=== PATIENT | male | born 1960 | race Caucasian/White ===

== ENCOUNTER → 2018-09-27 | Outpatient (CLI) | payer MEDICAID ==
--- NOTE | 2018-09-27 15:25 | XR ---
Abdomen HISTORY: Calculus of ureter Frontal view of the abdomen on 2 images No comparisons Lung bases are clear. There is no evident pneumoperitoneum or bowel obstruction. There is an irregular calcification at the level just distal to the left L3 transverse process measur ing approximately 11 mm in greatest dimension. Although calcification in the right hemipelvis may rep resent phleboliths. Additional possible vascular calcifications are present. Degenerative disc change s in the visualized spine. IMPRESSION: Findings as described may represent left ureteral calculus.
== END ==
LOC: RADXRMAIN 12:16
PROVIDERS: ATTEND Urology
DX: N20.1 Calculus of ureter (principal)
CPT/HCPCS: 74018

== ENCOUNTER → 2021-03-03 | Outpatient (CLI) | payer MEDICAID ==
[2021-03-03 10:07] LABS: HCT 48.8 % (39.0-53.0); HGB 16.7 gm/dL (13.0-17.5); MCH 31.2 pg (25.0-35.0); MCHC 34.3 g/dL (31.0-37.0); Mean Platelet Volume 7.2; Platelet Count 140 k/uL (150-450); RBC 5.37 m/uL (4.30-5.90); RDW 13.1 % (11.5-15.5); WBC 6.6 k/uL (3.8-10.6)
[2021-03-03 10:23] LABS: African American GFR (CKD) >90 (>60 ml/min/1.73 sqM); Anion Gap 7 mmol/L; Blood Urea Nitrogen 19 mg/dL (9-20); Carbon Dioxide 31 mmol/L (22-30); Chloride 103 mmol/L (98-107); Non-African American GFR(CKD) >90 (>60 ml/min/1.73 sqM); Potassium 4.8 mmol/L (3.5-5.1); Sodium 141 mmol/L (137-145)
== END | disposition home or self-care (01) ==
LOC: LABPAT 08:04
PROVIDERS: ATTEND Internal Medicine Interventional Cardiology
DX: Z01.812 Encounter for preprocedural laboratory examination (principal); R94.39 Abnormal result of other cardiovascular function study
CPT/HCPCS: 36415; 80051; 82565; 84520; 85027

== ENCOUNTER 2021-03-10 05:47 | Day surgery (SDC) | payer MEDICAID ==
[2021-03-10] MEDS ORDERED: ASPIRIN 325 MG TAB PO STA (05:52)
[2021-03-10] MEDS ORDERED: ALPRAZolam 0.25 MG TAB PO PRN (05:52)
[2021-03-10] MEDS ORDERED: ALPRAZolam 0.5 MG TAB PO PRN (05:52)
[2021-03-10] MEDS ORDERED: SODIUM CHLORIDE 0.9% 1,000 ML in EMPTY BAG 1 BAG IV ONE (05:52)
[2021-03-10] MEDS ORDERED: ATORVASTATIN 80 MG TAB PO STA (05:52)
[2021-03-10] MEDS ORDERED: NITROGLYCERIN SL TABS 0.4 MG TAB SUBLINGUAL PRN ×2 (05:52→08:33)
[2021-03-10 06:36] LABS: Basophils # (A) 0.1 k/uL (0-0.2); Basophils % (A) 1 %; Eosinophils # (A) 0.1 k/uL (0-0.7); Eosinophils % (A) 2 %; HCT 47.3 % (39.0-53.0); Lymphocytes # (A) 1.9 k/uL (1.0-4.8); Lymphocytes % (A) 26 %; MCHC 33.7 g/dL (31.0-37.0); MCV 88.9 fL (80.0-100.0); Mean Platelet Volume 7.4; Monocytes # (A) 0.5 k/uL (0-1.0); Monocytes % (A) 7 %; Neutrophils # (A) 4.5 k/uL (1.3-7.7); Neutrophils % (A) 62 %; Platelet Count 176 k/uL (150-450); RBC 5.32 m/uL (4.30-5.90); RDW 13.2 % (11.5-15.5); WBC 7.3 k/uL (3.8-10.6)
[2021-03-10] MEDS ORDERED: VERAPAMIL 2.5 MG/ML 2 ML AMP ONE (07:28)
[2021-03-10] MEDS ORDERED: LIDOCAINE 1% INJ 10MG/ML (20 ML MDV) ONE (07:28)
[2021-03-10] MEDS ORDERED: fentaNYL (PF) 50 MCG/ML 2 ML AMP ONE (07:29)
[2021-03-10] MEDS ORDERED: fentaNYL (PF) 50 MCG/ML 2 ML AMP IV ONE (07:30)
[2021-03-10] MEDS ORDERED: LIDOCAINE 1% INJ 10MG/ML (20 ML MDV) SQ ONE (07:33)
[2021-03-10] MEDS ORDERED: VERAPAMIL SYRINGE (5 MG/10 ML) INTRAARTER ONE (07:34)
[2021-03-10] MEDS ORDERED: HEPARIN SODIUM 1,000 UN/ML (10ML VL) ONE (07:34)
[2021-03-10] MEDS ORDERED: PRASUGREL 10 MG TAB ONE ×2 (07:45)
[2021-03-10] MEDS ORDERED: PRASUGREL 10 MG TAB PO ONE (07:47)
[2021-03-10] MEDS ORDERED: IOPAMIDOL-370 125ML BTL INJ ONE ×2 (07:55)
[2021-03-10] MEDS ORDERED: IOPAMIDOL-370 100ML BTL INJ ONE ×2 (08:14→08:23)
[2021-03-10] MEDS ORDERED: ATROPINE SULFATE 0.1 MG/ML 10ML SYRINGE IV PRN (08:33)
[2021-03-10] MEDS ORDERED: RX INFO: IV CONTRAST WAS GIVEN 1 EACH MISC MISCELLANE PRN (08:33)
[2021-03-10] MEDS ORDERED: MAG HYDROX/AL HYDROX/SIMETH 30 ML CUP PO PRN (08:33)
[2021-03-10] MEDS ORDERED: ZOLPIDEM 5 MG TAB PO PRN (08:33)
[2021-03-10] MEDS ORDERED: SODIUM CHLORIDE 0.9% 1,000 ML IV SCH (08:45)
--- NOTE | 2021-03-10 08:55 | CC ---
CARDIAC CATHETERIZATION REPORT Mr. Kramer is a 60-year-old male with a family history of premature coronary artery disease who presented with symptoms of exertional chest discomfort and dyspnea and a positive myocardial perfusion imaging. In view of that, recommendation beginning cardiac catheterization. The procedure as well as risks and the complications were discussed with the patient who is in full understanding and agreement. 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 Using Xylocaine anesthesia and Seldinger technique a 6-Stateless sheath was introduced in the right radial artery. Selective right and left coronary angiography performed using 5-Stateless 3.5 bend right and left Tobias catheter. Multiple views of the coronary artery including hemiaxial views obtained. Following that, a 5-Stateless tight pigtail catheter was introduced into the left ventricle and pressures were calculated. Following that, catheters were removed. There was no immediate complication. Note the patient received intra- arterial verapamil. FINDINGS: LEFT MAIN: This is a short size vessel, bifurcating into left circumflex, left anterior descending artery, left main coronary artery has no evidence of high-grade stenosis. LEFT ANTERIOR DESCENDING ARTERY: This vessel gives rise to a large diagonal branch. At the takeoff of the diagonal branch, there is a 90% to 95% eccentric lesion. The vessel beyond that is diffusely disease but has no evidence of high-grade stenosis. It tapers down the distal third. LEFT CIRCUMFLEX: This is a nondominant vessel, large in caliber giving rise to 2 obtuse marginal branches. The left circumflex proximally has a 90% stenosis. There is diffuse intimal disease through the vessel distally. RIGHT CORONARY ARTERY: This is a dominant vessel, large in caliber, bifurcating into the PDA and posterolateral segment and branches. The right coronary artery reaches toward the inferoapical wall, has diffuse intimal disease of 10 to 20% without any evidence of high-grade stenosis. FLUOROSCOPY: There was calcification involving all the coronary arteries and there was calcification involving the pericardium. HEMODYNAMICS: There was no gradient across the aortic valve. The left ventricular end-diastolic pressure was 30-34 mmHg. CONCLUSION: 1. Calcified coronary arteries. 2. Critical stenosis in the proximal LAD. 3. Critical stenosis involving the proximal left circumflex. 4. Mild disease in the right coronary artery and diffuse intimal disease in the LAD and the left circumflex. 5. Elevated left ventricular end-diastolic pressure. RECOMMENDATIONS: In view of findings and anatomy, I recommend proceeding with angioplasty and stenting of the LAD and the left circumflex. The procedure as well as risks and the complications were discussed with the patient who is in full understanding and agreement. JACKLYN / BETTY: [id number] /
--- NOTE | 2021-03-10 09:10 | LTR ---
DATE OF SERVICE: 03/10/[address] Rascon: I had the pleasure of performing cardiac catheterization and angioplasty and stenting on Mr. Kramer at [facility] on March 10 and a full copy of procedure note will be forwarded to you. In brief, he was found to have critical stenosis involving the proximal LAD and the left circumflex and he underwent successful stenting of both vessels. I am hoping that the procedure will stabilize his status. Thank you again for allowing me to participate in his care. Please feel free to call for any questions., Sincerely yours, JACKLYN / BETTY: [id number] / CROW
--- NOTE | 2021-03-10 09:10 | PTCA ---
PERCUTANEOUSTRANS CORORONARY ANGIOGRAPHY Mr. Kramer is a 60-year-old male who presented with symptoms of chest discomfort and abnormal myocardial perfusion imaging, underwent cardiac catheterization, was found to have calcified coronary arteries with significant obstructive disease involving the LAD and the left circumflex. In view of that, recommendation made regarding angioplasty and stenting. The procedure as well as the risks and complications were discussed with the patient who is in full understanding and agreement. PROCEDURE: A 6-Gibraltarian EBU 3.75 guiding catheter was introduced in the system. After cannulating the left main, a 0.014 balanced medium weight J-wire was advanced across the lesion, positioned distally. Then a 2.5 x 12 mm NC Trek balloon was advanced and one inflation at 8 atmospheres was done. Following that, the balloon was removed and a 2.75 x 15 mm Xience Chika stent was advanced, deployed and was dilated at 16 atmospheres. Following that, the balloon was removed and a 3.0 x 12 mm NC Trek balloon was advanced and one inflation at 12 atmospheres was done. Following that, the balloon and the guidewire were withdrawn back in the guiding catheter. Images were obtained and repeated. Those images revealed stable successful stenting. At that point, the wire was reintroduced into the first obtuse marginal branch and a 2.5 x 12 mm NC Trek balloon was advanced and one inflation was done. The proximal left circumflex. Following that, a 2.75 x 18 mm Xience Chika stent was advanced, deployed and was dilated at 16 atmospheres. After the last inflation, after appropriate wait, the balloon and the guidewire were withdrawn back in the guiding catheter. Images were obtained repeated. Those images reveal stable successful stenting. At that point, the guiding catheter, the balloon and the guidewire were removed. The sheath was removed. Hemostasis was obtained with deployment of a TR band. There was no immediate complication. Patient is returned to his room in stable condition. Of note, the patient received a total of 9000 units of intravenous heparin as well as oral loading dose of Effient. He had no chest discomfort but he had EKG changes that resolved at the end of the procedure. RESULTS: 1. Successful stenting of the proximal LAD with reduction of stenosis from 90% to 0%. 2. Successful stenting of the proximal left circumflex with reduction of stenosis from 90% to 0%. RECOMMENDATIONS: Patient will be continued on aspirin, Effient, beta blockers and statin. The importance of dual antiplatelet treatment were discussed with the patient and he is in full understanding and agreement. Duration of sedation is 52 minutes. MMAMENA / IJN: [id number] /
[2021-03-10] MEDS: LOSARTAN 50 MG TAB PO SCH (11:06)
[2021-03-10] MEDS: ASPIRIN 81 MG PO SCH (11:06)
[2021-03-10 12:56] VITALS: BMI 40.8
[2021-03-10] MEDS ORDERED: ATORVASTATIN 80 MG TAB PO SCH (21:00)
[2021-03-11 02:19] VITALS: PULSE 48
[2021-03-11 06:35] LABS: African American GFR (CKD) >90 (>60 ml/min/1.73 sqM); Anion Gap 4 mmol/L; Blood Urea Nitrogen 19 mg/dL (9-20); Calcium 9.1 mg/dL (8.4-10.2); Carbon Dioxide 32 mmol/L (22-30); Chloride 104 mmol/L (98-107); Glucose 114 mg/dL (74-99); Non-African American GFR(CKD) 81 (>60 ml/min/1.73 sqM); Potassium 4.4 mmol/L (3.5-5.1); Sodium 140 mmol/L (137-145)
[2021-03-11 08:33] VITALS: BP 116/64; RESP 18; TEMP 97.3
[2021-03-11] MEDS: LOSARTAN 50 MG TAB PO SCH (08:33)
[2021-03-11] MEDS: ASPIRIN 81 MG PO SCH (08:33)
[2021-03-11] MEDS ORDERED: PRASUGREL 10 MG TAB PO SCH (09:00)
--- NOTE | 2021-03-11 09:04 | PN ---
PROGRESS NOTE Mr. Kramer is a 60-year-old male with history of hypertension and hyperlipidemia who presented with abnormal myocardial perfusion imaging and abnormal EKG. Underwent cardiac catheterization and was found to have calcified coronary arteries with significant disease in the LAD and left circumflex. Underwent stenting of both vessels. He is doing well this morning. He denies any chest pain. No dizziness. No palpitation. He denies any nausea. He continued to be on aspirin once a day, Effient 10 mg daily, Lipitor 80 mg daily, losartan 100 mg daily. PHYSICAL EXAMINATION: VITAL SIGNS: Blood pressure 120/70 with a heart rate in the 50s. LUNGS: Clear. HEART: Regular rate and rhythm S1, S2. No S3. No rub. ABDOMEN: Soft and nontender. EXTREMITIES: No edema. Right radial pulse intact. On the monitor, he had an episode of nonsustained ventricular tachycardia, asymptomatic. His EKG showed T-wave inversion that was noted in the past. His BUN and creatinine are 19 and 1.01, potassium 4.4. IMPRESSION: 1. Coronary disease, status post stenting of the left anterior descending and the left circumflex. 2. Hypertension. 3. Hyperlipidemia. RECOMMENDATION: Patient will be discharged home today and followed in 1 week. The recommendations were discussed with the patient who is in full understanding and agreement. MMODL / IJN: [id number] /
[2021-03-11 10:31] LABS: Chol/HDL Ratio 4.66
== END 2021-03-11 08:48 | disposition home or self-care (01) ==
LOC: CATHCVL 05:47 → 6NMEDSUR 10:13 → CATHCVL 03-11 08:48
PROVIDERS: ATTEND Internal Medicine Interventional Cardiology
DX: I25.10 Atherosclerotic heart disease of native coronary artery without angina pectoris (principal); I25.84 Coronary atherosclerosis due to calcified coronary lesion; I10 Essential (primary) hypertension; E78.5 Hyperlipidemia, unspecified; R94.31 Abnormal electrocardiogram [ECG] [EKG]; R94.39 Abnormal result of other cardiovascular function study; Z82.49 Family history of ischemic heart disease and other diseases of the circulatory system; Z87.891 Personal history of nicotine dependence; G47.33 Obstructive sleep apnea (adult) (pediatric); Z79.82 Long term (current) use of aspirin; Z79.899 Other long term (current) drug therapy
CPT/HCPCS: 93458; 80061; 80048; 85025; 87635; C9600 ×2; C1769 ×2; C1887; C1894; C1725 ×2; C1874; J2001; J3010; J1644; Q9967 ×2

== ENCOUNTER 2021-03-17 08:47 | Day surgery (SDC) | payer MEDICAID ==
[2021-03-16 13:12] VITALS: BMI 41.0
[~2021-03-17 08:47] MED LIST: ALPRAZolam 0.25 MG TAB PO PRN; ALPRAZolam 0.5 MG TAB PO PRN; ASPIRIN 325 MG TAB PO STA; ATORVASTATIN 80 MG TAB PO STA; HEPARIN SODIUM,PORCINE 10,000 UNIT in SODIUM CHLORIDE 0.9% 1,000 ML IRRIGATION PRN; HEPARIN SODIUM,PORCINE 2,500 UNIT in SODIUM CHLORIDE 0.9% 250 ML IRRIGATION PRN; NITROGLYCERIN SL TABS 0.4 MG TAB SUBLINGUAL PRN; SODIUM CHLORIDE 0.9% 1,000 ML in EMPTY BAG 1 BAG IV ONE
[2021-03-17 09:37] VITALS: RESP 16; TEMP 99.1
[2021-03-17] MEDS ORDERED: SODIUM CHLORIDE 0.9% 1,000 ML IV ONE (09:37)
[2021-03-17 09:50] LABS: Basophils # (A) 0.1 k/uL (0-0.2); Basophils % (A) 1 %; Eosinophils # (A) 0.1 k/uL (0-0.7); Eosinophils % (A) 2 %; HCT 49.4 % (39.0-53.0); HGB 17.3 gm/dL (13.0-17.5); Lymphocytes # (A) 1.4 k/uL (1.0-4.8); Lymphocytes % (A) 22 %; MCH 30.6 pg (25.0-35.0); MCV 87.6 fL (80.0-100.0); Monocytes # (A) 0.4 k/uL (0-1.0); Monocytes % (A) 6 %; Neutrophils # (A) 4.4 k/uL (1.3-7.7); Neutrophils % (A) 68 %; Platelet Count 164 k/uL (150-450); RBC 5.64 m/uL (4.30-5.90); RDW 13.1 % (11.5-15.5); WBC 6.5 k/uL (3.8-10.6)
[2021-03-17 10:23] LABS: African American GFR (CKD) >90 (>60 ml/min/1.73 sqM); Anion Gap 11 mmol/L; Blood Urea Nitrogen 25 mg/dL (9-20); Calcium 9.3 mg/dL (8.4-10.2); Carbon Dioxide 26 mmol/L (22-30); Chloride 104 mmol/L (98-107); Glucose 108 mg/dL (74-99); Non-African American GFR(CKD) >90 (>60 ml/min/1.73 sqM); Sodium 141 mmol/L (137-145)
[2021-03-17] MEDS ORDERED: LIDOCAINE 1% INJ 10MG/ML (20 ML MDV) ONE (11:00)
[2021-03-17] MEDS ORDERED: VERAPAMIL 2.5 MG/ML 2 ML AMP ONE (11:00)
[2021-03-17] MEDS ORDERED: fentaNYL (PF) 50 MCG/ML 2 ML AMP ONE (11:09)
[2021-03-17] MEDS ORDERED: fentaNYL (PF) 50 MCG/ML 2 ML AMP IV ONE (11:17)
[2021-03-17] MEDS ORDERED: LIDOCAINE 1% INJ 10MG/ML (20 ML MDV) SQ ONE (11:23)
[2021-03-17] MEDS ORDERED: VERAPAMIL SYRINGE (5 MG/10 ML) INTRAARTER ONE (11:25)
[2021-03-17] MEDS ORDERED: HEPARIN SODIUM 1,000 UN/ML (10ML VL) IV ONE (11:28)
[2021-03-17] MEDS ORDERED: IOPAMIDOL-370 125ML BTL INJ ONE (11:34)
[2021-03-17] MEDS ORDERED: RX INFO: IV CONTRAST WAS GIVEN 1 EACH MISC MISCELLANE PRN (11:49)
[2021-03-17] MEDS ORDERED: SODIUM CHLORIDE 0.9% 1,000 ML IV SCH (12:00)
--- NOTE | 2021-03-17 14:54 | CC ---
CARDIAC CATHETERIZATION REPORT Mr. Kramer is a 60-year-old male with a history of coronary artery disease status post recent stenting of the proximal LAD and left circumflex, who presented to the office yesterday complaining of episode of chest discomfort as well as palpitations. He feels that some of the discomfort reminds him of the way he felt prior to his cardiac catheterization and angioplasty. In view of that, recommendation made regarding cardiac catheterization. The procedure as well as the risks and the complications were discussed with the patient who is in full understanding and agreement. 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 Using Xylocaine anesthesia and Seldinger technique, a 6-Martiniquais sheath was introduced in the right radial artery. Selective right and left coronary angiography performed using 5-Martiniquais 3.5 bend right and left Tobias catheter. Multiple views of the coronary artery including hemiaxial view is obtained. Following that, catheter and sheath were removed. Hemostasis was obtained with deployment of TR band. There was no immediate complication. Patient returned to his room in stable condition. Of note, the patient received 5000 units of intravenous heparin. FINDINGS: LEFT MAIN: This is a short size vessel, bifurcating into left circumflex, left anterior descending artery, left main coronary artery has no evidence of high-grade stenosis. LEFT ANTERIOR DESCENDING ARTERY: This is a large-sized vessel giving rise to a large diagonal branch proximally. The stented segment in the proximal LAD is patent. There is mild intimal disease prior to the stent of 20%. In the mid segment, there is about 20% plaque. The diagonal branch has a tubular lesion of 40% to 50%. The rest of the vessel has no high-grade stenosis. LEFT CIRCUMFLEX: This is a nondominant vessel giving rise to 3 obtuse marginal branch. The second and 3rd one are large in caliber. The stented segment in the left circumflex is patent. Distal to the stented segment, there is a 50% plaque. There is diffuse intimal disease in both obtuse marginal branches. RIGHT CORONARY ARTERY: This is a large dominant vessel bifurcating into PDA and posterolateral segment and branches. The right PDA reaches toward the inferoapical wall. The right coronary artery has intimal disease of 10 to 20% throughout its course and it is calcified. LEFT VENTRICULOGRAM: Left ventriculogram was not performed. CONCLUSION: 1. No evidence of stent thrombosis of the LAD and left circumflex. 2. Mild disease in the left circumflex, LAD and the right coronary artery. RECOMMENDATION: In view of findings and anatomy, I recommend continued medical therapy with aggressive coronary risk modification. I see no evidence of progression of disease. Those findings were discussed with the patient who is in full understanding and agreement. MMODL / IJN: [id number] /
[2021-03-17 16:33] VITALS: BP 114/69; PULSE 56
[2021-03-17] MEDS ORDERED: PANTOPRAZOLE 40 MG TABLET PO SCH (21:00)
[2021-03-17] MEDS ORDERED: ATORVASTATIN 80 MG TAB PO SCH (21:00)
[2021-03-18] MEDS ORDERED: hydroCHLOROthiazide 25 MG TAB PO SCH (09:00)
[2021-03-18] MEDS ORDERED: LOSARTAN 50 MG TAB PO SCH (09:00)
[2021-03-18] MEDS ORDERED: PRASUGREL 10 MG TAB PO SCH (09:00)
[2021-03-18] MEDS ORDERED: ASPIRIN 81 MG PO SCH (09:00)
== END 2021-03-17 16:33 | disposition home or self-care (01) ==
LOC: CATHCVL 08:47
PROVIDERS: ATTEND Internal Medicine Interventional Cardiology
DX: I25.110 Atherosclerotic heart disease of native coronary artery with unstable angina pectoris (principal); I25.84 Coronary atherosclerosis due to calcified coronary lesion; I10 Essential (primary) hypertension; E78.2 Mixed hyperlipidemia; Z87.891 Personal history of nicotine dependence; Z20.822 Contact with and (suspected) exposure to COVID-19; Z82.49 Family history of ischemic heart disease and other diseases of the circulatory system; Z95.5 Presence of coronary angioplasty implant and graft; Z79.82 Long term (current) use of aspirin; Z79.899 Other long term (current) drug therapy; G47.33 Obstructive sleep apnea (adult) (pediatric); Z98.890 Other specified postprocedural states
CPT/HCPCS: 93458; 80048; 85025; 87635; C1894; C1769; J2001; J3010; J1644; Q9967

== ENCOUNTER → 2021-03-30 | Outpatient (CLI) | payer MEDICAID ==
[2021-03-31 02:33] LABS: African American GFR (CKD) 94.4 (60.0-200.0); Albumin 4.3 g/dL (3.80-4.90); Albumin/Globulin Ratio 1.72 (1.60-3.17); Anion Gap 7.3 mmol/L (4.00-12.00); Calcium 9.3 mg/dL (8.7-10.3); Carbon Dioxide 30.7 mmol/L (21.6-31.8); Chol/HDL Ratio 3.4; Globulin 2.5 g/dL (1.6-3.3); LDL Cholesterol,Calculated 60.8 mg/dL (0.0-131.0); Non-African American GFR(CKD) 81.4 (60.0-200.0); Total Bilirubin 0.8 mg/dL (0.3-1.2); Total Protein 6.8 g/dL (6.2-8.2); VLDL Calculation 23.2 mg/dL (5.00-40.00)
== END | disposition home or self-care (01) ==
LOC: LABWHC1 15:33
PROVIDERS: ATTEND Nurse Practitioner Adult Health
DX: I10 Essential (primary) hypertension (principal); E78.2 Mixed hyperlipidemia
CPT/HCPCS: 36415; 80053; 80061

== ENCOUNTER 2021-05-13 09:12 | Inpatient (IN) | payer MEDICAID ==
[2021-05-13] MEDS ORDERED: SODIUM CHLORIDE 0.9% 500 ML 500 ML IV STA (09:23)
[2021-05-13] MEDS ORDERED: SODIUM CHLORIDE 0.9% 1,000 ML IV STA (09:23)
[2021-05-13] MEDS ORDERED: NITROGLYCERIN OINT 1 INCH/GM PACKET TOPICAL STA (09:23)
--- NOTE | 2021-05-13 09:30 | ED ---
Chest Pain HPI - General Chief Complaint: Chest Pain Stated Complaint: chest pain Time Seen by Provider: 05/13/21 09:15 Source: patient, RN notes reviewed Mode of arrival: ambulatory Limitations: no limitations - History of Present Illness Initial Comments: This is a 61-year-old male with a history of diagnosed V. tach who is scheduled to have a cardiac catheterization at 11 AM this morning who states he woke up at 8:30 AM with 8/10 retrosternal chest pain and shortness of breath. He did come the emergency department at time of my initial exam he states he was feeling somewhat better and currently is pain-free as of this dictation. He did take 4 baby aspirins this morning. He no other symptoms such as nausea vomiting states the pain was not radiating. MD Complaint: chest pain - Related Data Home Medications Medication Instructions Recorded Confirmed Aspirin [Adult Low Dose Aspirin EC] 81 mg PO DAILY 03/06/21 05/13/21 Garlic 1 tab PO DAILY 03/06/21 05/13/21 Losartan [Cozaar] 100 mg PO QAM 03/06/21 05/13/21 Multivitamins, Thera [Multivitamin 1 tab PO DAILY 03/06/21 05/13/21 (formulary)] Omeprazole [PriLOSEC] 40 mg PO HS 03/06/21 05/13/21 hydroCHLOROthiazide 25 mg PO QAM 03/06/21 05/13/21 Metoprolol Tartrate 25 mg PO BID 05/12/21 05/13/21 Aspirin 324 mg PO ONCE 05/13/21 05/13/21 Previous Rx's Medication Instructions Recorded Atorvastatin [Lipitor] 80 mg PO HS #90 tab 03/11/21 Nitroglycerin Sl Tabs [Nitrostat] 0.4 mg SUBLINGUAL Q5M PRN #25 tab 03/11/21 Prasugrel [Effient] 10 mg PO DAILY #90 tab 03/11/21 Allergies Allergy/AdvReac Type Severity Reaction Status Date / Time No Known Allergies Allergy Verified 05/13/21 09:36 Review of Systems ROS Statement: Those systems with pertinent positive or pertinent negative responses have been documented in the HPI. ROS Other: All systems not noted in ROS Statement are negative. EKG Findings - EKG Results: EKG: interpreted by [facility], sinus rhythm (Sinus rhythm rate of 61 appear interval 160 QRS 98 QT since QTC 438/[address]-T wave configuration this was compared with an EKG dated 01/20/2123 similar configuration.) Past Medical History Past Medical History: Hypertension Additional Past Medical History / Comment(s): HX OF RECTAL POLYP History of Any Multi-Drug Resistant Organisms: None Reported Past Surgical History: Heart Catheterization With Stent, Orthopedic Surgery Additional Past Surgical History / Comment(s): LT KNEE SCOPE, COLONOSCOPY, heart cath 03/10/21-2 stents Past Anesthesia/Blood Transfusion Reactions: No Reported Reaction Date of Last Stent Placement:: 03/10/21 Past Psychological History: No Psychological Hx Reported Smoking Status: Former smoker - Past Family History Mother Family Medical History: No Reported History General Exam - General Exam Comments Initial Comments: This is a well-developed well-nourished awake alert oriented times 3 male Limitations: no limitations General appearance: alert, anxious Head exam: Present: atraumatic, normocephalic, normal inspection Eye exam: Present: normal appearance, PERRL, EOMI. Absent: scleral icterus, conjunctival injection, periorbital swelling ENT exam: Present: normal exam, mucous membranes moist Neck exam: Present: normal inspection. Absent: tenderness, meningismus, lymphadenopathy Respiratory exam: Present: normal lung sounds bilaterally. Absent: respiratory distress, wheezes, rales, rhonchi, stridor Cardiovascular Exam: Present: regular rate, normal rhythm, normal heart sounds. Absent: systolic murmur, diastolic murmur, rubs, gallop, clicks GI/Abdominal exam: Present: soft, normal bowel sounds. Absent: distended, tenderness, guarding, rebound, rigid Extremities exam: Present: normal inspection, full ROM, normal capillary refill. Absent: tenderness, pedal edema, joint swelling, calf tenderness Back exam: Present: normal inspection Neurological exam: Present: alert, oriented X3, CN II-XII intact Psychiatric exam: Present: normal affect, normal mood Skin exam: Present: warm, dry, intact, normal color. Absent: rash Course Vital Signs 05/13/21 09:18 Temperature 97.2 F L Pulse Rate 63 Respiratory 18 Rate Blood Pressure 135/78 O2 Sat by Pulse 99 Oximetry - Reevaluation(s) Reevaluation #1: 05/13/21 09:[address] Nguyen. Patient will be admitted to the [facility]. Chest Pain MDM - MDM Imaging reviewed no acute findings seen at this time. Labs are pending patient will go to the [facility] U Bed 5 Disposition Clinical Impression: Chest pain, Unstable angina pectoris, History of ventricular tachycardia Disposition: ADMITTED IP TO THIS HOSP Condition: Fair Referrals: Philip Rascon DO [Primary Care Provider] - 1-2 days
--- NOTE | 2021-05-13 09:46 | XR ---
EXAMINATION TYPE: XR chest 1V portable DATE OF EXAM: 05/13/2021 COMPARISON: NONE HISTORY: Chest pain TECHNIQUE: Single frontal view of the chest is obtained. FINDINGS: Heart is enlarged and there is coarsened interstitium. No pleural effusion or pneumothorax . Hypertrophic change of the spine. IMPRESSION: Cardiomegaly correlate for chronic interstitial lung disease or venous congestion. Inter stitial pneumonitis in the differential diagnosis
[2021-05-13 09:52] LABS: Basophils % (A) 1 %; Eosinophils # (A) 0.1 k/uL (0-0.7); Eosinophils % (A) 1 %; HCT 48.1 % (39.0-53.0); HGB 16.8 gm/dL (13.0-17.5); Lymphocytes # (A) 2.4 k/uL (1.0-4.8); Lymphocytes % (A) 32 %; MCH 32.1 pg (25.0-35.0); MCV 91.9 fL (80.0-100.0); Mean Platelet Volume 7.5; Monocytes # (A) 0.4 k/uL (0-1.0); Monocytes % (A) 6 %; Neutrophils # (A) 4.2 k/uL (1.3-7.7); Neutrophils % (A) 56 %; Platelet Count 166 k/uL (150-450); RBC 5.24 m/uL (4.30-5.90); RDW 14.3 % (11.5-15.5); WBC 7.5 k/uL (3.8-10.6)
[2021-05-13 09:54] LABS: ALT 88 U/L (4-49); AST 64 U/L (17-59); African American GFR (CKD) >90 (>60 ml/min/1.73 sqM); Alkaline Phosphatase 79 U/L (38-126); Anion Gap 10 mmol/L; Blood Urea Nitrogen 20 mg/dL (9-20); Calcium 9.3 mg/dL (8.4-10.2); Carbon Dioxide 23 mmol/L (22-30); Chloride 107 mmol/L (98-107); Glucose 122 mg/dL (74-99); Lipase 140 U/L (23-300); Non-African American GFR(CKD) >90 (>60 ml/min/1.73 sqM); Potassium 4.6 mmol/L (3.5-5.1); Sodium 140 mmol/L (137-145); Total Bilirubin 0.6 mg/dL (0.2-1.3); Total Protein 6.9 g/dL (6.3-8.2)
[2021-05-13 09:58] LABS: INR 0.9 (<1.2); Prothrombin Time 10.1 sec (9.0-12.0)
[2021-05-13] MEDS ORDERED: SODIUM CHLORIDE 0.9% 1,000 ML IV ONE (10:00)
[2021-05-13] MEDS ORDERED: VERAPAMIL 2.5 MG/ML 2 ML AMP ONE (11:27)
[2021-05-13] MEDS ORDERED: fentaNYL (PF) 50 MCG/ML 2 ML AMP ONE (11:27)
[2021-05-13] MEDS ORDERED: HEPARIN SODIUM 1,000 UN/ML (10ML VL) ONE (11:27)
[2021-05-13] MEDS ORDERED: LIDOCAINE 1% INJ 10MG/ML (20 ML MDV) ONE (11:27)
[2021-05-13] MEDS ORDERED: fentaNYL (PF) 50 MCG/ML 2 ML AMP IVP ONE (11:57)
[2021-05-13] MEDS ORDERED: LIDOCAINE 1% INJ 10MG/ML (20 ML MDV) SQ ONE (12:01)
[2021-05-13] MEDS ORDERED: VERAPAMIL SYRINGE (5 MG/10 ML) INTRAARTER ONE (12:03)
[2021-05-13] MEDS ORDERED: HEPARIN SODIUM 1,000 UN/ML (10ML VL) IV ONE (12:06)
[2021-05-13] MEDS ORDERED: IOPAMIDOL-370 125ML BTL INJ ONE (12:21)
[2021-05-13] MEDS ORDERED: RX INFO: IV CONTRAST WAS GIVEN 1 EACH MISC MISCELLANE PRN (12:29)
[2021-05-13] MEDS ORDERED: SODIUM CHLORIDE 0.9% 1,000 ML IV SCH (12:30)
--- NOTE | 2021-05-13 14:18 | CC ---
CARDIAC CATHETERIZATION REPORT Mr. young 61-year-old male with known history of CAD, status post percutaneous revascularization of his LAD and left circumflex in March of this year, who was in cardiac rehab and had episode of nonsustained ventricular tachycardia. He was evaluated and scheduled to undergo cardiac catheterization but presented to the emergency room with symptoms of chest discomfort without acute ST-segment changes or enzymatic changes but because of his presentation, recommendation made regarding cardiac catheterization. The procedure as well as the risks and the complications were discussed with the patient who is in full understanding and agreement. 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 Using Xylocaine anesthesia Seldinger technique a 6-St Helenian sheath was introduced in the right radial artery. Selective right and left coronary angiography performed using 5-St Helenian 3-1/2 Bend right the left Tobias catheter. Multiple views of the coronary artery including hemiaxial views obtained. Following that 5-St Helenian tight pigtail catheter was introduced into the left ventricle and a 30-degree SCHAFER view of the left ventricle was obtained. Following that, catheter and sheath were removed, hemostasis was obtained with deployment of TR band. There was no immediate complication. Patient is returned to his room in stable condition. Of note, the patient received 5000 units of intravenous heparin as well as intra- arterial verapamil. FINDINGS: LEFT MAIN: Left main is a short size vessel, bifurcating into left circumflex, left anterior descending artery, left main artery has no evidence of high-grade stenosis. LEFT ANTERIOR DESCENDING ARTERY: This is a large-sized vessel reaching toward the apex with a wraparound apex segment giving rise to a diagonal branch of moderate caliber in the mid segment. The stented segment in the LAD is patent. There is mild intimal disease prior to it about 10-20 percent. There is diffuse mild intimal disease in the diagonal branch in the LAD without any evidence of high-grade stenosis. LEFT CIRCUMFLEX: This is a large nondominant vessel giving rise to 2 obtuse marginal branch. The stented segment in the proximal left circumflex is patent. There is a 20% plaque distal to it. The second obtuse marginal branch has a 30 to 40% plaque. The rest of the vessel has no high-grade stenosis. RIGHT CORONARY ARTERY: This is a large dominant vessel bifurcating distally PDA and posterolateral segment and branches. The right coronary artery has diffuse mild intimal disease of 10 to 20% without any evidence of high-grade stenosis. LEFT VENTRICULOGRAM: Left ventriculogram is performed in 30-degree SCHAFER view and revealed normal size systolic function. Ejection fraction is 55-60 percent. There was no significant mitral regurgitation. HEMODYNAMICS: There was no gradient across the aortic valve. The ventriclar end-diastolic pressure was 26-30 mmHg. CONCLUSION: 1. Patent stent to the LAD, left circumflex. 2. Mild triple-vessel disease. 3. Normal size and systolic function. 4. Elevated left ventricular end-diastolic pressure. RECOMMENDATION: In view of finding anatomy, I have recommend continue medical therapy. We will obtain the opinion of Dr. Gilmore regarding his nonsustained ventricular tachycardia. In the meantime, will continue on the beta ruby and depending on his progress further recommendations will be made. Those findings and recommendations were discussed with the patient and his son over the phone, and they are full understanding and agreement. MMREBECCAL / ALCONN: [id number] /
--- NOTE | 2021-05-13 14:21 | CC ---
CARDIAC CATHETERIZATION REPORT May 13, [address] Rascon, I had the opportunity to perform cardiac catheterization on Mr. Kramer at [facility] on May 13 and a full copy of the procedure note will be forwarded to you. In brief, he was found to have evidence of mild coronary artery disease with no significant restenosis in the prior stented segment of the LAD and left circumflex and a preserved ventricular systolic function. At the same time, he had an episode of nonsustained ventricular tachycardia while in cardiac rehab and I will obtain the opinion of Dr. Gilmore regarding his ventricular tachycardia. I will keep you updated on his progress and thank you again for allowing me the opportunity to participate in his care. Please don't hesitate to call for any questions. Sincerely, JACKLYN / ALCONN: [id number] /
[2021-05-13] MEDS: ATORVASTATIN 80 MG TAB PO SCH (21:22)
[2021-05-13] MEDS: PANTOPRAZOLE 40 MG TABLET PO SCH (21:22)
[2021-05-14] MEDS: METOPROLOL TARTRATE 25 MG TAB PO SCH ×2 (01:29→07:22)
[2021-05-14] MEDS: ASPIRIN 81 MG PO SCH (07:22)
[2021-05-14] MEDS: PRASUGREL 10 MG TAB PO SCH (07:22)
[2021-05-14 08:01] LABS: African American GFR (CKD) >90 (>60 ml/min/1.73 sqM); Anion Gap 7 mmol/L; Blood Urea Nitrogen 16 mg/dL (9-20); Calcium 8.9 mg/dL (8.4-10.2); Carbon Dioxide 29 mmol/L (22-30); Chloride 104 mmol/L (98-107); Glucose 113 mg/dL (74-99); Non-African American GFR(CKD) >90 (>60 ml/min/1.73 sqM); Potassium 4.6 mmol/L (3.5-5.1); Sodium 140 mmol/L (137-145)
[2021-05-14] MEDS ORDERED: ISOSORBIDE MONONITRATE ER 30 MG TAB.ER.24H PO SCH (09:00)
[2021-05-14] MEDS ORDERED: hydroCHLOROthiazide 25 MG TAB PO SCH (09:00)
--- NOTE | 2021-05-14 13:57 | P.CRDCN ---
History of Present Illness History of present illness: This is a pleasant 61-year-old with past medical history significant for coronary artery disease status post PCI of LAD and circumflex in March 2021, nonsustained ventricular tachycardia, hypertension, hyperlipidemia. Patient had been experiencing chest discomfort and therefore was evaluated in March and had stenting of his LAD and circumflex. Unfortunately since that time patient has been having occasional episodes where he will get chest discomfort sometimes with exertion and this has been occurring often at cardiac rehab. He therefore had repeat heart catheterization 03/17/2021 which showed no change, patent stents. Patient has however been undergoing cardiac rehab and still having similar issues. Additionally he has been having frequent runs of nonsustained ventricular tachycardia. He underwent left heart catheterization yesterday which showed patent stent to the LAD and left circumflex with otherwise mild triple-vessel disease, elevated LVEDP at 26-30. He also underwent left ventriculogram which showed ejection fraction 55-60%. He did have a recurrent episode of chest discomfort with merely walking to the bathroom this morning. He states he started walking and then had discomfort and during this time nursing was notified of intermittent monomorphic ventricular tachycardia lasting for approximately a minute. Patient did have some residual chest pain for the next 30-40 minutes. EKG was performed which did show diffuse biphasic T waves V2 through V5 concerning for Wellens sign however this has been somewhat similar to past EKGs. His chest pain slowly resolved and repeat EKG showed relatively similar biphasic T waves. Currently is chest pain-free and denies any chest pain or shortness breath. Blood work was repeated with troponin 0.018, 0.074, 0.056. Concern of elevated troponins possibly related to VT. REVIEW OF SYSTEMS At the time of my exam: CONSTITUTIONAL: Denies fever or chills. CARDIOVASCULAR: +chest pain, no shortness of breath, orthopnea, PND or palpitations. RESPIRATORY: Denies cough. GASTROINTESTINAL: Denies abdominal pain, diarrhea, constipation, nausea or vomiting. PHYSICAL EXAMINATION Vital signs reviewed. CONSTITUTIONAL: No apparent distress. HEENT: Head is normocephalic. Pupils are equal, round. Sclerae anicteric. Mucous membranes of the mouth are moist. No JVD. No carotid bruit. CHEST EXAMINATION: Lungs are clear to auscultation. No chest wall tenderness is noted on palpation or with deep breathing. HEART EXAMINATION: Regular rate and rhythm. S1, S2 heard. No murmurs, gallops or rub. ABDOMEN: Soft, nontender. Positive bowel sounds. EXTREMITIES: 2+ peripheral pulses, no lower extremity edema and no calf tend erness. NEUROLOGIC EXAMINATION: Patient is awake, alert and oriented x3. ASSESSMENT 1. Coronary artery disease status post PCI LAD and circumflex March 2021. Repeat heart catheterization patent stents 2. Chest pain, occurring mainly with exertion. Unclear if this is related to ventricular tachycardia or angina 3. Non-STEMI, questionably related to ventricular tachycardia 4. Nonsustained ventricular tachycardia 5. Hypertension 6. Elevated left-sided filling pressures, no overt signs of heart failure, normal left ventricular ejection fraction 7. Abnormal EKG, biphasic T waves V2 through V5. Most concerning with for Wellen's sign however has been relatively similar in the past. Not typical of Brugada syndrome. PLAN Patient with complex presentation which has been going on for approximately 2 months. He did initially undergo stenting however has still had intermittent episodes of chest pain, mainly occurring with cardiac rehab. He also has been having episodes of nonsustained ventricular tachycardia. He underwent heart catheterization yesterday which showed no change and no obstructive disease noted. Discussed with primary cinder man, Dr. Nguyen. We will attempt to up titrate antianginal medications as able. Elevated troponins may be related to ventricular tachycardia. EKG concerning for Wellen's sign however has been similar in the past. Not typical of Brugada syndrome. We will consult electrophysiology and further recommendations to follow. Past Medical History Past Medical History: Hypertension Additional Past Medical History / Comment(s): HX OF RECTAL POLYP History of Any Multi-Drug Resistant Organisms: None Reported Past Surgical History: Heart Catheterization With Stent, Orthopedic Surgery Additional Past Surgical History / Comment(s): LT KNEE SCOPE, COLONOSCOPY, heart cath 03/10/21-2 stents Past Anesthesia/Blood Transfusion Reactions: No Reported Reaction Date of Last Stent Placement:: 03/10/21 Smoking Status: Never smoker - Past Family History Mother Family Medical History: No Reported History Medications and Allergies Home Medications Medication Instructions Recorded Confirmed Type Aspirin [Adult Low Dose Aspirin EC] 81 mg PO DAILY 03/06/21 05/13/21 History Garlic 1 tab PO DAILY 03/06/21 05/13/21 History Losartan [Cozaar] 100 mg PO QAM 03/06/21 05/13/21 History Multivitamins, Thera [Multivitamin 1 tab PO DAILY 03/06/21 05/13/21 History (formulary)] Omeprazole [PriLOSEC] 40 mg PO HS 03/06/21 05/13/21 History hydroCHLOROthiazide 25 mg PO QAM 03/06/21 05/13/21 History Atorvastatin [Lipitor] 80 mg PO HS #90 tab 03/11/21 05/13/21 Rx Nitroglycerin Sl Tabs [Nitrostat] 0.4 mg SUBLINGUAL Q5M PRN #25 tab 03/11/21 05/13/21 Rx Prasugrel [Effient] 10 mg PO DAILY #90 tab 03/11/21 05/13/21 Rx Metoprolol Tartrate 25 mg PO BID 05/12/21 05/13/21 History Aspirin 324 mg PO ONCE 05/13/21 05/13/21 History Allergies Allergy/AdvReac Type Severity Reaction Status Date / Time No Known Allergies Allergy Verified 05/13/21 09:36 Physical Exam Vitals: Vital Signs Temp Pulse Pulse Pulse Resp BP Pulse Ox 05/14/21 11:26 74 16 111/55 97 05/14/21 08:00 16 05/14/21 07:24 97.7 F 45 L 16 144/81 100 05/14/21 06:47 54 L 20 148/98 100 05/14/21 02:00 98 F 50 L 48 L 16 119/66 100 05/13/21 21:20 85 104/59 05/13/21 20:00 50 L 16 05/13/21 19:04 98.4 F 52 L 20 105/65 95 05/13/21 15:00 98.2 F 54 L 16 145/83 98 05/13/21 14:45 45 L 112/67 99 Intake and Output 05/13/21 05/14/21 05/14/21 22:59 06:59 14:59 Intake Total 500 300 436 Balance 500 300 436 Intake: Oral 500 300 436 Other: Voiding Method Toilet Toilet # Voids 2 2 Weight 122.47 kg Results 05/13/21 09:26 05/14/21 07:28 Cardiac Enzymes 05/14/21 05/14/21 Range/Units 07:28 09:29 Troponin I 0.074 H* 0.056 H* (0.000-0.034) ng/mL Comprehensive Metabolic Panel 05/14/21 Range/Units 07:28 Sodium 140 (137-145) mmol/L Potassium 4.6 (3.5-5.1) mmol/L Chloride 104 (98-107) mmol/L Carbon Dioxide 29 (22-30) mmol/L BUN 16 (9-20) mg/dL Creatinine 0.84 (0.66-1.25) mg/dL Glucose 113 H (74-99) mg/dL Calcium 8.9 (8.4-10.2) mg/dL Current Medications Generic Name Dose Route Start Last Admin Trade Name Freq PRN Reason Stop Dose Admin Aspirin 81 mg 05/14/21 09:00 05/14/21 07:22 Aspirin 81 Mg PO 81 mg DAILY SHARAN Administration Atorvastatin Calcium 80 mg 05/13/21 21:00 05/13/21 21:22 Atorvastatin 80 Mg Tab PO 80 mg HS SHARAN Administration Hydrochlorothiazide 25 mg 05/14/21 09:00 Hydrochlorothiazide 25 Mg Tab PO QAM SHARAN Isosorbide Mononitrate 30 mg 05/14/21 09:00 05/14/21 08:48 Isosorbide Mononitrate Er 30 Mg Tab.Er.24h PO 30 mg DAILY SHARAN Administration Losartan Potassium 100 mg 05/14/21 09:00 Losartan 50 Mg Tab PO QAM SHARAN Metoprolol Tartrate 25 mg 05/13/21 21:00 05/14/21 07:22 Metoprolol Tartrate 25 Mg Tab PO 25 mg BID SHARAN Administration Miscellaneous Information 1 each 05/13/21 12:29 Rx Info: Iv Contrast Was Given 1 Each Misc MISCELLANE 05/15/21 12:29 DAILY PRN Per Protocol Multivitamins 1 each 05/14/21 09:00 Multivitamins, Thera 1 Each Tab PO DAILY SHARAN Pantoprazole Sodium 40 mg 05/13/21 21:00 05/13/21 21:22 Pantoprazole 40 Mg Tablet PO 40 mg HS SHARAN Administration Prasugrel 10 mg 05/14/21 09:00 05/14/21 07:22 Prasugrel 10 Mg Tab PO 10 mg DAILY SHARAN Administration Intake and Output 05/13/21 05/14/21 05/14/21 22:59 06:59 14:59 Intake Total 500 300 436 Balance 500 300 436 Intake: Oral 500 300 436 Other: Voiding Method Toilet Toilet # Voids 2 2 Weight 122.47 kg 05/13/21 09:26 05/14/21 07:28
[2021-05-14] MEDS: MULTIVITAMINS, THERA 1 EACH TAB PO SCH (15:05)
[2021-05-14] MEDS: LOSARTAN 50 MG TAB PO SCH (15:33)
--- NOTE | 2021-05-14 17:20 | P.HPIM ---
History of Present Illness H&P Date: 05/14/21 Chief Complaint: Chest pain This is 61-year-old gentleman with history of NSVT, CAD status post PCI of LAD and circumflex in March 2021, repeat cardiac cath 03/17/2021 reporting patent stents, presented to the ER with left-sided chest pain. Patient reports during cardiac rehab while on the warmup cycle, he began to have runs of nonsustained V. tach. accompanied by exertional chest pressure.cardiology notified and he he was scheduled for a repeat cardiac catheterization to be completed yesterday morning. Patient stated left-sided chest pressure worsened yesterday morning described as persistent gastroesophageal reflux like symptoms with a little left-sided chest tightness that radiated down his left arm and proceeded to the ER. Denies syncope, denies palpitations or lightheadedness. Consumed 4 baby aspirins with relief. EKGs abnormal, Cardiology notified and took him for cardiac cath. Cardiac catheterization reported patent stents of the LAD and the left circumflex, mild triple vessel disease, elevated LVEDP 26- 30, EF 55-60%. Bradycardic, maintained on nitrates, ARB, beta ruby, Effient, stent, aspirin with consult placed to Dr. Gilmore. Continues to have runs of nonsustained V. tach this morning accompanied by chest pain. Review of Systems ROS Statement: Those systems with pertinent positive or pertinent negative responses have been documented in the HPI. ROS Other: All systems not noted in ROS Statement are negative. Past Medical History Past Medical History: Hypertension Additional Past Medical History / Comment(s): HX OF RECTAL POLYP History of Any Multi-Drug Resistant Organisms: None Reported Past Surgical History: Heart Catheterization With Stent, Orthopedic Surgery Additional Past Surgical History / Comment(s): LT KNEE SCOPE, COLONOSCOPY, heart cath 03/10/21-2 stents Past Anesthesia/Blood Transfusion Reactions: No Reported Reaction Date of Last Stent Placement:: 03/10/21 Smoking Status: Never smoker - Past Family History Mother Family Medical History: No Reported History Medications and Allergies Home Medications Medication Instructions Recorded Confirmed Type Aspirin [Adult Low Dose Aspirin EC] 81 mg PO DAILY 03/06/21 05/13/21 History Garlic 1 tab PO DAILY 03/06/21 05/13/21 History Losartan [Cozaar] 100 mg PO QAM 03/06/21 05/13/21 History Multivitamins, Thera [Multivitamin 1 tab PO DAILY 03/06/21 05/13/21 History (formulary)] Omeprazole [PriLOSEC] 40 mg PO HS 03/06/21 05/13/21 History hydroCHLOROthiazide 25 mg PO QAM 03/06/21 05/13/21 History Atorvastatin [Lipitor] 80 mg PO HS #90 tab 03/11/21 05/13/21 Rx Nitroglycerin Sl Tabs [Nitrostat] 0.4 mg SUBLINGUAL Q5M PRN #25 tab 03/11/21 0 05/13/21 Rx Prasugrel [Effient] 10 mg PO DAILY #90 tab 03/11/21 05/13/21 Rx Metoprolol Tartrate 25 mg PO BID 05/12/21 05/13/21 History Aspirin 324 mg PO ONCE 05/13/21 05/13/21 History Allergies Allergy/AdvReac Type Severity Reaction Status Date / Time No Known Allergies Allergy Verified 05/13/21 09:36 Physical Exam Vitals: Vital Signs Temp Pulse Pulse Resp BP BP Pulse Ox 05/14/21 14:42 98.1 F 52 L 16 136/66 95 05/14/21 14:14 52 L 16 122/72 95 05/14/21 14:08 28 L 16 125/58 95 05/14/21 14:00 16 05/14/21 11:26 74 16 111/55 97 05/14/21 08:00 16 05/14/21 07:24 97.7 F 45 L 16 144/81 100 05/14/21 06:47 54 L 20 148/98 100 05/14/21 02:00 98 F 50 L 48 L 16 119/66 100 05/13/21 21:20 85 104/59 05/13/21 20:00 50 L 16 05/13/21 19:04 98.4 F 52 L 20 105/65 95 Intake and Output 05/14/21 05/14/21 05/14/21 06:59 14:59 22:59 Intake Total 300 436 Balance 300 436 Intake: Oral 300 436 Other: Voiding Method Toilet # Voids 2 1 PHYSICAL EXAM: VITAL SIGNS: As above GENERAL: Sitting up at bedside, no acute distress HEENT: Conjunctivae normal. eyes normal. Oral mucosa dry NECK: No JVD. No thyroid enlargement. No LNs CARDIOVASCULAR: S1, S2 regular.. No murmur RESPIRATION: Breath sounds diminished in the bases. No rhonchi or crackles. No bronchial breathing. ABDOMEN: Soft, nontender . No guarding. no masses palpable. Bowel sounds heard. LEGS: No edema. no swelling, no calf tenderness PSYCHIATRY: Alert and oriented X3, mood and affect normal. NERVOUS SYSTEM: Cranial N 2-12 grossly normal. Moves all 4 limbs.No focal defi cits. Strength and sensation grossly intact.. Skin: Warm and dry, no rash Results CBC & Chem 7: 05/13/21 09:26 05/14/21 07:28 Labs: Abnormal Lab Results - Last 24 Hours (Table) 05/14/21 05/14/21 05/14/21 Range/Units 07:28 07:28 09:29 Glucose 113 H (74-99) mg/dL Troponin I 0.074 H* 0.056 H* (0.000-0.034) ng/mL 05/14/21 Range/Units 12:48 Glucose (74-99) mg/dL Troponin I 0.058 H* (0.000-0.034) ng/mL Thrombosis Risk Factor Assmnt - Choose All That Apply Any of the Below Risk Factors Present?: No Other Risk Factors: Yes Each Risk Factor Represents 2 Points: Age 61-74 years Thrombosis Risk Factor Assessment Total Risk Factor Score: 2 Thrombosis Risk Factor Assessment Level: Low Risk Assessment and Plan Assessment: Chest pain, history of nonsustained V. tach NSTEMI Bradycardia CAD status post recent PCI LAD and circumflex, in March 2021. Repeat heart catheterization reporting patent stents Nonsustained V. tach Hypertension Plan: Continue on current medication regime ,monitoring and symptomatic treatment. Home meds reviewed and resumed accordingly. Antiarrhythmics as per cardiology. Dr. Gilmore consult placed, recommendations pending. Close monitoring of electrolytes, coagulation, renal function with repeat labs ordered for a.m. The impression and plan of care has been dictated as directed. : I performed a history and examination of this patient, discussed the same with the dictator. I agree with the dictator's note ,documented as a scribe. Any additional findings or plans will be noted.
--- NOTE | 2021-05-14 19:58 | P.EPCON ---
Electrophysiology Consult - EP Consult Electrophysiology Consult: This is Dr. Gilmore dictating an electrophysiology consult on this patient The patient was interviewed and examined IMPRESSION / ASSESSMENT: Recurrent fast ventricular tachycardia associated with shortness of breath and chest discomfort and occasionally presyncope Abnormal twelve-lead EKG with deep T-wave inversions V4 through V6 that have persisted after coronary stenting Coronary artery disease status post stenting to the LAD and circumflex, chavez ccessful and stents remain patent Elevated LVEDP, possible prominent trabeculations in the LV on LV gram Tendency for slow heart rate, sinus bradycardia currently on low-dose metoprolol for that reason Consider structural Sudden syndromes given the abnormality in the twelve- lead EKG and hence a LifeVest until a final diagnosis is established and treated PLAN: Stop metoprolol Start sotalol 80 mg twice daily Until he remains on sotalol I will stop hydrochlorothiazide, switched to spironolactone and add Slow-Mag to avoid hypokalemia/hypomagnesemia LifeVest diagnoses the patient is having exercise-induced ventricular tachycardia, symptomatic, sustained as well as spontaneous sustained ventricular tachycardia with self-determination, despite beta blockers Patient has coronary artery disease preserved systolic function but an abnormal ECG at baseline with T-wave inversions Conditions such as apical hypertrophy should be considered although this is not evident on his LV gram Monitor for 24 hours to 48 hours on sotalol, watch QT interval Diagnostic EP study to look for inducible ventricular tachycardia as well as inducible ventricular fibrillation Depending upon the results of EP study, consideration for VT ablation and or device implant Recommend further imaging studies to evaluate the LV and RV myocardium , outpatient cardiac MRI This VT appears to be originating from the inferior wall of the RV or may represent an inferior RV exit No driving until a final diagnosis is made and treatment plan established HPI Patient initially referred by Dr. Rascon and evaluated by Dr. Nguyen as an outpatient Reason for referral: Patient is complaining of recurrent discomfort in the chest occasional dizziness and an abnormal ECG with deep T-wave inversions V4 to V6 QRS was narrow He underwent a 2-D echo in the office which showed preserved LV systolic function He underwent an exercise card lites stress test. He access for was 7 minutes. No arrhythmias noted Possible anterior wall ischemia The patient underwent coronary angiography thereafter Significant stenosis in the LAD and left circumflex status post stenting Successful stenting of the proximal LAD with reduction of stenosis from 90% to 0% Successful stenting of the Doxil left circumflex with reduction of stenosis from 90% to 0% Mild disease in the left circumflex obtuse marginal and of the RCA Subsequently in cardiac rehab he was found to have fast ventricular tachycardia during exercise Repeat coronary angiography revealed patent stent to the LAD and left circumflex Preserved LV systolic function on LV gram No gradient across the aortic valve However the LVEDP was 26-30 mmHg LV gram showed possible increased trabeculation In the hospital the patient had runs of sustained ventricular tachycardia, fast associated with shortness of breath and chest discomfort and dizziness Spontaneous termination The morphology of the tachycardia appears to be left bundle branch block like morphology with superior axis and positive in lead 1 and aVL On direct questioning, the patient states that he has had recurrent chest discomfort even prior to his cardiac evaluation. He experiences seem discomfort when he was in cardiac rehab At that time fast VT was documented We had the episodes here the hospital once again he had that sensation of discomfort in the chest but he never felt palpitations He has had episodes where he felt presyncopal especially at work, while bending ROS: No fever chills or rigors, no cough, phlegm or expectoration, no nausea, vomiting or diarrhea, no hematuria, dysuria, no musculoskeletal complaints, no strokes or seizures, no skin lesions. EXAMINATION: Heart rates in the 50s, normal respirations, blood pressure 129/68 mmHg Heart sounds normal Abdomen is soft Extremities are warm No JVD Increased BMI REVIEW OF LABS, ECG & MEDICAL DATA Hemoglobin 16.8, electrolytes normal Renal function normal Borderline abnormal troponins Mildly abnormal AST and ALT
[2021-05-14] MEDS: SOTALOL 80 MG TAB PO SCH (20:53)
[2021-05-14] MEDS: PANTOPRAZOLE 40 MG TABLET PO SCH (20:53)
[2021-05-14] MEDS: ATORVASTATIN 80 MG TAB PO SCH (20:53)
[2021-05-15 08:07] LABS: Basophils % (A) 0 %; Eosinophils # (A) 0.1 k/uL (0-0.7); Eosinophils % (A) 2 %; HCT 45.1 % (39.0-53.0); HGB 15.2 gm/dL (13.0-17.5); Lymphocytes # (A) 1.3 k/uL (1.0-4.8); Lymphocytes % (A) 20 %; MCH 31.2 pg (25.0-35.0); MCHC 33.6 g/dL (31.0-37.0); MCV 92.7 fL (80.0-100.0); Mean Platelet Volume 7.7; Monocytes # (A) 0.4 k/uL (0-1.0); Monocytes % (A) 6 %; Neutrophils # (A) 4.5 k/uL (1.3-7.7); Neutrophils % (A) 70 %; Platelet Count 156 k/uL (150-450); RBC 4.86 m/uL (4.30-5.90); RDW 13.8 % (11.5-15.5); WBC 6.5 k/uL (3.8-10.6)
[2021-05-15 08:21] LABS: African American GFR (CKD) >90 (>60 ml/min/1.73 sqM); Anion Gap 7 mmol/L; Blood Urea Nitrogen 18 mg/dL (9-20); Calcium 9.1 mg/dL (8.4-10.2); Carbon Dioxide 29 mmol/L (22-30); Chloride 104 mmol/L (98-107); Glucose 110 mg/dL (74-99); Magnesium 2.2 mg/dL (1.6-2.3); Non-African American GFR(CKD) >90 (>60 ml/min/1.73 sqM); Potassium 4.5 mmol/L (3.5-5.1); Sodium 140 mmol/L (137-145)
[2021-05-15] MEDS: ASPIRIN 81 MG PO SCH (08:49)
[2021-05-15] MEDS: SOTALOL 80 MG TAB PO SCH ×2 (08:50→23:16)
[2021-05-15] MEDS: PRASUGREL 10 MG TAB PO SCH (08:50)
[2021-05-15] MEDS: SPIRONOLACTONE 25 MG TAB PO SCH (08:50)
[2021-05-15] MEDS: MAGNESIUM OXIDE 400 MG TAB PO SCH (08:50)
[2021-05-15] MEDS: LOSARTAN 50 MG TAB PO SCH (08:50)
[2021-05-15] MEDS: MULTIVITAMINS, THERA 1 EACH TAB PO SCH (08:50)
[2021-05-15] MEDS: ISOSORBIDE MONONITRATE ER 30 MG TAB.ER.24H PO SCH (08:59)
--- NOTE | 2021-05-15 11:59 | PN ---
PROGRESS NOTE Mr. Kramer is a 61-year-old male with known history of coronary artery disease, status post stenting of the LAD and left circumflex in March of this year, history of mild to moderate diffuse disease, who presented with an episode of chest discomfort as well as an episode of nonsustained ventricular tachycardia. He underwent cardiac catheterization that showed no evidence of significant progression of disease. He had no further episodes of recurrent ventricular tachycardia and he had no significant chest pain. He was evaluated by Dr. Gilmore yesterday and his beta ruby was stopped and he was started on sotalol. His breathing is stable today. He was ambulating in the room without difficulty. He had no further episode of atrial fibrillation on the monitor. He has no dizziness or palpitation. The plan is to proceed with LifeVest placement and subsequently a cardiac MRI to rule out structural heart disease and EP study and ablation or ICD implantation, depending on the results. He continues to be at this time on aspirin once a day, Lipitor 80 mg daily, losartan 100 mg daily, magnesium, Effient 10 mg daily, sotalol 80 mg twice a day, and spironolactone 25 mg daily. PHYSICAL EXAMINATION: Blood pressure is running in the 130s, heart rate in the 50s. LUNGS: Clear. HEART: Regular rate and rhythm. S1, S2. No S3. No rub. ABDOMEN: Soft, obese, nontender. EXTREMITIES: No edema. LAB DATA: Hemoglobin 15.2, BUN and creatinine of 18 and 0.83. IMPRESSION: 1. Recurrent ventricular tachycardia of unclear etiology. 2. Chest discomfort, improved at this time. The patient was started on nitrates and will reinitiate that. 3. History of stenting of the LAD and the left circumflex, patent. 4. Hyperlipidemia. 5. Abnormal baseline EKG without ST changes, of unclear etiology. 6. Mild troponin elevation, most likely related to the ventricular tachycardia. RECOMMENDATIONS: I will reinitiate the isosorbide mononitrate, increase his level of activity. He will receive the LifeVest and then proceed with a cardiac MRI. Depending on his progress, further recommendations will be made. MMODL / IJN: [id number] /
--- NOTE | 2021-05-15 15:36 | P.PN ---
Subjective Progress Note Date: 05/15/21 Hospital course:This is 61-year-old gentleman with history of NSVT, CAD status post PCI of LAD and circumflex in March 2021, repeat cardiac cath 03/17/2021 reporting patent stents, presented to the ER with left-sided chest pain. Patient reports during cardiac rehab while on the warmup cycle, he began to have runs of nonsustained V. tach. accompanied by exertional chest pressure.cardiology notified and he he was scheduled for a repeat cardiac catheterization to be completed yesterday morning. Patient stated left-sided chest pressure worsened yesterday morning described as persistent gastroes ophageal reflux like symptoms with a little left-sided chest tightness that radiated down his left arm and proceeded to the ER. Denies syncope, denies palpitations or lightheadedness. Consumed 4 baby aspirins with relief. EKGs abnormal, Cardiology notified and took him for cardiac cath. Cardiac catheterization reported patent stents of the LAD and the left circumflex, mild triple vessel disease, elevated LVEDP 26-30, EF 55-60%. Bradycardic, maintained on nitrates, ARB, beta ruby, Effient, stent, aspirin with consult placed to Dr. Gilmore. Continues to have runs of nonsustained V. tach this morning accompanied by chest pain. 05/15/[address] Gilmore, beta ruby stopped, sotalol initiated.Telemetry sinus rhythm with occasional PVC with no arrhythmias reported. Life vest ordered, with recommendations for EP study. Denies chest pain, pressure, palpitations. Denies lightheadedness, dizziness or focal deficits. Objective - Vital Signs Vital signs: Vital Signs Temp 98 F 05/15/21 10:28 Pulse 55 L 05/15/21 13:14 Resp 16 05/15/21 13:14 BP 139/71 05/15/21 10:28 Pulse Ox 98 05/15/21 10:28 Intake & Output 05/14/21 05/15/21 05/15/21 18:59 06:59 18:59 Intake Total 676 Balance 676 Weight 121.6 kg Intake: Oral 676 Other: Voiding Method Toilet Toilet # Voids 1 1 2 - Exam PHYSICAL EXAM: VITAL SIGNS: As above GENERAL: Alert and oriented 3, Sitting up at bedside, no acute distress HEENT: Conjunctivae normal. eyes normal. Oral mucosa moist. NECK: No JVD. No thyroid enlargement. No LNs. CARDIOVASCULAR: S1, S2 regular. No murmur RESPIRATION: Breath sounds diminished in the bases. No rhonchi or crackles. ABDOMEN: Soft, nontender . No guarding. no masses palpable. Bowel sounds heard. LEGS: No edema. no swelling, no calf tenderness. NERVOUS SYSTEM: Cranial N 2-12 grossly normal. Moves all 4 limbs.No focal deficits. Strength and sensation grossly intact.. Skin: Warm and dry, no rash - Labs CBC & Chem 7: 05/15/21 07:40 05/15/21 07:40 Labs: Abnormal Lab Results - Last 24 Hours (Table) 05/15/21 Range/Units 07:40 Glucose 110 H (74-99) mg/dL Assessment and Plan Assessment: Chest pain, history of recurrent nonsustained V. tach, etiology unclear NSTEMI Bradycardia CAD status post recent PCI LAD and circumflex, in March 2021. Repeat heart catheterization reporting patent stents Nonsustained V. tach Hypertension Plan: Continue on current medication regime ,monitoring and symptomatic treatment. Sotalol initiated, continue monitoring overnight. Close monitoring of QT interval, potassium, magnesium. LifeVest pending. Discharge planning in progress for tomorrow pending final DC recommendations and clearance from cardiology, with diagnostic EP study recommended. The impression and plan of care has been dictated as directed. : I performed a history and examination of this patient, discussed the same with the dictator. I agree with the dictator's note ,documented as a scribe. Any additional findings or plans will be noted.
[2021-05-15] MEDS: PANTOPRAZOLE 40 MG TABLET PO SCH (21:44)
[2021-05-15] MEDS: ATORVASTATIN 80 MG TAB PO SCH (21:44)
[2021-05-16 08:24] LABS: African American GFR (CKD) >90 (>60 ml/min/1.73 sqM); Anion Gap 9 mmol/L; Blood Urea Nitrogen 19 mg/dL (9-20); Calcium 8.5 mg/dL (8.4-10.2); Carbon Dioxide 24 mmol/L (22-30); Chloride 106 mmol/L (98-107); Glucose 119 mg/dL (74-99); Magnesium 2.2 mg/dL (1.6-2.3); Non-African American GFR(CKD) 85 (>60 ml/min/1.73 sqM); Potassium 3.8 mmol/L (3.5-5.1); Sodium 139 mmol/L (137-145)
[2021-05-16] MEDS: ISOSORBIDE MONONITRATE ER 30 MG TAB.ER.24H PO SCH (08:39)
[2021-05-16] MEDS: PRASUGREL 10 MG TAB PO SCH (08:39)
[2021-05-16] MEDS: MULTIVITAMINS, THERA 1 EACH TAB PO SCH (08:39)
[2021-05-16] MEDS: ASPIRIN 81 MG PO SCH (08:39)
[2021-05-16] MEDS: SPIRONOLACTONE 25 MG TAB PO SCH (08:40)
[2021-05-16] MEDS: SOTALOL 80 MG TAB PO SCH ×2 (08:40→22:18)
[2021-05-16] MEDS: LOSARTAN 50 MG TAB PO SCH (08:40)
[2021-05-16] MEDS: MAGNESIUM OXIDE 400 MG TAB PO SCH (08:40)
--- NOTE | 2021-05-16 16:27 | PN ---
PROGRESS NOTE DATE OF SERVICE: 05/16/2021. I am covering for Dr. Rascon. HISTORY: This 61-year-old gentleman admitted with multiple medical problems and nonsustained VT cardiac had cardiac cath showed patent stents. Patient had recurrent episodes of nonsustained ventricular tachycardia. The patient had a LifeVest. The patient had some episodes of ventricular tachycardia today after exertion. No chest pain. No palpitations. No fever. PHYSICAL EXAMINATION: Alert contents pulse 46, blood pressure 120/70, respiration 20, temp 98 degrees, pulse ox 94% on room air. S1, S2 muffled. Conjunctivae normal. Breath sounds diminished in the bases. No rhonchi. No crackles. Abdomen is soft nontender. Legs are nontender. Nervous system no focal deficits. LABS: CBC and BMP noted. Troponin is noted. ASSESSMENT: 1. Chest pain possible unstable angina, status post cardiac catheterization and patent stent. 2. Nonsustained ventricular tachycardia. 3. Status post LifeVest. 4. Acute non-ST elevation myocardial infarction. 5. Bradycardia. 6. Hypertension. 7. History of DJD. 8. Hypertension. 9. History of rectal polyp. 10.Full code. RECOMMENDATIONS: In this 61-year-old gentleman who presented with multiple complex medical issues, we will monitor the patient closely, continue the current management and treatment. I would recommend monitor electrolytes closely. Continue telemetry. The patient is on antiplatelet agents and sotalol 80 mg p.o. b.i.d. Closely follow with Cardiology. Prognosis guarded. Further recommendations to follow. LifeVest is on. MMODL / IJN: [id number] /
--- NOTE | 2021-05-16 18:54 | P.PN ---
Subjective This is a pleasant 61-year-old with past medical history significant for coronary artery disease status post PCI of LAD and circumflex in March 2021, nonsustained ventricular tachycardia, hypertension, hyperlipidemia. Patient had been experiencing chest discomfort and therefore was evaluated in March and had stenting of his LAD and circumflex. Unfortunately since that time patient has been having occasional episodes where he will get chest discomfort sometimes with exertion and this has been occurring often at cardiac rehab. He therefore had repeat heart catheterization 03/17/2021 which showed no change, patent stents. Patient has however been undergoing cardiac rehab and still having similar issues. Additionally he has been having frequent runs of nonsustained ventricular tachycardia. He underwent left heart catheterization yesterday which showed patent stent to the LAD and left circumflex with otherwise mild triple-vessel disease, elevated LVEDP at 26-30. He also underwent left ventriculogram which showed ejection fraction 55-60%. He did have a recurrent episode of chest discomfort with merely walking to the bathroom this morning. He states he started walking and then had discomfort and during this time nursing was notified of intermittent monomorphic ventricular tachycardia lasting for approximately a minute. Patient did have some residual chest pain for the next 30-40 minutes. EKG was performed which did show diffuse biphasic T waves V2 through V5 concerning for Wellens sign however this has been somewhat similar to past EKGs. His chest pain slowly resolved and repeat EKG showed relatively similar biphasic T waves. Currently is chest pain-free and denies any chest pain or shortness breath. Blood work was repeated with troponin 0.018, 0.074, 0.056. Concern of elevated troponins possibly related to VT. 05/16 Patient seen and examined. Patient had LifeVest placed and is tolerating that well. He is still having multiple episodes of nonsustained ventricular tachycardia mainly after he does minimal exertion. He denies any further chest pain or pressure however. He has had 3 doses of the sotalol and QTC this morning normal. REVIEW OF SYSTEMS At the time of my exam: CONSTITUTIONAL: Denies fever or chills. CARDIOVASCULAR: no chest pain, no shortness of breath, orthopnea, PND or palpitations. RESPIRATORY: Denies cough. GASTROINTESTINAL: Denies abdominal pain, diarrhea, constipation, nausea or vomiting. PHYSICAL EXAMINATION Vital signs reviewed. CONSTITUTIONAL: No apparent distress. HEENT: Head is normocephalic. Pupils are equal, round. Sclerae anicteric. Mucous membranes of the mouth are moist. No JVD. No carotid bruit. CHEST EXAMINATION: Lungs are clear to auscultation. No chest wall tenderness is noted on palpation or with deep breathing. HEART EXAMINATION: Regular rate and rhythm. S1, S2 heard. No murmurs, gallops or rub. ABDOMEN: Soft, nontender. Positive bowel sounds. EXTREMITIES: 2+ peripheral pulses, no lower extremity edema and no calf tenderness. NEUROLOGIC EXAMINATION: Patient is awake, alert and oriented x3. ASSESSMENT 1. Coronary artery disease status post PCI LAD and circumflex March 2021. Repeat heart catheterization patent stents 2. Chest pain, occurring mainly with exertion 3. Non-STEMI, appears related to ventricular tachycardia 4. Nonsustained ventricular tachycardia 5. Hypertension 6. Elevated left-sided filling pressures, no overt signs of heart failure, normal left ventricular ejection fraction 7. Abnormal EKG, biphasic T waves V2 through V5. Most concerning with for Wellen's sign however has been relatively similar in the past. Not typical of Brugada syndrome. PLAN Continue loading and monitoring of sotalol. Beta ruby was discontinued and monitor as patient has been bradycardic. Monitor QTC. Patient still having intermittent runs of nonsustained ventricular tachycardia which appears mainly with exertion. Plan for continued sotalol load and if QTC normal tomorrow, possible discharge home if able to ambulate the halls without any angina-type symptoms. Objective - Vital Signs Vital signs: Vital Signs Temp 98.6 F 05/16/21 16:48 Pulse 51 L 05/16/21 16:48 Resp 20 05/16/21 16:48 BP 134/82 05/16/21 16:48 Pulse Ox 96 05/16/21 16:48 Intake & Output 05/15/21 05/16/21 05/16/21 18:59 06:59 18:59 Intake Total 540 660 Balance 540 660 Weight 122.9 kg Intake: Oral 540 660 Other: Voiding Method Toilet # Voids 1 1 3 - Labs CBC & Chem 7: 05/15/21 07:40 05/16/21 06:57 Labs: Abnormal Lab Results - Last 24 Hours (Table) 05/16/21 Range/Units 06:57 Glucose 119 H (74-99) mg/dL
[2021-05-16] MEDS: PANTOPRAZOLE 40 MG TABLET PO SCH (21:41)
[2021-05-16] MEDS: ATORVASTATIN 80 MG TAB PO SCH (21:41)
[2021-05-17 07:37] LABS: Basophils % (A) 1 %; Eosinophils # (A) 0.1 k/uL (0-0.7); Eosinophils % (A) 2 %; HCT 46.1 % (39.0-53.0); HGB 15.2 gm/dL (13.0-17.5); Lymphocytes # (A) 1.5 k/uL (1.0-4.8); Lymphocytes % (A) 23 %; MCH 30.9 pg (25.0-35.0); MCV 93.6 fL (80.0-100.0); Mean Platelet Volume 7.6; Monocytes # (A) 0.4 k/uL (0-1.0); Monocytes % (A) 6 %; Neutrophils # (A) 4.4 k/uL (1.3-7.7); Neutrophils % (A) 67 %; Platelet Count 151 k/uL (150-450); RBC 4.92 m/uL (4.30-5.90); RDW 14.3 % (11.5-15.5); WBC 6.6 k/uL (3.8-10.6)
[2021-05-17 07:56] LABS: African American GFR (CKD) >90 (>60 ml/min/1.73 sqM); Anion Gap 7 mmol/L; Blood Urea Nitrogen 20 mg/dL (9-20); Calcium 8.9 mg/dL (8.4-10.2); Carbon Dioxide 24 mmol/L (22-30); Chloride 109 mmol/L (98-107); Glucose 113 mg/dL (74-99); Magnesium 2.3 mg/dL (1.6-2.3); Non-African American GFR(CKD) >90 (>60 ml/min/1.73 sqM); Potassium 4.3 mmol/L (3.5-5.1); Sodium 140 mmol/L (137-145)
[2021-05-17] MEDS: SPIRONOLACTONE 25 MG TAB PO SCH (09:23)
[2021-05-17] MEDS: LOSARTAN 50 MG TAB PO SCH (09:23)
[2021-05-17] MEDS: SOTALOL 80 MG TAB PO SCH ×2 (09:23→20:07)
[2021-05-17] MEDS: MAGNESIUM OXIDE 400 MG TAB PO SCH (09:23)
[2021-05-17] MEDS: ASPIRIN 81 MG PO SCH (09:23)
[2021-05-17] MEDS: MULTIVITAMINS, THERA 1 EACH TAB PO SCH (09:24)
[2021-05-17] MEDS: ISOSORBIDE MONONITRATE ER 30 MG TAB.ER.24H PO SCH (09:24)
[2021-05-17] MEDS: PRASUGREL 10 MG TAB PO SCH (09:24)
--- NOTE | 2021-05-17 13:47 | P.PN ---
Subjective This is a pleasant 61-year-old with past medical history significant for coronary artery disease status post PCI of LAD and circumflex in March 2021, nonsustained ventricular tachycardia, hypertension, hyperlipidemia. Patient had been experiencing chest discomfort and therefore was evaluated in March and had stenting of his LAD and circumflex. Unfortunately since that time patient has been having occasional episodes where he will get chest discomfort sometimes with exertion and this has been occurring often at cardiac rehab. He therefore had repeat heart catheterization 03/17/2021 which showed no change, patent stents. Patient has however been undergoing cardiac rehab and still having similar issues. Additionally he has been having frequent runs of nonsustained ventricular tachycardia. He underwent left heart catheterization yesterday which showed patent stent to the LAD and left circumflex with otherwise mild triple-vessel disease, elevated LVEDP at 26-30. He also underwent left ventriculogram which showed ejection fraction 55-60%. He did have a recurrent episode of chest discomfort with merely walking to the bathroom this morning. He states he started walking and then had discomfort and during this time nursing was notified of intermittent monomorphic ventricular tachycardia lasting for approximately a minute. Patient did have some residual chest pain for the next 30-40 minutes. EKG was performed which did show diffuse biphasic T waves V2 through V5 concerning for Wellens sign however this has been somewhat similar to past EKGs. His chest pain slowly resolved and repeat EKG showed relatively similar biphasic T waves. Currently is chest pain-free and denies any chest pain or shortness breath. Blood work was repeated with troponin 0.018, 0.074, 0.056. Concern of elevated troponins possibly related to VT. 05/16 Patient seen and examined. Patient had LifeVest placed and is tolerating that well. He is still having multiple episodes of nonsustained ventricular tachycardia mainly after he does minimal exertion. He denies any further chest pain or pressure however. He has had 3 doses of the sotalol and QTC this morning normal. 05/17 Patient seen and examined. Patient with more episodes this morning of chest discomfort with minimal exertion and frequent episodes of nonsustained VT. Patient states this was occurring with just going to the side. He did have continued frequent episodes of nonsustained VT this morning which she was very symptomatic with and still having residual discomfort however he admits this may be related to the LifeVest that he is wearing. We discussed attempting to walk the halls however was fearful to walk halls. He is fearful to go home by himself and has no one else to stay with him. REVIEW OF SYSTEMS At the time of my exam: CONSTITUTIONAL: Denies fever or chills. CARDIOVASCULAR: +chest pain, no shortness of breath, orthopnea, PND or palpitations. RESPIRATORY: Denies cough. GASTROINTESTINAL: Denies abdominal pain, diarrhea, constipation, nausea or vomiting. PHYSICAL EXAMINATION Vital signs reviewed. CONSTITUTIONAL: No apparent distress. HEENT: Head is normocephalic. Pupils are equal, round. Sclerae anicteric. Mucous membranes of the mouth are moist. No JVD. No carotid bruit. CHEST EXAMINATION: Lungs are clear to auscultation. No chest wall tenderness is noted on palpation or with deep breathing. HEART EXAMINATION: Regular rate and rhythm. S1, S2 heard. No murmurs, gallops or rub. ABDOMEN: Soft, nontender. Positive bowel sounds. EXTREMITIES: 2+ peripheral pulses, no lower extremity edema and no calf tenderness. NEUROLOGIC EXAMINATION: Patient is awake, alert and oriented x3. ASSESSMENT 1. Coronary artery disease status post PCI LAD and circumflex March 2021. Repeat heart catheterization patent stents 2. Chest pain, occurring mainly with exertion 3. Non-STEMI, appears related to ventricular tachycardia 4. Nonsustained ventricular tachycardia 5. Hypertension 6. Elevated left-sided filling pressures, no overt signs of heart failure, normal left ventricular ejection fraction 7. Abnormal EKG, biphasic T waves V2 through V5. Most concerning with for Wellen's sign however has been relatively similar in the past. Not typical of Brugada syndrome. 8. Sinus bradycardia PLAN Patient with continued episodes of symptomatic nonsustained ventricular tachycardia at rest and with exertion as well as significant chest pain with minimal exertion. Troponins checked this morning and were flat, normal. He is still having some chest pain however appears related to the LifeVest. He is fearful however to do even minimal activity and to go home by himself. Continue to monitor QTC. We will discuss further and further recommendations from electrophysiology tomorrow. Objective - Vital Signs Vital signs: Vital Signs Temp 97.8 F 05/17/21 12:05 Pulse 37 L 05/17/21 12:05 Resp 20 05/17/21 12:05 BP 118/70 05/17/21 12:05 Pulse Ox 98 05/17/21 12:05 Intake & Output 05/16/21 05/17/21 05/17/21 18:59 06:59 18:59 Intake Total 660 660 Balance 660 660 Weight 122.5 kg Intake: Oral 660 660 Other: # Voids 3 1 2 - Labs CBC & Chem 7: 05/17/21 07:14 05/17/21 07:14 Labs: Abnormal Lab Results - Last 24 Hours (Table) 05/17/21 Range/Units 07:14 Chloride 109 H (98-107) mmol/L Glucose 113 H (74-99) mg/dL
--- NOTE | 2021-05-17 15:19 | PN ---
PROGRESS NOTE I am covering for Dr. Rascon. DATE OF SERVICE: 05/17/2009 This 61-year-old gentleman, admitted with chest pain, had a cardiac catheterization with a patent stent. But the patient had recurrent episodes of ventricular tachycardia. The patient is being closely monitored. Cardiology has seen the patient. The patient is currently on sotalol and losartan. No chest pain. No palpitations. No fever. PHYSICAL EXAMINATION: Alert and oriented x3. Pulse 37, blood pressure 118/70, respiration 20, temperature 97.8, pulse ox 98% on room air. HEENT: Conjunctivae normal. NECK: No jugular venous distention. RESPIRATORY SYSTEM: Breath sounds diminished at the bases. ABDOMEN: Soft, nontender. NERVOUS SYSTEM: No focal deficit. LABS: CBC, BMP noted. Magnesium is 2.3. ASSESSMENT: 1. Chest pain, possible unstable angina, status post cardiac catheterization and patent stents. 2. Nonsustained ventricular tachycardia , recurrent. 3. Status post LifeVest. 4. Acute [id number]-TK-aptgqqx-elevation myocardial infarction present. 5. Bradycardia. 6. Hypertension. 7. History of degenerative joint disease. 8. History of rectal polyp. 9. FULL CODE. RECOMMENDATIONS AND DISCUSSION: I recommend to continue current medications, continue with symptomatic treatment. Monitor electrolytes closely. Monitor telemetry. Closely follow with Cardiology. Adjust medications. Further recommendations to follow. Dr. Rascon will follow tomorrow. MMODL / ALCONN: [id number] /
[2021-05-17] MEDS: ATORVASTATIN 80 MG TAB PO SCH (20:07)
[2021-05-17] MEDS: PANTOPRAZOLE 40 MG TABLET PO SCH (20:07)
[2021-05-18] MEDS ORDERED: AMINOPHYLLINE 500 MG/20 ML VIAL IV PRN (05:00)
[2021-05-18] MEDS ORDERED: CAFFEINE CITRATE 60 MG/3 ML VIAL IV PRN (05:00)
[2021-05-18] MEDS ORDERED: REGADENOSON 0.4 MG/5 ML SYRINGE IV PRN (06:00)
[2021-05-18] MEDS: ISOSORBIDE MONONITRATE ER 30 MG TAB.ER.24H PO SCH (06:21)
[2021-05-18] MEDS: SPIRONOLACTONE 25 MG TAB PO SCH (08:33)
[2021-05-18] MEDS: PRASUGREL 10 MG TAB PO SCH (08:33)
[2021-05-18] MEDS: MULTIVITAMINS, THERA 1 EACH TAB PO SCH (08:33)
[2021-05-18] MEDS: LOSARTAN 50 MG TAB PO SCH (08:33)
[2021-05-18] MEDS: ASPIRIN 81 MG PO SCH (08:33)
[2021-05-18] MEDS: MAGNESIUM OXIDE 400 MG TAB PO SCH (08:33)
[2021-05-18] MEDS: SOTALOL 80 MG TAB PO SCH (08:34)
--- NOTE | 2021-05-18 10:35 | P.STRESS ---
- Stress Test Note Stress Test Results/Findings: Exam Performed: Exam Date: Reason for Exam: Height: 5 ft 8 in Weight: 122.2 kg Protocol: Stage: Duration of Exercise: Resting Heart Rate: Resting Blood Pressure: Maximum Achieved Heart Rate: Maximum Achieved Blood Pressure: 85% PMHR: 100% PMHR: METS: Technologist Comment: Stress Test Results/Findings: This is a 61-year-old gentleman with history of hypertension smoking and family history of ischemic heart disease being evaluated for cardiac status, because of V. tach. Stress data: Baseline EKG showed sinus rhythm with normal OR interval and QRS duration with a T-wave changes in inferolateral leads. Blood pressure at rest is 115/50, pulse rate of 42.chest and dose of Lexiscan was infused. Patient developed frequent PVCs with a bigeminal pattern, during and after the infusion. Patient did not experience any chest pain. Final impression: #1. Negative Lexiscan stress test #2 patient developed frequent PVCs with a bigeminal pattern. #3. Patient did not experience any chest pain. #4. Report on the nuclear images to be provided by the radiologist.
--- NOTE | 2021-05-18 12:08 | NM ---
EXAMINATION TYPE: NM stress lexiscan cardiolite DATE OF EXAM: 05/18/2021 COMPARISON: NONE HISTORY: 61-year-old male chest pain TECHNIQUE: After the intravenous administration of 9.7 mCi Tc 99m Sestamibi - Cardiolite resting SPE CT images acquired 75 minutes post injection. The patient received 0.4mg Lexiscan, 25.5 mCi Tc 99m Sestamibi - Stress images obtained [address] injection FINDINGS: Review of stress and rest SPECT images demonstrates there is a fixed perfusion abnormality mid milan septal wall and also mid to basal inferior wall. The defect accentuates slightly along the mid inferi or wall during stress On gated analysis, the inferior wall does not appear to fully augment. Estimated left ventricular eje ction fraction of 67 %. TID calculated at 1.07, upper limits of normal. IMPRESSION: 1. Suspect a previous mid to basal inferior wall infarct. Unable to exclude mild connie-infarct ischemi a along the mid inferior wall. 2. Small area of old anteroseptal wall infarct is also suggested. Further workup as clinically indica nayeli.
--- NOTE | 2021-05-18 15:20 | P.PN ---
Subjective Patient continues to have episodes of ventricular tachycardia. Despite being on sotalol 80 mg twice daily and beta blockers He complains of shortness of breath and chest discomfort during long episodes of VT On examination he is afebrile 98.6F, pulse rate in the 40s Normal respirations Blood pressure 136/73 mmHg, 97% O2 sat on room air Heart sounds S1-S2 are normal Breath sounds are clear Labs are reviewed and are normal Impression History of recurrent ventricular tachycardia History of proximal LAD occlusion status post stenting as well as proximal left circumflex Elevated LVEDP Failed sotalol and patient continues to have recurrent episodes of ventricular tachycardia over the weekend and today Dr. Solano ordered a Lexiscan Cardiolite stress test which did not show any evidence for ischemia This shows a fixed defect in the mid to basal inferior wall and a fixed defect in the anteroseptal wall of the left ventricle Sick Sinus Syndrome I had a detailed discussion with the patient and I would recommend proceeding with an EP study and ablation tomorrow for ventricular tachycardia I would continue with a LifeVest until a more detailed assessment of his myocardium is performed as an outpatient Patient is in agreement and we will proceed with an EP study and possible ablation tomorrow for VT His VT on telemetry appears to have a left bundle branch block morphology, brought fractionated downslope and negative in the the inferior leads He has deep T-wave inversions V4 through V6 on his sinus EKG I will hold sotalol tonight but will continue Effient and baby aspirin Objective - Vital Signs Vital signs: Vital Signs Temp 97.6 F 05/18/21 08:00 Pulse 43 L 05/18/21 13:37 Resp 16 05/18/21 12:00 BP 136/73 05/18/21 12:00 Pulse Ox 97 05/18/21 12:00 Intake & Output 05/17/21 05/18/21 05/18/21 18:59 06:59 18:59 Intake Total 900 540 Balance 900 540 Weight 122.2 kg 122.2 kg Intake: Oral 900 540 Other: Voiding Method Toilet Toilet # Voids 2 1 # Bowel Movements 1 - Labs CBC & Chem 7: 05/17/21 07:14 05/17/21 07:14
[2021-05-18] MEDS: PANTOPRAZOLE 40 MG TABLET PO SCH (20:04)
[2021-05-18] MEDS: ATORVASTATIN 80 MG TAB PO SCH (20:04)
[2021-05-18] MEDS ORDERED: SODIUM CHLORIDE 0.9% 1,000 ML IV SCH (23:59)
[2021-05-19] MEDS: LOSARTAN 50 MG TAB PO SCH (08:12)
[2021-05-19] MEDS: ASPIRIN 81 MG PO SCH (08:12)
[2021-05-19] MEDS: MULTIVITAMINS, THERA 1 EACH TAB PO SCH (08:12)
[2021-05-19] MEDS: PRASUGREL 10 MG TAB PO SCH (08:12)
[2021-05-19] MEDS: MAGNESIUM OXIDE 400 MG TAB PO SCH (08:12)
[2021-05-19] MEDS: SPIRONOLACTONE 25 MG TAB PO SCH (08:13)
[2021-05-19] MEDS ORDERED: LIDOCAINE 1% INJ 10MG/ML (20 ML MDV) ONE (10:28)
[2021-05-19] MEDS ORDERED: PROPOFOL 10 MG/ML 20 ML VIAL IV ONE (10:58)
[2021-05-19] MEDS ORDERED: KETOROLAC 15 MG/ML 1 ML VIAL ONE (10:58)
[2021-05-19] MEDS ORDERED: MIDAZOLAM 2 MG/2 ML VIAL ONE (10:58)
[2021-05-19] MEDS ORDERED: ISOPROTERENOL 250 MCG/1.25 ML SYR IV ONE (10:58)
[2021-05-19] MEDS ORDERED: fentaNYL (PF) 50 MCG/ML 2 ML AMP ONE (10:58)
[2021-05-19] MEDS ORDERED: IV FLUID CONTINUATION 1,000 ML IV ONE (11:39)
[2021-05-19] MEDS ORDERED: LIDOCAINE 1% INJ 10MG/ML (20 ML MDV) SQ ONE (11:48)
[2021-05-19] MEDS ORDERED: HEPARIN SODIUM (1,000 UNIT/ML) 1,000 UNIT in SODIUM CHLORIDE 0.9% 1,000 ML IRRIGATION ONE (14:57)
--- NOTE | 2021-05-19 15:35 | P.PN ---
Progress Note - Text Patient underwent a diagnostic EP study and mapping and ablation of a VT from the right ventricular apex that turned out to be epicardial in origin rather than endocardial. He also had inducible ventricular fibrillation on the EP study Intracardiac echo at the end of the procedure did not show any pericardial effusion. Patient has normal LV function Plan Stop sotalol Start metoprolol Colchicine for pain Outpatient noninvasive assessment of the myocardium to make a diagnosis of his cardiac condition Thereafter I will implant a dual-chamber ICD In the interim the patient will continue to the LifeVest until the ICD was implanted Discussed with his daughter Jamin
[2021-05-19] MEDS ORDERED: ACETAMINOPHEN TAB 325 MG TAB PO PRN (15:37)
[2021-05-19] MEDS ORDERED: ACETAMINOPHEN IV (For NPO) 1,000 MG in EMPTY BAG 1 BAG IVPB ONE (15:37)
[2021-05-19] MEDS: COLCHICINE 0.6 MG EACH PO SCH ×2 (17:11→20:33)
[2021-05-19] MEDS ORDERED: NITROGLYCERIN SL TABS 0.4 MG TAB SUBLINGUAL ONE (17:27)
[2021-05-19] MEDS ORDERED: DEXTROSE 5% IN WATER 100 ML with AMIODARONE 300 MG IV ONE (17:34)
[2021-05-19 17:35] LABS: Glucose,Whole Blood 89 mg/dL (75-99)
[2021-05-19] MEDS ORDERED: SODIUM CHLORIDE 0.9% 500 ML 500 ML IV ONE (18:04)
[2021-05-19] MEDS: SODIUM CHLORIDE 0.9% 1,000 ML IV SCH (18:23)
[2021-05-19 18:26] LABS: Glucose,Whole Blood 113 mg/dL (75-99)
[2021-05-19 18:35] LABS: ABG Base Excess -3.3 mmol/L; ABG HCO3 22 mmol/L (21-25); ABG PCO2 35 mmHg (35-45); ABG PO2 223 mmHg (83-108); ABG TCO2 23 mmol/L (19-24); Allen Test Performed? Yes
--- NOTE | 2021-05-19 18:43 | P.EN ---
A- team: Indication: bradycardia with V-tach runs Arrived on Scene to find: Patient with HR of 12-20 on the zoll monitor. BP 98/50, O2 90. Patient seen and examined at bedside. Patient with complaints of 10/10 chest pain and pain with deep breathing. He denies light headness or dizziness Vital signs reviewed General: ill appearing, cool and clammy, appears at stated age Derm: warm, dry Head: atraumatic, normocephalic, symmetric Eyes: EOMI, no lid lag, anicteric sclera Mouth: no lip lesion, mucus membranes moist Cardiovascular: S1S2 irreg, with murmur, positive posterior tibial pulse bilateral, + Femoral and Radial Lungs: Decreased bs bilateral, no rhonchi, no rales , no accessory muscle use Abdominal: soft, nontender to palpation, no guarding, no appreciable organomegaly Ext: no gross muscle atrophy, no edema, no contractures Neuro: CN II-XI grossly intact, no focal neuro deficits Psych: Alert, oriented, appropriate affect Assessment: Bradycardia noted initially on bedisde monitor and given atropine, tele was demonstrating normal beat then 4-6 PVCs in a row consistent with NSVT, Gain adjusted on monitor and now consistent with tele. His femoral and radial pusle was 22 beats per minutes. After atropine patient did become more awake and have decreased chest pain. non sustain V -tach Given atropine Plan: - Transfer to ICU for closer monitoring - Stat CBC, CMP, Trop, mg, phos - Dr. Gilmore gave orders for amio - BS 89 Notified: transfer to the ICU Artinian notified and agreeable with transfer Dr. Rascon sent a message on perfect serve - abg reviewed - cxr reviewed by me, enlarged cardiac shillouette unchanged from 05/14. A Total of 35 minutes of critical care time was spent on the complex care of this patient.
[2021-05-19 18:51] LABS: Basophils % (A) 0 %; Eosinophils # (A) 0.1 k/uL (0-0.7); Eosinophils % (A) 1 %; HGB 14.8 gm/dL (13.0-17.5); Lymphocytes # (A) 0.8 k/uL (1.0-4.8); Lymphocytes % (A) 6 %; MCH 31.1 pg (25.0-35.0); MCHC 33.6 g/dL (31.0-37.0); MCV 92.7 fL (80.0-100.0); Mean Platelet Volume 7.1; Monocytes # (A) 0.5 k/uL (0-1.0); Monocytes % (A) 3 %; Neutrophils # (A) 12.7 k/uL (1.3-7.7); Neutrophils % (A) 90 %; Platelet Count 187 k/uL (150-450); RBC 4.74 m/uL (4.30-5.90); RDW 14.3 % (11.5-15.5); WBC 14.2 k/uL (3.8-10.6)
[2021-05-19 18:56] LABS: INR 1.1 (<1.2); Partial Thromboplastin Time 22.4 sec (22.0-30.0); Prothrombin Time 11.2 sec (9.0-12.0)
--- NOTE | 2021-05-19 18:56 | XR ---
EXAMINATION TYPE: XR chest 1V DATE OF EXAM: 05/19/2021 COMPARISON: 05/13/2021 HISTORY: Chest pain TECHNIQUE: Single view FINDINGS: Heart is enlarged. Lungs are clear of consolidation. There is some infiltrate at the left l lynn base. There are chest leads. There are no hilar masses. IMPRESSION: There is some left lower lobe pneumonia which is new compared to old exam. Cardiomegaly u nchanged. No heart failure.
[2021-05-19 19:04] LABS: Albumin 3.5 g/dL (3.5-5.0); Calcium 8.5 mg/dL (8.4-10.2); Magnesium 2.2 mg/dL (1.6-2.3); Phosphorus 4.1 mg/dL (2.5-4.5); Total Bilirubin 1.4 mg/dL (0.2-1.3)
[2021-05-19 19:13] LABS: Potassium 6.3 mmol/L (3.5-5.1)
--- NOTE | 2021-05-19 19:22 | P.EPPROC ---
- EP Procedure Note Electrophysiology Procedure Note: Patient underwent a diagnostic EP study and VT ablation for long runs of nonsustained VT that is refractory to sotalol He has an abnormal ECG with deep T-wave inversions V3-V6, lead 1 and aVL LV function on 2-D echo is normal Coronary artery disease status post cardiac stenting to the left circumflex and then LAD which are patent. Patient underwent cardiac catheterization within the last week He was treated with sotalol but without any success while in the hospital He is brought in for diagnostic EP study EP study is performed under light sedation Venous sheaths were placed in the right and left femoral veins Diagnostic catheters were placed in the right atrium and His bundle area RV Burst stimulation was performed from the RV in the baseline state and this resulted in induce conduction of episodes of ventricular fibrillation quite easily Fortunately these were self terminating Intermittently PVCs were noted Exxtra stimulation was performed up to triple extrastimuli Isuprel was started and long runs of nonsustained ventricular tachycardia similar to his clinical VT was induced The PVC morphology was identical to this The PVC morphology suggested a deep myocardial focus based on the onset of the QRS especially in lead V1 Twelve-lead EKG suggested and RV apical focus 3-D mapping was performed Intracardiac echo was used to map the RV No pericardial effusion in the baseline state, and no pericardial effusion is noted at the end of the VT ablation either Voltage mapping was performed Small areas of low voltage noted around the RV apex Pace mapping was performed in the RV apical area This had a poor match with the PVCs and the clinical VT The concordance was at best 76% Dimensional mapping was used to map the PVCs in the region of the RV apex Thereafter activation 3-D mapping was used to mapped the VT The earliest site was still 76 ms later than the onset of the QRS of 2 VT RF ablation here resulted only in transient success consistent with the fact that this wasn't exit site rather than a true focus of the VT Based upon the twelve-lead EKG morphology this appeared to be RV apical/septal VT with a deep within the septum Findings at EP study Normal AH and HV intervals Easily inducible episodes of ventricular fibrillation, spontaneously terminating with burst stimulation in the RV apex without Isuprel Intermittently frequent PVCs Mrs. ramsey but his clinical ventricular tachycardia Clinical VT was originating deep in the myocardium/epicardium and exiting in the RV apex The twelve-lead EKG morphology suggested a deep myocardial focus from the RV septum The onset of the QRS to the ho-chunk in lead V1 was notched and broad, 120 ms in duration Lead 1 was negative with an initial positivity and a late positivity. The midportion was negative in this QRS consistent with a septal focus in the RV The exit was mapped to the RV apex The earliest intracardiac electrogram and the onset of the unipolar electrogram was 76 ms after the onset of the QRS consistent with a very deep focus within the myocardium Pace mapping in the RV apical region did not resemble the VT and had a very poor concordance of around 70-76% RF ablation resulted only in transient success At the end of the procedure intracardiac echo revealed normal LV and RV function No pericardial effusion During mapping and pacing the patient complained of chest discomfort repeatedly He also complaining of discomfort during the RF ablation However there was no evidence for pericardial effusion or any injury throughout the procedure and this is confirmed with intracardiac echo All catheters were removed at the end of the procedure and the patient was transferred back to his room on telemetry
[2021-05-19] MEDS ORDERED: INSULIN REGULAR 100 UNIT/ML VIAL (IV) IV ONE (19:34)
[2021-05-19] MEDS ORDERED: DEXTROSE 50% SYRINGE 50 ML IVP ONE (19:34)
[2021-05-19] MEDS ORDERED: SODIUM BICARB 8.4% 50 ML SYR (1 MEQ/ML) IV ONE (19:34)
--- NOTE | 2021-05-19 19:35 | P.PN ---
Progress Note - Text Patient's elevated troponins represent RF ablation in the RV apex This does not represent an acute myocardial infarction His potassium was 6.3 He is on spironolactone and losartan Spine lateral be discontinued He has a low blood pressure and therefore losartan is on hold I reviewed the 2-D echo and Doppler study and there was no evidence for pericardial effusion The patient is hypertensive of bradycardia and beta ruby will be on hold also He will continue to have short runs of nonsustained atrial tachycardia as before Discussed with nurse
[2021-05-19 20:22] LABS: Glucose,Whole Blood 94 mg/dL (75-99)
[2021-05-19] MEDS: PANTOPRAZOLE 40 MG TABLET PO SCH (20:33)
[2021-05-19] MEDS: ATORVASTATIN 80 MG TAB PO SCH (20:33)
[2021-05-19] MEDS: HYDROcodone/APAP 5-325MG 1 EACH TAB PO PRN (23:59)
[2021-05-20 05:24] LABS: Basophils % (A) 0 %; Eosinophils # (A) 0.1 k/uL (0-0.7); Eosinophils % (A) 1 %; HCT 40.7 % (39.0-53.0); HGB 13.7 gm/dL (13.0-17.5); Lymphocytes # (A) 1.5 k/uL (1.0-4.8); Lymphocytes % (A) 16 %; MCH 31.6 pg (25.0-35.0); MCHC 33.6 g/dL (31.0-37.0); MCV 93.9 fL (80.0-100.0); Monocytes # (A) 0.7 k/uL (0-1.0); Monocytes % (A) 7 %; Neutrophils % (A) 74 %; Platelet Count 153 k/uL (150-450); RBC 4.33 m/uL (4.30-5.90); RDW 14.3 % (11.5-15.5); WBC 9.6 k/uL (3.8-10.6)
[2021-05-20 05:39] LABS: Albumin 3.2 g/dL (3.5-5.0); Calcium 8.6 mg/dL (8.4-10.2); Potassium 4.6 mmol/L (3.5-5.1); Total Bilirubin 1.2 mg/dL (0.2-1.3); Total Protein 5.7 g/dL (6.3-8.2)
[2021-05-20] MEDS: MULTIVITAMINS, THERA 1 EACH TAB PO SCH (08:35)
[2021-05-20] MEDS: ASPIRIN 81 MG PO SCH (08:35)
[2021-05-20] MEDS: LOSARTAN 50 MG TAB PO SCH (08:36)
[2021-05-20] MEDS: COLCHICINE 0.6 MG EACH PO SCH ×2 (08:36→20:51)
[2021-05-20] MEDS: MAGNESIUM OXIDE 400 MG TAB PO SCH (08:36)
[2021-05-20] MEDS: PRASUGREL 10 MG TAB PO SCH (08:36)
[2021-05-20] MEDS ORDERED: METOPROLOL SUCCINATE (ER) 25 MG TAB.ER.24H PO SCH (09:00)
[2021-05-20] MEDS: METOPROLOL SUCCINATE (ER) 25 MG TAB.ER.24H PO SCH (12:42)
[2021-05-20] MEDS: SODIUM CHLORIDE 0.9% 1,000 ML IV SCH (12:43)
--- NOTE | 2021-05-20 13:48 | P.PN ---
Subjective Progress Note Date: 05/20/21 HISTORY OF PRESENT ILLNESS: This is a pleasant 61-year-old with past medical history significant for coronary artery disease status post PCI of LAD and circumflex in March 2021, nons ustained ventricular tachycardia, hypertension, hyperlipidemia. Patient had been experiencing chest discomfort and therefore was evaluated in March and had stenting of his LAD and circumflex. Unfortunately since that time patient has been having occasional episodes where he will get chest discomfort sometimes with exertion and this has been occurring often at cardiac rehab. He therefore had repeat heart catheterization 03/17/2021 which showed no change, patent stents. Patient has however been undergoing cardiac rehab and still having similar issues. Additionally he has been having frequent runs of nonsustained ventricular tachycardia. He underwent left heart catheterization yesterday whi ch showed patent stent to the LAD and left circumflex with otherwise mild triple-vessel disease, elevated LVEDP at 26-30. He also underwent left ventriculogram which showed ejection fraction 55-60%. He did have a recurrent episode of chest discomfort with merely walking to the bathroom this morning. He states he started walking and then had discomfort and during this time nursing was notified of intermittent monomorphic ventricular tachycardia lasting for approximately a minute. Patient did have some residual chest pain for the next 30-40 minutes. EKG was performed which did show diffuse biphasic T waves V2 through V5 concerning for Wellens sign however this has been somewhat similar to past EKGs. His chest pain slowly resolved and repeat EKG showed relatively similar biphasic T waves. Currently is chest pain-free and denies any chest pain or shortness breath. Blood work was repeated with troponin 0.018, 0.074, 0.056. Concern of elevated troponins possibly related to VT. 05/16 Patient seen and examined. Patient had LifeVest placed and is tolerating that well. He is still having multiple episodes of nonsustained ventricular tachycardia mainly after he does minimal exertion. He denies any further chest pain or pressure however. He has had 3 doses of the sotalol and QTC this morning normal. 05/17 Patient seen and examined. Patient with more episodes this morning of chest discomfort with minimal exertion and frequent episodes of nonsustained VT. Patient states this was occurring with just going to the side. He did have continued frequent episodes of nonsustained VT this morning which she was very symptomatic with and still having residual discomfort however he admits this may be related to the LifeVest that he is wearing. We discussed attempting to walk the halls however was fearful to walk halls. He is fearful to go home by himself and has no one else to stay with him. 05/20/2021 Patient underwent EP study yesterday with Dr. Gilmore with VT ablation in the RV apex. Patient continued to have episodes of ventricular tachycardia. Patient currently sinus bradycardia on telemetry. SBP 90-100s. He reports some mild chest discomfort. Denies SOB. Groins are soft with no hematoma noted. PHYSICAL EXAM: VITAL SIGNS: Reviewed. GENERAL: Well-developed in no acute distress. NECK: Supple. No JVD or thyromegaly LUNGS: Respirations even and unlabored. Lungs essentially clear to auscultation bilaterally. HEART: Regular rate and rhythm. S1 and S2 heard. EXTREMITIES: Normal range of motion. No clubbing or cyanosis. Peripheral pulses intact. No lower extremity edema ASSESSMENT: 1. Coronary artery disease status post PCI LAD and circumflex March 2021. Repeat heart catheterization patent stents 2. Chest pain, occurring mainly with exertion 3. Elevated troponins, secondary to ablation, not indicative of ACS 4. Nonsustained ventricular tachycardia 5. Hypertension 6. Elevated left-sided filling pressures, no overt signs of heart failure, normal left ventricular ejection fraction 7. Abnormal EKG, biphasic T waves V2 through V5. Most concerning with for Wellen's sign however has been relatively similar in the past. Not typical of Brugada syndrome. 8. Sinus bradycardia PLAN: Decrease Losartan to 50mg daily Increase metoprolol to 25mg Continue telemetry monitoring Patient will require cardiac MRI in the near future (Will be completed outpatient) Patient will also require repeat ablation after MRI is completed He will require AICD implantation after repeat ablation is performed Further recommendations pending patient course Nurse practitioner note has been reviewed by physician. Signing provider agrees with the documented findings, assessment, and plan of care. Objective - Vital Signs Vital signs: Vital Signs Temp 98.7 F 05/20/21 12:00 Pulse 57 L 05/20/21 13:00 Resp 26 H 05/20/21 13:00 BP 115/59 05/20/21 13:00 Pulse Ox 94 L 05/20/21 13:00 Intake & Output 08/17/21 08/18/21 08/18/21 18:59 06:59 18:59 Intake Total 814 560 500 Output Total 590 90 Balance 814 -30 410 Weight 121.3 kg Intake: IV 814 560 100 Sodium Chloride 0.9% 1, 60 100 000 ml @ 20 mls/hr IV . Q24H [facility] Rx#:[id number] Sodium Chloride 0.9% 500 500 ml 500 ml @ 999 mls/hr IV .Q31M [facility] Rx#:[id number] Oral 0 400 Output: Urine 590 90 Other: Voiding Method Indwelling Catheter Indwelling Catheter - Labs CBC & Chem 7: 05/20/21 04:32 05/20/21 04:32 Labs: Abnormal Lab Results - Last 24 Hours (Table) 05/19/21 05/19/21 05/19/21 Range/Units 18:25 18:32 18:35 WBC 14.2 H (3.8-10.6) k/uL Neutrophils # 12.7 H (1.3-7.7) k/uL Lymphocytes # 0.8 L (1.0-4.8) k/uL ABG pO2 223 H (83-108) mmHg ABG O2 Saturation 100.0 H (94-97) % Potassium (3.5-5.1) mmol/L BUN (9-20) mg/dL Glucose (74-99) mg/dL POC Glucose (mg/dL) 113 H (75-99) mg/dL Total Bilirubin (0.2-1.3) mg/dL ALT (4-49) U/L Troponin I (0.000-0.034) ng/mL Total Protein (6.3-8.2) g/dL Albumin (3.5-5.0) g/dL 05/19/21 05/19/21 05/20/21 Range/Units 18:35 18:35 04:32 WBC (3.8-10.6) k/uL Neutrophils # (1.3-7.7) k/uL Lymphocytes # (1.0-4.8) k/uL ABG pO2 (83-108) mmHg ABG O2 Saturation (94-97) % Potassium 6.3 H* (3.5-5.1) mmol/L BUN 24 H (9-20) mg/dL Glucose 130 H (74-99) mg/dL POC Glucose (mg/dL) (75-99) mg/dL Total Bilirubin 1.4 H (0.2-1.3) mg/dL ALT 53 H (4-49) U/L Troponin I 3.430 H* (0.000-0.034) ng/mL Total Protein 6.0 L 5.7 L (6.3-8.2) g/dL Albumin 3.2 L (3.5-5.0) g/dL
[2021-05-20] MEDS: PANTOPRAZOLE 40 MG TABLET PO SCH (20:51)
[2021-05-20] MEDS: ATORVASTATIN 80 MG TAB PO SCH (20:51)
[2021-05-21] MEDS: HYDROcodone/APAP 5-325MG 1 EACH TAB PO PRN (03:52)
[2021-05-21] MEDS: PRASUGREL 10 MG TAB PO SCH (08:41)
[2021-05-21] MEDS: ASPIRIN 81 MG PO SCH (08:41)
[2021-05-21] MEDS: MAGNESIUM OXIDE 400 MG TAB PO SCH (08:42)
[2021-05-21] MEDS: MULTIVITAMINS, THERA 1 EACH TAB PO SCH (08:42)
[2021-05-21] MEDS: COLCHICINE 0.6 MG EACH PO SCH (08:42)
[2021-05-21] MEDS: METOPROLOL SUCCINATE (ER) 25 MG TAB.ER.24H PO SCH (08:42)
[2021-05-21] MEDS ORDERED: LOSARTAN 50 MG TAB PO SCH (09:00)
--- NOTE | 2021-05-21 10:00 | ECHOF ---
Referral Reason: MEASUREMENTS -------- HEIGHT: 172.7 cm WEIGHT: 119.3 kg BP: IVSd: 1.1 cm (0.6 - 1.1) LVIDd: 3.7 cm (3.9 - 5.3) LVPWd: 1.2 cm (0.6 - 1.1) IVSs: 1.3 cm LVIDs: 1.5 cm LVPWs: 1.6 cm MV E Kalia: 0.94 m/s MV DecT: 201 ms MV A Kalia: 0.68 m/s MV E/A Ratio: 1.38 AR PHT: 324 ms RAP: 5.00 mmHg RVSP: 14.67 mmHg FINDINGS -------- This was a technically difficult study with suboptimal views. The left ventricular size is normal. There is mild concentric left ventricular hypertrophy. Overa ll left ventricular systolic function is normal with, an EF between 60 - 65 %. The RV was not well visualized. The left atrium is normal in size. The right atrial size is normal. 5.0mg of Lumason was utilized for enhancement of images The aortic valve is trileaflet and appears structurally normal. Trace amount of aortic regurgitatio n. The mitral valve is normal. Mild mitral regurgitation is present. The tricuspid valve appears structurally normal. Trace tricuspid regurgitation present. Right maira tricular systolic pressure is normal at < 35 mmHg. The pulmonic valve was not well visualized. The aortic root size is normal. IVC Not well visulized. Echo free space represents a pericardial fat pad. There is no pericardial effusion. CONCLUSIONS -------- 1. The left ventricular size is normal. 2. There is mild concentric left ventricular hypertrophy. 3. Overall left ventricular systolic function is normal with, an EF between 60 - 65 %. 4. Trace amount of aortic regurgitation. 5. Mild mitral regurgitation is present. 6. Trace tricuspid regurgitation present. 7. There is no pericardial effusion. PET CARE ATTENDANT: Patience Lazcano RDCS
--- NOTE | 2021-05-21 10:15 | P.PN ---
Subjective Progress Note Date: 05/21/21 HISTORY OF PRESENT ILLNESS: This is a pleasant 61-year-old with past medical history significant for coronary artery disease status post PCI of LAD and circumflex in March 2021, nons ustained ventricular tachycardia, hypertension, hyperlipidemia. Patient had been experiencing chest discomfort and therefore was evaluated in March and had stenting of his LAD and circumflex. Unfortunately since that time patient has been having occasional episodes where he will get chest discomfort sometimes with exertion and this has been occurring often at cardiac rehab. He therefore had repeat heart catheterization 03/17/2021 which showed no change, patent stents. Patient has however been undergoing cardiac rehab and still having similar issues. Additionally he has been having frequent runs of nonsustained ventricular tachycardia. He underwent left heart catheterization yesterday whi ch showed patent stent to the LAD and left circumflex with otherwise mild triple-vessel disease, elevated LVEDP at 26-30. He also underwent left ventriculogram which showed ejection fraction 55-60%. He did have a recurrent episode of chest discomfort with merely walking to the bathroom this morning. He states he started walking and then had discomfort and during this time nursing was notified of intermittent monomorphic ventricular tachycardia lasting for approximately a minute. Patient did have some residual chest pain for the next 30-40 minutes. EKG was performed which did show diffuse biphasic T waves V2 through V5 concerning for Wellens sign however this has been somewhat similar to past EKGs. His chest pain slowly resolved and repeat EKG showed relatively similar biphasic T waves. Currently is chest pain-free and denies any chest pain or shortness breath. Blood work was repeated with troponin 0.018, 0.074, 0.056. Concern of elevated troponins possibly related to VT. 05/16 Patient seen and examined. Patient had LifeVest placed and is tolerating that well. He is still having multiple episodes of nonsustained ventricular tachycardia mainly after he does minimal exertion. He denies any further chest pain or pressure however. He has had 3 doses of the sotalol and QTC this morning normal. 05/17 Patient seen and examined. Patient with more episodes this morning of chest discomfort with minimal exertion and frequent episodes of nonsustained VT. Patient states this was occurring with just going to the side. He did have continued frequent episodes of nonsustained VT this morning which she was very symptomatic with and still having residual discomfort however he admits this may be related to the LifeVest that he is wearing. We discussed attempting to walk the halls however was fearful to walk halls. He is fearful to go home by himself and has no one else to stay with him. 05/20/2021 Patient underwent EP study yesterday with Dr. Gilmore with VT ablation in the RV apex. Patient continued to have episodes of ventricular tachycardia. Patient currently sinus bradycardia on telemetry. SBP 90-100s. He reports some mild chest discomfort. Denies SOB. Groins are soft with no hematoma noted. 05/21/2021 Patient examined this morning at the bedside with Dr. Gilmore. Patient denies chest pain or pressure. Denies shortness of breath. He has been up ambulating in the hallways. Telemetry reveals sinus mechanism. PHYSICAL EXAM: VITAL SIGNS: Reviewed. GENERAL: Well-developed in no acute distress. NECK: Supple. No JVD or thyromegaly LUNGS: Respirations even and unlabored. Lungs essentially clear to auscultation bilaterally. HEART: Regular rate and rhythm. S1 and S2 heard. EXTREMITIES: Normal range of motion. No clubbing or cyanosis. Peripheral pulses intact. No lower extremity edema ASSESSMENT: 1. Coronary artery disease status post PCI LAD and circumflex March 2021. Repeat heart catheterization patent stents 2. Chest pain, occurring mainly with exertion 3. Elevated troponins, secondary to ablation, not indicative of ACS 4. Nonsustained ventricular tachycardia 5. Hypertension 6. Elevated left-sided filling pressures, no overt signs of heart failure, normal left ventricular ejection fraction 7. Abnormal EKG, biphasic T waves V2 through V5. Most concerning with for W sharla's sign however has been relatively similar in the past. Not typical of Brugada syndrome. 8. Sinus bradycardia PLAN: Patient will require cardiac MRI in the near future (Will be completed outpatient) Patient will also require repeat ablation after MRI is completed He will require AICD implantation after repeat ablation is performed Patient may be discharged home today on current cardiac medications Patient will be discharged home with LifeVest He is to follow up outpatient Nurse practitioner note has been reviewed by physician. Signing provider agrees with the documented findings, assessment, and plan of care. Objective - Vital Signs Vital signs: Vital Signs Temp 98.7 F 05/21/21 08:00 Pulse 53 L 05/21/21 08:00 Resp 18 05/21/21 08:00 BP 91/51 05/21/21 08:00 Pulse Ox 94 L 05/21/21 08:00 Intake & Output 05/20/21 05/21/21 05/21/21 18:59 06:59 18:59 Intake Total 500 Output Total 110 2 Balance 390 -2 Weight 121 kg Intake: IV 100 Sodium Chloride 0.9% 1, 100 000 ml @ 20 mls/hr IV . Q24H [facility] Rx#:[id number] Oral 400 Output: Urine 110 1 Stool 1 Other: Voiding Method Indwelling Catheter Toilet Toilet # Voids 1 - Labs CBC & Chem 7: 05/20/21 04:32 05/20/21 04:32
[2021-05-21 11:05] VITALS: BMI 40.5
[2021-05-21 12:11] VITALS: BP 123/62; PULSE 61; RESP 16; TEMP 98
[2021-05-21] MEDS: SODIUM CHLORIDE 0.9% 1,000 ML IV SCH (12:12)
--- NOTE | 2021-05-22 10:39 | EST ---
Stress Test Results/Findings: Exam Performed: Stress Lexiscan Exam Date: 05/18/21 Reason for Exam: V-Tach Height: 5 ft 8 in Weight: 122.2 kg Protocol: Lexiscan Cardiolite Stage: Duration of Exercise: Resting Heart Rate: 42 Resting Blood Pressure: 115/50 Maximum Achieved Heart Rate: 60 Maximum Achieved Blood Pressure: 207/112 85% PMHR: 135 100% PMHR: 159 METS: Technologist Comment: Stress Test Results/Findings: This is a 61-year-old gentleman with history of hypertension smoking and family history of ischemic heart disease being evaluated for cardiac status, because of V. tach. Stress data: Baseline EKG showed sinus rhythm with normal LA interval and QRS duration with a T-wave changes in inferolateral leads. Blood pressure at rest is 115/50, pulse rate of 42.chest and dose of Lexiscan was infused. Patient developed frequent PVCs with a bigeminal pattern, during and after the infusion. Patient did not experience any chest pain. Final impression: #1. Negative Lexiscan stress test #2 patient developed frequent PVCs with a bigeminal pattern. #3. Patient did not experience any chest pain. #4. Report on the nuclear images to be provided by the radiologist. CROW
== END 2021-05-21 16:25 | disposition home or self-care (01) | DRG 274 ==
LOC: EC 09:12 → 6NMEDSUR 09:47 → 3SCARD 05-14 15:17 → OBSVTOIN 05-15 08:33 → 2SICU 05-19 17:57
PROVIDERS: ADMIT Family Medicine; ATTEND Family Medicine
PROC: 4A023N7 Measurement of Cardiac Sampling and Pressure, Left Heart, Percutaneous Approach (ICD-10-PCS; 2021-05-13)
PROC: B2111ZZ Fluoroscopy of Multiple Coronary Arteries using Low Osmolar Contrast (ICD-10-PCS; 2021-05-13)
PROC: B2151ZZ Fluoroscopy of Left Heart using Low Osmolar Contrast (ICD-10-PCS; 2021-05-13)
PROC: 4A023FZ Measurement of Cardiac Rhythm, Percutaneous Approach (ICD-10-PCS; 2021-05-19)
PROC: 4A0234Z Measurement of Cardiac Electrical Activity, Percutaneous Approach (ICD-10-PCS; 2021-05-19)
PROC: 02K83ZZ Map Conduction Mechanism, Percutaneous Approach (ICD-10-PCS; 2021-05-19)
PROC: 02583ZZ Destruction of Conduction Mechanism, Percutaneous Approach (ICD-10-PCS; principal; 2021-05-19 11:00)
DX: I21.4 Non-ST elevation (NSTEMI) myocardial infarction (principal); I47.1 Supraventricular tachycardia; I47.2 Ventricular tachycardia; I25.110 Atherosclerotic heart disease of native coronary artery with unstable angina pectoris; I10 Essential (primary) hypertension; Z87.891 Personal history of nicotine dependence; Z98.61 Coronary angioplasty status; Z79.82 Long term (current) use of aspirin; I49.5 Sick sinus syndrome; I44.7 Left bundle-branch block, unspecified; Z79.02 Long term (current) use of antithrombotics/antiplatelets; E78.5 Hyperlipidemia, unspecified; I25.2 Old myocardial infarction; Z79.899 Other long term (current) drug therapy; Z86.79 Personal history of other diseases of the circulatory system; Z87.19 Personal history of other diseases of the digestive system
CPT/HCPCS: 36415; 36600; 71045; 78452; 80048; 80053; 82805; 83690; 83735; 83880; 84100; 84132; 84484; 85025; 85610; 85730; 93005; 93017; 93306; 93458; 93623; 93654; 93662; 96360; 99285

== ENCOUNTER 2021-06-04 13:34 | Inpatient (IN) | payer MEDICAID ==
--- NOTE | 2021-06-04 13:58 | ED ---
General Adult HPI - General Chief complaint: Shortness of Breath Stated complaint: SOB Time Seen by Provider: 06/04/21 13:46 Source: patient, family Mode of arrival: wheelchair Limitations: no limitations - History of Present Illness Initial comments: Dictation was produced using [employer] dictation software. please excuse any grammatical, word or spelling errors. Chief Complaint: 61-year-old male presents with cough and shortness of breath. History of Present Illness: Patient is 61-year-old male he has complex cardiac and pulmonary history. Patient was recently diagnosed with V. tach and lesion on his cardiac muscle. He recently got an MRI which showed findings of pleural effusion to his left chest. He's been struggling with coughing fits for the last several days and states that his symptoms began when he was discharged from the hospital 2 weeks ago. Patient has a LifeVest that he wears area supposedly has fluid on the lung that he speak dressed before an AICD can be placed. States that his monitor was beeping today while he was at home. He was however able to prevent from giving him a shot. Patient has been having a productive cough for the last several days. Denies any fevers or constitutional symptoms. States that the MRI of his chest was performed one week ago. Primary care doctor knows about his respiratory symptoms and prescribed steroid treatment. The ROS documented in this emergency department record has been reviewed and confirmed by me. Those systems with pertinent positive or negative responses have been documented in the HPI. All other systems are other negative and/or noncontributory. PHYSICAL EXAM: General Impression: Alert and oriented x3, mild dyspnea HEENT: Normocephalic atraumatic, extra-ocular movements intact, pupils equal and reactive to light bilaterally, mucous membranes moist. Cardiovascular: Heart regular rate and rhythm Chest: Able to complete full sentences, no retractions, no tachypnea, lungs clear to auscultation bilaterally Abdomen: abdomen soft, non-tender, non-distended, no organomegaly Musculoskeletal: Pulses present and equal in all extremities, no peripheral edema Motor: no focal deficits noted Neurological: CN II-XII grossly intact, no focal motor or sensory deficits noted Skin: Intact with no visualized rashes Psych: Normal affect and mood ED course: 61-year-old male presents emergency department for cough, rest of breath. Vital signs upon arrival are within acceptable limits. EKG interpretation: Ventricular rate 71, normal sinus rhythm,. 152, QRS 100, QTC 460. No MD prolongation, no QTC prolongation. There are T-wave inversions in V3 to V6. EKG appears to be similar compared to EKG from 05/13/2021 Labs are evaluation obtained. Leukocytosis of 14.5. Metabolic panel is within acceptable limits. Troponins negative. Chest x-ray shows worsening left lower infiltrate and pleural effusion. Patient reevaluated bedside still coughing. Patient reports being on a course of Augmentin prescribed by his primary care doctor. Patient not improving and possibly failing outpatient treatment. Patient be admitted with consultation to pulmonology. He is given the antibiotics to treat community acquired pneumonia. Patient's electrophysiology cardiology is also consulted for further care physician Saar garrido Pending interrogation of life vest.Patient will be admitted to Dr. Rascon. - Related Data Home Medications Medication Instructions Recorded Confirmed Aspirin [Adult Low Dose Aspirin EC] 81 mg PO DAILY 03/06/21 06/04/21 Garlic 1 tab PO DAILY 03/06/21 06/04/21 Multivitamins, Thera [Multivitamin 1 tab PO DAILY 03/06/21 06/04/21 (formulary)] Omeprazole [PriLOSEC] 40 mg PO HS 03/06/21 06/04/21 Acetaminophen/Chlorpheniramine 1 - 2 tab PO Q4H PRN 06/04/21 06/04/21 [Coricidin Hbp Cold & Flu Tab] Amoxicillin/Potassium Clav 1 tab PO BID 06/04/21 06/04/21 [Augmentin 875-125 Tablet] Losartan [Cozaar] 50 mg PO DAILY 06/04/21 06/04/21 methylPREDNISolone Dose Pack See Taper PO DIRECTED 06/04/21 06/04/21 [Medrol Dose Pack] Previous Rx's Medication Instructions Recorded Atorvastatin [Lipitor] 80 mg PO HS #90 tab 03/11/21 Nitroglycerin Sl Tabs [Nitrostat] 0.4 mg SUBLINGUAL Q5M PRN #25 tab 03/11/21 Prasugrel [Effient] 10 mg PO DAILY #90 tab 03/11/21 Colchicine [Colcrys] 0.6 mg PO BID #30 each 05/21/21 Magnesium Oxide [Mag-Ox] 400 mg PO DAILY #90 tab 05/21/21 Metoprolol Succinate (ER) [Toprol 25 mg PO DAILY #90 tab.er.24h 05/21/21 XL] Allergies Allergy/AdvReac Type Severity Reaction Status Date / Time No Known Allergies Allergy Verified 06/04/21 15:26 Review of Systems ROS Statement: Those systems with pertinent positive or pertinent negative responses have been documented in the HPI. ROS Other: All systems not noted in ROS Statement are negative. Past Medical History Past Medical History: Hypertension Additional Past Medical History / Comment(s): HX OF RECTAL POLYP, ZOLL LIFE VEST History of Any Multi-Drug Resistant Organisms: None Reported Past Surgical History: Cardiac Ablation, Heart Catheterization With Stent, Orthopedic Surgery Additional Past Surgical History / Comment(s): LT KNEE SCOPE, COLONOSCOPY, heart cath 03/10/21-2 stents Past Anesthesia/Blood Transfusion Reactions: No Reported Reaction Date of Last Stent Placement:: 03/10/21 Past Psychological History: No Psychological Hx Reported Smoking Status: Former smoker Past Alcohol Use History: Occasional Past Drug Use History: None Reported - Past Family History Mother Family Medical History: No Reported History General Exam Limitations: no limitations Course Vital Signs 06/04/21 06/04/21 06/04/21 13:38 14:53 15:46 Temperature 97.9 F 98.2 F Pulse Rate 71 64 65 Respiratory 18 16 22 Rate Blood Pressure 141/90 131/68 129/69 O2 Sat by Pulse 96 94 L 96 Oximetry Medical Decision Making - Lab Data Result diagrams: 06/04/21 14:05 06/04/21 14:05 Lab Results 06/04/21 06/04/21 06/04/21 Range/Units 14:05 14:05 14:05 WBC 14.5 H (3.8-10.6) k/uL RBC 4.82 (4.30-5.90) m/uL Hgb 14.6 (13.0-17.5) gm/dL Hct 43.7 (39.0-53.0) % MCV 90.6 (80.0-100.0) fL MCH 30.3 (25.0-35.0) pg MCHC 33.4 (31.0-37.0) g/dL RDW 15.4 (11.5-15.5) % Plt Count 260 (150-450) k/uL MPV 6.9 Neutrophils % 85 % Lymphocytes % 7 % Monocytes % 5 % Eosinophils % 2 % Basophils % 1 % Neutrophils # 12.4 H (1.3-7.7) k/uL Lymphocytes # 1.0 (1.0-4.8) k/uL Monocytes # 0.7 (0-1.0) k/uL Eosinophils # 0.2 (0-0.7) k/uL Basophils # 0.1 (0-0.2) k/uL Hypochromasia Slight Poikilocytosis Moderate Sodium 140 (137-145) mmol/L Potassium 4.5 (3.5-5.1) mmol/L Chloride 109 H (98-107) mmol/L Carbon Dioxide 22 (22-30) mmol/L Anion Gap 9 mmol/L BUN 15 (9-20) mg/dL Creatinine 0.81 (0.66-1.25) mg/dL Est GFR (CKD-EPI)AfAm >90 (>60 ml/min/1.73 sqM) Est GFR (CKD-EPI)NonAf >90 (>60 ml/min/1.73 sqM) Glucose 138 H (74-99) mg/dL Calcium 9.2 (8.4-10.2) mg/dL Magnesium 2.1 (1.6-2.3) mg/dL Total Bilirubin 0.7 (0.2-1.3) mg/dL AST 69 H (17-59) U/L ALT 111 H (4-49) U/L Alkaline Phosphatase 96 (38-126) U/L Troponin I <0.012 (0.000-0.034) ng/mL NT-Pro-B Natriuret Pep pg/mL Total Protein 6.8 (6.3-8.2) g/dL Albumin 3.8 (3.5-5.0) g/dL 06/04/21 Range/Units 14:05 WBC (3.8-10.6) k/uL RBC (4.30-5.90) m/uL Hgb (13.0-17.5) gm/dL Hct (39.0-53.0) % MCV (80.0-100.0) fL MCH (25.0-35.0) pg MCHC (31.0-37.0) g/dL RDW (11.5-15.5) % Plt Count (150-450) k/uL MPV Neutrophils % % Lymphocytes % % Monocytes % % Eosinophils % % Basophils % % Neutrophils # (1.3-7.7) k/uL Lymphocytes # (1.0-4.8) k/uL Monocytes # (0-1.0) k/uL Eosinophils # (0-0.7) k/uL Basophils # (0-0.2) k/uL Hypochromasia Poikilocytosis Sodium (137-145) mmol/L Potassium (3.5-5.1) mmol/L Chloride (98-107) mmol/L Carbon Dioxide (22-30) mmol/L Anion Gap mmol/L BUN (9-20) mg/dL Creatinine (0.66-1.25) mg/dL Est GFR (CKD-EPI)AfAm (>60 ml/min/1.73 sqM) Est GFR (CKD-EPI)NonAf (>60 ml/min/1.73 sqM) Glucose (74-99) mg/dL Calcium (8.4-10.2) mg/dL Magnesium (1.6-2.3) mg/dL Total Bilirubin (0.2-1.3) mg/dL AST (17-59) U/L ALT (4-49) U/L Alkaline Phosphatase (38-126) U/L Troponin I (0.000-0.034) ng/mL NT-Pro-B Natriuret Pep 632 pg/mL Total Protein (6.3-8.2) g/dL Albumin (3.5-5.0) g/dL Disposition Clinical Impression: Pneumonia, Pleural effusion Disposition: ADMITTED IP TO THIS HOSP Referrals: Philip Rascon DO [Primary Care Provider] - 1-2 days
--- NOTE | 2021-06-04 14:22 | XR ---
EXAMINATION TYPE: XR chest 1V portable DATE OF EXAM: 06/04/2021 COMPARISON: Chest x-ray May 19, 2021 HISTORY: Shortness of breath and chest pain. Cough. TECHNIQUE: Single frontal view of the chest is obtained. FINDINGS: There is persistent cardiomegaly. Increasing left basilar opacity noted. Right lung remain s clear. The osseous structures are intact. IMPRESSION: Worsening [id number] 5 left pleural effusion and worsening left basilar acute inf iltrate and/or atelectasis.
[2021-06-04 14:28] LABS: Basophils # (A) 0.1 k/uL (0-0.2); Basophils % (A) 1 %; Eosinophils # (A) 0.2 k/uL (0-0.7); Eosinophils % (A) 2 %; HCT 43.7 % (39.0-53.0); HGB 14.6 gm/dL (13.0-17.5); Hypochromasia Slight; Lymphocytes % (A) 7 %; MCH 30.3 pg (25.0-35.0); MCHC 33.4 g/dL (31.0-37.0); MCV 90.6 fL (80.0-100.0); Mean Platelet Volume 6.9; Monocytes # (A) 0.7 k/uL (0-1.0); Monocytes % (A) 5 %; Neutrophils # (A) 12.4 k/uL (1.3-7.7); Neutrophils % (A) 85 %; Platelet Count 260 k/uL (150-450); Poikilocytosis Moderate; RBC 4.82 m/uL (4.30-5.90); RDW 15.4 % (11.5-15.5); WBC 14.5 k/uL (3.8-10.6)
[2021-06-04 14:41] LABS: ALT 111 U/L (4-49); AST 69 U/L (17-59); African American GFR (CKD) >90 (>60 ml/min/1.73 sqM); Albumin 3.8 g/dL (3.5-5.0); Alkaline Phosphatase 96 U/L (38-126); Anion Gap 9 mmol/L; Blood Urea Nitrogen 15 mg/dL (9-20); Calcium 9.2 mg/dL (8.4-10.2); Carbon Dioxide 22 mmol/L (22-30); Chloride 109 mmol/L (98-107); Glucose 138 mg/dL (74-99); Magnesium 2.1 mg/dL (1.6-2.3); Non-African American GFR(CKD) >90 (>60 ml/min/1.73 sqM); Potassium 4.5 mmol/L (3.5-5.1); Sodium 140 mmol/L (137-145); Total Bilirubin 0.7 mg/dL (0.2-1.3); Total Protein 6.8 g/dL (6.3-8.2)
[2021-06-04] MEDS ORDERED: cefTRIAXone IN SWFI 1,000 MG/10 ML SYRINGE IVP STA (15:49)
[2021-06-04] MEDS ORDERED: AZITHROMYCIN 500 MG in SODIUM CHLORIDE 0.9% 250 ML IVPB STA (15:49)
[2021-06-04] MEDS ORDERED: NALOXONE 0.4 MG/ML 1 ML VIAL IV PRN (15:52)
[2021-06-04] MEDS: SODIUM CHLORIDE 0.9% 1,000 ML IV SCH (16:30)
[2021-06-04] MEDS ORDERED: NITROGLYCERIN SL TABS 0.4 MG TAB SUBLINGUAL PRN (20:29)
[2021-06-04] MEDS ORDERED: methylPREDNISolone 4 MG TAB PO ONE ×2 (20:45→21:00)
[2021-06-04 20:56] LABS: Glucose,Whole Blood 97 mg/dL (75-99)
[2021-06-04] MEDS ORDERED: MORPHINE SULFATE 2 MG/ML SYRINGE IVP STA (20:58)
[2021-06-04] MEDS ORDERED: DEXTROSE 5% IN WATER 100 ML with AMIODARONE 150 MG IV ONE (20:58)
[2021-06-04] MEDS ORDERED: AMIODARONE 360 MG in DEXTROSE 5% IN WATER 200 ML IV ONE ×2 (20:58)
[2021-06-04] MEDS ORDERED: LIDOCAINE-D5W PMX 2G/250ML 2,000 MG in DEXTROSE/WATER 1 250ML.BAG IV SCH (21:00)
[2021-06-04] MEDS ORDERED: METHYLPREDNISOLONE 4 MG PO ONE (21:00)
[2021-06-04] MEDS ORDERED: METOPROLOL TARTRATE 5 MG/5 ML VIAL IVP ONE (21:03)
[2021-06-04] MEDS ORDERED: LIDOCAINE 2% SYG (PF) 100 MG/5 ML IV ONE (21:15)
[2021-06-04] MEDS ORDERED: METOPROLOL TARTRATE 5 MG/5 ML VIAL IVP SCH (21:15)
[2021-06-04 21:25] LABS: Glucose,Whole Blood 122 mg/dL (75-99)
[2021-06-04] MEDS ORDERED: KETOROLAC 15 MG/ML 1 ML VIAL IVP PRN (22:04)
[2021-06-04] MEDS: PANTOPRAZOLE 40 MG TABLET PO SCH (23:28)
[2021-06-04] MEDS: AMOXIC-POT CLAV 875-125MG 1 EACH TAB PO SCH (23:28)
[2021-06-04] MEDS: ATORVASTATIN 80 MG TAB PO SCH (23:28)
[2021-06-04] MEDS: COLCHICINE 0.6 MG EACH PO SCH (23:30)
[2021-06-05] MEDS ORDERED: KETOROLAC 15 MG/ML 1 ML VIAL IVP SCH
--- NOTE | 2021-06-05 02:07 | P.EN ---
A team note 61 year old male with complex cardiac history , patient recently had an acute coronary sydrome, s/p stents, then he had to wear a life vest , while being monitored and evaluated for ICD. today presented with worsening SOB, and beeping device indicating he is going into arrhythmias, his doctor advised he gets admitted. he denies being shocked as he bypasses the machine. A team called due to V tach for 15 minutes. vital signs stable. lung clear to auscultation patient alert, orientedX3 but in and out of respiratory distress. ventricular tachycardia amiodarone bolus of 150 then drip after discussing with cardiology also recommended adding lidocaine bolus 100 mg and drip. close monitoring in the ICU follow up electrolytes. Total amount of critical care time spent was 40 minutes not counting procedures performed.
[2021-06-05] MEDS: AMIODARONE 450 MG in DEXTROSE 5% IN WATER 250 ML IV SCH ×4 (02:47→15:11)
[2021-06-05 04:30] LABS: Basophils # (A) 0.1 k/uL (0-0.2); Basophils % (A) 1 %; Eosinophils # (A) 0.4 k/uL (0-0.7); Eosinophils % (A) 3 %; HGB 13.7 gm/dL (13.0-17.5); Hypochromasia Slight; Lymphocytes # (A) 0.9 k/uL (1.0-4.8); Lymphocytes % (A) 7 %; MCH 29.7 pg (25.0-35.0); MCV 92.8 fL (80.0-100.0); Mean Platelet Volume 7.2; Monocytes # (A) 0.5 k/uL (0-1.0); Monocytes % (A) 4 %; Neutrophils # (A) 10.3 k/uL (1.3-7.7); Neutrophils % (A) 84 %; Platelet Count 250 k/uL (150-450); Poikilocytosis Moderate; RBC 4.63 m/uL (4.30-5.90); WBC 12.3 k/uL (3.8-10.6)
[2021-06-05 04:41] LABS: African American GFR (CKD) >90 (>60 ml/min/1.73 sqM); Anion Gap 7 mmol/L; Blood Urea Nitrogen 19 mg/dL (9-20); Calcium 8.7 mg/dL (8.4-10.2); Carbon Dioxide 26 mmol/L (22-30); Chloride 105 mmol/L (98-107); Glucose 124 mg/dL (74-99); Magnesium 2.2 mg/dL (1.6-2.3); Non-African American GFR(CKD) >90 (>60 ml/min/1.73 sqM); Potassium 4.5 mmol/L (3.5-5.1); Sodium 138 mmol/L (137-145)
--- NOTE | 2021-06-05 07:31 | P.CRDCN ---
History of Present Illness Consult date: 06/05/21 Chief complaint: Heart racing History of present illness: This is a very pleasant 61-year-old gentleman with history of coronary artery disease and prior stenting of the LAD, preserved left ventricular systolic function, history of ventricular tachycardia and status post ablation, as well as hypertension and dyslipidemia was admitted to the intensive care unit with ventricular tachycardia. The patient recently underwent VT ablation by Dr. Mahogany tanner for intermittent episodes of long nonsustained ventricular tachycardia symptomatic and did not response to sotalol. The procedure was uneventful. Subsequently the patient was discharged home. This time he was in his usual state of health the last few days where he has been struggling with cough productive of sputum but no fever and no chills. Beside that he noticed yesterday intermittent episodes of heart racing and fluttering associated with dizziness and lightheadedness but no presyncope or syncope. The patient was discharged home on LifeVest after the VT ablation. He presented to the emergency department where the LifeVest was interrogated and revealed multiple episodes of long nonsustained ventricular tachycardia seems to be very fast and seems to be monomorphic. He was admitted to the intensive care. And he was started on amiodarone as well as lidocaine. Since then he did not have any more episodes of V. tach. Electrolytes including potassium and magnesium are within normal limits. Troponin was not checked. He underwent a heart catheterization recently and that revealed patent stent in the left anterior descending artery. The most recent echocardiogram showed normal left ventricular systolic function. At this point I would recommend continue the current medical regimen including current dose of lidocaine as well as amiodarone. He might benefit from me xiletine but before that I would consider obtaining an opinion from Dr. Gilmore. Continue monitor his electrolytes. Please note that the chest x-ray showed at least moderate left pleural effusion. Pulmonary/critical care is on the case Past Medical History Past Medical History: Hypertension Additional Past Medical History / Comment(s): HX OF RECTAL POLYP, ZOLL LIFE VEST, COVID History of Any Multi-Drug Resistant Organisms: None Reported Past Surgical History: Cardiac Ablation, Heart Catheterization With Stent, Hernia Repair, Orthopedic Surgery Additional Past Surgical History / Comment(s): LT KNEE SCOPE, COLONOSCOPY, heart cath 03/10/21-2 stents Past Anesthesia/Blood Transfusion Reactions: No Reported Reaction Date of Last Stent Placement:: 03/10/21 Past Psychological History: No Psychological Hx Reported Smoking Status: Former smoker Past Alcohol Use History: Occasional Additional Past Alcohol Use History / Comment(s): quit smoking 1992, smoked for 20 yrs Past Drug Use History: None Reported - Past Family History Mother Family Medical History: No Reported History Medications and Allergies Home Medications Medication Instructions Recorded Confirmed Type Aspirin [Adult Low Dose Aspirin EC] 81 mg PO DAILY 03/06/21 06/04/21 History Garlic 1 tab PO DAILY 03/06/21 06/04/21 History Multivitamins, Thera [Multivitamin 1 tab PO DAILY 03/06/21 06/04/21 History (formulary)] Omeprazole [PriLOSEC] 40 mg PO HS 03/06/21 06/04/21 History Atorvastatin [Lipitor] 80 mg PO HS #90 tab 03/11/21 06/04/21 Rx Nitroglycerin Sl Tabs [Nitrostat] 0.4 mg SUBLINGUAL Q5M PRN #25 tab 03/11/21 06/04/21 Rx Prasugrel [Effient] 10 mg PO DAILY #90 tab 03/11/21 06/04/21 Rx Colchicine [Colcrys] 0.6 mg PO BID #30 each 05/21/21 06/04/21 Rx Magnesium Oxide [Mag-Ox] 400 mg PO DAILY #90 tab 05/21/21 06/04/21 Rx Metoprolol Succinate (ER) [Toprol 25 mg PO DAILY #90 tab.er.24h 05/21/21 06/04/21 Rx XL] Acetaminophen/Chlorpheniramine 1 - 2 tab PO Q4H PRN 06/04/21 06/04/21 History [Coricidin Hbp Cold & Flu Tab] Amoxicillin/Potassium Clav 1 tab PO BID 06/04/21 06/04/21 History [Augmentin 875-125 Tablet] Losartan [Cozaar] 50 mg PO DAILY 06/04/21 06/04/21 History methylPREDNISolone Dose Pack See Taper PO DIRECTED 06/04/21 06/04/21 History [Medrol Dose Pack] Allergies Allergy/AdvReac Type Severity Reaction Status Date / Time No Known Allergies Allergy Verified 06/04/21 15:26 Physical Exam Vitals: Vital Signs Temp Pulse Pulse Pulse Resp BP BP 06/05/21 07:00 53 L 13 117/74 06/05/21 06:30 51 L 14 129/83 06/05/21 06:00 57 L 14 109/72 06/05/21 05:30 51 L 13 118/76 06/05/21 05:00 53 L 14 116/75 06/05/21 04:30 50 L 16 122/80 06/05/21 04:00 96.7 F L 60 20 120/78 06/05/21 03:30 53 L 14 113/71 06/05/21 03:00 54 L 14 115/73 06/05/21 02:30 53 L 17 118/81 06/05/21 02:00 56 L 18 122/87 06/05/21 01:30 55 L 16 133/79 06/05/21 01:00 60 15 128/85 06/05/21 00:30 53 L 17 138/85 06/05/21 00:00 96.2 F L 56 L 12 129/95 06/04/21 23:30 63 18 138/80 06/04/21 23:00 60 21 126/80 06/04/21 22:41 98.1 F 64 48 H 163/93 06/04/21 22:30 65 14 122/79 06/04/21 22:20 81 32 H 122/79 06/04/21 22:10 87 29 H 122/79 06/04/21 22:00 62 19 130/81 06/04/21 21:50 60 16 130/81 06/04/21 21:40 63 25 H 140/90 06/04/21 21:30 62 19 154/90 06/04/21 21:21 73 15 06/04/21 21:05 71 18 144/84 06/04/21 19:21 97.8 F 63 18 128/79 06/04/21 18:00 97.4 F L 69 18 154/94 06/04/21 17:33 98.2 F 78 16 128/74 06/04/21 15:46 98.2 F 65 22 129/69 06/04/21 14:53 64 16 131/68 06/04/21 13:38 97.9 F 71 18 141/90 Pulse Ox 06/05/21 07:00 96 06/05/21 06:30 93 L 06/05/21 06:00 95 06/05/21 05:30 95 06/05/21 05:00 95 06/05/21 04:30 95 06/05/21 04:00 95 06/05/21 03:30 96 06/05/21 03:00 96 06/05/21 02:30 96 06/05/21 02:00 96 06/05/21 01:30 96 06/05/21 01:00 97 06/05/21 00:30 96 06/05/21 00:00 96 06/04/21 23:30 98 06/04/21 23:00 96 06/04/21 22:41 96 06/04/21 22:30 96 06/04/21 22:20 96 06/04/21 22:10 96 06/04/21 22:00 95 06/04/21 21:50 95 06/04/21 21:40 94 L 06/04/21 21:30 06/04/21 21:21 06/04/21 21:05 95 06/04/21 19:21 95 06/04/21 18:00 98 06/04/21 17:33 96 06/04/21 15:46 96 06/04/21 14:53 94 L 06/04/21 13:38 96 Intake and Output 06/04/21 06/05/21 06/05/21 22:59 06:59 14:59 Intake Total 20 160 20 Output Total 500 600 300 Balance -480 -440 -280 Intake: IV 20 160 20 Sodium Chloride 0.9% 1, 20 160 20 000 ml @ 20 mls/hr IV . Q24H [facility] Rx#:[id number] Output: Urine 500 600 300 Other: Voiding Method Urinal # Voids 1 1 1 Weight 120.202 kg 122 kg - Constitutional General appearance: no acute distress - Respiratory Respiratory: bilateral: diminished - Cardiovascular Rhythm: regular Heart sounds: normal: S1, S2 Results 06/05/21 03:42 06/05/21 03:42 Cardiac Enzymes 06/04/21 06/04/21 Range/Units 14:05 14:05 AST 69 H (17-59) U/L Troponin I <0.012 (0.000-0.034) ng/mL CBC 06/04/21 06/05/21 Range/Units 14:05 03:42 WBC 14.5 H 12.3 H (3.8-10.6) k/uL RBC 4.82 4.63 (4.30-5.90) m/uL Hgb 14.6 13.7 (13.0-17.5) gm/dL Hct 43.7 43.0 (39.0-53.0) % Plt Count 260 250 (150-450) k/uL Comprehensive Metabolic Panel 06/04/21 06/05/21 Range/Units 14:05 03:42 Sodium 140 138 (137-145) mmol/L Potassium 4.5 4.5 (3.5-5.1) mmol/L Chloride 109 H 105 (98-107) mmol/L Carbon Dioxide 22 26 (22-30) mmol/L BUN 15 19 (9-20) mg/dL Creatinine 0.81 0.82 (0.66-1.25) mg/dL Glucose 138 H 124 H (74-99) mg/dL Calcium 9.2 8.7 (8.4-10.2) mg/dL AST 69 H (17-59) U/L ALT 111 H (4-49) U/L Alkaline Phosphatase 96 (38-126) U/L Total Protein 6.8 (6.3-8.2) g/dL Albumin 3.8 (3.5-5.0) g/dL Current Medications Generic Name Dose Route Start Last Admin Trade Name Freq PRN Reason Stop Dose Admin Amoxicillin/Clavulanate Potassium 1 each 06/04/21 21:00 06/04/21 23:28 Amoxic-Pot Clav 875-125mg 1 Each Tab PO 1 each BID SHARAN Administration Aspirin 81 mg 06/05/21 09:00 Aspirin 81 Mg PO DAILY SHARAN Atorvastatin Calcium 80 mg 06/04/21 21:00 06/04/21 23:28 Atorvastatin 80 Mg Tab PO 80 mg HS SHARAN Administration Colchicine 0.6 mg 06/04/21 21:00 06/04/21 23:30 Colchicine 0.6 Mg Each PO 0.6 mg BID SHARAN Administration Sodium Chloride 1,000 mls @ 20 mls/hr 06/04/21 16:00 06/04/21 16:30 Saline 0.9% IV 20 mls/hr .Q24H SHARAN Administration Amiodarone HCl 450 mg/ 250 mls @ 16.667 mls/hr 06/05/21 03:00 06/05/21 02:47 Dextrose/Water IV 06/05/21 20:59 0.5 mg/min .Q15H SHARAN 16.667 mls/hr Administration Protocol 0.5 MG/MIN Lidocaine HCl/Dextrose 2,000 250 mls @ 7.5 mls/hr 06/04/21 21:00 06/04/21 23:29 mg/ IV Solution IV 1 mg/min .Q24H SHARAN 7.5 mls/hr Administration 1 MG/MIN Ketorolac Tromethamine 30 mg 06/04/21 22:04 Ketorolac 15 Mg/Ml 1 Ml Vial IVP 06/07/21 22:02 Q6HR PRN Pain Losartan Potassium 50 mg 06/05/21 09:00 Losartan 50 Mg Tab PO DAILY [facility] Magnesium Oxide 400 mg 06/05/21 09:00 Magnesium Oxide 400 Mg Tab PO DAILY [facility] Metoprolol Succinate 25 mg 06/05/21 09:00 Metoprolol Succinate (Er) 25 Mg Tab.Er.24h PO DAILY [facility] Multivitamins 1 each 06/05/21 09:00 Multivitamins, Thera 1 Each Tab PO DAILY [facility] Naloxone HCl 0.2 mg 06/04/21 15:52 Naloxone 0.4 Mg/Ml 1 Ml Vial IV Q2M PRN Opioid Reversal Nitroglycerin 0.4 mg 06/04/21 20:29 Nitroglycerin Sl Tabs 0.4 Mg Tab SUBLINGUAL Q5M PRN Chest Pain Patients Own Med ( 16 each 06/05/21 09:00 Methylprednisolone 4 PO 06/09/21 08:59 Mg Tab) DAILY SHARAN Taper Pantoprazole Sodium 40 mg 06/04/21 21:00 06/04/21 23:28 Pantoprazole 40 Mg Tablet PO 40 mg HS SHARAN Administration Prasugrel 10 mg 06/05/21 09:00 Prasugrel 10 Mg Tab PO DAILY SHARAN Intake and Output 06/04/21 06/05/21 06/05/21 22:59 06:59 14:59 Intake Total 20 160 20 Output Total 500 600 300 Balance -480 -440 -280 Intake: IV 20 160 20 Sodium Chloride 0.9% 1, 20 160 20 000 ml @ 20 mls/hr IV . Q24H [facility] Rx#:[id number] Output: Urine 500 600 300 Other: Voiding Method Urinal # Voids 1 1 1 Weight 120.202 kg 122 kg 06/05/21 03:42 06/05/21 03:42 Assessment and Plan Assessment: Assessment #1 intermittent episodes of symptomatic nonsustained ventricular tachycardia seems to be monomorphic #2 coronary artery disease seems to be stable #3 left pleural effusion of unknown etiology #4 preserved left ventricular systolic function #5 multiple comorbid conditions Plan #1 rule out sarcoidosis. #2 he is in process to be seen by the pulmonary/critical care team regarding possible pleurocentesis #3 DC lidocaine and start the patient on mexiletine and continue amiodarone #4 monitor the electrolytes including potassium and magnesium #5 rule out acute coronary event. We'll serial the troponin #6 obtain an echocardiogram was Doppler We'll continue following up with the patient
--- NOTE | 2021-06-05 08:28 | XR ---
EXAMINATION TYPE: XR chest 1V portable DATE OF EXAM: 06/05/2021 COMPARISON: Chest x-ray 06/04/2021 HISTORY: Pneumonia TECHNIQUE: Single frontal view of the chest is obtained. FINDINGS: Metallic devices are overlying the patient. There is no evident pneumothorax. Retrocardiac density with obscured left hemidiaphragm persists. There is prominence of the central vascularity an d interstitium. Heart size is likely stable. IMPRESSION: There are limitations to the exam. No significant interval change is evident. Correlate for pulmonary venous hypertension and interstitial edema, there may be associated effusion, lower lob e atelectasis versus edema, pneumonia not excluded
--- NOTE | 2021-06-05 08:36 | US ---
EXAMINATION TYPE: US chest DATE OF EXAM: 06/05/2021 COMPARISON: NONE CLINICAL HISTORY: left pleural effusion. SOB, pneumonia, large habitus TECHNIQUE: Targeted ultrasound of the posterior lower Left EXAM MEASUREMENTS: Left Pleural Effusion pocket size: 8.7 cm Left skin surface to fluid distance: 5.2 cm Left side marked for possible thoracentesis outside the dept. Pulmonologists are able to review the images in the patient?s EMR. IMPRESSIONS: 1. Left pleural effusion
[2021-06-05] MEDS: MEXILETINE 150 MG CAP PO SCH ×3 (08:47→23:39)
[2021-06-05] MEDS: LOSARTAN 50 MG TAB PO SCH (08:53)
[2021-06-05] MEDS: COLCHICINE 0.6 MG EACH PO SCH ×2 (08:53→20:22)
[2021-06-05] MEDS: MULTIVITAMINS, THERA 1 EACH TAB PO SCH (08:53)
[2021-06-05] MEDS: MAGNESIUM OXIDE 400 MG TAB PO SCH (08:53)
[2021-06-05] MEDS: AMOXIC-POT CLAV 875-125MG 1 EACH TAB PO SCH ×2 (08:53→20:22)
[2021-06-05] MEDS: METOPROLOL SUCCINATE (ER) 25 MG TAB.ER.24H PO SCH (08:54)
[2021-06-05] MEDS: ASPIRIN 81 MG PO SCH (08:57)
[2021-06-05] MEDS: METHYLPREDNISOLONE 4 MG PO SCH (08:57)
[2021-06-05] MEDS ORDERED: methylPREDNISolone 4 MG TAB TAPER PO SCH ×2 (09:00)
[2021-06-05] MEDS ORDERED: PRASUGREL 10 MG TAB PO SCH (09:00)
--- NOTE | 2021-06-05 11:35 | P.CNPUL ---
History of Present Illness Consult date: 06/05/21 Requesting physician: Gabriel Londono Reason for consult: dyspnea, hypoxemia, pneumonia, pleural effusion, abnormal CXR/CT Chief complaint: Cough, shortness of breath History of present illness: 61-year-old white male patient of Dr. Rascon past medical history of hypertension, urinary artery disease with stenting of the LAD, previous history of cardiac ablation for ventricular tachycardia, dyslipidemia, former smoker who presented to the emergency department on 06/04/2021 patient shortness of breath, and cough. He had EP study and VT ablation on 05/19/2021. He was discharged home with a lifevest. Chest x-ray in the emergency department showed worsening [id number] left pleural effusion and worsening left basilar acute infiltrate and/or atelectasis compared to his chest x-ray from the day of the procedure on 05/19/2021. His echocardiogram on only 001 shows mild concentric LVH, EF 60-65%, trace aortic regurg, mild mitral regurg, trace tricuspid regurg, and right ventricular systolic pressure was normal at less than 35 mmHg. There was no pericardial effusion. Patient reports no history of fevers. His cough is dry at times and at times she is able to produce. Denied any chest discomfort, his EKG in the ED showed normal sinus rhythm with nonspecific ST and T-wave abnormality in the inferior and anterolateral leads. Yesterday patient developed episodes of heart racing, and fluttering, associated with dizziness and lightheadedness but no presyncope or syncope. In the emergency department the LifeVest was interrogated and revealed multiple episodes of prolonged nonsustained ventricular tachycardia seems to be very fast and patient was started on amiodarone, and magnesium infusions. Lidocaine infusion was then added. Overnight he did not have anymore episodes of V. tach, lab work shows electrolytes including potassium and magnesium within normal limits, essentially blood cell count is 14.5, hemoglobin was 14.6, renal profile was within normal limits, troponin 1 and 2 were 0.012, and 0.028. ProBNP was 632. Patient has been afebrile while in the hospital. He is currently in sinus mechanism with a rate of 50. Currently lidocaine drip is discontinued, amiodarone drip is a 0.5 mg/m, and 0.9 is at 20 ML per hour. Patient is on oral Augmentin currently, he did receive a dose of azithromycin and Rocephin in the ED. He states he came in complaining of chest pain. He is currently also on colchicine, and he was given a Medrol 8 mg by mouth times one. IV Toradol has been added for pleuritic chest discomfort. Follow-up chest x-ray today shows no significant interval change, pulmonary venous hypertension and interstitial edema, associated effusion, lower lobe atelectasis versus edema. Pneumonia was not excluded. Review of Systems All systems: negative Constitutional: Denies chills, Denies fever Eyes: denies blurred vision, denies pain Ears, nose, mouth and throat: Denies headache, Denies sore throat Cardiovascular: Denies chest pain, Denies shortness of breath Respiratory: Reports cough, Reports cough with sputum, Reports dyspnea Gastrointestinal: Denies abdominal pain, Denies diarrhea, Denies nausea, Denies vomiting Musculoskeletal: Denies myalgias Integumentary: Denies pruritus, Denies rash Neurological: Denies numbness, Denies weakness Psychiatric: Denies anxiety, Denies depression Endocrine: Denies fatigue, Denies weight change Past Medical History Past Medical History: Hypertension Additional Past Medical History / Comment(s): HX OF RECTAL POLYP, ZOLL LIFE VEST, COVID History of Any Multi-Drug Resistant Organisms: None Reported Past Surgical History: Cardiac Ablation, Heart Catheterization With Stent, Hernia Repair, Orthopedic Surgery Additional Past Surgical History / Comment(s): LT KNEE SCOPE, COLONOSCOPY, heart cath 03/10/21-2 stents Past Anesthesia/Blood Transfusion Reactions: No Reported Reaction Date of Last Stent Placement:: 03/10/21 Past Psychological History: No Psychological Hx Reported Smoking Status: Former smoker Past Alcohol Use History: Occasional Additional Past Alcohol Use History / Comment(s): quit smoking 1992, smoked for 20 yrs Past Drug Use History: None Reported - Past Family History Mother Family Medical History: No Reported History Medications and Allergies Home Medications Medication Instructions Recorded Confirmed Type Aspirin [Adult Low Dose Aspirin EC] 81 mg PO DAILY 03/06/21 06/04/21 History Garlic 1 tab PO DAILY 03/06/21 06/04/21 History Multivitamins, Thera [Multivitamin 1 tab PO DAILY 03/06/21 06/04/21 History (formulary)] Omeprazole [PriLOSEC] 40 mg PO HS 03/06/21 06/04/21 History Atorvastatin [Lipitor] 80 mg PO HS #90 tab 03/11/21 06/04/21 Rx Nitroglycerin Sl Tabs [Nitrostat] 0.4 mg SUBLINGUAL Q5M PRN #25 tab 03/11/21 06/04/21 Rx Prasugrel [Effient] 10 mg PO DAILY #90 tab 03/11/21 06/04/21 Rx Colchicine [Colcrys] 0.6 mg PO BID #30 each 05/21/21 06/04/21 Rx Magnesium Oxide [Mag-Ox] 400 mg PO DAILY #90 tab 05/21/21 06/04/21 Rx Metoprolol Succinate (ER) [Toprol 25 mg PO DAILY #90 tab.er.24h 05/21/21 06/04/21 Rx XL] Acetaminophen/Chlorpheniramine 1 - 2 tab PO Q4H PRN 06/04/21 06/04/21 History [Coricidin Hbp Cold & Flu Tab] Amoxicillin/Potassium Clav 1 tab PO BID 06/04/21 06/04/21 History [Augmentin 875-125 Tablet] Losartan [Cozaar] 50 mg PO DAILY 06/04/21 06/04/21 History methylPREDNISolone Dose Pack See Taper PO DIRECTED 06/04/21 06/04/21 History [Medrol Dose Pack] Allergies Allergy/AdvReac Type Severity Reaction Status Date / Time No Known Allergies Allergy Verified 06/04/21 15:26 Physical Exam Vitals: Vital Signs Temp Pulse Pulse Pulse Resp BP BP 06/05/21 10:00 52 L 14 136/77 06/05/21 09:00 59 L 29 H 150/78 06/05/21 08:00 99.1 F 59 L 23 132/87 06/05/21 07:00 53 L 13 117/74 06/05/21 06:30 51 L 14 129/83 06/05/21 06:00 57 L 14 109/72 06/05/21 05:30 51 L 13 118/76 06/05/21 05:00 53 L 14 116/75 06/05/21 04:30 50 L 16 122/80 06/05/21 04:00 96.7 F L 60 20 120/78 06/05/21 03:30 53 L 14 113/71 06/05/21 03:00 54 L 14 115/73 06/05/21 02:30 53 L 17 118/81 06/05/21 02:00 56 L 18 122/87 06/05/21 01:30 55 L 16 133/79 06/05/21 01:00 60 15 128/85 06/05/21 00:30 53 L 17 138/85 06/05/21 00:00 96.2 F L 56 L 12 129/95 06/04/21 23:30 63 18 138/80 06/04/21 23:00 60 21 126/80 06/04/21 22:41 98.1 F 64 48 H 163/93 06/04/21 22:30 65 14 122/79 06/04/21 22:20 81 32 H 122/79 06/04/21 22:10 87 29 H 122/79 06/04/21 22:00 62 19 130/81 06/04/21 21:50 60 16 130/81 06/04/21 21:40 63 25 H 140/90 06/04/21 21:30 62 19 154/90 06/04/21 21:21 73 15 06/04/21 21:05 71 18 144/84 06/04/21 19:21 97.8 F 63 18 128/79 06/04/21 18:00 97.4 F L 69 18 154/94 06/04/21 17:33 98.2 F 78 16 128/74 06/04/21 15:46 98.2 F 65 22 129/69 06/04/21 14:53 64 16 131/68 06/04/21 13:38 97.9 F 71 18 141/90 Pulse Ox 06/05/21 10:00 95 06/05/21 09:00 95 06/05/21 08:00 94 L 06/05/21 07:00 96 06/05/21 06:30 93 L 06/05/21 06:00 95 06/05/21 05:30 95 06/05/21 05:00 95 06/05/21 04:30 95 06/05/21 04:00 95 06/05/21 03:30 96 06/05/21 03:00 96 06/05/21 02:30 96 06/05/21 02:00 96 06/05/21 01:30 96 06/05/21 01:00 97 06/05/21 00:30 96 06/05/21 00:00 96 06/04/21 23:30 98 06/04/21 23:00 96 06/04/21 22:41 96 06/04/21 22:30 96 06/04/21 22:20 96 06/04/21 22:10 96 06/04/21 22:00 95 06/04/21 21:50 95 06/04/21 21:40 94 L 06/04/21 21:30 06/04/21 21:21 06/04/21 21:05 95 06/04/21 19:21 95 06/04/21 18:00 98 06/04/21 17:33 96 06/04/21 15:46 96 06/04/21 14:53 94 L 06/04/21 13:38 96 Intake and Output 06/04/21 06/05/21 06/05/21 22:59 06:59 14:59 Intake Total 20 160 377.3 Output Total 500 600 750 Balance -480 -440 -372.7 Intake: IV 20 160 80 Sodium Chloride 0.9% 1, 20 160 80 000 ml @ 20 mls/hr IV . Q24H SHARAN Rx#:[id number] Intake, IV Titration 57.3 Amount Amiodarone 450 mg In 49.8 Dextrose 5% in Water 250 ml @ 0.5 MG/MIN 16.667 mls/hr IV .Q15H SHARAN Rx#: [id number] Lidocaine-D5w Pmx 2G/ 7.5 250Ml 2,000 mg In Dextrose/Water 1 250ml. bag @ 1 MG/MIN 7.5 mls/hr IV .Q24H SHARAN Rx#: [id number] Oral 240 Output: Urine 500 600 750 Other: Voiding Method Urinal Urinal # Voids 1 1 1 # Bowel Movements 1 Weight 120.202 kg 122 kg GENERAL EXAM: Alert, very pleasant, 61-year-old obese white male, resting in bed, in 4 L of oxygen, breathing comfortably, currently on 4 L of oxygen, with pulse ox of 95% comfortable in no apparent distress. HEAD: Normocephalic/atraumatic. EYES: Normal reaction of pupils, equal size. Conjunctiva pink, sclera white. NOSE: Clear with pink turbinates. THROAT: No erythema or exudates. NECK: No masses, no JVD, no thyroid enlargement, no adenopathy. CHEST: No chest wall deformity. Symmetrical expansion. patient has a life vest on LUNGS: Equal air entry with diminished breath sounds at the left base CVS: Regular rate and rhythm, normal S1 and S2, no gallops, no murmurs, no rubs ABDOMEN: Soft, nontender. No hepatosplenomegaly, normal bowel sounds, no guarding or rigidity. EXTREMITIES: No clubbing, no edema, no cyanosis, 2+ pulses and upper and lower extremities. MUSCULOSKELETAL: Muscle strength and tone normal. SPINE: No scoliosis or deformity SKIN: No rashes CENTRAL NERVOUS SYSTEM: Alert and oriented -3. No focal deficits, tone is normal in all 4 extremities. PSYCHIATRIC: Alert and oriented -3. Appropriate affect. Intact judgment and insight. Results - Laboratory Findings CBC and BMP: 06/05/21 03:42 06/05/21 03:42 Abnormal lab findings: Abnormal Labs 06/04/21 06/04/21 06/04/21 14:05 14:05 21:24 WBC 14.5 H Neutrophils # 12.4 H Lymphocytes # Chloride 109 H Glucose 138 H POC Glucose (mg/dL) 122 H AST 69 H ALT 111 H 06/05/21 06/05/21 03:42 03:42 WBC 12.3 H Neutrophils # 10.3 H Lymphocytes # 0.9 L Chloride Glucose 124 H POC Glucose (mg/dL) AST ALT - Diagnostic Findings Chest x-ray: report reviewed, image reviewed Additional studies: EKG, US chest reviewed Assessment and Plan Plan: Assessment: #1. Acute hypoxic respiratory failure related to left pleural effusion, of unknown etiology, chest x-ray showing pulmonary venous congestion, interstitial edema, and left greater than right pleural effusion, possibility of pneumonia is not entirely excluded although felt to be less likely #2. Intermittent episodes of symptomatic nonsustained ventricular tachycardia, currently in sinus mechanism, remains on amiodarone infusion, patient has been given IV magnesium, and lidocaine infusion. #3. Recent EP study and ablation for ventricular tachycardia on 05/19/2021 #4. Hypertension #5. Coronary artery disease with stenting of the LAD #6. Former smoker #7. Morbid obesity Plan: Ultrasound of the chest has been reviewed We will consider left-sided thoracentesis We need to see if the patient can be off his Effient for the procedure We'll send pleural fluid analysis Continue closely following in the intensive care unit Monitor for recurrent arrhythmias Cardiology is following Continue antibiotics We'll send a pro-calcitonin level I performed a history & physical examination of the patient and discussed their management with my nurse practitioner, Nunu Cordoba. I reviewed the nurse practitioner's note and agree with the documented findings and plan of care. Lung sounds are positive for diminished breath sounds throughout the lung fleming. The findings and the impression was discussed with the patient. I attest to the documentation by the nurse practitioner. Time with Patient: Greater than 30
--- NOTE | 2021-06-05 12:57 | ECHOF ---
Referral Reason:Cardiac Function evaluation MEASUREMENTS -------- HEIGHT: 172.7 cm WEIGHT: 121.6 kg BP: 132/87 IVSd: 1.9 cm (0.6 - 1.1) LVIDd: 4.3 cm (3.9 - 5.3) LVPWd: 1.6 cm (0.6 - 1.1) EDV(Teich): 85 ml IVSs: 2.3 cm LVIDs: 2.8 cm LVPWs: 1.9 cm %IVS Thck: 21 % ESV(Teich): 30 ml EF(Teich): 65 % %FS: 35 % SV(Teich): 55 ml LA Diam: 3.7 cm (2.7 - 3.8) RVIDd: 3.3 cm (< 3.3) LALs A4C: 5.6 cm LAAs A4C: 20.1 cm LAESV A-L A4C: 61 ml LAESV MOD A4C: 55 ml LALs A2C: 6.0 cm LAAs A2C: 20.5 cm LAESV A-L A2C: 60 ml LAESV MOD A2C: 57 ml LAESV(A-L): 62 ml LAESV Index (A-L): 26.85 ml/m Ao Diam: 4.0 cm (2.0 - 3.7) AV Cusp: 2.5 cm (1.5 - 2.6) EPSS: 0.1 cm MV E Kalia: 0.90 m/s MV DecT: 172 ms MV Dec [place]: 5.3 m/s MV A Kalia: 0.65 m/s MV E/A Ratio: 1.39 MV PHT: 50 ms AV Vmax: 1.17 m/s AV maxP.49 mmHg TR Vmax: 1.92 m/s TR maxP.78 mmHg RAP: 5.00 mmHg RVSP: 19.78 mmHg MV EF SLOPE: 82.60 mm/s (70 - 150) MV EXCURSION: 19.09 mm (> 18.000) FINDINGS -------- Sinus rhythm. This was a technically difficult study with suboptimal views. The left ventricular size is normal. There is severe concentric left ventricular hypertrophy. Ove rall left ventricular systolic function is normal with, an EF between 55 - 60 %. The right ventricle is mildly enlarged. Normal LA size by volume 22+/-6 ml/m2. The right atrium is normal in size. 5 ml of Lumason was utilized for enhancement of images. Interatrial and interventricular septum intact. Trace to mild aortic regurgitation. Mild mitral annular calcification present. There is trace mitral regurgitation. The tricuspid valve appears structurally normal. Unable to estimate RVSP due to inadequate TR jet s pectral doppler profile. The pulmonic valve was not well visualized. The aortic root is dilated measuring 4.0cm. IVC Not well visulized. There is no pericardial effusion. CONCLUSIONS -------- 1. The left ventricular size is normal. 2. There is severe concentric left ventricular hypertrophy. 3. Overall left ventricular systolic function is normal with, an EF between 55 - 60 %. 4. The right ventricle is mildly enlarged. 5. Normal LA size by volume 22+/-6 ml/m2. 6. 5 ml of Lumason was utilized for enhancement of images. 7. Trace to mild aortic regurgitation. 8. Mild mitral annular calcification present. 9. There is trace mitral regurgitation. 10. The aortic root is dilated measuring 4.0cm. 11. IVC Not well visulized. 12. There is no pericardial effusion. FAMILY LIVING EDUCATOR: Sherie Caballero RDCS
--- NOTE | 2021-06-05 13:53 | P.HPIM ---
History of Present Illness H&P Date: 06/05/21 Chief Complaint: CP,Shortness of breath, cough, LifeVest/monitor beeping at home This is a pleasant 61-year-old gentleman with history of NSVT, CAD status post PCI of LAD and circumflex, cardiac ablation for V. tach- recent diagnostic EP study and VT ablation on 05/19/2021 secondary to long runs of nonsustained VT refractory to sotalol-discharged home with LifeVest and multiple other medical issues presented to the ER with complaints of shortness of breath,cough-occasion ally productive, beeping of LifeVest monitor-denies being shocked, intermittent heart racing, fluttering, lightheadedness and dizziness. Denies syncope, fever or chills.EKG reported normal sinus rhythm, nonspecific ST-T wave abnormalities- inferior/anterior lateral, prolonged QT. Troponins less than 0.012, 0.028. LifeVest interrogated in the ER, reportedly multiple episodes of lung nonsustained V. tach. Received antiarrhythmics of amiodarone, lidocaine- currently on amiodarone. Converted to sinus rhythm with no further runs of V. tach. Bradycardic, maintaining O2 sats in the 90s on 4 L nasal cannula. Recent echo reported normal LV function. Electrolytes within normal limits. Serial troponins in progress. Complains of pleuritic discomfort.Chest x-ray reporting small to moderate left pleural effusion, worsening left basilar opacity. Review of Systems ROS Statement: Those systems with pertinent positive or pertinent negative responses have been documented in the HPI. ROS Other: All systems not noted in ROS Statement are negative. Past Medical History Past Medical History: Hypertension Additional Past Medical History / Comment(s): HX OF RECTAL POLYP, ZOLL LIFE VEST, COVID History of Any Multi-Drug Resistant Organisms: None Reported Past Surgical History: Cardiac Ablation, Heart Catheterization With Stent, Hernia Repair, Orthopedic Surgery Additional Past Surgical History / Comment(s): LT KNEE SCOPE, COLONOSCOPY, heart cath 03/10/21-2 stents Past Anesthesia/Blood Transfusion Reactions: No Reported Reaction Date of Last Stent Placement:: 03/10/21 Past Psychological History: No Psychological Hx Reported Smoking Status: Former smoker Past Alcohol Use History: Occasional Additional Past Alcohol Use History / Comment(s): quit smoking 1992, smoked for 20 yrs Past Drug Use History: None Reported - Past Family History Mother Family Medical History: No Reported History Medications and Allergies Home Medications Medication Instructions Recorded Confirmed Type Aspirin [Adult Low Dose Aspirin EC] 81 mg PO DAILY 03/06/21 06/04/21 History Garlic 1 tab PO DAILY 03/06/21 06/04/21 History Multivitamins, Thera [Multivitamin 1 tab PO DAILY 03/06/21 06/04/21 History (formulary)] Omeprazole [PriLOSEC] 40 mg PO HS 03/06/21 06/04/21 History Atorvastatin [Lipitor] 80 mg PO HS #90 tab 03/11/21 06/04/21 Rx Nitroglycerin Sl Tabs [Nitrostat] 0.4 mg SUBLINGUAL Q5M PRN #25 tab 03/11/21 06/04/21 Rx Prasugrel [Effient] 10 mg PO DAILY #90 tab 03/11/21 06/04/21 Rx Colchicine [Colcrys] 0.6 mg PO BID #30 each 05/21/21 06/04/21 Rx Magnesium Oxide [Mag-Ox] 400 mg PO DAILY #90 tab 05/21/21 06/04/21 Rx Metoprolol Succinate (ER) [Toprol 25 mg PO DAILY #90 tab.er.24h 05/21/21 06/04/21 Rx XL] Acetaminophen/Chlorpheniramine 1 - 2 tab PO Q4H PRN 06/04/21 06/04/21 History [Coricidin Hbp Cold & Flu Tab] Amoxicillin/Potassium Clav 1 tab PO BID 06/04/21 06/04/21 History [Augmentin 875-125 Tablet] Losartan [Cozaar] 50 mg PO DAILY 06/04/21 06/04/21 History methylPREDNISolone Dose Pack See Taper PO DIRECTED 06/04/21 06/04/21 History [Medrol Dose Pack] Allergies Allergy/AdvReac Type Severity Reaction Status Date / Time No Known Allergies Allergy Verified 06/04/21 15:26 Physical Exam Vitals: Vital Signs Temp Pulse Pulse Pulse Resp BP BP 06/05/21 09:00 59 L 29 H 150/78 06/05/21 08:00 99.1 F 59 L 23 132/87 06/05/21 07:00 53 L 13 117/74 06/05/21 06:30 51 L 14 129/83 06/05/21 06:00 57 L 14 109/72 06/05/21 05:30 51 L 13 118/76 06/05/21 05:00 53 L 14 116/75 06/05/21 04:30 50 L 16 122/80 06/05/21 04:00 96.7 F L 60 20 120/78 06/05/21 03:30 53 L 14 113/71 06/05/21 03:00 54 L 14 115/73 06/05/21 02:30 53 L 17 118/81 06/05/21 02:00 56 L 18 122/87 06/05/21 01:30 55 L 16 133/79 06/05/21 01:00 60 15 128/85 06/05/21 00:30 53 L 17 138/85 06/05/21 00:00 96.2 F L 56 L 12 129/95 06/04/21 23:30 63 18 138/80 06/04/21 23:00 60 21 126/80 06/04/21 22:41 98.1 F 64 48 H 163/93 06/04/21 22:30 65 14 122/79 06/04/21 22:20 81 32 H 122/79 06/04/21 22:10 87 29 H 122/79 06/04/21 22:00 62 19 130/81 06/04/21 21:50 60 16 130/81 06/04/21 21:40 63 25 H 140/90 06/04/21 21:30 62 19 154/90 06/04/21 21:21 73 15 06/04/21 21:05 71 18 144/84 06/04/21 19:21 97.8 F 63 18 128/79 06/04/21 18:00 97.4 F L 69 18 154/94 06/04/21 17:33 98.2 F 78 16 128/74 06/04/21 15:46 98.2 F 65 22 129/69 06/04/21 14:53 64 16 131/68 06/04/21 13:38 97.9 F 71 18 141/90 Pulse Ox 06/05/21 09:00 95 06/05/21 08:00 94 L 06/05/21 07:00 96 06/05/21 06:30 93 L 06/05/21 06:00 95 06/05/21 05:30 95 06/05/21 05:00 95 06/05/21 04:30 95 06/05/21 04:00 95 06/05/21 03:30 96 06/05/21 03:00 96 06/05/21 02:30 96 06/05/21 02:00 96 06/05/21 01:30 96 06/05/21 01:00 97 06/05/21 00:30 96 06/05/21 00:00 96 06/04/21 23:30 98 06/04/21 23:00 96 06/04/21 22:41 96 06/04/21 22:30 96 06/04/21 22:20 96 06/04/21 22:10 96 06/04/21 22:00 95 06/04/21 21:50 95 06/04/21 21:40 94 L 06/04/21 21:30 06/04/21 21:21 06/04/21 21:05 95 06/04/21 19:21 95 06/04/21 18:00 98 06/04/21 17:33 96 06/04/21 15:46 96 06/04/21 14:53 94 L 06/04/21 13:38 96 Intake and Output 06/04/21 06/05/21 06/05/21 22:59 06:59 14:59 Intake Total 20 160 340.7 Output Total 500 600 750 Balance -480 -440 -409.3 Intake: IV 20 160 60 Sodium Chloride 0.9% 1, 20 160 60 000 ml @ 20 mls/hr IV . Q24H SHARAN Rx#:[id number] Intake, IV Titration 40.7 Amount Amiodarone 450 mg In 33.2 Dextrose 5% in Water 250 ml @ 0.5 MG/MIN 16.667 mls/hr IV .Q15H SHARAN Rx#: [id number] Lidocaine-D5w Pmx 2G/ 7.5 250Ml 2,000 mg In Dextrose/Water 1 250ml. bag @ 1 MG/MIN 7.5 mls/hr IV .Q24H SHARAN Rx#: [id number] Oral 240 Output: Urine 500 600 750 Other: Voiding Method Urinal # Voids 1 1 1 # Bowel Movements 1 Weight 120.202 kg 122 kg PHYSICAL EXAM: VITAL SIGNS: As above GENERAL: Pleasant 61-year-old gentleman , Alert and Sitting up in bed, no acute distress HEENT: Normocephalic, atraumatic ,Conjunctivae normal. eyes normal. Oral mucosa dry NECK: Supple, No JVD. No thyroid enlargement, no LNs. CARDIOVASCULAR: S1, S2 regular. Bradycardic ,No murmur RESPIRATION: Breath sounds diminished in the bases, more so on the left. No rhonchi or crackles. No bronchial breathing. ABDOMEN: Soft, nontender . No guarding. no masses palpable. Bowel sounds heard. LEGS: No edema. no swelling, no calf tenderness. PSYCHIATRY: Alert and oriented X3, mood and affect normal. NERVOUS SYSTEM: Cranial N 2-12 grossly normal. Moves all 4 limbs.No focal deficits. Strength and sensation grossly intact.. Skin: Warm and dry, no rash Results CBC & Chem 7: 06/05/21 03:42 06/05/21 03:42 Labs: Abnormal Lab Results - Last 24 Hours (Table) 06/04/21 06/04/21 06/04/21 Range/Units 14:05 14:05 21:24 WBC 14.5 H (3.8-10.6) k/uL Neutrophils # 12.4 H (1.3-7.7) k/uL Lymphocytes # (1.0-4.8) k/uL Chloride 109 H (98-107) mmol/L Glucose 138 H (74-99) mg/dL POC Glucose (mg/dL) 122 H (75-99) mg/dL AST 69 H (17-59) U/L ALT 111 H (4-49) U/L 06/05/21 06/05/21 Range/Units 03:42 03:42 WBC 12.3 H (3.8-10.6) k/uL Neutrophils # 10.3 H (1.3-7.7) k/uL Lymphocytes # 0.9 L (1.0-4.8) k/uL Chloride (98-107) mmol/L Glucose 124 H (74-99) mg/dL POC Glucose (mg/dL) (75-99) mg/dL AST (17-59) U/L ALT (4-49) U/L Thrombosis Risk Factor Assmnt - Choose All That Apply Any of the Below Risk Factors Present?: No Other Risk Factors: Yes Each Risk Factor Represents 2 Points: Age 61-74 years Thrombosis Risk Factor Assessment Total Risk Factor Score: 2 Thrombosis Risk Factor Assessment Level: Low Risk Assessment and Plan Assessment: Acute hypoxic respiratory failure secondary to left pleural effusion, etiology unclear, possibly sarcoidosis, possibly pneumonia. Symptomatic nonsustained runs of V. tach Bradycardia Recent diagnostic EP study and VT ablation on 05/19/2021 secondary to long runs of nonsustained VT refractory to sotalol-discharged home with LifeVest. History of NSTEMI CAD status post recent PCI LAD and circumflex, in March 2021 with repeat heart catheterization reporting patent stents Nonsustained V. tach Hypertension Former nicotine dependence Morbid obesity, BMI 40.9 Plan: Continue on current medication regime ,monitoring and symptomatic treatment. Chest ultrasound and echo being completed at bedside. Potential diagnostic thoracentesis. Antiarrhythmics as per cardiology. Serial troponins in progress. Prognosis guarded given multiple complex medical issues. The impression and plan of care has been dictated as directed. : I performed a history and examination of this patient, discussed the same with the dictator. I agree with the dictator's note ,documented as a scribe. Any additional findings or plans will be noted.
[2021-06-05] MEDS: SODIUM CHLORIDE 0.9% 1,000 ML IV SCH (15:11)
[2021-06-05] MEDS: PANTOPRAZOLE 40 MG TABLET PO SCH (20:21)
[2021-06-05] MEDS: ATORVASTATIN 80 MG TAB PO SCH (20:21)
[2021-06-06 05:25] LABS: Basophils # (A) 0.1 k/uL (0-0.2); Basophils % (A) 1 %; Eosinophils # (A) 0.7 k/uL (0-0.7); Eosinophils % (A) 6 %; HCT 43.5 % (39.0-53.0); HGB 14.4 gm/dL (13.0-17.5); Lymphocytes % (A) 18 %; MCH 30.3 pg (25.0-35.0); MCHC 33.1 g/dL (31.0-37.0); MCV 91.4 fL (80.0-100.0); Mean Platelet Volume 6.8; Monocytes # (A) 0.6 k/uL (0-1.0); Monocytes % (A) 6 %; Neutrophils # (A) 7.4 k/uL (1.3-7.7); Neutrophils % (A) 67 %; Platelet Count 262 k/uL (150-450); Poikilocytosis Slight; RBC 4.75 m/uL (4.30-5.90); RDW 14.7 % (11.5-15.5)
[2021-06-06 05:48] LABS: African American GFR (CKD) >90 (>60 ml/min/1.73 sqM); Anion Gap 8 mmol/L; Blood Urea Nitrogen 20 mg/dL (9-20); Calcium 8.6 mg/dL (8.4-10.2); Carbon Dioxide 24 mmol/L (22-30); Chloride 104 mmol/L (98-107); Glucose 98 mg/dL (74-99); Non-African American GFR(CKD) >90 (>60 ml/min/1.73 sqM); Potassium 4.2 mmol/L (3.5-5.1); Sodium 136 mmol/L (137-145)
[2021-06-06] MEDS: AMIODARONE 450 MG in DEXTROSE 5% IN WATER 250 ML IV SCH ×4 (06:31→16:19)
--- NOTE | 2021-06-06 07:16 | P.PN ---
Subjective Progress Note Date: 06/06/21 Principal diagnosis: Nonsustained ventricular tachycardia This is a pleasant 61-year-old gentleman with coronary artery disease as well as hypertension and dyslipidemia who was admitted to the intensive care unit with multiple episodes consistent with symptomatic nonsustained ventricular tachycardia. The patient was seen this morning. So far he is doing good and he has been maintaining normal sinus mechanism with frequent PVCs. He is currently on amiodarone IV which I'm going to switch him to amiodarone by mouth and also he is on mexiletine which was started yesterday. Potassium appeared to be within normal limits. No magnesium this morning. I'm going to obtain magnesium level as well. Hemodynamically he is stable. He is in process of having left pleurocentesis. 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 The echo was reviewed and showed normal left ventricular systolic function Objective - Vital Signs Vital signs: Vital Signs Temp 97.7 F 06/06/21 04:00 Pulse 51 L 06/06/21 06:00 Resp 13 06/06/21 06:00 BP 127/82 06/06/21 06:00 Pulse Ox 98 06/06/21 06:00 Intake & Output 06/05/21 06/06/21 06/06/21 18:59 06:59 18:59 Intake Total 1290.371 590 Output Total 2575 1700 Balance -1284.629 -1110 Weight 122.3 kg Intake: IV 240 240 Sodium Chloride 0.9% 1, 240 240 000 ml @ 20 mls/hr IV . Q24H [facility] Rx#:[id number] Intake, IV Titration 330.371 Amount Amiodarone 450 mg In 322.871 Dextrose 5% in Water 250 ml @ 0.5 MG/MIN 16.667 mls/hr IV .Q15H SH[facility]AN Rx#: [id number] Lidocaine-D5w Pmx 2G/ 7.5 250Ml 2,000 mg In Dextrose/Water 1 250ml. bag @ 1 MG/MIN 7.5 mls/hr IV .Q24H SH[facility]AN Rx#: [id number] Oral 720 350 Output: Urine 2575 1700 Other: Voiding Method Urinal Urinal # Voids 1 1 # Bowel Movements 1 1 - Constitutional General appearance: Present: no acute distress - Respiratory Respiratory: bilateral: CTA - Cardiovascular Rhythm: regular Heart sounds: normal: S1, S2 - Labs CBC & Chem 7: 06/06/21 04:54 06/06/21 04:54 Labs: Abnormal Lab Results - Last 24 Hours (Table) 06/05/21 06/06/21 06/06/21 Range/Units 03:34 04:54 04:54 WBC 11.0 H (3.8-10.6) k/uL Sodium 136 L (137-145) mmol/L Procalcitonin 0.10 H (0.02-0.09) ng/mL Assessment and Plan Assessment: Assessment #1 intermittent episodes of symptomatic nonsustained ventricular tachycardia seems to be monomorphic #2 coronary artery disease seems to be stable #3 left pleural effusion of unknown etiology #4 preserved left ventricular systolic function #5 multiple comorbid conditions Plan #1 rule out sarcoidosis #2 he is in process of having left pleurocentesis #3 maintain normal level of potassium and magnesium #4 the echo was reviewed and showed normal LV function #5 he has been maintaining normal sinus mechanism #6 switch to amiodarone by mouth and continue mexiletine We'll continue following up with the patient
[2021-06-06] MEDS: MAGNESIUM OXIDE 400 MG TAB PO SCH (08:21)
[2021-06-06] MEDS: ASPIRIN 81 MG PO SCH (08:21)
[2021-06-06] MEDS: METOPROLOL SUCCINATE (ER) 25 MG TAB.ER.24H PO SCH ×2 (08:21→10:19)
[2021-06-06] MEDS: AMOXIC-POT CLAV 875-125MG 1 EACH TAB PO SCH ×2 (08:21→20:28)
[2021-06-06] MEDS: MULTIVITAMINS, THERA 1 EACH TAB PO SCH (08:21)
[2021-06-06] MEDS: AMIODARONE 200 MG TAB PO SCH ×2 (08:21→20:29)
[2021-06-06] MEDS: MEXILETINE 150 MG CAP PO SCH ×3 (08:21→23:05)
[2021-06-06] MEDS: LOSARTAN 50 MG TAB PO SCH (08:21)
[2021-06-06] MEDS: allopurinoL 100 MG TAB PO SCH ×2 (08:21→08:35)
[2021-06-06] MEDS: METHYLPREDNISOLONE 4 MG PO SCH (08:22)
--- NOTE | 2021-06-06 10:21 | XR ---
EXAMINATION TYPE: XR chest 1V portable DATE OF EXAM: 06/06/2021 COMPARISON: 06/05/2021 HISTORY: 61 years Male. STUDY INDICATION GIVEN: sob . TECHNIQUE: AP portable chest radiograph IMPRESSION: Mild pulmonary edema. Small left pleural effusion. Left lower lobe atelectasis and/or infiltrate. No cardiomegaly. Sclerotic changes in the proximal left humerus represent bone infarction, bone necrosis, clinical cor relation recommended.
--- NOTE | 2021-06-06 11:48 | PCN ---
PROCEDURE NOTE PULMONARY STATUS CRITICAL CARE PROCEDURE NOTE: PROCEDURE: Left-sided thoracentesis. OPERATORS: Dr. Fair and Dr. iBrd. Indication Pleural effusion. A time-out was completed verifying correct patient, procedure, site, positioning , and implant (s) or special equipment if applicable. Ultrasound guidance was used and appropriate fluid pocket was identified and marked. Patient was positioned, prepped and draped in usual sterile fashion. Lidocaine was used to anesthetize the area. A Thoracentesis catheter was introduced into the pleural space and fluid was removed. Blood loss was none. A chest x-ray was ordered to evaluate for pneumothorax. Total Fluid Removed: 1.3 L Color of Fluid: Bloody. Fluid was sent for appropriate laboratory tests. Patient tolerated the procedure well and there were no complications. The left posterior chest was marked by ultrasound. The patient gave informed consent. 1.3 L of bloody fluid was removed from the left pleural space. The patient tolerated the procedure well. No complications. A chest x-ray was ordered to check for pneumothorax. The fluid will be sent for analysis. No additional recommendations are made. Again the patient tolerated the procedure well. MMODL / IJN: [id number] /
[2021-06-06] MEDS: PRASUGREL 10 MG TAB PO SCH (12:25)
[2021-06-06] MEDS: guaiFENesin-DM 100-10MG/5ML 10 ML CUP PO PRN ×2 (12:26→20:33)
--- NOTE | 2021-06-06 12:34 | P.PN ---
Subjective Progress Note Date: 06/06/21 61-year-old white male patient of Dr. Rascon past medical history of hypertension, urinary artery disease with stenting of the LAD, previous history of cardiac ablation for ventricular tachycardia, dyslipidemia, former smoker who presented to the emergency department on 06/04/2021 patient shortness of breath, and cough. He had EP study and VT ablation on 05/19/2021. He was discharged home with a lifevest. Chest x-ray in the emergency department showed worsening [id number] left pleural effusion and worsening left basilar acute infiltrate and/or atelectasis compared to his chest x-ray from the day of the procedure on 05/19/2021. His echocardiogram on only shows mild concentric LVH, EF 60-65%, trace aortic regurg, mild mitral regurg, trace tricuspid regurg, and right ventricular systolic pressure was normal at less than 35 mmHg. There was no pericardial effusion. Patient reports no history of fevers. His cough is dry at times and at times she is able to produce. Denied any chest discomfort, his EKG in the ED showed normal sinus rhythm with nonspecific ST and T-wave abnormality in the inferior and anterolateral leads. Yesterday patient developed episodes of heart racing, and fluttering, associated with dizziness and lightheadedness but no presyncope or syncope. In the emergency department the LifeVest was interrogated and revealed multiple episodes of prolonged nonsustained ventricular tachycardia seems to be very fast and patient was started on amiodarone, and magnesium infusions. Lidocaine infusion was then added. Overnight he did not have anymore episodes of V. tach, lab work shows electrolytes including potassium and magnesium within normal limits, essentially blood cell count is 14.5, hemoglobin was 14.6, renal profile was within normal limits, troponin 1 and 2 were 0.012, and 0.028. ProBNP was 632. Patient has been afebrile while in the hospital. He is currently in sinus mechanism with a rate of 50. Currently lidocaine drip is discontinued, amiodarone drip is a 0.5 mg/m, and 0.9 is at 20 ML per hour. Patient is on oral Augmentin currently, he did receive a dose of azithromycin and Rocephin in the ED. He states he came in complaining of chest pain. He is currently also on colchicine, and he was given a Medrol 8 mg by mouth times one. IV Toradol has been added for pleuritic chest discomfort. Follow-up chest x-ray today shows no significant interval change, pulmonary venous hypertension and interstitial edema, associated effusion, lower lobe atelectasis versus edema. Pneumonia was not excluded. The patient is seen today 06/06/2021 in follow-up in the intensive care unit. He is currently sitting up in bed. Awake and alert in no acute distress. Maintaining O2 saturations in the 90s on 4 L/m per nasal cannula. 0.9 NS at 20 ML's per hour. Ultrasound of the left pleural effusion revealed a pocket of 8.7 cm. White count 11.0. Hemoglobin 14.4. Sodium 136. Potassium 4.2. Creatinine 0.79. Magnesium 2.1. He remains on oral amiodarone and mexiletine. Objective - Vital Signs Vital signs: Vital Signs Temp 98.2 F 06/06/21 08:00 Pulse 57 L 06/06/21 10:00 Resp 28 H 06/06/21 10:00 BP 131/84 06/06/21 10:00 Pulse Ox 94 L 06/06/21 10:00 Intake & Output 06/05/21 06/06/21 06/06/21 18:59 06:59 18:59 Intake Total 1290.371 590 350.556 Output Total 2575 1700 1450 Balance -1284.629 -1110 -1099.444 Weight 122.3 kg Intake: IV 240 240 80 Sodium Chloride 0.9% 1, 240 240 80 000 ml @ 20 mls/hr IV . Q24H [facility] Rx#:[id number] Intake, IV Titration 330.371 30.556 Amount Amiodarone 450 mg In 322.871 Dextrose 5% in Water 250 ml @ 0.5 MG/MIN 16.667 mls/hr IV .Q15H [facility] Rx#: [id number] Amiodarone 450 mg In 30.556 Dextrose 5% in Water 250 ml @ 0.5 MG/MIN 16.667 mls/hr IV .Q15H [facility] Rx#: [id number] Lidocaine-D5w Pmx 2G/ 7.5 250Ml 2,000 mg In Dextrose/Water 1 250ml. bag @ 1 MG/MIN 7.5 mls/hr IV .Q24H [facility] Rx#: [id number] Oral 720 350 240 Output: Drainage 1300 Left Chest 1300 Urine 2575 1700 150 Other: Voiding Method Urinal Urinal # Voids 1 1 1 # Bowel Movements 1 1 - Exam GENERAL EXAM: Alert, pleasant, 61-year-old obese male, resting in bed, in 4 L of oxygen, no acute distress. EYES: Normal reaction of pupils, equal size. Conjunctiva pink, sclera white. NOSE: Clear with pink turbinates. THROAT: No erythema or exudates. NECK: No masses, no JVD, no thyroid enlargement, no adenopathy. CHEST: No chest wall deformity. Symmetrical expansion. patient has a life vest on LUNGS: Equal air entry with diminished breath sounds at the left base CVS: Regular rate and rhythm, normal S1 and S2, no gallops, no murmurs, no rubs ABDOMEN: Soft, nontender. No hepatosplenomegaly, normal bowel sounds, no guarding or rigidity. EXTREMITIES: No clubbing, no edema, no cyanosis, 2+ pulses and upper and lower extremities. MUSCULOSKELETAL: Muscle strength and tone normal. SPINE: No scoliosis or deformity SKIN: No rashes CENTRAL NERVOUS SYSTEM: No focal deficits, tone is normal in all 4 extremities. PSYCHIATRIC: Alert and oriented -3. Appropriate affect. Intact judgment and insight. - Labs CBC & Chem 7: 06/06/21 04:54 06/06/21 04:54 Labs: Abnormal Lab Results - Last 24 Hours (Table) 06/05/21 06/06/21 06/06/21 Range/Units 03:34 04:54 04:54 WBC 11.0 H (3.8-10.6) k/uL Sodium 136 L (137-145) mmol/L Procalcitonin 0.10 H (0.02-0.09) ng/mL Assessment and Plan Assessment: 1 Acute hypoxic respiratory failure related to left pleural effusion, of unknown etiology, chest x-ray showing pulmonary venous congestion, interstitial edema, and left greater than right pleural effusion, possibility of pneumonia is not entirely excluded although felt to be less likely 2 Large left pleural effusion, status post thoracentesis on 06/06/2021 with 2.4 L bloody return, cultures and cytology pending 3 Intermittent episodes of symptomatic nonsustained ventricular tachycardia, currently in sinus mechanism, remains on amiodarone infusion, patient has been given IV magnesium, and lidocaine infusion. 4 Recent EP study and ablation for ventricular tachycardia on 05/19/2021 5 Hypertension 6 Coronary artery disease with stenting of the LAD 7 Former smoker 8 Morbid obesity Plan: The patient was seen and evaluated by Dr. Fair He did go ahead and perform a left-sided thoracentesis with 2.4 L bloody return Follow-up chest x-ray revealed no evidence of pneumothorax To resume Effient today Remains on amiodarone, mexiletine No further runs of VT documented We will continue to follow I, the cosigning physician, performed a history & physical examination of the patient. Lungs sounds with crackles in left lung base, diminished. Maintaining good O2 saturations in the 90s on 4 L/m per nasal cannula. I discussed the a ssessment and plan of care with my nurse practitioner, Lacey Bird. I attest to the above note as dictated by her.
[2021-06-06] MEDS: SODIUM CHLORIDE 0.9% 1,000 ML IV SCH (16:28)
--- NOTE | 2021-06-06 17:15 | P.PN ---
Subjective Progress Note Date: 06/06/21 Principal diagnosis: Acute hypoxic respiratory failure Left pleural effusion Symptomatic NSVT Objective - Vital Signs Vital signs: Vital Signs Temp 98.4 F 06/06/21 12:00 Pulse 57 L 06/06/21 13:00 Resp 22 06/06/21 13:00 BP 141/94 06/06/21 13:00 Pulse Ox 95 06/06/21 13:00 Intake & Output 06/05/21 06/06/21 06/06/21 18:59 06:59 18:59 Intake Total 1290.371 590 650.556 Output Total 2575 1700 1900 Balance -1284.629 -1110 -1249.444 Weight 122.3 kg Intake: IV 240 240 140 Sodium Chloride 0.9% 1, 240 240 140 000 ml @ 20 mls/hr IV . Q24H [facility] Rx#:[id number] Intake, IV Titration 330.371 30.556 Amount Amiodarone 450 mg In 322.871 Dextrose 5% in Water 250 ml @ 0.5 MG/MIN 16.667 mls/hr IV .Q15H [facility] Rx#: [id number] Amiodarone 450 mg In 30.556 Dextrose 5% in Water 250 ml @ 0.5 MG/MIN 16.667 mls/hr IV .Q15H [facility] Rx#: [id number] Lidocaine-D5w Pmx 2G/ 7.5 250Ml 2,000 mg In Dextrose/Water 1 250ml. bag @ 1 MG/MIN 7.5 mls/hr IV .Q24H [facility] Rx#: [id number] Oral 720 350 480 Output: Drainage 1300 Left Chest 1300 Urine 2575 1700 600 Other: Voiding Method Urinal Urinal Urinal # Voids 1 1 1 # Bowel Movements 1 1 - Exam General appearance: Present: average body habitus, cooperative, no acute distress Eyes: Present: anicteric sclerae, EOMI, PERRLA, normal appearance Neck: Present: normal ROM. Absent: lymphadenopathy, rigidity, thyromegaly Carotids: negative: bruit present Thyroid: bilateral: normal size, negative: enlarged, nodule Respiratory: bilateral: CTA, negative: rales, rhonchi, wheezing Rhythm: regular Heart sounds: normal: S1, S2 Abnormal Heart Sounds: Absent: systolic murmur, diastolic murmur General gastrointestinal: Present: normal bowel sounds, soft. Absent: distended, organomegaly, tenderness Genitourinary Comment(s): deferred Integumentary: Present: normal turgor. Absent: jaundiced, rash, ulcer Neurologic: Present: CNII-XII intact. Absent: focal deficits Musculoskeletal: Present: gait normal, strength equal bilaterally Psychiatric: Present: A&O x's 3, appropriate affect, intact judgment & insight - Labs CBC & Chem 7: 06/06/21 04:54 06/06/21 04:54 Labs: Abnormal Lab Results - Last 24 Hours (Table) 06/05/21 06/06/21 06/06/21 Range/Units 03:34 04:54 04:54 WBC 11.0 H (3.8-10.6) k/uL Sodium 136 L (137-145) mmol/L Procalcitonin 0.10 H (0.02-0.09) ng/mL Assessment and Plan Assessment: 1. Acute hypoxic respiratory failure; secondary to left pleural effusion, of unknown etiology - chest x-ray showing pulmonary venous congestion, interstitial edema, and left greater than right pleural effusion, possibility of pneumonia is not entirely e xcluded although felt to be less likely; patient remains on Augmentin 875 mg daily 2. Large left pleural effusion, status post thoracentesis on 06/06/2021 with 2.4 L bloody return, cultures and cytology pending 3. Intermittent episodes of symptomatic nonsustained ventricular tachycardia; -- currently in sinus mechanism, remains on amiodarone infusion, patient has been given IV magnesium, and lidocaine infusion. -- Recent EP study and ablation for ventricular tachycardia on 05/19/2021 -- resume Effient today 4. Hypertension; continue with losartan 50 mg daily 5. Coronary artery disease with stenting of the LAD; stable 6. Hyperlipidemia; Lipitor 80 mg by mouth daily at bedtime DVT prophylaxis; SCDs CODE STATUS; full code
[2021-06-06] MEDS: ATORVASTATIN 80 MG TAB PO SCH (20:28)
[2021-06-06] MEDS: PANTOPRAZOLE 40 MG TABLET PO SCH (20:29)
[2021-06-07 01:23] LABS: Appearance,BF Hazy; Color,BF Brown
[2021-06-07 01:24] LABS: Nucleated Cells, Body Fluid 50 /uL; RBC, Body Fluid 49700 /uL
[2021-06-07 01:29] LABS: Mononuclear WBC,Body Fluid 93 %; Polynuclear WBC,Body Fluid 4 %; Total Cells Counted,Body Fluid 100
[2021-06-07 03:45] LABS: Basophils # (A) 0.1 k/uL (0-0.2); Basophils % (A) 0 %; Eosinophils # (A) 0.5 k/uL (0-0.7); Eosinophils % (A) 4 %; HCT 45.9 % (39.0-53.0); HGB 15.2 gm/dL (13.0-17.5); Lymphocytes # (A) 1.7 k/uL (1.0-4.8); Lymphocytes % (A) 13 %; MCH 30.4 pg (25.0-35.0); Mean Platelet Volume 6.7; Monocytes # (A) 0.7 k/uL (0-1.0); Monocytes % (A) 5 %; Neutrophils # (A) 9.5 k/uL (1.3-7.7); Neutrophils % (A) 75 %; Platelet Count 238 k/uL (150-450); Poikilocytosis Slight; RBC 4.99 m/uL (4.30-5.90); RDW 14.7 % (11.5-15.5); WBC 12.6 k/uL (3.8-10.6)
[2021-06-07 04:02] LABS: African American GFR (CKD) >90 (>60 ml/min/1.73 sqM); Anion Gap 9 mmol/L; Blood Urea Nitrogen 21 mg/dL (9-20); Calcium 8.6 mg/dL (8.4-10.2); Carbon Dioxide 20 mmol/L (22-30); Chloride 106 mmol/L (98-107); Glucose 104 mg/dL (74-99); Magnesium 2.2 mg/dL (1.6-2.3); Non-African American GFR(CKD) >90 (>60 ml/min/1.73 sqM); Potassium 4.4 mmol/L (3.5-5.1); Sodium 135 mmol/L (137-145)
--- NOTE | 2021-06-07 05:54 | P.PN ---
Subjective Progress Note Date: 06/07/21 Principal diagnosis: Nonsustained ventricular tachycardia This is a pleasant 61-year-old gentleman with coronary artery disease as well as hypertension and dyslipidemia who was admitted to the intensive care unit with multiple episodes consistent with symptomatic nonsustained ventricular tachycardia. The patient was seen this morning. He denies any symptoms of chest pain or chest discomfort and the clearly state that the shortness of breath has improved after he underwent left pleurocentesis yesterday. The fluid was sent for analysis and culture. He continues to maintain normal sinus mechanism and she continues to be on amiodarone as well as mexiletine. We'll continue monitor the electrolytes. The patient clinically Be Transferred Out Of the Intensive Care Unit. Objective - Vital Signs Vital signs: Vital Signs Temp 97.4 F L 06/07/21 00:00 Pulse 54 L 06/07/21 03:00 Resp 13 06/07/21 03:00 BP 117/66 06/07/21 03:00 Pulse Ox 91 L 06/07/21 03:00 Intake & Output 06/06/21 06/06/21 06/07/21 06:59 18:59 06:59 Intake Total 590 1230.556 220 Output Total 1700 2175 650 Balance -1110 -944.444 -430 Weight 122.3 kg Intake: IV 240 240 220 Sodium Chloride 0.9% 1, 240 240 220 000 ml @ 20 mls/hr IV . Q24H [facility] Rx#:[id number] Intake, IV Titration 30.556 Amount Amiodarone 450 mg In 30.556 Dextrose 5% in Water 250 ml @ 0.5 MG/MIN 16.667 mls/hr IV .Q15H [facility] Rx#: [id number] Oral 350 960 Output: Drainage 1300 Left Chest 1300 Urine 1700 875 650 Other: Voiding Method Urinal Bedside Commode Bedside Commode Urinal Urinal # Voids 1 1 1 # Bowel Movements 1 1 - Constitutional General appearance: Present: no acute distress - Respiratory Respiratory: bilateral: diminished - Cardiovascular Rhythm: regular - Labs CBC & Chem 7: 06/07/21 03:19 06/07/21 03:19 Labs: Abnormal Lab Results - Last 24 Hours (Table) 06/07/21 06/07/21 Range/Units 03:19 03:19 WBC 12.6 H (3.8-10.6) k/uL Neutrophils # 9.5 H (1.3-7.7) k/uL Sodium 135 L (137-145) mmol/L Carbon Dioxide 20 L (22-30) mmol/L BUN 21 H (9-20) mg/dL Glucose 104 H (74-99) mg/dL Assessment and Plan Assessment: Assessment #1 intermittent episodes of symptomatic nonsustained ventricular tachycardia seems to be monomorphic #2 coronary artery disease seems to be stable #3 left pleural effusion of unknown etiology and status post left pleurocentesis #4 preserved left ventricular systolic function #5 multiple comorbid conditions Plan #1 continue the current dose of amiodarone #2 continue mexiletine #3 maintain normal potassium and magnesium #4 the patient can be transferred out of the intensive care unit #5 follow-up on the results of the thoracentesis fluid.
--- NOTE | 2021-06-07 08:12 | XR ---
EXAMINATION TYPE: XR chest 1V portable DATE OF EXAM: 06/07/2021 COMPARISON: Chest radiograph June 06, 2021 HISTORY: Pneumonia TECHNIQUE: Single frontal view of the chest is obtained. FINDINGS: The cardiomediastinal silhouette and pulmonary vasculature are within normal limits. Opacity of the left base with the left costophrenic angle. A heterogeneous sclerotic lesion in the proximal left humerus similar to prior, likely benign. Metallic/electronic devices projecting over the cardiac silhouette. IMPRESSION: Small left effusion with adjacent atelectasis/airspace disease similar to prior.
[2021-06-07] MEDS: allopurinoL 100 MG TAB PO SCH (08:23)
[2021-06-07] MEDS: ASPIRIN 81 MG PO SCH (09:04)
[2021-06-07] MEDS: MAGNESIUM OXIDE 400 MG TAB PO SCH (09:04)
[2021-06-07] MEDS: AMIODARONE 200 MG TAB PO SCH ×3 (09:04→22:43)
[2021-06-07] MEDS: MEXILETINE 150 MG CAP PO SCH ×2 (09:04→16:19)
[2021-06-07] MEDS: PRASUGREL 10 MG TAB PO SCH (09:04)
[2021-06-07] MEDS: MULTIVITAMINS, THERA 1 EACH TAB PO SCH (09:04)
[2021-06-07] MEDS: LOSARTAN 50 MG TAB PO SCH (09:04)
[2021-06-07] MEDS: AMOXIC-POT CLAV 875-125MG 1 EACH TAB PO SCH ×2 (09:04→20:58)
[2021-06-07] MEDS: METHYLPREDNISOLONE 4 MG PO SCH (09:05)
[2021-06-07] MEDS: guaiFENesin-DM 100-10MG/5ML 10 ML CUP PO PRN (10:15)
[2021-06-07 10:52] LABS: Glucose, BF Source Pleural Fluid; Glucose, Body Fluid 85 mg/dL; LDH, Body Fluid Source Pleural Fluid; Total Protein, Body Fluid 3700 mg/dL
--- NOTE | 2021-06-07 11:41 | P.PN ---
Subjective Progress Note Date: 06/07/21 61-year-old white male patient of Dr. Rascon past medical history of hypertension, urinary artery disease with stenting of the LAD, previous history of cardiac ablation for ventricular tachycardia, dyslipidemia, former smoker who presented to the emergency department on 06/04/2021 patient shortness of breath, and cough. He had EP study and VT ablation on 05/19/2021. He was discharged home with a lifevest. Chest x-ray in the emergency department showed worsening [id number] left pleural effusion and worsening left basilar acute infiltrate and/or atelectasis compared to his chest x-ray from the day of the procedure on 05/19/2021. His echocardiogram on only shows mild concentric LVH, EF 60-65%, trace aortic regurg, mild mitral regurg, trace tricuspid regurg, and right ventricular systolic pressure was normal at less than 35 mmHg. There was no pericardial effusion. Patient reports no history of fevers. His cough is dry at times and at times she is able to produce. Denied any chest discomfort, his EKG in the ED showed normal sinus rhythm with nonspecific ST and T-wave abnormality in the inferior and anterolateral leads. Yesterday patient developed episodes of heart racing, and fluttering, associated with dizziness and lightheadedness but no presyncope or syncope. In the emergency department the LifeVest was interrogated and revealed multiple episodes of prolonged nonsustained ventricular tachycardia seems to be very fast and patient was started on amiodarone, and magnesium infusions. Lidocaine infusion was then added. Overnight he did not have anymore episodes of V. tach, lab work shows electrolytes including potassium and magnesium within normal limits, essentially blood cell count is 14.5, hemoglobin was 14.6, renal profile was within normal limits, troponin 1 and 2 were 0.012, and 0.028. ProBNP was 632. Patient has been afebrile while in the hospital. He is currently in sinus mechanism with a rate of 50. Currently lidocaine drip is discontinued, amiodarone drip is a 0.5 mg/m, and 0.9 is at 20 ML per hour. Patient is on oral Augmentin currently, he did receive a dose of azithromycin and Rocephin in the ED. He states he came in complaining of chest pain. He is currently also on colchicine, and he was given a Medrol 8 mg by mouth times one. IV Toradol has been added for pleuritic chest discomfort. Follow-up chest x-ray today shows no significant interval change, pulmonary venous hypertension and interstitial edema, associated effusion, lower lobe atelectasis versus edema. Pneumonia was not excluded. The patient is seen today 06/06/2021 in follow-up in the intensive care unit. He is currently sitting up in bed. Awake and alert in no acute distress. Maintaining O2 saturations in the 90s on 4 L/m per nasal cannula. 0.9 NS at 20 ML's per hour. Ultrasound of the left pleural effusion revealed a pocket of 8.7 cm. White count 11.0. Hemoglobin 14.4. Sodium 136. Potassium 4.2. Creatinine 0.79. Magnesium 2.1. He remains on oral amiodarone and mexiletine. Patient is seen today 06/07/2021 in follow-up in the intensive care unit. He is currently resting comfortably in bed. Awake and alert in no acute distress. He denies any worsening shortness of breath. He is maintaining O2 saturations in the 90s on room air. He did have some dry nonproductive cough. Currently on Robitussin. Yesterday a left-sided thoracentesis was performed with 1.3 L of bloody fluid returned. Exudative with a protein of 3.7 and LDH of 935. Today's chest x-ray reveals a small left effusion with adjacent atelectasis. Cultures and cytology pending. White count 12.6. Hemoglobin 15.2. Sodium 135. Potassium 4.4. Creatinine 0.84. Magnesium 2.2. No further episodes of sustained ventricular tachycardia. He remains on amiodarone and mexiletine. Objective - Vital Signs Vital signs: Vital Signs Temp 99.4 F 06/07/21 08:00 Pulse 54 L 06/07/21 08:00 Resp 21 06/07/21 08:00 BP 113/73 06/07/21 08:00 Pulse Ox 93 L 06/07/21 08:00 Intake & Output 06/06/21 06/07/21 06/07/21 18:59 06:59 18:59 Intake Total 1230.556 240 160 Output Total 2175 900 0 Balance -944.444 -660 160 Weight 122 kg Intake: IV 240 240 40 Sodium Chloride 0.9% 1, 240 240 40 000 ml @ 20 mls/hr IV . Q24H [facility] Rx#:[id number] Intake, IV Titration 30.556 Amount Amiodarone 450 mg In 30.556 Dextrose 5% in Water 250 ml @ 0.5 MG/MIN 16.667 mls/hr IV .Q15H [facility] Rx#: [id number] Oral 960 120 Output: Drainage 1300 Left Chest 1300 Urine 875 900 0 Other: Voiding Method Bedside Commode Bedside Commode Bedside Commode Urinal Urinal Urinal # Voids 1 1 1 # Bowel Movements 1 1 - Exam GENERAL EXAM: Alert, pleasant, 61-year-old obese male, resting in bed, on room air, no acute distress. EYES: Normal reaction of pupils, equal size. Conjunctiva pink, sclera white. NOSE: Clear with pink turbinates. THROAT: No erythema or exudates. NECK: No masses, no JVD, no thyroid enlargement, no adenopathy. CHEST: No chest wall deformity. Symmetrical expansion. patient has a life vest on LUNGS: Equal air entry with diminished breath sounds at the left base CVS: Regular rate and rhythm, normal S1 and S2, no gallops, no murmurs, no rubs ABDOMEN: Soft, nontender. No hepatosplenomegaly, normal bowel sounds, no guarding or rigidity. EXTREMITIES: No clubbing, no edema, no cyanosis, 2+ pulses and upper and lower extremities. MUSCULOSKELETAL: Muscle strength and tone normal. SPINE: No scoliosis or deformity SKIN: No rashes CENTRAL NERVOUS SYSTEM: No focal deficits, tone is normal in all 4 extremities. PSYCHIATRIC: Alert and oriented -3. Appropriate affect. Intact judgment and insight. - Labs CBC & Chem 7: 06/07/21 03:19 06/07/21 03:19 Labs: Abnormal Lab Results - Last 24 Hours (Table) 06/07/21 06/07/21 Range/Units 03:19 03:19 WBC 12.6 H (3.8-10.6) k/uL Neutrophils # 9.5 H (1.3-7.7) k/uL Sodium 135 L (137-145) mmol/L Carbon Dioxide 20 L (22-30) mmol/L BUN 21 H (9-20) mg/dL Glucose 104 H (74-99) mg/dL Microbiology - Last 24 Hours (Table) 06/06/21 09:30 Body Fluid Culture - Preliminary Pleural Fluid Assessment and Plan Assessment: 1 Acute hypoxic respiratory failure related to left pleural effusion, of unkno wn etiology, chest x-ray showing pulmonary venous congestion, interstitial edema, and left greater than right pleural effusion, possibility of pneumonia is not entirely excluded although felt to be less likely 2 Large left pleural effusion, status post thoracentesis on 06/06/2021 with 1.3 L bloody return, exudate with protein 3.7, LDH 935. Cultures and cytology pending 3 Intermittent episodes of symptomatic nonsustained ventricular tachycardia, currently in sinus mechanism, remains on amiodarone and mexiletine. LifeVest in place. 4 Recent EP study and ablation for ventricular tachycardia on 05/19/2021 5 Hypertension 6 Coronary artery disease with stenting of the LAD 7 Former smoker 8 Morbid obesity Plan: The patient was seen and evaluated by Dr. Fair Follow-up chest x-ray revealed minimal left effusion On room air Remains on amiodarone, mexiletine No further runs of VT documented Transfer to [facility] S. selective today We will continue to follow I, the cosigning physician, performed a history & physical examination of the patient. Lungs sounds with crackles in left lung base, diminished. Maintaining good O2 saturations in the 90s on room air. I discussed the assessment and plan of care with my nurse practitioner, Lacey Bird. I attest to the above note as dictated by her.
[2021-06-07] MEDS ORDERED: DEXTROSE 5% IN WATER 100 ML with AMIODARONE 150 MG IV ONE (16:30)
--- NOTE | 2021-06-07 17:06 | P.PN ---
Subjective Progress Note Date: 06/07/21 Principal diagnosis: Acute hypoxic respiratory failure Left pleural effusion Symptomatic NSVT 61-year-old gentleman with history of NSVT, CAD status post PCI of LAD and circumflex, cardiac ablation for V. tach- recent diagnostic EP study and VT ablation on 05/19/2021 secondary to long runs of nonsustained VT refractory to sotalol-discharged home with LifeVest and multiple other medical issues presented to the ER with complaints of shortness of breath,cough-occasionally productive, beeping of LifeVest monitor-denies being shocked, intermittent heart racing, fluttering, lightheadedness and dizziness. Denies syncope, fever or chills.EKG reported normal sinus rhythm, nonspecific ST-T wave abnormalities- inferior/anterior lateral, prolonged QT. Troponins less than 0.012, 0.028. LifeVest interrogated in the ER, reportedly multiple episodes of lung nonsustained V. tach. Received antiarrhythmics of amiodarone, lidocaine- currently on amiodarone. Converted to sinus rhythm with no further runs of V. tach. Bradycardic, maintaining O2 sats in the 90s on 4 L nasal cannula. Recent echo reported normal LV function. Electrolytes within normal limits. Serial troponins in progress. Complains of pleuritic discomfort.Chest x-ray reporting small to moderate left pleural effusion, worsening left basilar opacity. 06/07/2021 Patient is seen and evaluated in follow-up in the intensive care unit, sitting up in bedside chair. Awake and alert in no acute distress. He denies any worsening shortness of breath. He is maintaining O2 saturations in the 90s on room air. He did have some dry nonproductive cough. Currently on Robitussin. Patient underwent a left-sided thoracentesis, yesterday with 1.3 L of bloody fluid returned. Exudative with a protein of 3.7 and LDH of 935. Today's chest x-ray reveals a small left effusion with adjacent atelectasis. Cultures and cytology pending. White count 12.6. Hemoglobin 15.2. Sodium 135. Potassium 4.4. Creatinine 0.84. Magnesium 2.2. No further episodes of sustained ventricular tachycardia. He remains on amiodarone and mexiletine. Patient is planned to be transferred out of ICU to selective care unit Objective - Vital Signs Vital signs: Vital Signs Temp 99.4 F 06/07/21 08:00 Pulse 54 L 06/07/21 08:00 Resp 21 06/07/21 08:00 BP 113/73 06/07/21 08:00 Pulse Ox 93 L 06/07/21 08:00 Intake & Output 06/06/21 06/07/21 06/07/21 18:59 06:59 18:59 Intake Total 1230.556 240 160 Output Total 2175 900 0 Balance -944.444 -660 160 Weight 122 kg Intake: IV 240 240 40 Sodium Chloride 0.9% 1, 240 240 40 000 ml @ 20 mls/hr IV . Q24H [facility] Rx#:[id number] Intake, IV Titration 30.556 Amount Amiodarone 450 mg In 30.556 Dextrose 5% in Water 250 ml @ 0.5 MG/MIN 16.667 mls/hr IV .Q15H [facility] Rx#: [id number] Oral 960 120 Output: Drainage 1300 Left Chest 1300 Urine 875 900 0 Other: Voiding Method Bedside Commode Bedside Commode Bedside Commode Urinal Urinal Urinal # Voids 1 1 # Bowel Movements 1 - Exam General appearance: Present: average body habitus, cooperative, no acute distress Eyes: Present: anicteric sclerae, EOMI, PERRLA, normal appearance Neck: Present: normal ROM. Absent: lymphadenopathy, rigidity, thyromegaly Carotids: negative: bruit present Thyroid: bilateral: normal size, negative: enlarged, nodule Respiratory: bilateral: CTA, negative: rales, rhonchi, wheezing Rhythm: regular Heart sounds: normal: S1, S2 Abnormal Heart Sounds: Absent: systolic murmur, diastolic murmur General gastrointestinal: Present: normal bowel sounds, soft. Absent: distended, organomegaly, tenderness Genitourinary Comment(s): deferred Integumentary: Present: normal turgor. Absent: jaundiced, rash, ulcer Neurologic: Present: CNII-XII intact. Absent: focal deficits Musculoskeletal: Present: gait normal, strength equal bilaterally Psychiatric: Present: A&O x's 3, appropriate affect, intact judgment & insight - Labs CBC & Chem 7: 06/07/21 03:19 06/07/21 03:19 Labs: Abnormal Lab Results - Last 24 Hours (Table) 06/07/21 06/07/21 Range/Units 03:19 03:19 WBC 12.6 H (3.8-10.6) k/uL Neutrophils # 9.5 H (1.3-7.7) k/uL Sodium 135 L (137-145) mmol/L Carbon Dioxide 20 L (22-30) mmol/L BUN 21 H (9-20) mg/dL Glucose 104 H (74-99) mg/dL Assessment and Plan Assessment: 1. Acute hypoxic respiratory failure; secondary to left pleural effusion, of unknown etiology - chest x-ray showing pulmonary venous congestion, interstitial edema, and left greater than right pleural effusion, possibility of pneumonia is not entirely excluded although felt to be less likely; patient remains on Augmentin 875 mg daily 2. Large left pleural effusion, status post thoracentesis on 06/06/2021 with 2.4 L bloody return, cultures and cytology pending 3. Intermittent episodes of symptomatic nonsustained ventricular tachycardia; -- currently in sinus mechanism, remains on amiodarone infusion, patient has been given IV magnesium, and lidocaine infusion. -- Recent EP study and ablation for ventricular tachycardia on 05/19/2021 -- resume Effient today 4. Hypertension; continue with losartan 50 mg daily 5. Coronary artery disease with stenting of the LAD; stable 6. Hyperlipidemia; Lipitor 80 mg by mouth daily at bedtime DVT prophylaxis; SCDs CODE STATUS; full code
[2021-06-07] MEDS: PANTOPRAZOLE 40 MG TABLET PO SCH (20:58)
[2021-06-07] MEDS: ATORVASTATIN 80 MG TAB PO SCH (20:58)
[2021-06-08] MEDS: MEXILETINE 150 MG CAP PO SCH
[2021-06-08 07:52] LABS: African American GFR (CKD) >90 (>60 ml/min/1.73 sqM); Anion Gap 9 mmol/L; Blood Urea Nitrogen 19 mg/dL (9-20); Calcium 8.3 mg/dL (8.4-10.2); Carbon Dioxide 19 mmol/L (22-30); Chloride 108 mmol/L (98-107); Glucose 100 mg/dL (74-99); Magnesium 2.1 mg/dL (1.6-2.3); Non-African American GFR(CKD) >90 (>60 ml/min/1.73 sqM); Potassium 3.8 mmol/L (3.5-5.1); Sodium 136 mmol/L (137-145)
--- NOTE | 2021-06-08 08:00 | P.PN ---
Subjective Progress Note Date: 06/08/21 Principal diagnosis: Nonsustained ventricular tachycardia This is a pleasant 61-year-old gentleman with coronary artery disease as well as hypertension and dyslipidemia who was admitted to the intensive care unit with multiple episodes consistent with symptomatic nonsustained ventricular tachycardia. The patient was seen this morning. Clinically he is feeling better. The sh ortness of breath has improved. He is feeling more energetic. Hemodynamically he is stable. He did have a few episodes of nonsustained ventricular tachycardia last night and he was symptomatic with this. The dose of amiodarone by mouth was increased an ongoing to increase the dose of mexiletine 200 mg by mouth 3 times a day. He is in process of seeing by Dr. Gilmore for further recommendation. He underwent left pleurocentesis and the fluid analysis/culture still in process. Pulmonary/critical care team continues to be on the case. The chest x-ray today looks the slightly better. Objective - Vital Signs Vital signs: Vital Signs Temp 98.3 F 06/07/21 20:00 Pulse 60 06/08/21 06:00 Resp 20 06/08/21 06:00 BP 128/78 06/08/21 04:00 Pulse Ox 96 06/08/21 04:00 Intake & Output 06/07/21 06/08/21 06/08/21 18:59 06:59 18:59 Intake Total 620 200 Output Total 0 Balance 620 200 Weight 120.3 kg Intake: IV 40 Sodium Chloride 0.9% 1, 40 000 ml @ 20 mls/hr IV . Q24H [facility] Rx#:[id number] Intake, IV Titration 100 Amount Dextrose 5% in Water 100 100 ml @ 618 mls/hr IV .Q10M ONE with Amiodarone 150 mg Rx#:[id number] Oral 480 200 Output: Urine 0 Other: Voiding Method Toilet Toilet # Voids 1 1 # Bowel Movements 1 - Constitutional General appearance: Present: no acute distress - Respiratory Respiratory: bilateral: CTA - Cardiovascular Rhythm: regular Heart sounds: normal: S1, S2 - Labs CBC & Chem 7: 06/07/21 03:19 06/08/21 06:53 Labs: Abnormal Lab Results - Last 24 Hours (Table) 06/08/21 Range/Units 06:53 Sodium 136 L (137-145) mmol/L Chloride 108 H (98-107) mmol/L Carbon Dioxide 19 L (22-30) mmol/L Glucose 100 H (74-99) mg/dL Calcium 8.3 L (8.4-10.2) mg/dL Microbiology - Last 24 Hours (Table) 06/06/21 09:30 Body Fluid Culture - Preliminary Pleural Fluid Assessment and Plan Assessment: Assessment #1 intermittent episodes of symptomatic nonsustained ventricular tachycardia seems to be monomorphic #2 coronary artery disease seems to be stable #3 left pleural effusion of unknown etiology and status post left pleurocentesis #4 preserved left ventricular systolic function #5 multiple comorbid conditions Plan #1 the dose of amiodarone was increased yesterday #2 I'll going to increase the dose of mexiletine #3 he is going to be seen by the electrophysiology service #4 waiting for the result of the pleurocentesis analysis #5 follow-up with the patient
[2021-06-08 08:06] LABS: HCT 43.9 % (39.0-53.0); HGB 14.8 gm/dL (13.0-17.5); MCH 30.3 pg (25.0-35.0); MCHC 33.8 g/dL (31.0-37.0); MCV 89.5 fL (80.0-100.0); Mean Platelet Volume 7.3; Platelet Count 136 k/uL (150-450); Poikilocytosis Slight; RDW 14.8 % (11.5-15.5); WBC 10.4 k/uL (3.8-10.6)
[2021-06-08] MEDS ORDERED: Potassium Replacement Protocol 1 EACH MISC MISCELLANE PRN (08:10)
[2021-06-08] MEDS: LOSARTAN 50 MG TAB PO SCH (08:35)
[2021-06-08] MEDS: MULTIVITAMINS, THERA 1 EACH TAB PO SCH (08:35)
[2021-06-08] MEDS: AMOXIC-POT CLAV 875-125MG 1 EACH TAB PO SCH (08:35)
[2021-06-08] MEDS: PRASUGREL 10 MG TAB PO SCH (08:35)
[2021-06-08] MEDS: MEXILETINE 200 MG CAP PO SCH ×3 (08:35→23:38)
[2021-06-08] MEDS: MAGNESIUM OXIDE 400 MG TAB PO SCH (08:35)
[2021-06-08] MEDS: ASPIRIN 81 MG PO SCH (08:35)
[2021-06-08] MEDS: AMIODARONE 200 MG TAB PO SCH ×3 (08:35→21:15)
[2021-06-08] MEDS: METHYLPREDNISOLONE 4 MG PO SCH (08:36)
[2021-06-08] MEDS: allopurinoL 100 MG TAB PO SCH (08:36)
--- NOTE | 2021-06-08 08:50 | XR ---
EXAMINATION TYPE: XR chest 1V portable DATE OF EXAM: 06/08/2021 COMPARISON: 06/07/2021 INDICATION: Pleural effusion TECHNIQUE: Single frontal view of the chest is obtained. FINDINGS: The heart size is normal. The pulmonary vasculature is normal. Small left pleural effusion is present. Retrocardiac infiltrate is present. IMPRESSION: 1. Small left pleural effusion with adjacent retrocardiac atelectasis or pneumonia. Continued follow- up is recommended
[2021-06-08] MEDS ORDERED: POTASSIUM CHLORIDE ER 20 MEQ TAB.ER PO SCH (09:00)
--- NOTE | 2021-06-08 11:26 | P.PN ---
Subjective Progress Note Date: 06/08/21 61-year-old white male patient of Dr. Rascon past medical history of hypertension, urinary artery disease with stenting of the LAD, previous history of cardiac ablation for ventricular tachycardia, dyslipidemia, former smoker who presented to the emergency department on 06/04/2021 patient shortness of breath, and cough. He had EP study and VT ablation on 05/19/2021. He was discharged home with a lifevest. Chest x-ray in the emergency department showed worsening [id number] left pleural effusion and worsening left basilar acute infiltrate and/or atelectasis compared to his chest x-ray from the day of the procedure on 05/19/2021. His echocardiogram on only shows mild concentric LVH, EF 60-65%, trace aortic regurg, mild mitral regurg, trace tricuspid regurg, and right ventricular systolic pressure was normal at less than 35 mmHg. There was no pericardial effusion. Patient reports no history of fevers. His cough is dry at times and at times she is able to produce. Denied any chest discomfort, his EKG in the ED showed normal sinus rhythm with nonspecific ST and T-wave abnormality in the inferior and anterolateral leads. Yesterday patient developed episodes of heart racing, and fluttering, associated with dizziness and lightheadedness but no presyncope or syncope. In the emergency department the LifeVest was interrogated and revealed multiple episodes of prolonged nonsustained ventricular tachycardia seems to be very fast and patient was started on amiodarone, and magnesium infusions. Lidocaine infusion was then added. Overnight he did not have anymore episodes of V. tach, lab work shows electrolytes including potassium and magnesium within normal limits, essentially blood cell count is 14.5, hemoglobin was 14.6, renal profile was within normal limits, troponin 1 and 2 were 0.012, and 0.028. ProBNP was 632. Patient has been afebrile while in the hospital. He is currently in sinus mechanism with a rate of 50. Currently lidocaine drip is discontinued, amiodarone drip is a 0.5 mg/m, and 0.9 is at 20 ML per hour. Patient is on oral Augmentin currently, he did receive a dose of azithromycin and Rocephin in the ED. He states he came in complaining of chest pain. He is currently also on colchicine, and he was given a Medrol 8 mg by mouth times one. IV Toradol has been added for pleuritic chest discomfort. Follow-up chest x-ray today shows no significant interval change, pulmonary venous hypertension and interstitial edema, associated effusion, lower lobe atelectasis versus edema. Pneumonia was not excluded. The patient is seen today 06/06/2021 in follow-up in the intensive care unit. He is currently sitting up in bed. Awake and alert in no acute distress. Maintaining O2 saturations in the 90s on 4 L/m per nasal cannula. 0.9 NS at 20 ML's per hour. Ultrasound of the left pleural effusion revealed a pocket of 8.7 cm. White count 11.0. Hemoglobin 14.4. Sodium 136. Potassium 4.2. Creatinine 0.79. Magnesium 2.1. He remains on oral amiodarone and mexiletine. Patient is seen today 06/07/2021 in follow-up in the intensive care unit. He is currently resting comfortably in bed. Awake and alert in no acute distress. He denies any worsening shortness of breath. He is maintaining O2 saturations in the 90s on room air. He did have some dry nonproductive cough. Currently on Robitussin. Yesterday a left-sided thoracentesis was performed with 1.3 L of bloody fluid returned. Exudative with a protein of 3.7 and LDH of 935. Today's chest x-ray reveals a small left effusion with adjacent atelectasis. Cultures and cytology pending. White count 12.6. Hemoglobin 15.2. Sodium 135. Potassium 4.4. Creatinine 0.84. Magnesium 2.2. No further episodes of sustained ventricular tachycardia. He remains on amiodarone and mexiletine. The patient is seen today 06/08/2021 in follow-up in the intensive care unit. He is currently awake and alert in no acute distress. Maintaining O2 saturations in the 90s on room air. No IV fluids. Chest x-ray continues to show a small left pleural effusion with adjacent retrocardiac atelectasis. He did have further runs of nonsustained ventricular tachycardia last night though was asymptomatic. His amiodarone and mexiletine doses were increased. Pleural fluid culture and cytology are pending. White count 10.4. Hemoglobin 14.8. Sodium 136. Potassium 3.8. Creatinine 0.85. Magnesium 2.1. Objective - Vital Signs Vital signs: Vital Signs Temp 98.9 F 06/08/21 08:00 Pulse 58 L 06/08/21 08:00 Resp 18 06/08/21 08:00 BP 144/85 06/08/21 08:00 Pulse Ox 94 L 06/08/21 08:00 Intake & Output 06/07/21 06/08/21 06/08/21 18:59 06:59 18:59 Intake Total 620 200 Output Total 0 Balance 620 200 Weight 120.3 kg Intake: IV 40 Sodium Chloride 0.9% 1, 40 000 ml @ 20 mls/hr IV . Q24H [facility] Rx#:[id number] Intake, IV Titration 100 Amount Dextrose 5% in Water 100 100 ml @ 618 mls/hr IV .Q10M [facility] with Amiodarone 150 mg Rx#:[id number] Oral 480 200 Output: Urine 0 Other: Voiding Method Toilet Toilet Toilet # Voids 1 1 # Bowel Movements 1 - Exam GENERAL EXAM: Alert, pleasant, 61-year-old obese male, resting in bed, on room air, no acute distress. EYES: Normal reaction of pupils, equal size. Conjunctiva pink, sclera white. NOSE: Clear with pink turbinates. THROAT: No erythema or exudates. NECK: No masses, no JVD, no thyroid enlargement, no adenopathy. CHEST: No chest wall deformity. Symmetrical expansion. patient has a Life Vest on LUNGS: Equal air entry with diminished breath sounds at the left base CVS: Regular rate and rhythm, normal S1 and S2, no gallops, no murmurs, no rubs ABDOMEN: Soft, nontender. No hepatosplenomegaly, normal bowel sounds, no guarding or rigidity. EXTREMITIES: No clubbing, no edema, no cyanosis, 2+ pulses and upper and lower extremities. MUSCULOSKELETAL: Muscle strength and tone normal. SPINE: No scoliosis or deformity SKIN: No rashes CENTRAL NERVOUS SYSTEM: No focal deficits, tone is normal in all 4 extremities. PSYCHIATRIC: Alert and oriented -3. Appropriate affect. Intact judgment and insight. - Labs CBC & Chem 7: 06/08/21 06:53 06/08/21 06:53 Labs: Abnormal Lab Results - Last 24 Hours (Table) 06/08/21 06/08/21 Range/Units 06:53 06:53 Plt Count 136 L (150-450) k/uL Sodium 136 L (137-145) mmol/L Chloride 108 H (98-107) mmol/L Carbon Dioxide 19 L (22-30) mmol/L Glucose 100 H (74-99) mg/dL Calcium 8.3 L (8.4-10.2) mg/dL Microbiology - Last 24 Hours (Table) 06/06/21 09:30 Gram Stain - Preliminary Pleural Fluid Body Fluid Culture - Preliminary Assessment and Plan Assessment: 1 Acute hypoxic respiratory failure related to left pleural effusion, recovered and on room air 2 Large left pleural effusion, status post thoracentesis on 06/06/2021 with 1.3 L bloody return, exudate with protein 3.7, LDH 935. Cultures and cytology pending 3 Intermittent episodes of symptomatic nonsustained ventricular tachycardia, currently in sinus mechanism, remains on amiodarone and mexiletine. LifeVest in place. 4 Recent EP study and ablation for ventricular tachycardia on 05/19/2021 5 Hypertension 6 Coronary artery disease with stenting of the LAD 7 Former smoker 8 Morbid obesity Plan: The patient was seen and evaluated by Dr. Fair Follow-up chest x-ray revealed minimal left effusion Stable from the pulmonary standpoint and on room air Pleural fluid cytology and cultures pending Nonsustained VT, mexiletine and amiodarone doses adjusted per cardiology We will continue to follow I, the cosigning physician, performed a history & physical examination of the patient. Lungs sounds with crackles in left lung base, diminished. Maintaining good O2 saturations in the 90s on room air. I discussed the assessment and plan of care with my nurse practitioner, Lacey Bird. I attest to the above note as dictated by her.
[2021-06-08] MEDS: PANTOPRAZOLE 40 MG TABLET PO SCH (21:15)
[2021-06-08] MEDS: ATORVASTATIN 80 MG TAB PO SCH (21:15)
[2021-06-08] MEDS: guaiFENesin-DM 100-10MG/5ML 10 ML CUP PO PRN (21:27)
--- NOTE | 2021-06-08 22:28 | P.PN ---
Subjective 61-year-old gentleman with history of NSVT, CAD status post PCI of LAD and circumflex, cardiac ablation for V. tach- recent diagnostic EP study and VT ablation on 05/19/2021 secondary to long runs of nonsustained VT refractory to sotalol-discharged home with LifeVest and multiple other medical issues presented to the ER with complaints of shortness of breath,cough-occasionally productive, beeping of LifeVest monitor-denies being shocked, intermittent heart racing, fluttering, lightheadedness and dizziness. Denies syncope, fever or chills.EKG reported normal sinus rhythm, nonspecific ST-T wave abnormalities- inferior/anterior lateral, prolonged QT. Troponins less than 0.012, 0.028. LifeVest interrogated in the ER, reportedly multiple episodes of lung nonsustained V. tach. Received antiarrhythmics of amiodarone, lidocaine- currently on amiodarone. Converted to sinus rhythm with no further runs of V. tach. Bradycardic, maintaining O2 sats in the 90s on 4 L nasal cannula. Recent echo reported normal LV function. Electrolytes within normal limits. Serial troponins in progress. Complains of pleuritic discomfort.Chest x-ray reporting small to moderate left pleural effusion, worsening left basilar opacity. 06/07/2021 Patient is seen and evaluated in follow-up in the intensive care unit, sitting up in bedside chair. Awake and alert in no acute distress. He denies any worsening shortness of breath. He is maintaining O2 saturations in the 90s on room air. He did have some dry nonproductive cough. Currently on Robitussin. Patient underwent a left-sided thoracentesis, yesterday with 1.3 L of bloody fluid returned. Exudative with a protein of 3.7 and LDH of 935. Today's chest x-ray reveals a small left effusion with adjacent atelectasis. Cultures and cytology pending. White count 12.6. Hemoglobin 15.2. Sodium 135. Potassium 4.4. Creatinine 0.84. Magnesium 2.2. No further episodes of sustained ventricular tachycardia. He remains on amiodarone and mexiletine. Patient is planned to be transferred out of ICU to selective care unit Objective 06/08/2021 Patient currently in the ICU, lying in bed comfortably. He denies chest pain or dyspnea. He is hemodynamically stable. CBC and BMP from today is unremarkable. Today he kept on aspirin 81 mg, Effient. Amiodarone 200 mg 3 times a day and also Mexitil 200 mg 3 times a day was added today for shock runs of asymptomatic V. tach. Objective - Vital Signs Vital signs: Vital Signs Temp 99.4 F 06/08/21 12:00 Pulse 80 06/08/21 12:00 Resp 19 06/08/21 12:00 BP 126/92 06/08/21 12:00 Pulse Ox 94 L 06/08/21 12:00 Intake & Output 06/07/21 06/08/21 06/08/21 18:59 06:59 18:59 Intake Total 620 200 240 Output Total 0 Balance 620 200 240 Weight 120.3 kg Intake: IV 40 Sodium Chloride 0.9% 1, 40 000 ml @ 20 mls/hr IV . Q24H SHARAN Rx#:[id number] Intake, IV Titration 100 Amount Dextrose 5% in Water 100 100 ml @ 618 mls/hr IV .Q10M ONE with Amiodarone 150 mg Rx#:[id number] Oral 480 200 240 Output: Urine 0 Other: Voiding Method Toilet Toilet Toilet # Voids 1 1 1 # Bowel Movements 1 - Exam GENERAL: The patient is alert and oriented x3, not in any acute distress. Well developed, well nourished. HEENT: Pupils are round and equally reacting to light. EOMI. No scleral icterus. No conjunctival pallor. Normocephalic, atraumatic. No pharyngeal erythema. No thyromegaly. CARDIOVASCULAR: S1 and S2 present. No murmurs, rubs, or gallops. PULMONARY: Chest is clear to auscultation, no wheezing or crackles. ABDOMEN: Soft, nontender, nondistended, normoactive bowel sounds. No palpable organomegaly. MUSCULOSKELETAL: No joint swelling or deformity. EXTREMITIES: No cyanosis, clubbing, or pedal edema. NEUROLOGICAL: Gross neurological examination did not reveal any focal deficits. SKIN: No rashes. no petechiae. - Labs CBC & Chem 7: 06/08/21 06:53 06/08/21 06:53 Labs: Abnormal Lab Results - Last 24 Hours (Table) 06/08/21 06/08/21 Range/Units 06:53 06:53 Plt Count 136 L (150-450) k/uL Sodium 136 L (137-145) mmol/L Chloride 108 H (98-107) mmol/L Carbon Dioxide 19 L (22-30) mmol/L Glucose 100 H (74-99) mg/dL Calcium 8.3 L (8.4-10.2) mg/dL Microbiology - Last 24 Hours (Table) 06/06/21 09:30 Gram Stain - Preliminary Pleural Fluid Body Fluid Culture - Preliminary Assessment and Plan Assessment: Assessment and Plan 1. Acute hypoxic respiratory failure; secondary to left pleural effusion, of unknown etiology - Improving, currently on 2 L/m oxygen via nasal cannula. Was on 4 L yesterday 2. Large left pleural effusion, status post thoracentesis on 06/06/2021 with 2.4 L bloody return, cultures and cytology pending - Pulmonary team on the case 3. Intermittent episodes of symptomatic nonsustained ventricular tachycardia; - currently in sinus mechanism, remains on amiodarone 200 mg 3 times a day, Mexitil is also added. - Recent EP study and ablation for ventricular tachycardia on 05/19/2021 - resume Effient . Continue with aspirin - Cardiology team on the case 4. Hypertension; continue with losartan 50 mg daily 5. Coronary artery disease with stenting of the LAD; stable 6. Hyperlipidemia; Lipitor 80 mg by mouth daily at bedtime DVT prophylaxis; SCDs CODE STATUS; full code
[2021-06-09 04:13] LABS: Basophils # (A) 0.1 k/uL (0-0.2); Basophils % (A) 1 %; Eosinophils # (A) 0.7 k/uL (0-0.7); Eosinophils % (A) 5 %; HCT 50.3 % (39.0-53.0); HGB 16.3 gm/dL (13.0-17.5); Hypochromasia Slight; Lymphocytes # (A) 1.9 k/uL (1.0-4.8); Lymphocytes % (A) 13 %; MCH 30.1 pg (25.0-35.0); MCHC 32.3 g/dL (31.0-37.0); Mean Platelet Volume 6.8; Monocytes % (A) 7 %; Neutrophils # (A) 10.5 k/uL (1.3-7.7); Neutrophils % (A) 73 %; Platelet Count 250 k/uL (150-450); Poikilocytosis Slight; RBC 5.41 m/uL (4.30-5.90); RDW 14.8 % (11.5-15.5); WBC 14.5 k/uL (3.8-10.6)
[2021-06-09 04:21] LABS: ALT 56 U/L (4-49); AST 48 U/L (17-59); African American GFR (CKD) >90 (>60 ml/min/1.73 sqM); Albumin 3.7 g/dL (3.5-5.0); Alkaline Phosphatase 84 U/L (38-126); Anion Gap 10 mmol/L; Blood Urea Nitrogen 18 mg/dL (9-20); Calcium 8.6 mg/dL (8.4-10.2); Carbon Dioxide 22 mmol/L (22-30); Chloride 103 mmol/L (98-107); Glucose 105 mg/dL (74-99); Non-African American GFR(CKD) >90 (>60 ml/min/1.73 sqM); Potassium 4.8 mmol/L (3.5-5.1); Sodium 135 mmol/L (137-145); Total Bilirubin 1.6 mg/dL (0.2-1.3); Total Protein 6.8 g/dL (6.3-8.2)
--- NOTE | 2021-06-09 08:29 | XR ---
EXAMINATION TYPE: XR chest 1V DATE OF EXAM: 06/09/2021 COMPARISON: 06/08/2021 HISTORY: Pleural effusion TECHNIQUE: Single frontal view of the chest is obtained. FINDINGS: Exam limited by superficial overlying artifact obscuring portions of the chest. Suggest th e bone infarct or chondroid lesion involving the proximal left humerus. Left-sided consolidation and pleural effusion are stable. No sizable pneumothorax. Heart size prominent. IMPRESSION: Stable left lower lobe infiltrate and small effusion.
[2021-06-09] MEDS: MULTIVITAMINS, THERA 1 EACH TAB PO SCH (08:47)
[2021-06-09] MEDS: MEXILETINE 200 MG CAP PO SCH (08:47)
[2021-06-09] MEDS: LOSARTAN 50 MG TAB PO SCH (08:47)
[2021-06-09] MEDS: ASPIRIN 81 MG PO SCH (08:47)
[2021-06-09] MEDS: MAGNESIUM OXIDE 400 MG TAB PO SCH (08:47)
[2021-06-09] MEDS: PRASUGREL 10 MG TAB PO SCH (08:47)
[2021-06-09] MEDS: AMIODARONE 200 MG TAB PO SCH (08:47)
[2021-06-09] MEDS ORDERED: RX INFO: IV CONTRAST WAS GIVEN 1 EACH MISC MISCELLANE PRN (09:36)
--- NOTE | 2021-06-09 10:05 | PN ---
PROGRESS NOTE Mr. Kramer is a 61-year-old male, history of coronary artery disease status post percutaneous revascularization of his LAD and left circumflex in March. Underwent repeat cardiac catheterization in May with no progression of disease. He has been having episode of nonsustained ventricular tachycardia. He had episode of ventricular tachycardia yesterday. His breathing is stable. He had no chest pain. He is coughing. He has underwent left thoracentesis. He was ambulating yesterday. He had an echocardiogram during this admission revealed a preserved systolic function. He has underwent ablation of his ventricular tachycardia by Dr. Gilmore during the previous admission. He continues to be on amiodarone 200 mg 3 times a day, mexiletine 200 mg q.8 hours. He is also on aspirin, Lipitor 80 mg daily, Cozaar 50 mg daily and Effient 10 mg daily. PHYSICAL EXAMINATION: Blood pressure running in the 130s with a heart rate in 60s. He has ventricular bigeminy. Lungs: With decreased breath sounds at the left base. Heart: Regular rate and rhythm S1-S2 with extrasystole. No gallop. Abdomen: Soft nontender. Extremities: No edema. LAB DATA: Lab data revealed BUN and creatinine of 18 and 0.83. Hemoglobin of 16.3, white blood cell of 14.5. His troponin was negative during this admission. IMPRESSION: 1. Recurrent ventricular tachycardia, workup in progress. The patient has underwent ablation, but continues to have episodes of left ventricular tachycardia. 2. History of coronary artery disease status post stenting with no evidence of worsening ischemia. 3. Status post left pleural effusion, thoracentesis, exudates. 4. Hypertension. 5. Prior history of smoking. RECOMMENDATIONS: From the cardiac standpoint, I will discuss this case with Dr. Gilmore in regard to further recommendations patient continues to have episode of left ventricular tachycardia. We will follow his EKG and lab work and depending on his progress, further recommendations will be made. He may require repeat ablation to control his ventricular ectopic activity. MMODL / IJN: [id number] /
[2021-06-09] MEDS: guaiFENesin-DM 100-10MG/5ML 10 ML CUP PO PRN (10:12)
--- NOTE | 2021-06-09 10:56 | CT ---
EXAMINATION TYPE: CT chest w con DATE OF EXAM: 06/09/2021 COMPARISON: Chest x-ray today and older studies HISTORY: follow up left pleural effusion, pleuritic chest pain? CT DLP: 893.7 mGycm. Automated Exposure Control for Dose Reduction was Utilized. TECHNIQUE: CT scan of the thorax is performed following with IV Contrast, patient injected with 100 mL of Isovue 300. FINDINGS: LUNGS: Persistent small to borderline moderate size left pleural effusion or fluid collection and ass ociated basilar compressive atelectasis. Pleural fluid collection extends to left lung apex posterior ly. Right lung is clear. Tracheobronchial tree is patent MEDIASTINUM: There are no greater than 1 cm hilar or mediastinal lymph nodes. Tiny pericardial effusi on is seen. No cardiomegaly. Three-vessel coronary artery calcification and/or stents are present. C orrelate clinically. OTHER: Multilevel anterior and lateral spurring in the mid to lower thoracic spine. IMPRESSION: Small to borderline moderate size left pleural effusion or fluid collection with associat ed left basilar compressive atelectasis.
[2021-06-09 12:02] VITALS: BP 118/75; PULSE 66; RESP 13; TEMP 97.6
--- NOTE | 2021-06-09 16:05 | P.PN ---
Subjective Progress Note Date: 06/09/21 Principal diagnosis: Pleural effusion, pleuritic chest pain. 61-year-old white male patient of Dr. Rascon past medical history of hypertension, urinary artery disease with stenting of the LAD, previous history of cardiac ablation for ventricular tachycardia, dyslipidemia, former smoker who presented to the emergency department on 06/04/2021 patient shortness of breath, and cough. He had EP study and VT ablation on 05/19/2021. He was discharged home with a lifevest. Chest x-ray in the emergency department showed worsening [id number] left pleural effusion and worsening left basilar acute infiltrate and/or atelectasis compared to his chest x-ray from the day of the procedure on 05/19/2021. His echocardiogram on only shows mild concentric LVH, EF 60-65%, trace aortic regurg, mild mitral regurg, trace tricuspid regurg, and right ventricular systolic pressure was normal at less than 35 mmHg. There was no pericardial effusion. Patient reports no history of fevers. His cough is dry at times and at times she is able to produce. Denied any chest discomfort, his EKG in the ED showed normal sinus rhythm with nonspecific ST and T-wave abnormality in the inferior and anterolateral leads. Yesterday patient developed episodes of heart racing, and fluttering, associated with dizziness and lightheadedness but no presyncope or syncope. In the emergency department the LifeVest was interrogated and revealed multiple episodes of prolonged nonsustained ventricular tachycardia seems to be very fast and patient was started on amiodarone, and magnesium infusions. Lidocaine infusion was then added. Overnight he did not have anymore episodes of V. tach, lab work shows electrolytes including potassium and magnesium within normal limits, essentially blood cell count is 14.5, hemoglobin was 14.6, renal profile was within normal limits, troponin 1 and 2 were 0.012, and 0.028. ProBNP was 632. Patient has been afebrile while in the hospital. He is currently in sinus mechanism with a rate of 50. Currently lidocaine drip is discontinued, amiodarone drip is a 0.5 mg/m, and 0.9 is at 20 ML per hour. Patient is on oral Augmentin currently, he did receive a dose of azithromycin and Rocephin in the ED. He states he came in complaining of chest pain. He is currently also on colchicine, and he was given a Medrol 8 mg by mouth times one. IV Toradol has been added for pleuritic chest discomfort. Follow-up chest x-ray today shows no significant interval change, pulmonary venous hypertension and interstitial edema, associated effusion, lower lobe atelectasis versus edema. Pneumonia was not excluded. The patient is seen today 06/06/2021 in follow-up in the intensive care unit. He is currently sitting up in bed. Awake and alert in no acute distress. Maintaining O2 saturations in the 90s on 4 L/m per nasal cannula. 0.9 NS at 20 ML's per hour. Ultrasound of the left pleural effusion revealed a pocket of 8.7 cm. White count 11.0. Hemoglobin 14.4. Sodium 136. Potassium 4.2. Creatinine 0.79. Magnesium 2.1. He remains on oral amiodarone and mexiletine. Patient is seen today 06/07/2021 in follow-up in the intensive care unit. He is currently resting comfortably in bed. Awake and alert in no acute distress. He denies any worsening shortness of breath. He is maintaining O2 saturations in the 90s on room air. He did have some dry nonproductive cough. Currently on Robitussin. Yesterday a left-sided thoracentesis was performed with 1.3 L of bloody fluid returned. Exudative with a protein of 3.7 and LDH of 935. Today's chest x-ray reveals a small left effusion with adjacent atelectasis. Cultures and cytology pending. White count 12.6. Hemoglobin 15.2. Sodium 135. Potassium 4.4. Creatinine 0.84. Magnesium 2.2. No further episodes of sustained ventricular tachycardia. He remains on amiodarone and mexiletine. The patient is seen today 06/08/2021 in follow-up in the intensive care unit. He is currently awake and alert in no acute distress. Maintaining O2 saturations in the 90s on room air. No IV fluids. Chest x-ray continues to show a small left pleural effusion with adjacent retrocardiac atelectasis. He did have further runs of nonsustained ventricular tachycardia last night though was asymptomatic. His amiodarone and mexiletine doses were increased. Pleural fluid culture and cytology are pending. White count 10.4. Hemoglobin 14.8. Sodium 136. Potassium 3.8. Creatinine 0.85. Magnesium 2.1. On 06/09/2021 patient seen in follow-up in the intensive care unit. He is awake and alert, in no acute distress, he is been afebrile, hemodynamically stable, he is on 2 L of oxygen pulse ox is 97%, his pleuritic left-sided chest pain has improved since admission although not completely resolved, still has chest discomfort with coughing. His cough is loose, nonproductive. Follow-up chest x-ray today showing stable left lower lobe infiltrate and small effusion. Patient is status post left-sided thoracentesis would removal 1.3 L of bloody pleural effusion. Cytology of the pleural fluid is still pending, pleural fluid cultures are still pending, pro-calcitonin level was low, and Augmentin has been discontinued, today's labs have been reviewed, with a toe, is 14.6, hemoglobin is 16.3, sodium is 135, the rest of electrolytes are unremarkable, renal profile is unremarkable. No recurrence of arrhythmias overnight. She remains on oral amiodarone 200 mg daily, he is on aspirin and Effient. No other acute events overnight. Objective - Vital Signs Vital signs: Vital Signs Temp 97.6 F 06/09/21 12:00 Pulse 66 06/09/21 12:00 Resp 13 06/09/21 12:00 BP 118/75 06/09/21 12:00 Pulse Ox 97 06/09/21 12:00 Intake & Output 06/08/21 06/09/21 06/09/21 18:59 06:59 18:59 Intake Total 720 200 Balance 720 200 Weight 120.3 kg Intake: Oral 720 200 Other: Voiding Method Toilet Toilet Toilet # Voids 1 1 1 # Bowel Movements 1 1 - Exam GENERAL EXAM: Alert, very pleasant, obese 61-year-old white male, resting comfortably in bed, in the ICU, on 2 L of oxygen and a pulse ox of 97% comfortable in no apparent distress. HEAD: Normocephalic/atraumatic. EYES: Normal reaction of pupils, equal size. Conjunctiva pink, sclera white. NOSE: Clear with pink turbinates. THROAT: No erythema or exudates. NECK: No masses, no JVD, no thyroid enlargement, no adenopathy. CHEST: No chest wall deformity. Symmetrical expansion. LUNGS: Equal air entry with no crackles, wheeze, rhonchi or dullness. CVS: Regular rate and rhythm, normal S1 and S2, no gallops, no murmurs, no rubs ABDOMEN: Soft, nontender. No hepatosplenomegaly, normal bowel sounds, no guarding or rigidity. EXTREMITIES: No clubbing, no edema, no cyanosis, 2+ pulses and upper and lower extremities. MUSCULOSKELETAL: Muscle strength and tone normal. SPINE: No scoliosis or deformity SKIN: No rashes CENTRAL NERVOUS SYSTEM: Alert and oriented -3. No focal deficits, tone is normal in all 4 extremities. PSYCHIATRIC: Alert and oriented -3. Appropriate affect. Intact judgment and insight. - Labs CBC & Chem 7: 06/09/21 03:07 06/09/21 03:07 Labs: Abnormal Lab Results - Last 24 Hours (Table) 06/09/21 06/09/21 Range/Units 03:07 03:07 WBC 14.5 H (3.8-10.6) k/uL Neutrophils # 10.5 H (1.3-7.7) k/uL Sodium 135 L (137-145) mmol/L Glucose 105 H (74-99) mg/dL Total Bilirubin 1.6 H (0.2-1.3) mg/dL ALT 56 H (4-49) U/L Microbiology - Last 24 Hours (Table) 06/06/21 09:30 Gram Stain - Preliminary Pleural Fluid Body Fluid Culture - Preliminary Assessment and Plan Plan: Assessment: #1. Acute hypoxic respiratory failure related to left pleural effusion, of unknown etiology, chest x-ray showing pulmonary venous congestion, interstitial edema, and left greater than right pleural effusion, possibility of pneumonia is not entirely excluded although felt to be less likely. Temp is status post left-sided thoracentesis on 06/06/2021 with removal of 1.3 L of bloody effusion, which is exudative, cytology and cultures are pending #2. Intermittent episodes of symptomatic nonsustained ventricular tachycardia, currently in sinus mechanism, remains on amiodarone infusion, patient has been given IV magnesium, and lidocaine infusion. #3. Recent EP study and ablation for ventricular tachycardia on 05/19/2021 #4. Hypertension #5. Coronary artery disease with stenting of the LAD #6. Former smoker #7. Morbid obesity Plan: Signs are stable Pleuritic chest pain although not resolved it is improved CT of the chest with contrast has been obtained and reviewed with Dr. Hannah There is small to borderline moderate left pleural effusion with associated left basilar compressive atelectasis Encourage deep breathing and coughing No need for antibiotics after discharge Outpatient follow-up with Dr. Fair in the office in 7-10 days Pleural fluid cultures and cytology are still pending at this time will be followed up on during outpatient follow-up I performed a history & physical examination of the patient and discussed their management with my nurse practitioner, Nunu Cordoba. I reviewed the nurse practitioner's note and agree with the documented findings and plan of care. Lung sounds are positive for diminished breath sounds throughout the lung fie lds. The findings and the impression was discussed with the patient. I attest to the documentation by the nurse practitioner. Time with Patient: Less than 30
[2021-06-09] MEDS ORDERED: AMIODARONE 200 MG TAB PO SCH (21:00)
--- NOTE | 2021-06-11 22:01 | P.DS ---
Providers Date of admission: 06/04/21 15:52 Expected date of discharge: 06/09/21 Attending physician: Philip Rascon Consults: 06/04/21 15:49 Consult Physician Routine Consulting Provider: Johnie Fair Consult Reason/Comments: pleural effusion Do you want consulting provider notified?: Yes Consult Physician Routine Consulting Provider: Michel Gilmore Consult Reason/Comments: vtach Do you want consulting provider notified?: Yes Primary care physician: Philip Rascon - Discharge Diagnosis(es) (1) Pleural effusion Status: Acute (2) Ventricular tachycardia Status: Acute Hospital Course: Patient will also require repeat ablation in the future. He will require AICD implantation after repeat ablation is performed Patient may be discharged home today on current cardiac medications Patient will be discharged home with LifeVest He is to follow up outpatient Patient Condition at Discharge: Stable Plan - Discharge Summary New Discharge Prescriptions: New Amiodarone [Cordarone] 200 mg PO BID #60 tab Continue Multivitamins, Thera [Multivitamin (formulary)] 1 tab PO DAILY Garlic 1 tab PO DAILY Omeprazole [PriLOSEC] 40 mg PO HS Aspirin [Adult Low Dose Aspirin EC] 81 mg PO DAILY Prasugrel [Effient] 10 mg PO DAILY #90 tab Atorvastatin [Lipitor] 80 mg PO HS #90 tab Colchicine [Colcrys] 0.6 mg PO BID #30 each Magnesium Oxide [Mag-Ox] 400 mg PO DAILY #90 tab Losartan [Cozaar] 50 mg PO DAILY Acetaminophen/Chlorpheniramine [Coricidin Hbp Cold-Flu Tablet] 1 - 2 tab PO Q4H PRN PRN Reason: Cold Symptoms Nitroglycerin Sl Tabs [Nitrostat] 0.4 mg SUBLINGUAL Q5M PRN #25 tab PRN Reason: Chest Pain Discontinued Metoprolol Succinate (ER) [Toprol XL] 25 mg PO DAILY #90 tab.er.24h methylPREDNISolone Dose Pack [Medrol Dose Pack] See Taper PO DIRECTED Amoxicillin/Potassium Clav [Augmentin 875-125 Tablet] 1 tab PO BID Discharge Medication List Aspirin [Adult Low Dose Aspirin EC] 81 mg PO DAILY 03/06/21 [History] Garlic 1 tab PO DAILY 03/06/21 [History] Multivitamins, Thera [Multivitamin (formulary)] 1 tab PO DAILY 03/06/21 [History] Omeprazole [PriLOSEC] 40 mg PO HS 03/06/21 [History] Atorvastatin [Lipitor] 80 mg PO HS #90 tab 03/11/21 [Rx] Nitroglycerin Sl Tabs [Nitrostat] 0.4 mg SUBLINGUAL Q5M PRN #25 tab 03/11/21 [Rx] Prasugrel [Effient] 10 mg PO DAILY #90 tab 03/11/21 [Rx] Colchicine [Colcrys] 0.6 mg PO BID #30 each 05/21/21 [Rx] Magnesium Oxide [Mag-Ox] 400 mg PO DAILY #90 tab 05/21/21 [Rx] Acetaminophen/Chlorpheniramine [Coricidin Hbp Cold-Flu Tablet] 1 - 2 tab PO Q4H PRN 06/04/21 [History] Losartan [Cozaar] 50 mg PO DAILY 06/04/21 [History] Amiodarone [Cordarone] 200 mg PO BID #60 tab 06/09/21 [Rx] Follow up Appointment(s)/Referral(s): Michel Gilmore MD [STAFF PHYSICIAN] - 1 Week Philip Rascon DO [Primary Care Provider] - 06/12/21 9:20 am Johnie Fair DO [Doctor of Osteopathic Medicine] - 06/23/21 3:30 pm Discharge Disposition: HOME SELF-CARE
== END 2021-06-09 18:14 | disposition home or self-care (01) | DRG 186 ==
LOC: EC 13:34 → 3SCARD 15:52 → 2SICU 21:31
PROVIDERS: ADMIT Family Medicine; ATTEND Family Medicine
PROC: 05HF33Z Insertion of Infusion Device into Left Cephalic Vein, Percutaneous Approach (ICD-10-PCS; 2021-06-05 13:20)
PROC: 0W9B3ZZ Drainage of Left Pleural Cavity, Percutaneous Approach (ICD-10-PCS; principal; 2021-06-06)
DX: J90 Pleural effusion, not elsewhere classified (principal); J18.9 Pneumonia, unspecified organism; J96.01 Acute respiratory failure with hypoxia; I47.2 Ventricular tachycardia; Z68.41 Body mass index [BMI] 40.0-44.9, adult; J98.11 Atelectasis; E66.01 Morbid (severe) obesity due to excess calories; E78.5 Hyperlipidemia, unspecified; I10 Essential (primary) hypertension; I25.10 Atherosclerotic heart disease of native coronary artery without angina pectoris; I25.2 Old myocardial infarction; I49.3 Ventricular premature depolarization; Z79.82 Long term (current) use of aspirin; Z79.02 Long term (current) use of antithrombotics/antiplatelets; Z79.899 Other long term (current) drug therapy; Z87.19 Personal history of other diseases of the digestive system; Z87.891 Personal history of nicotine dependence; Z95.5 Presence of coronary angioplasty implant and graft; Z86.79 Personal history of other diseases of the circulatory system
CPT/HCPCS: 36410; 36415; 71045; 71260; 76604; 76937; 80048; 80053; 82945; 83615; 83735; 83880; 84145; 84157; 84484; 85025; 85027; 87070; 87205; 88104; 88305; 89050; 93005; 93306; 96365; 96375; 99285

== ENCOUNTER 2021-06-15 13:46 | Day surgery (SDC) | payer MEDICAID ==
[2021-06-15] MEDS ORDERED: SODIUM CHLORIDE 0.9% 1,000 ML IV SCH (14:15)
[2021-06-15] MEDS ORDERED: MIDAZOLAM 2 MG/2 ML VIAL ONE (15:57)
[2021-06-15] MEDS ORDERED: PROPOFOL 10 MG/ML 20 ML VIAL IV ONE (15:57)
[2021-06-15] MEDS ORDERED: fentaNYL (PF) 50 MCG/ML 2 ML AMP ONE (15:57)
[2021-06-15] MEDS ORDERED: ceFAZolin 1 GM in SODIUM CHLORIDE 0.9% 250 ML IRRIGATION PRN (16:01)
[2021-06-15] MEDS ORDERED: IOPAMIDOL-370 50ML BTL INJ ONE (16:09)
[2021-06-15] MEDS ORDERED: LIDOCAINE 1% INJ 10MG/ML (20 ML MDV) ONE ×2 (16:20→16:45)
[2021-06-15] MEDS ORDERED: LIDOCAINE 1% INJ 10MG/ML (20 ML MDV) SQ ONE ×2 (16:35→16:49)
[2021-06-15] MEDS ORDERED: ACETAMINOPHEN TAB 325 MG TAB PO PRN (18:02)
--- NOTE | 2021-06-15 18:23 | P.PN ---
Progress Note - Text At the start of the study, fluoroscopy of the cardiac silhouette revealed a double shadow Patient was noted first in the SCHAFER view along the inferior wall Subsequently an LIBYAN view revealed a double shadow Patient's vitals were stable We proceeded with implantation of the RA and RV leads leads in the RV septum and the right atrium Limited 2-D echo performed subsequently in the EP lab 2-D echo of most recent admission and in June was reviewed. Patient has pericardial fat His MRI of 28 of May did not reveal any delayed enhancement along the apical pericardium There was no evidence for pericardial effusion A large pleural effusion was noted and this was subsequently drained in the hospital I performed a limited 2-D echo in the EP lab No pericardial effusion Pericardial space/pericardial fat noted similar to the echo of last week
--- NOTE | 2021-06-15 18:28 | P.EPPROC ---
- EP Procedure Note Electrophysiology Procedure Note: Left upper extremity venogram was performed 50 mL every day and 6 in the left arm Patent left axillary and left subclavian and innominate system Plan Proceed with dual-chamber ICD implant for secondary prevention of sudden cardiac Patient has hypertrophic cardio myopathy, atypical variety Recurrent sustained ventricular tachycardia, drug refractory
--- NOTE | 2021-06-15 18:44 | PCN ---
PROCEDURE NOTE PROCEDURE: Dual-chamber ICD implantation for recurrent sustained symptomatic VT from the apical myocardium, history of hypertrophic cardiomyopathy and risk of sudden cardiac . PROCEDURE DESCRIPTION: Patient was brought to the EP lab in a fasting state. Written informed consent was obtained prior to the procedure. The left shoulder area was prepped and draped as per protocol. Lidocaine 1% was used for local anesthesia. Left axillary vein was accessed at two separate points under fluoroscopy, and the right atrium RV leads were placed in the RA. Fluoroscopy of the cardiac silhouette at that time revealed a double shadow which was confirmed on the GREEK view, initially suspected in the SCHAFER view. The patient's vitals were stable. We proceeded. The patient had a large pleural effusion, hemorrhagic, likely traumatic, which had been drained, but evaluation previously both with cardiac MRI as well as with 2D echo, had not revealed any pericardial effusion, although it was suspected that the origin of the pleural effusion may have been traumatic. The RV lead was positioned in the mid to high RV septum. This was a Medtronic model #6935M, 62 cm in length, and serial number [id number]. R-waves were 11.9 mV, pacing impedance 342 ohms, pacing threshold 0.5 V at 0.4 millisecond, shock impedance 64 ohms. Ten-volt test was negative. The right atrial lead was a Medtronic model #5076, 52 cm in length, and serial number [id number]. This was screwed into the right atrial appendage. P-waves 2.3 mV, pacing impedance 551 ohms, pacing threshold 0.5 V at 0.4 millisecond. Ten-volt test was negative. Both leads were secured to the underlying pectoralis fascia using two nonabsorbable sutures. The pocket was irrigated with antibiotic solution. Leads were connected to the generator (dual-chamber ICD Medtronic Evera MRI XT model number [id number], serial number [id number]. The leads and the generator were then placed in the subfascial pocket and the wound was closed in 3 layers and dressed per protocol. The device was secured to the underlying pectoralis muscle. The device was programmed for VT zone 176 beats per minute, VF zone 214 beats per minute. Appropriate antitachycardia pacing, cardioversion and defibrillation were programmed. RESULT: Successful dual-chamber ICD implantation for hypertrophic cardiomyopathy with recurrent drug-refractory ventricular tachycardia and bradycardia. PLAN: 1. Maximize beta blockers. 2. Consider VT ablation from the LV apex in the future. MMODL / IJN: [id number] /
--- NOTE | 2021-06-15 18:46 | P.PRLE ---
RE: Axel Kramer Dear Philip Axel Kramer underwent dual-chamber ICD implantation today In final analysis, his diagnosis is APICAL hypertrophic cardio myopathy (HCM) The abnormalities on his lead EKG are classic for hypertrophic cardio myopathy,Apical variant The cardiac MRI confirms hypertrophic cardio myopathy His cardiac MRI also shows shows areas of delayed enhancement in the septum both the anterior basal segment as well as the apical septum His clinical ventricular tachycardia originates from the apical septum I spoke to the radiologist who read his cardiac MRI, Dr. Frias According to her the area of delayed enhancement in the septal apex is millimeters away from the LV endocardium It is greater than 2 cm away from the epicardium We already know based on intracardiac mapping that it is deep to the RV apical endocardium Therefore the ideal approach would be from the LV apex I do believe that Axel has had ventricular tachycardia, nonsustained episodes that presented with symptoms of chest pain Axel confirms this based on his history and he too believes that he has had runs of ventricular tachycardia which he thought was indigestion or chest discomfort for quite some time He knows that he has had this for quite some time I believe that the recent worsening may be a pathophysiologic interaction between coronary artery disease especially in the LAD territory along with apical HCM Although the primary reason for VT is really his apical HCM There is no evidence for mediastinal adenopathy. While cardiac sarcoidosis is in the differential, the presence of this anterior septal hypertrophy and hypertrophy of the inferior and lateral and apical solorio was a long with the EKG abnormalities The EKG is classic for apical HCM The most puzzling aspect is his left pleural effusion which is an exudate and hemorrhagic in nature It is very unlikely that this is of an infective origin While the cultures were negative he was already on oral antibiotics and steroids However for infection to have produced such a large pleural reaction is not consistent with his overall clinical picture There were no malignant cells noted either in this unilateral fluid collection Since there is a temporal relationship with the EP study ablation, it is most likely that the EP study/ablation in the RV apex somehow resulted in irritation of the left pleura How exactly this can happen is a mystery Radiologist Dr. Frias evaluated the pericardium around the cardiac apex There is no evidence for pericardial effusion However there was no evidence for any pericardial reaction or any enhancement of the pericardium My best explanation is that the thermal energy from RF application resulted in injury to small blood vessels in the pleural space The pericardium is probably more resilient to the heat energy However I would still consider this quite far-fetched and the truth is that we don't have a logical explanation for the pleural effusion as of yet In any case I proceed with dual-chamber ICD implant Now I will maximize his beta blockers I do not want to treat him with amiodarone or mexiletine Once his pleural reaction settles down I will proceed with a VT ablation from the LV endocardium, based upon the proximity of the delayed enhancement area to the LV endocardium on cardiac MRI I will reduce the dose of losartan to 25 mg by mouth daily I will increase the dose of metoprolol succinate to 15 g daily I plan to increase this further since he has hypertrophic cardiomyopathy I have indicated to his family members, his sister as well as his children that they need to be evaluated for hypertrophic cardio myopathy Thank you for entrusting me with the care of the patient Warm regards Sincerely Michel Gilmore
[2021-06-15] MEDS ORDERED: PANTOPRAZOLE 40 MG TABLET PO SCH (21:00)
[2021-06-15] MEDS ORDERED: ATORVASTATIN 80 MG TAB PO SCH (21:00)
[2021-06-15] MEDS: HYDROcodone/APAP 5-325MG 1 EACH TAB PO PRN (22:24)
[2021-06-15] MEDS: guaiFENesin SYRUP 100MG/5ML 200 MG/10 ML CUP PO PRN (22:28)
[2021-06-16] MEDS: HYDROcodone/APAP 5-325MG 1 EACH TAB PO PRN (06:17)
[2021-06-16] MEDS: guaiFENesin SYRUP 100MG/5ML 200 MG/10 ML CUP PO PRN (07:54)
[2021-06-16 08:25] VITALS: BP 165/82; PULSE 61; RESP 18; TEMP 97.8
[2021-06-16] MEDS ORDERED: MAGNESIUM OXIDE 400 MG TAB PO SCH (09:00)
[2021-06-16] MEDS ORDERED: PRASUGREL 10 MG TAB PO SCH (09:00)
[2021-06-16] MEDS ORDERED: ASPIRIN 81 MG PO SCH (09:00)
[2021-06-16] MEDS ORDERED: METOPROLOL SUCCINATE (ER) 50 MG TAB.ER.24H PO SCH (09:00)
--- NOTE | 2021-06-16 10:58 | XR ---
EXAMINATION TYPE: XR chest 2V DATE OF EXAM: 06/16/2021 COMPARISON: 06/09/2021 TECHNIQUE: PA and lateral views submitted. HISTORY: Abnormal x-ray FINDINGS: Increasing consolidation and left-sided pleural effusion. Suspect a bone infarct or chondroid lesion proximal humerus. Heart enlarged and there is a cardiac device with no sizable pneumothorax. No overt failure. IMPRESSION: 1. Increasing left-sided consolidation and pleural effusion.
--- NOTE | 2021-06-18 14:00 | P.DS ---
Providers Attending physician: Michel Gilmore Primary care physician: Philip Rascon Assessment: Mr. Axel Kramer is doing well post implant of the dual-chamber ICD No chest discomfort dizziness lightheadedness no shortness of breath able to lie comfortably in bed Vitals are stable afebrile 97.9F, pulse rate in the 60s Blood pressure 144/84 mmHg Breath sounds are reduced on the left side Heart sounds S1 and S2 are soft and normal Abdomen is soft And is warm Device site is healed well Impression Atypical hypertrophic cardio myopathy Recurrent ventricle tachycardia, symptomatic, feeling drug therapy Left-sided pleural effusion which is increased since thoracentesis Plan Patient will go home after completion of IV antibiotics His device function is completely normal I spoke to Dr. Philip Rascon I spoke to Dr. Brielle kate would recommend thoracentesis versus thoracoscopic evacuation to look within the pleura to get a better sense for the etiology of the serous sanguinous fluid I would wait for a few days prior to doing this since he just received antibiotics overnight Colchicine should be considered Plan - Discharge Summary Discharge Rx Participant: No New Discharge Prescriptions: New Losartan [Cozaar] 25 mg PO DAILY #90 tab Metoprolol Succinate (ER) [Toprol XL] 50 mg PO DAILY #90 tab Discontinued Losartan [Cozaar] 50 mg PO DAILY Metoprolol Succinate [Toprol XL] 25 mg PO DAILY No Action Multivitamins, Thera [Multivitamin (formulary)] 1 tab PO DAILY Garlic 1 tab PO DAILY Omeprazole [PriLOSEC] 40 mg PO HS Aspirin [Adult Low Dose Aspirin EC] 81 mg PO DAILY Prasugrel [Effient] 10 mg PO DAILY #90 tab Atorvastatin [Lipitor] 80 mg PO HS #90 tab Magnesium Oxide [Mag-Ox] 400 mg PO DAILY #90 tab Acetaminophen/Chlorpheniramine [Coricidin Hbp Cold-Flu Tablet] 1 - 2 tab PO Q4H PRN PRN Reason: Cold Symptoms Nitroglycerin Sl Tabs [Nitrostat] 0.4 mg SUBLINGUAL Q5M PRN #25 tab PRN Reason: Chest Pain Discharge Medication List Aspirin [Adult Low Dose Aspirin EC] 81 mg PO DAILY 03/06/21 [History] Garlic 1 tab PO DAILY 03/06/21 [History] Multivitamins, Thera [Multivitamin (formulary)] 1 tab PO DAILY 06/04/21 [History] Omeprazole [PriLOSEC] 40 mg PO HS 03/06/21 [History] Atorvastatin [Lipitor] 80 mg PO HS #90 tab 03/11/21 [Rx] Nitroglycerin Sl Tabs [Nitrostat] 0.4 mg SUBLINGUAL Q5M PRN #25 tab 03/11/21 [Rx] Prasugrel [Effient] 10 mg PO DAILY #90 tab 03/11/21 [Rx] Magnesium Oxide [Mag-Ox] 400 mg PO DAILY #90 tab 05/21/21 [Rx] Acetaminophen/Chlorpheniramine [Coricidin Hbp Cold-Flu Tablet] 1 - 2 tab PO Q4H PRN 06/04/21 [History] Losartan [Cozaar] 25 mg PO DAILY #90 tab 06/15/21 [Rx] Metoprolol Succinate (ER) [Toprol XL] 50 mg PO DAILY #90 tab 06/15/21 [Rx] Follow up Appointment(s)/Referral(s): Mookie Nguyen MD [STAFF PHYSICIAN] - 1 Week (Device clinic follow-up in one week, office will call you with appointment time) Philip Rascon DO [Primary Care Provider] - 1 Week Patient Instructions/Handouts: Pacemaker (DC) Activity/Diet/Wound Care/Special Instructions: PATIENT EDUCATION MATERIAL Instructions following a heart rhythm device implant. 1. Keep dressing DRY for 5 DAYS. You may cover the area with Saran or Cling Wrap, prior to a shower. 2. The dressing will be removed in the Device Clinic at [facility]. Absorbable sutures were used to close the wound. 3. Avoid raising the left arm above the shoulder level. 4 week restriction 4. Avoid arm movements, like backscratching, rubbing the head, or pulling on a cord. 4 weeks restriction 5. Gentle range of motion movements of the shoulder, closest to the incision should be performed to avoid a frozen shoulder. (Pendulum exercises of the shoulder) 6. The opposite arm may be used freely. 7. Avoid driving for 7 days. 8. Avoid activities such as golfing, swimming, weed whacking, lifting more than 10 pounds weight, bowling, gymnastics and weight training/lifting. (6 weeks restriction) 9. Activities such as wood chopping with an axe, pull-ups in the gymnasium, power lifting, arc-welding, being close to home induction cooktops will always be a problem. 10. Arm sling is only a reminder not to raise the arm above the head. You do not need to keep the arm completely immobilized. Your free to move the arm and use it and for normal activities. In case of any problems, please call [facility], Jennyfer Sorto, @ [phone], Attention: Device Clinic Device clinic follow-up in 5 days Follow-up with primary winding department supervisor in 2-3 months Reduce losartan dose to 25 mg by mouth daily Increase metoprolol dose to 50 mrem daily Continue statins and dual antiplatelet therapy No amiodarone No mexiletine Discharge Disposition: HOME SELF-CARE
== END 2021-06-16 13:10 | disposition home or self-care (01) ==
LOC: CATHEP 13:46 → 6NMEDSUR 17:57 → CATHEP 06-16 13:10
PROVIDERS: ATTEND Internal Medicine Clinical Cardiac Electrophysiology
DX: J90 Pleural effusion, not elsewhere classified (principal); I25.10 Atherosclerotic heart disease of native coronary artery without angina pectoris; I10 Essential (primary) hypertension; F17.210 Nicotine dependence, cigarettes, uncomplicated; Z79.82 Long term (current) use of aspirin; K62.1 Rectal polyp
CPT/HCPCS: 33249; 82164; 87635; 71046; C1769 ×4; C1892 ×2; C1895; C1721; J2250; J0690 ×2; J2001; J3010; J2704; Q9967

== ENCOUNTER → 2021-06-22 | Day surgery (SDC) | payer MEDICAID ==
[~2021-06-22] MED LIST changes: -ALPRAZolam 0.25 MG TAB PO PRN; -ALPRAZolam 0.5 MG TAB PO PRN; -ASPIRIN 325 MG TAB PO STA; -ATORVASTATIN 80 MG TAB PO STA; +ATROPINE SULFATE 0.4 MG/ML 1 ML VIAL IM NR; -HEPARIN SODIUM,PORCINE 10,000 UNIT in SODIUM CHLORIDE 0.9% 1,000 ML IRRIGATION PRN; -HEPARIN SODIUM,PORCINE 2,500 UNIT in SODIUM CHLORIDE 0.9% 250 ML IRRIGATION PRN; -NITROGLYCERIN SL TABS 0.4 MG TAB SUBLINGUAL PRN; -SODIUM CHLORIDE 0.9% 1,000 ML in EMPTY BAG 1 BAG IV ONE
--- NOTE | 2021-06-22 11:35 | US ---
EXAMINATION TYPE: US chest DATE OF EXAM: 06/22/2021 COMPARISON: Chest x-ray 06/16/2021 CLINICAL HISTORY: J90.0 Pleural Effusion. Left TECHNIQUE: Targeted ultrasound of the posterior lower left hemithorax EXAM MEASUREMENTS: Left Pleural Effusion pocket size: 10.4cm Left skin surface to fluid distance: 4.8cm Left side marked for possible thoracentesis outside the dept. Pulmonologists are able to review the images in the patient?s EMR. IMPRESSIONS: Left pleural effusion
[2021-06-22 11:42] VITALS: TEMP 98.3
[2021-06-22 13:03] VITALS: RESP 16
--- NOTE | 2021-06-22 13:05 | XR ---
EXAMINATION TYPE: XR chest 1V portable DATE OF EXAM: 06/22/2021 COMPARISON: Chest x-ray 06/16/2021 HISTORY: Status post thoracentesis TECHNIQUE: Single frontal view of the chest is obtained. FINDINGS: There is some improvement in aeration to the left lung. No evident pneumothorax. No other significant interval change. Persistent density present obscuring the left hemidiaphragm and left hea rt border. IMPRESSION: No evident complication status post left thoracentesis.
[2021-06-22 13:09] VITALS: PULSE 60
[2021-06-22 13:33] VITALS: BP 107/71
--- NOTE | 2021-06-22 17:16 | OP ---
OPERATIVE REPORT PULMONARY/CRITICAL CARE PROCEDURE: PROCEDURE: Left-sided thoracentesis. Pre-op diagnosis is pleural effusion. Post-op diagnosis is pleural effusion OPERATORS: Dr. Fair and Dr. Cordoba. Indication Pleural effusion. A time-out was completed verifying correct patient, procedure, site, positioning , and implant (s) or special equipment if applicable. Ultrasound guidance was used and appropriate fluid pocket was identified and marked. Patient was positioned, prepped and draped in usual sterile fashion. Lidocaine was used to anesthetize the area. A Thoracentesis catheter was introduced into the pleural space and fluid was removed. Blood loss was none. A chest x-ray was ordered to evaluate for pneumothorax. Total Fluid Removed: 1350 cc of bloody fluid was removed from the left pleural space. Patient tolerated the procedure well and there were no complications. The fluid will not be sent for analysis as it was sent for analysis the last time. The patient tolerated the procedure well. There was no immediate complication. MMODL / IJN: [id number] / [facility]
== END ==
LOC: PROCWHC3 11:10
PROVIDERS: ATTEND Internal Medicine Critical Care Medicine
DX: J90 Pleural effusion, not elsewhere classified (principal); Z98.890 Other specified postprocedural states
CPT/HCPCS: 32554; 71045; 76604; 96372; J0461

== ENCOUNTER → 2021-06-29 | Outpatient (CLI) | payer MEDICAID ==
--- NOTE | 2021-06-29 15:02 | XR ---
EXAMINATION TYPE: XR chest 2V DATE OF EXAM: 06/29/2021 COMPARISON: Chest x-ray 06/22/2021 HISTORY: Pleural effusion TECHNIQUE: Frontal and lateral views of the chest are obtained. FINDINGS: Persistent abnormal density noted at the left lung base, the left heart border is obscured as is the left hemidiaphragm. Intracardiac defibrillator lead is stable in the right atrium and vent ricle, generator is present in left pectoral region. There is no evident pneumothorax. Cardiac medias tinal silhouette shows a stable appearance. IMPRESSION: Stable left lower lobe atelectasis and associated effusion
== END | disposition home or self-care (01) ==
LOC: RADXRMAIN 12:49
PROVIDERS: ATTEND Internal Medicine Interventional Cardiology
DX: J98.11 Atelectasis (principal); J90 Pleural effusion, not elsewhere classified
CPT/HCPCS: 71046

== ENCOUNTER 2021-07-14 06:50 | Inpatient (IN) | payer MEDICAID ==
[2021-07-14 07:33] LABS: ALT 49 U/L (4-49); AST 44 U/L (17-59); African American GFR (CKD) >90 (>60 ml/min/1.73 sqM); Albumin 3.7 g/dL (3.5-5.0); Alkaline Phosphatase 89 U/L (38-126); Anion Gap 9 mmol/L; Blood Urea Nitrogen 15 mg/dL (9-20); Calcium 8.8 mg/dL (8.4-10.2); Carbon Dioxide 19 mmol/L (22-30); Chloride 110 mmol/L (98-107); Glucose 106 mg/dL (74-99); Non-African American GFR(CKD) >90 (>60 ml/min/1.73 sqM); Potassium 4.5 mmol/L (3.5-5.1); Sodium 138 mmol/L (137-145); Total Protein 6.7 g/dL (6.3-8.2)
[2021-07-14 07:38] LABS: Partial Thromboplastin Time 22.9 sec (22.0-30.0); Prothrombin Time 10.5 sec (9.0-12.0)
--- NOTE | 2021-07-14 07:39 | ED ---
General Adult HPI - General Chief complaint: Chest Pain Stated complaint: Chest Pain Time Seen by Provider: 07/14/21 07:04 Source: patient, RN notes reviewed, old records reviewed Mode of arrival: ambulatory Limitations: no limitations - History of Present Illness Initial comments: 61-year-old male with recent pacemaker defibrillator placement presenting with palpitations. Patient states that with any exertion he begins feeling chest discomfort and palpitations. He denies specific chest pain. He denies associated nausea vomiting or diaphoresis. He states he has not been defibrillated. This was placed approximately one month ago. No fevers. No cough. No dyspnea. - Related Data Home Medications Medication Instructions Recorded Confirmed Aspirin [Adult Low Dose Aspirin EC] 81 mg PO DAILY 03/06/21 07/14/21 Garlic 1 tab PO DAILY 03/06/21 07/14/21 Multivitamins, Thera [Multivitamin 1 tab PO DAILY 03/06/21 07/14/21 (formulary)] Omeprazole [PriLOSEC] 40 mg PO HS 03/06/21 07/14/21 Losartan [Cozaar] 50 mg PO DAILY@1200 07/14/21 07/14/21 Metoprolol Succinate (ER) [Toprol 50 mg PO BID 07/14/21 07/14/21 XL] Previous Rx's Medication Instructions Recorded Atorvastatin [Lipitor] 80 mg PO HS #90 tab 03/11/21 Nitroglycerin Sl Tabs [Nitrostat] 0.4 mg SUBLINGUAL Q5M PRN #25 tab 03/11/21 Prasugrel [Effient] 10 mg PO DAILY #90 tab 03/11/21 Magnesium Oxide [Mag-Ox] 400 mg PO DAILY #90 tab 05/21/21 Allergies Allergy/AdvReac Type Severity Reaction Status Date / Time No Known Allergies Allergy Verified 07/14/21 07:55 Review of Systems ROS Statement: Those systems with pertinent positive or pertinent negative responses have been documented in the HPI. ROS Other: All systems not noted in ROS Statement are negative. Past Medical History Past Medical History: Hypertension Additional Past Medical History / Comment(s): HX OF RECTAL POLYP, ZOLL LIFE VEST, COVID History of Any Multi-Drug Resistant Organisms: None Reported Past Surgical History: Cardiac Ablation, Heart Catheterization With Stent, Hernia Repair, Orthopedic Surgery, Pacemaker Additional Past Surgical History / Comment(s): LT KNEE SCOPE, COLONOSCOPY, heart cath 6/8/21-2 stents Past Anesthesia/Blood Transfusion Reactions: No Reported Reaction Date of Last Stent Placement:: 03/10/21 Type of Cardiac Device: Permanent Pacemaker Device Placement Date:: 06/15/21 Past Psychological History: No Psychological Hx Reported Smoking Status: Never smoker Past Alcohol Use History: Occasional Past Drug Use History: None Reported - Past Family History Mother Family Medical History: No Reported History General Exam Limitations: no limitations General appearance: alert, in no apparent distress Head exam: Present: atraumatic, normocephalic Eye exam: Present: normal appearance, PERRL ENT exam: Present: normal exam Neck exam: Present: normal inspection Respiratory exam: Present: normal lung sounds bilaterally. Absent: respiratory distress, wheezes Cardiovascular Exam: Present: regular rate, normal rhythm GI/Abdominal exam: Present: soft. Absent: distended, tenderness, guarding Extremities exam: Present: normal inspection, normal capillary refill Neurological exam: Present: alert, oriented X3, CN II-XII intact. Absent: motor sensory deficit Psychiatric exam: Present: normal affect, normal mood Skin exam: Present: warm, dry, intact. Absent: cyanosis, diaphoretic Course Vital Signs 07/14/21 07/14/21 07/14/21 06:51 07:04 07:25 Temperature 98.1 F Pulse Rate 83 60 60 Respiratory 22 18 Rate Blood Pressure 139/84 O2 Sat by Pulse 99 97 95 Oximetry 07/14/21 07/14/21 07/14/21 08:00 08:30 09:00 Temperature Pulse Rate 60 60 60 Respiratory Rate Blood Pressure 123/84 115/70 118/78 O2 Sat by Pulse 94 L 93 L 94 L Oximetry 07/14/21 07/14/21 09:30 10:00 Temperature Pulse Rate 64 97 Respiratory Rate Blood Pressure 119/75 123/86 O2 Sat by Pulse 96 97 Oximetry - Reevaluation(s) Reevaluation #1: 07/14/21 09 While in the department the patient goes into ventricular tachycardia, he does not appear to have been defibrillated by his AICD. He is started on amiodarone. Blood pressure monitored closely does have one episode of hypotension with fluid hydration he returns to normal tensive EKG Findings - EKG Comments: EKG Findings:: EKG: Atrial paced rhythm, biphasic T wave in V3, T-wave inversion in the lateral precordial leads, no ST segment elevation rate of 63, LA interval 194, QRS duration 94, QTC 454. Repeat EKG shows underlying sinus rhythm with ventricular tachycardia rate of 135, QRS duration to 10, QTC 513 Medical Decision Making - Medical Decision Making 61-year-old male history of ventricular tachycardia presenting with palpitati ons. This been ongoing for one week. Initial rhythm is atrial paced. Has a normal CBC, normal CMP, negative protein, chest x-ray shows improvement of left- sided effusion compared to recent about 2 weeks ago. While in the department patient goes into ventricular tachycardia he started on amiodarone. The width stripper Dr. Naylor is aware and is able to evaluate the patient emergency department and will be admitted to an ICU bed. Case discussed with Dr. Fair who accepts admission to the ICU. - Lab Data Result diagrams: 07/14/21 07:14 07/14/21 07:14 Lab Results 07/14/21 07/14/21 07/14/21 Range/Units 07:14 07:14 07:14 WBC 5.6 (3.8-10.6) k/uL RBC 5.04 (4.30-5.90) m/uL Hgb 14.7 (13.0-17.5) gm/dL Hct 45.1 (39.0-53.0) % MCV 89.5 (80.0-100.0) fL MCH 29.2 (25.0-35.0) pg MCHC 32.6 (31.0-37.0) g/dL RDW 14.7 (11.5-15.5) % Plt Count 162 (150-450) k/uL MPV 7.6 Neutrophils % 72 % Lymphocytes % 16 % Monocytes % 8 % Eosinophils % 2 % Basophils % 0 % Neutrophils # 4.0 (1.3-7.7) k/uL Lymphocytes # 0.9 L (1.0-4.8) k/uL Monocytes # 0.4 (0-1.0) k/uL Eosinophils # 0.1 (0-0.7) k/uL Basophils # 0.0 (0-0.2) k/uL PT 10.5 (9.0-12.0) sec INR 1.0 (<1.2) APTT 22.9 (22.0-30.0) sec Sodium 138 (137-145) mmol/L Potassium 4.5 (3.5-5.1) mmol/L Chloride 110 H (98-107) mmol/L Carbon Dioxide 19 L (22-30) mmol/L Anion Gap 9 mmol/L BUN 15 (9-20) mg/dL Creatinine 0.76 (0.66-1.25) mg/dL Est GFR (CKD-EPI)AfAm >90 (>60 ml/min/1.73 sqM) Est GFR (CKD-EPI)NonAf >90 (>60 ml/min/1.73 sqM) Glucose 106 H (74-99) mg/dL Calcium 8.8 (8.4-10.2) mg/dL Magnesium 2.0 (1.6-2.3) mg/dL Total Bilirubin 1.0 (0.2-1.3) mg/dL AST 44 (17-59) U/L ALT 49 (4-49) U/L Alkaline Phosphatase 89 (38-126) U/L Troponin I (0.000-0.034) ng/mL Total Protein 6.7 (6.3-8.2) g/dL Albumin 3.7 (3.5-5.0) g/dL 07/14/21 Range/Units 07:14 WBC (3.8-10.6) k/uL RBC (4.30-5.90) m/uL Hgb (13.0-17.5) gm/dL Hct (39.0-53.0) % MCV (80.0-100.0) fL MCH (25.0-35.0) pg MCHC (31.0-37.0) g/dL RDW (11.5-15.5) % Plt Count (150-450) k/uL MPV Neutrophils % % Lymphocytes % % Monocytes % % Eosinophils % % Basophils % % Neutrophils # (1.3-7.7) k/uL Lymphocytes # (1.0-4.8) k/uL Monocytes # (0-1.0) k/uL Eosinophils # (0-0.7) k/uL Basophils # (0-0.2) k/uL PT (9.0-12.0) sec INR (<1.2) APTT (22.0-30.0) sec Sodium (137-145) mmol/L Potassium (3.5-5.1) mmol/L Chloride (98-107) mmol/L Carbon Dioxide (22-30) mmol/L Anion Gap mmol/L BUN (9-20) mg/dL Creatinine (0.66-1.25) mg/dL Est GFR (CKD-EPI)AfAm (>60 ml/min/1.73 sqM) Est GFR (CKD-EPI)NonAf (>60 ml/min/1.73 sqM) Glucose (74-99) mg/dL Calcium (8.4-10.2) mg/dL Magnesium (1.6-2.3) mg/dL Total Bilirubin (0.2-1.3) mg/dL AST (17-59) U/L ALT (4-49) U/L Alkaline Phosphatase (38-126) U/L Troponin I 0.025 (0.000-0.034) ng/mL Total Protein (6.3-8.2) g/dL Albumin (3.5-5.0) g/dL Critical Care Time Critical Care Time: Yes Total Critical Care Time: 35 Disposition Clinical Impression: Ventricular tachycardia Disposition: ADMITTED IP TO THIS [facility] Condition: Stable Is patient prescribed a controlled substance at d/c from ED?: No Referrals: Philip Rascon DO [Primary Care Provider] - 1-2 days Decision to Admit Reason: Admit from EC Decision Date: 07/14/21 Decision Time: 10:39
[2021-07-14 07:41] LABS: Basophils % (A) 0 %; Eosinophils # (A) 0.1 k/uL (0-0.7); Eosinophils % (A) 2 %; HCT 45.1 % (39.0-53.0); HGB 14.7 gm/dL (13.0-17.5); Lymphocytes # (A) 0.9 k/uL (1.0-4.8); Lymphocytes % (A) 16 %; MCH 29.2 pg (25.0-35.0); MCHC 32.6 g/dL (31.0-37.0); MCV 89.5 fL (80.0-100.0); Mean Platelet Volume 7.6; Monocytes # (A) 0.4 k/uL (0-1.0); Monocytes % (A) 8 %; Neutrophils % (A) 72 %; Platelet Count 162 k/uL (150-450); RBC 5.04 m/uL (4.30-5.90); RDW 14.7 % (11.5-15.5); WBC 5.6 k/uL (3.8-10.6)
--- NOTE | 2021-07-14 07:46 | XR ---
EXAMINATION TYPE: XR chest 2V DATE OF EXAM: 07/14/2021 COMPARISON: Chest x-ray June 29, 2021 HISTORY: V. Tach with chest pain. TECHNIQUE: Frontal and lateral views of the chest are obtained. FINDINGS: There is persistent cardiomegaly with dual lead pacemaker/defibrillator. Persistent small- to-moderate left pleural effusion with associated left basilar atelectasis and/or infiltrate. Right lung remains clear. Bridging osteophytes in the thoracic spine redemonstrated. IMPRESSION: Cardiomegaly with small to moderate size left pleural effusion and associated left basil ar atelectasis and/or infiltrate redemonstrated. No significant change from most recent x-ray.
[2021-07-14] MEDS ORDERED: DEXTROSE 5% IN WATER 100 ML with AMIODARONE 150 MG IV ONE (09:39)
[2021-07-14] MEDS ORDERED: AMIODARONE 360 MG in DEXTROSE 5% IN WATER 200 ML IV ONE ×2 (09:39)
[2021-07-14] MEDS: METOPROLOL SUCCINATE (ER) 50 MG TAB.ER.24H PO SCH (10:02)
[2021-07-14] MEDS ORDERED: AMIODARONE IN DEXTROSE,ISO-OSM 360 MG/200 ML PLAST..BAG IV ONE (10:18)
[2021-07-14] MEDS ORDERED: AMIODARONE IN DEXTROSE,ISO-OSM 150 MG/100 ML PLAST..BAG IV ONE (10:18)
[2021-07-14] MEDS ORDERED: NALOXONE 0.4 MG/ML 1 ML VIAL IV PRN (10:35)
[2021-07-14 11:41] LABS: Glucose,Whole Blood 102 mg/dL (75-99)
--- NOTE | 2021-07-14 11:59 | ECHOF ---
Referral Reason:Palpitations MEASUREMENTS -------- HEIGHT: 172.7 cm WEIGHT: 117.9 kg BP: IVSd: 1.3 cm (0.6 - 1.1) LVIDd: 4.0 cm (3.9 - 5.3) LVPWd: 1.4 cm (0.6 - 1.1) IVSs: 1.4 cm LVIDs: 2.1 cm LVPWs: 2.3 cm FINDINGS -------- This was a technically difficult study with suboptimal views. Limited Study The left ventricular size is normal. There is moderate concentric left ventricular hypertrophy. O verall left ventricular systolic function is normal with, an EF between 55 - 60 %. Lumason used There is no pericardial effusion. CONCLUSIONS -------- 1. The left ventricular size is normal. 2. There is moderate concentric left ventricular hypertrophy. 3. Overall left ventricular systolic function is normal with, an EF between 55 - 60 %. 4. There is no pericardial effusion. COMPLIANCE FIELD TECHNICIAN: Patience Lazcano RDCS
--- NOTE | 2021-07-14 12:12 | CONS ---
CONSULTATION CHIEF COMPLAINT: Ventricular tachycardia. HISTORY OF PRESENT ILLNESS: Axel is a 61-year-old gentleman with complex cardiac history including coronary artery disease status post angioplasty of the LAD and circumflex coronary artery in March of 2021, who subsequently had a cardiac catheterization in May for evaluation of ventricular tachycardia status post prior ablation, status post AICD, history of apical hypertrophy, who was on sotalol that did not suppress the VT. He came into hospital today complaining of palpitations. He has been having intermittent episodes of sustained palpitations for the last 3 days. He had a recent defibrillator placement and was not quite sure if his feelings were normal or not. He also had vague chest discomfort and had some shortness of breath with activity. He was actually getting ready to be discharged home from the ER and suddenly went into intermittent runs of nonsustained VT due to which decision has been made to admit him to the hospital. He has received amiodarone bolus and amiodarone drip had been started. At the time of my evaluation he is in sinus rhythm and is free of symptoms. PAST MEDICAL HISTORY: Significant for apical hypertrophy, ventricular tachycardia status post ablation, status post AICD, coronary artery disease status post multivessel angioplasty, hypertension, dyslipidemia. MEDICATIONS: Medications at home include: Prilosec, Cozaar 50 daily, Lipitor 80 daily, Effient 10 daily, Toprol-XL 50 b.i.d. and aspirin. ALLERGIES: There are no known drug allergies. FAMILY HISTORY: Negative for premature coronary artery disease. SOCIAL HISTORY: Negative for smoking, EtOH abuse, or drug abuse. REVIEW OF SYSTEMS: HEENT is unremarkable. CARDIAC as described above. RESPIRATORY negative. GI negative. GENITOURINARY negative. ALLERGY: None. SKIN negative. MUSCULOSKELETAL significant for arthritis. PSYCHOSOCIAL negative. CONSTITUTIONAL negative. ONCOLOGICAL negative. 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 Rest of the system review is not relevant. EXAM: Patient is comfortable at rest. Vital signs are stable. Chest exam reveals good air entry bilaterally. Heart exam reveals first and second heart sounds. No gallop. No murmur. Abdomen is soft, nontender. Examination of extremities did not reveal any edema. Peripheral pulses are felt. LABS: Labs show that the hemoglobin is 14.7, platelet count is 160. Potassium is 4.5, creatinine 0.7. Troponin is negative. ASSESSMENT: 1. Symptomatic palpitations secondary to nonsustained ventricular tachycardia. 2. Ventricular tachycardia status post AICD. 3. Coronary artery disease status post multivessel angioplasty. PLAN: I am going to start the patient on IV amiodarone and switch him to p.o. amiodarone and if necessary add mexiletine. He probably has to be discharged home on amiodarone and probably needs a VT ablation done the road. JACKLYN / BETTY: [id number] /
[2021-07-14] MEDS: SODIUM CHLORIDE 0.9% 1,000 ML IV SCH (13:01)
[2021-07-14] MEDS: LOSARTAN 50 MG TAB PO SCH (13:01)
--- NOTE | 2021-07-14 15:03 | P.CNPUL ---
History of Present Illness Consult date: 07/14/21 Requesting physician: Philip Rascon Chief complaint: Irregular heartbeat. History of present illness: Pulmonary/critical care consultation dated 07/14/2021. 61-year-old male who presents to the emergency department with chest pain. The patient has a history of arrhythmias, and had an ablation done in mid May. More recently, on June 15, the patient had a pacemaker defibrillator placed. I have seen this patient a couple times now, for left-sided pleural effusion. The patient actually had hemothorax, possibly as a complication of his ablation back in mid-May. Each time, the patient had a large-volume t horacentesis, which is essentially bloody. His most recent chest x-rays dated June 22, June 29, and the one today, show a pattern of improving pleural effusion on the left. Clinically, the patient denies shortness of breath. Previously, he was short of breath when the effusions were present. I suspect he is not bleeding any more into that left pleural space. Today he mentioned to the ER physician that he was having palpitations, and chest discomfort. White count 5.6, hemoglobin 14.7, hematocrit 45.1, and platelet count 162,000. PT, INR, and PTT are normal. Sodium 138, potassium 4.5, chlorides 110, CO2 19, anion gap 9, BUN 15, and creatinine 0.76. Glucose was 106. Chest x-ray shows cardiomegaly, with a small to moderate-sized left-sided pleural effusion. Review of Systems REVIEW OF SYSTEMS: CONSTITUTIONAL: [Negative.] NEUROLOGIC: [ Negative.] HEENT: [ Negative.] CARDIAC: Chest pain, palpitations. PULMONARY: [Negative.] GI: [Negative.] : [Negative.] RHEUMATOLOGIC: [ Negative.] IMMUNOLOGIC: [ Negative.] ENDOCRINE: [Negative. ] DERMATOLOGIC: [Negative.] Past Medical History Past Medical History: Hypertension Additional Past Medical History / Comment(s): HX OF RECTAL POLYP, ZOLL LIFE VEST, COVID History of Any Multi-Drug Resistant Organisms: None Reported Past Surgical History: Cardiac Ablation, Heart Catheterization With Stent, Hernia Repair, Orthopedic Surgery, Pacemaker Additional Past Surgical History / Comment(s): LT KNEE SCOPE, COLONOSCOPY, heart cath 03/10/21-2 stents Past Anesthesia/Blood Transfusion Reactions: No Reported Reaction Date of Last Stent Placement:: 03/10/21 Type of Cardiac Device: Permanent Pacemaker Device Placement Date:: 06/15/21 Past Psychological History: No Psychological Hx Reported Smoking Status: Never smoker Past Alcohol Use History: Occasional Past Drug Use History: None Reported - Past Family History Mother Family Medical History: No Reported History Medications and Allergies Home Medications Medication Instructions Recorded Confirmed Type Aspirin [Adult Low Dose Aspirin EC] 81 mg PO DAILY 03/06/21 07/14/21 History Garlic 1 tab PO DAILY 03/06/21 07/14/21 History Multivitamins, Thera [Multivitamin 1 tab PO DAILY 03/06/21 07/14/21 History (formulary)] Omeprazole [PriLOSEC] 40 mg PO HS 03/06/21 07/14/21 History Atorvastatin [Lipitor] 80 mg PO HS #90 tab 03/11/21 07/14/21 Rx Nitroglycerin Sl Tabs [Nitrostat] 0.4 mg SUBLINGUAL Q5M PRN #25 tab 03/11/21 07/14/21 Rx Prasugrel [Effient] 10 mg PO DAILY #90 tab 03/11/21 07/14/21 Rx Magnesium Oxide [Mag-Ox] 400 mg PO DAILY #90 tab 05/21/21 07/14/21 Rx Losartan [Cozaar] 50 mg PO DAILY@1200 07/14/21 07/14/21 History Metoprolol Succinate (ER) [Toprol 50 mg PO BID 07/14/21 07/14/21 History XL] Allergies Allergy/AdvReac Type Severity Reaction Status Date / Time No Known Allergies Allergy Verified 07/14/21 07:55 Physical Exam Osteopathic Statement: *. No significant issues noted on an osteopathic structural exam other than those noted in the History and Physical/Consult. Vitals: Vital Signs Temp Pulse Resp BP BP Pulse Ox 07/14/21 14:00 98.1 F 70 16 104/73 97 07/14/21 13:30 64 19 120/74 97 07/14/21 13:00 60 23 132/82 96 07/14/21 12:30 70 21 134/73 95 07/14/21 12:00 60 26 H 150/99 96 07/14/21 11:41 98.1 F 19 150/99 100 07/14/21 11:30 60 125/81 07/14/21 11:00 62 17 145/89 100 07/14/21 10:00 97 123/86 97 07/14/21 09:30 64 119/75 96 07/14/21 09:00 60 118/78 94 L 07/14/21 08:30 60 115/70 93 L 07/14/21 08:00 60 123/84 94 L 07/14/21 07:25 60 18 95 07/14/21 07:04 60 97 07/14/21 06:51 98.1 F 83 22 139/84 99 Intake and Output 07/13/21 07/14/21 07/14/21 22:59 06:59 14:59 Intake Total 150 Output Total 350 Balance -200 Intake: Intake, IV Titration 150 Amount Sodium Chloride 0.9% 1, 150 000 ml @ 75 mls/hr IV . [id number] [facility] Rx#:[id number] Output: Urine 350 Other: Weight 117.934 kg No acute distress, oriented 3. Currently on room air. HEENT examination is grossly unremarkable. Neck supple. Full range of motion. No adenopathy thyromegaly or neck vein distention. Cardiovascular examination reveals regular rhythm rate. S1-S2 normal. No S3 or S4. No discernible murmur noted. Heart rate 70 bpm. Lungs reveal mostly clear breath sounds. Scattered rhonchi are noted particularly in the left base. Crackles at the left base, have improved. No wheezes. Abdomen soft bowel sounds are heard. No masses or tenderness. Extremities are intact. No cyanosis clubbing or edema. Skin is without rash or lesion. Neurologic examination is brief but nonfocal. Results - Laboratory Findings CBC and BMP: 07/14/21 07:14 07/14/21 07:14 PT/INR, D-dimer PT 10.5 sec (9.0-12.0) 07/14/21 07:14 INR 1.0 (<1.2) 07/14/21 07:14 Abnormal lab findings: Abnormal Labs 07/14/21 07/14/21 07/14/21 07:14 07:14 11:40 Lymphocytes # 0.9 L Chloride 110 H Carbon Dioxide 19 L Glucose 106 H POC Glucose (mg/dL) 102 H - Diagnostic Findings Chest x-ray: image reviewed Assessment and Plan Assessment: History of recurrent ventricular tachycardia. Status post recent defibrillator/pacemaker placement. Status post ablation, mid May 2021. Left-sided pleural effusion/hemothorax, possibly arising as a complication of the ablation. History of hypertension. Previous heart catheterization with stent placement. Plan: Plan dated 07/14/2021. From the pulmonary/critical care standpoint, the patient is currently stable. I accepted the patient into the intensive care unit. Cardiology is been consulted. No additional recommendations are made. The left-sided pleural effusion seems to be relatively stable this time. No additional thoracentesis are planned at this time. Time with Patient: Greater than 30
[2021-07-14] MEDS: AMIODARONE 450 MG in DEXTROSE 5% IN WATER 250 ML IV SCH ×2 (16:40)
[2021-07-14] MEDS: ATORVASTATIN 80 MG TAB PO SCH (20:05)
[2021-07-14] MEDS ORDERED: PANTOPRAZOLE 40 MG TABLET PO SCH (21:00)
[2021-07-15] MEDS: SODIUM CHLORIDE 0.9% 1,000 ML IV SCH
[2021-07-15 04:51] LABS: Basophils % (A) 0 %; Eosinophils # (A) 0.2 k/uL (0-0.7); Eosinophils % (A) 3 %; HCT 42.5 % (39.0-53.0); HGB 13.6 gm/dL (13.0-17.5); Lymphocytes # (A) 1.1 k/uL (1.0-4.8); Lymphocytes % (A) 19 %; MCH 28.8 pg (25.0-35.0); MCV 89.8 fL (80.0-100.0); Mean Platelet Volume 7.9; Monocytes # (A) 0.4 k/uL (0-1.0); Monocytes % (A) 7 %; Neutrophils % (A) 69 %; Platelet Count 138 k/uL (150-450); RBC 4.73 m/uL (4.30-5.90); RDW 14.6 % (11.5-15.5); WBC 5.7 k/uL (3.8-10.6)
[2021-07-15 05:31] LABS: African American GFR (CKD) >90 (>60 ml/min/1.73 sqM); Anion Gap 5 mmol/L; Blood Urea Nitrogen 13 mg/dL (9-20); Calcium 8.7 mg/dL (8.4-10.2); Carbon Dioxide 28 mmol/L (22-30); Chloride 107 mmol/L (98-107); Glucose 114 mg/dL (74-99); Non-African American GFR(CKD) 90 (>60 ml/min/1.73 sqM); Potassium 4.3 mmol/L (3.5-5.1); Sodium 140 mmol/L (137-145)
[2021-07-15] MEDS: AMIODARONE 450 MG in DEXTROSE 5% IN WATER 250 ML IV SCH ×2 (07:49)
[2021-07-15] MEDS: MAGNESIUM OXIDE 400 MG TAB PO SCH (08:57)
[2021-07-15] MEDS: ASPIRIN 81 MG PO SCH (08:57)
[2021-07-15] MEDS: METOPROLOL SUCCINATE (ER) 50 MG TAB.ER.24H PO SCH (08:57)
[2021-07-15] MEDS: PRASUGREL 10 MG TAB PO SCH (08:57)
[2021-07-15] MEDS: PANTOPRAZOLE 40 MG TABLET PO SCH ×2 (09:02→21:00)
--- NOTE | 2021-07-15 10:24 | P.PN ---
Subjective Progress Note Date: 07/15/21 Principal diagnosis: Ventricular tachycardia. Pulmonary/critical care consultation dated 07/14/2021. 61-year-old male who presents to the emergency department with chest pain. The patient has a history of arrhythmias, and had an ablation done in mid May. More recently, on June 15, the patient had a pacemaker defibrillator placed. I have seen this patient a couple times now, for left-sided pleural effusion. The patient actually had hemothorax, possibly as a complication of his ablation back in mid-May. Each time, the patient had a large-volume thoracentesis, which is essentially bloody. His most recent chest x-rays dated June 22, June 29, and the one today, show a pattern of improving pleural effusion on the left. Clinically, the patient denies shortness of breath. Previously, he was short of breath when the effusions were present. I suspect he is not bleeding any more into that left pleural space. Today he mentioned to the ER physician that he was having palpitations, and chest discomfort. White count 5.6, hemoglobin 14.7, hematocrit 45.1, and platelet count 162,000. PT, INR, and PTT are normal. Sodium 138, potassium 4.5, chlo rides 110, CO2 19, anion gap 9, BUN 15, and creatinine 0.76. Glucose was 106. Chest x-ray shows cardiomegaly, with a small to moderate-sized left-sided pleural effusion. Progress note dated 07/15/2021. 61-year-old male admitted with a history of ventricular tachycardia and chest pain. Currently from the pulmonary standpoint he is doing well. He is on room air. The patient is getting saline at 75 mL an hour. The patient is also on amiodarone at 0.5 mg/m. Clinically he is much more stable today than yesterday and apparently said no additional episodes of ventricular tachycardia. White count is 5.7, hemoglobin 13.6, hematocrit 42.5, platelet count 138,000. Sodium 140, potassium 4.3, chlorides 107, CO2 28, anion gap 5, BUN 13, creatinine 0.92. Most recent chest x-rays are stable and only show a small effusion on the left. Objective - Vital Signs Vital signs: Vital Signs Temp 98.2 F 07/15/21 08:00 Pulse 60 07/15/21 10:00 Resp 16 07/15/21 10:00 BP 142/79 07/15/21 10:00 Pulse Ox 94 L 07/15/21 10:00 Intake & Output 07/14/21 07/15/21 07/15/21 18:59 06:59 18:59 Intake Total 525 825 715 Output Total 1300 1175 0 Balance -775 -350 715 Weight 117.934 kg 115.6 kg Intake: IV 825 75 .9 825 75 Intake, IV Titration 525 400 Amount Amiodarone 450 mg In 250 Dextrose 5% in Water 250 ml @ 0.5 MG/MIN 16.667 mls/hr IV .Q15H [facility] Rx#: [id number] Sodium Chloride 0.9% 1, 525 150 000 ml @ 75 mls/hr IV . [id number] [facility] Rx#:[id number] Oral 240 Output: Urine 1300 1175 0 Other: Voiding Method Urinal Urinal Toilet Urinal # Voids 1 # Bowel Movements 1 - Exam No acute distress, oriented 3. Currently on room air. HEENT examination is grossly unremarkable. Neck supple. Full range of motion. No adenopathy thyromegaly or neck vein distention. Cardiovascular examination reveals regular rhythm rate. S1-S2 normal. No S3 or S4. No discernible murmur noted. Heart rate 60 bpm. Lungs reveal mostly clear breath sounds. Scattered rhonchi are noted particularly in the left base. Crackles at the left base, have improved. No wheezes. Abdomen soft bowel sounds are heard. No masses or tenderness. Extremities are intact. No cyanosis clubbing or edema. Skin is without rash or lesion. Neurologic examination is brief but nonfocal. - Labs CBC & Chem 7: 07/15/21 04:37 07/15/21 04:37 Labs: Abnormal Lab Results - Last 24 Hours (Table) 07/14/21 07/15/21 07/15/21 Range/Units 11:40 04:37 04:37 Plt Count 138 L (150-450) k/uL Glucose 114 H (74-99) mg/dL POC Glucose (mg/dL) 102 H (75-99) mg/dL Assessment and Plan Assessment: History of recurrent ventricular tachycardia. Status post recent defibrillator/pacemaker placement. Status post ablation, mid May 2021. Left-sided pleural effusion/hemothorax, possibly arising as a complication of the ablation. History of hypertension. Previous heart catheterization with stent placement. Plan: Plan dated 07/14/2021. From the pulmonary/critical care standpoint, the patient is currently stable. I accepted the patient into the intensive care unit. Cardiology is been consulted. No additional recommendations are made. The left-sided pleural effusion seems to be relatively stable this time. No additional thoracentesis are planned at this time. Plan dated 07/15/2021. From the pulmonary standpoint, the patient appears to be doing well. His x-rays most recently much more stable, and showed only a relatively small effusion in the left chest. No additional thoracentesis are needed at this time. Cardiology has seen the patient. We will follow as needed. No additional recommendations at this time. Time with Patient: Less than 30
[2021-07-15] MEDS: LOSARTAN 50 MG TAB PO SCH (12:26)
--- NOTE | 2021-07-15 15:05 | PN ---
PROGRESS NOTE Axel is a 61-year-old gentleman with history of coronary artery disease, ventricular tachycardia status post ablation, status post AICD, presented to hospital with sustained palpitations and developed runs of nonsustained VT. I started him on IV amiodarone yesterday in the emergency room and he has remained symptom-free since. I spoke to Dr. Nguyen his primary wood grinder operator this morning, I am told that the plan with him was to start him on sotalol for his VT. Hence, I am going to stop the IV amiodarone at this time and start him on sotalol 80 b.i.d., first dose to be given tonight. We will continue to monitor him on telemetry. [facility]. EXAM: He is comfortable at rest. Vital signs stable. Chest exam reveals good air entry bilaterally. Heart exam reveals first and second heart sounds. No gallop. No murmur. Abdomen is soft. Exam of extremities did not reveal any edema. Peripheral pulses are felt. Labs show that the hemoglobin is 13.6, potassium is 4.2, creatinine is 0.9. An echo shows normal LV systolic function. His EKG showed runs of nonsustained VT. ASSESSMENT: 1. Ventricular tachycardia. 2. Coronary artery disease status post angioplasty. PLAN: I will stop the amiodarone, start him on sotalol 80 b.i.d. Transfer him out to [facility]. JACKLYN / BETTY: [id number] /
--- NOTE | 2021-07-15 17:49 | P.HPIM ---
History of Present Illness H&P Date: 07/15/21 Chief Complaint: Nonsustained V. tach This is a pleasant 61-year-old gentleman with history of NSVT, CAD status post PCI of LAD and circumflex, cardiac ablation for V. tach- recent diagnostic EP study and VT ablation on 05/19/2021, recent defibrillator placement and multiple other medical issues presented to the ER with complaints of palpitations, chest discomfort with some shortness of breath over the last 3 days. Chest x-ray reported as small to moderate left-sided pleural effusionevaluated by pulmonary with no thoracentesis recommended at this time. Troponin 0.025. Afebrile, normal WBC. Hematology, chemistry panels within normal limits. Echo reported moderate concentric left ventricular hypertrophy, normal LV function, EF 55-60%, no pericardial effusion. In the ER patient had nonsustained runs of nonsustained V. tach, bolused with amiodarone and currently maintained on drip. Telemetry sinus rhythm, currently denies chest pain, palpitations or increasing shortness of breath. Hematology, chemistry within normal limits. Review of Systems ROS Statement: Those systems with pertinent positive or pertinent negative responses have been documented in the HPI. ROS Other: All systems not noted in ROS Statement are negative. Past Medical History Past Medical History: Hypertension Additional Past Medical History / Comment(s): HX OF RECTAL POLYP, ZOLL LIFE VEST, COVID History of Any Multi-Drug Resistant Organisms: None Reported Past Surgical History: Cardiac Ablation, Heart Catheterization With Stent, Hernia Repair, Orthopedic Surgery, Pacemaker Additional Past Surgical History / Comment(s): LT KNEE SCOPE, COLONOSCOPY, heart cath 03/10/21-2 stents Past Anesthesia/Blood Transfusion Reactions: No Reported Reaction Date of Last Stent Placement:: 03/10/21 Type of Cardiac Device: Permanent Pacemaker Device Placement Date:: 06/15/21 Past Psychological History: No Psychological Hx Reported Smoking Status: Never smoker Past Alcohol Use History: Occasional Past Drug Use History: None Reported - Past Family History Mother Family Medical History: No Reported History Medications and Allergies Home Medications Medication Instructions Recorded Confirmed Type Aspirin [Adult Low Dose Aspirin EC] 81 mg PO DAILY 03/06/21 07/14/21 History Garlic 1 tab PO DAILY 03/06/21 07/14/21 History Multivitamins, Thera [Multivitamin 1 tab PO DAILY 03/06/21 07/14/21 History (formulary)] Omeprazole [PriLOSEC] 40 mg PO HS 03/06/21 07/14/21 History Atorvastatin [Lipitor] 80 mg PO HS #90 tab 03/11/21 07/14/21 Rx Nitroglycerin Sl Tabs [Nitrostat] 0.4 mg SUBLINGUAL Q5M PRN #25 tab 03/11/21 07/14/21 Rx Prasugrel [Effient] 10 mg PO DAILY #90 tab 03/11/21 07/14/21 Rx Magnesium Oxide [Mag-Ox] 400 mg PO DAILY #90 tab 05/21/21 07/14/21 Rx Losartan [Cozaar] 25 mg PO DAILY@1200 07/14/21 07/15/21 History Metoprolol Succinate (ER) [Toprol 50 mg PO BID 07/14/21 07/14/21 History XL] Allergies Allergy/AdvReac Type Severity Reaction Status Date / Time No Known Allergies Allergy Verified 07/14/21 07:55 Physical Exam Vitals: Vital Signs Temp Pulse Pulse Resp BP BP Pulse Ox 07/15/21 17:25 68 18 07/15/21 17:01 98.0 F 68 18 150/93 97 07/15/21 16:00 97.9 F 60 18 131/81 95 07/15/21 12:00 98 F 60 16 140/88 96 07/15/21 10:00 60 16 142/79 94 L 07/15/21 09:00 60 16 141/82 93 L 07/15/21 08:00 98.2 F 60 16 136/82 94 L 07/15/21 07:00 61 19 108/70 94 L 07/15/21 06:00 60 14 125/75 92 L 07/15/21 05:00 60 17 132/83 94 L 07/15/21 04:00 98 F 60 14 113/66 92 L 07/15/21 03:00 60 14 130/81 91 L 07/15/21 02:00 60 16 107/56 94 L 07/15/21 01:00 60 14 137/81 93 L 07/15/21 00:00 98.2 F 60 16 112/62 95 07/14/21 23:00 60 16 127/81 92 L 07/14/21 22:00 60 18 97/72 93 L 07/14/21 21:00 69 18 129/80 93 L 07/14/21 20:00 98 F 60 20 126/72 95 07/14/21 19:00 60 19 136/78 96 07/14/21 18:00 60 12 125/75 95 Intake and Output 07/15/21 07/15/21 07/15/21 06:59 14:59 22:59 Intake Total 600 1075 Output Total 875 800 Balance -275 275 Intake: IV 600 75 .9 600 75 Intake, IV Titration 400 Amount Amiodarone 450 mg In 250 Dextrose 5% in Water 250 ml @ 0.5 MG/MIN 16.667 mls/hr IV .Q15H [facility] Rx#: [id number] Sodium Chloride 0.9% 1, 150 000 ml @ 75 mls/hr IV . [id number] [facility] Rx#:[id number] Oral 600 Output: Urine 875 800 Other: Voiding Method Urinal Toilet Toilet Urinal Urinal # Voids 1 0 # Bowel Movements 1 Weight 115.6 kg PHYSICAL EXAM: VITAL SIGNS: As above GENERAL: Pleasant 61-year-old gentleman , Alert and Sitting up in bed, no acute distress HEENT: Normocephalic, atraumatic ,Conjunctivae normal. eyes normal. Oral mucosa dry NECK: Supple, No JVD. No thyroid enlargement, no LNs. CARDIOVASCULAR: S1, S2 regular. Bradycardic ,No murmur RESPIRATION: Breath sounds diminished in the bases, more so on the left. No rhonchi or crackles. No bronchial breathing. ABDOMEN: Soft, nontender . No guarding. no masses palpable. Bowel sounds heard. LEGS: No edema. no swelling, no calf tenderness. PSYCHIATRY: Alert and oriented X3, mood and affect normal. NERVOUS SYSTEM: Cranial N 2-12 grossly normal. Moves all 4 limbs.No focal deficits. Strength and sensation grossly intact.. Skin: Warm and dry, no rash Results CBC & Chem 7: 07/15/21 04:37 07/15/21 04:37 Labs: Abnormal Lab Results - Last 24 Hours (Table) 07/15/21 07/15/21 Range/Units 04:37 04:37 Plt Count 138 L (150-450) k/uL Glucose 114 H (74-99) mg/dL Thrombosis Risk Factor Assmnt - Choose All That Apply Any of the Below Risk Factors Present?: Yes Each Factor Represents 1 point: Obesity (BMI >25) Other Risk Factors: Yes Each Risk Factor Represents 2 Points: Age 61-74 years Thrombosis Risk Factor Assessment Total Risk Factor Score: 3 Thrombosis Risk Factor Assessment Level: Moderate Risk Assessment and Plan Assessment: Nonsustained V. tach Pleural effusion, left-sided Recent AICD placement Recent diagnostic EP study and VT ablation on 05/19/2021 secondary to long runs of nonsustained VT refractory to sotalol-discharged home with LifeVest. History of NSTEMI CAD status post recent PCI LAD and circumflex, in March 2021 with repeat heart catheterization reporting patent stents Nonsustained V. tach Hypertension Former nicotine dependence Morbid obesity, BMI 40.9 Plan: Continue on current medication regime, monitoring and symptomatically treatment. No thoracentesis at this time recommended per pulmonary review of chest x-ray. Antiarrhythmics as per cardiology. The impression and plan of care has been dictated as directed. : I performed a history and examination of this patient, discussed the same with the dictator. I agree with the dictator's note ,documented as a scribe. Any additional findings or plans will be noted.
[2021-07-15] MEDS: ATORVASTATIN 80 MG TAB PO SCH (21:00)
[2021-07-15] MEDS: SOTALOL 80 MG TAB PO SCH (21:57)
[2021-07-16] MEDS: PRASUGREL 10 MG TAB PO SCH (09:26)
[2021-07-16] MEDS: PANTOPRAZOLE 40 MG TABLET PO SCH ×2 (09:26→19:51)
[2021-07-16] MEDS: MAGNESIUM OXIDE 400 MG TAB PO SCH (09:26)
[2021-07-16] MEDS: ASPIRIN 81 MG PO SCH (09:26)
[2021-07-16] MEDS: METOPROLOL SUCCINATE (ER) 50 MG TAB.ER.24H PO SCH (09:26)
[2021-07-16] MEDS: SOTALOL 80 MG TAB PO SCH ×2 (09:27→19:51)
--- NOTE | 2021-07-16 12:03 | P.PN ---
Subjective Progress Note Date: 07/16/21 This is a pleasant 61-year-old gentleman with history of NSVT, CAD status post PCI of LAD and circumflex, cardiac ablation for V. tach- recent diagnostic EP study and VT ablation on 05/19/2021, recent defibrillator placement and multiple other medical issues presented to the ER with complaints of palpitations, chest discomfort with some shortness of breath over the last 3 days. Chest x-ray reported as small to moderate left-sided pleural effusionevaluated by pulmonary with no thoracentesis recommended at this time. Troponin 0.025. Afebrile, normal WBC. Hematology, chemistry panels within normal limits. Echo reported moderate concentric left ventricular hypertrophy, normal LV function, EF 55-60%, no pericardial effusion. In the ER patient had nonsustained runs of nonsustained V. tach, bolused with amiodarone and currently maintained on drip. Telemetry sinus rhythm, currently denies chest pain, palpitations or increasing shortness of breath. Hematology, chemistry within normal limits. 07/16/2021 amiodarone converted to sotalol. Telemetry reporting sinus rhythm with bigeminy triplets and couplets. This morning with exertion, nonsustained runs of 52 reported. Denies chest pain, palpitations or shortness of breath. Denies lightheadedness, dizziness or focal deficits. Afebrile, normal WBC. Creatinine trending up to 0.9 to Objective - Vital Signs Vital signs: Vital Signs Temp 98.2 F 07/16/21 08:00 Pulse 61 07/16/21 08:00 Resp 18 07/16/21 04:00 BP 128/80 07/16/21 08:00 Pulse Ox 96 07/16/21 08:00 Intake & Output 07/15/21 07/16/21 07/16/21 18:59 06:59 18:59 Intake Total 1315 180 Output Total 800 Balance 515 180 Weight 116.3 kg Intake: IV 75 .9 75 Intake, IV Titration 400 Amount Amiodarone 450 mg In 250 Dextrose 5% in Water 250 ml @ 0.5 MG/MIN 16.667 mls/hr IV .Q15H SHARAN Rx#: [id number] Sodium Chloride 0.9% 1, 150 000 ml @ 75 mls/hr IV . [id number] SHARAN Rx#:[id number] Oral 840 180 Output: Urine 800 Other: Voiding Method Toilet Urinal # Voids 0 1 1 # Bowel Movements 1 - Exam PHYSICAL EXAM: VITAL SIGNS: As above GENERAL: Alert, Pleasant 61-year-old gentleman , Sitting up at side of bed, no a cute distress HEENT: Normocephalic, atraumatic ,Conjunctivae normal. eyes normal. Oral mucosa moist. NECK: Supple, No JVD. CARDIOVASCULAR: S1, S2 regular. No murmur RESPIRATION: Breath sounds diminished in the bases, more so on the left. No rhonchi or crackles. No bronchial breathing. ABDOMEN: Soft, nontender . No guarding. no masses palpable. Bowel sounds heard. LEGS: No edema. no swelling, no calf tenderness. PSYCHIATRY: Alert and oriented X3, mood and affect normal. NERVOUS SYSTEM: Cranial N 2-12 grossly normal. Moves all 4 limbs.No focal deficits. Strength and sensation grossly intact. Skin: Warm and dry, no rash - Labs CBC & Chem 7: 07/15/21 04:37 07/15/21 04:37 Assessment and Plan Assessment: Nonsustained V. tach Pleural effusion, left-sided Recent AICD placement Recent diagnostic EP study and VT ablation on 05/19/2021 secondary to long runs of nonsustained VT refractory to sotalol-discharged home with LifeVest. History of NSTEMI CAD status post recent PCI LAD and circumflex, in March 2021 with repeat heart catheterization reporting patent stents Nonsustained V. tach Hypertension Former nicotine dependence Morbid obesity, BMI 40.9 Plan: Continue on current medication regime, monitoring and symptomatically treatment. Antiarrhythmics as per cardiology. Increase ambulation as tolerated. Discharge planning in progress pending final DC recommendations and clearance per cardiology. The impression and plan of care has been dictated as directed. : I performed a history and examination of this patient, discussed the same with the dictator. I agree with the dictator's note ,documented as a scribe. Any additional findings or plans will be noted.
[2021-07-16] MEDS: LOSARTAN 50 MG TAB PO SCH (13:28)
--- NOTE | 2021-07-16 13:50 | P.PN ---
Subjective Progress Note Date: 07/16/21 HISTORY OF PRESENT ILLNESS: This is a 61-year-old male, patient of Dr. Nguyen and Dr. Gilmore, who was admitted to the hospital secondary to ventricular tachycardia. patient has a his tory of coronary artery disease with previous PCI to the LAD and circumflex in March 2021, ventricular tachycardia with previous ablation and AICD. Patient was placed on Sotalol yesterday. He continues to have small runs of nonsustained ventricular tachycardia. PHYSICAL EXAM: VITAL SIGNS: Reviewed. GENERAL: Well-developed in no acute distress. NECK: Supple. No JVD or thyromegaly LUNGS: Respirations even and unlabored. Lungs essentially clear to auscultation bilaterally. HEART: Regular rate and rhythm. S1 and S2 heard. EXTREMITIES: Normal range of motion. No clubbing or cyanosis. Peripheral pulses intact. No lower extremity edema ASSESSMENT: Palpitations Nonsustained ventricular tachycardia History of ventricular tachycardia with AICD implantation Coronary artery disease with previous PCI to LAD and circumflex PLAN: Continue current cardiac medications Continue telemetry monitoring Obtain EKG in AM Further recommendations pending patient course Nurse practitioner note has been reviewed by physician. Signing provider agrees with the documented findings, assessment, and plan of care. Objective - Vital Signs Vital signs: Vital Signs Temp 98.2 F 07/16/21 08:00 Pulse 61 07/16/21 08:00 Resp 18 07/16/21 04:00 BP 128/80 07/16/21 08:00 Pulse Ox 96 07/16/21 08:00 Intake & Output 07/15/21 07/16/21 07/16/21 18:59 06:59 18:59 Intake Total 1315 180 Output Total 800 Balance 515 180 Weight 116.3 kg Intake: IV 75 .9 75 Intake, IV Titration 400 Amount Amiodarone 450 mg In 250 Dextrose 5% in Water 250 ml @ 0.5 MG/MIN 16.667 mls/hr IV .Q15H SHARAN Rx#: [id number] Sodium Chloride 0.9% 1, 150 000 ml @ 75 mls/hr IV . [id number] SHARAN Rx#:[id number] Oral 840 180 Output: Urine 800 Other: Voiding Method Toilet Urinal # Voids 0 1 1 # Bowel Movements 1 - Labs CBC & Chem 7: 07/15/21 04:37 07/15/21 04:37
--- NOTE | 2021-07-16 13:53 | P.PN ---
Subjective Progress Note Date: 07/16/21 Principal diagnosis: Ventricular tachycardia. Pulmonary/critical care consultation dated 07/14/2021. 61-year-old male who presents to the emergency department with chest pain. The patient has a history of arrhythmias, and had an ablation done in mid May. More recently, on June 15, the patient had a pacemaker defibrillator placed. I have seen this patient a couple times now, for left-sided pleural effusion. The patient actually had hemothorax, possibly as a complication of his ablation back in mid-May. Each time, the patient had a large-volume thoracentesis, which is essentially bloody. His most recent chest x-rays dated June 22, June 29, and the one today, show a pattern of improving pleural effusion on the left. Clinically, the patient denies shortness of breath. Previously, he was short of breath when the effusions were present. I suspect he is not bleeding any more into that left pleural space. Today he mentioned to the ER physician that he was having palpitations, and chest discomfort. White count 5.6, hemoglobin 14.7, hematocrit 45.1, and platelet count 162,000. PT, INR, and PTT are normal. Sodium 138, potassium 4.5, chlo rides 110, CO2 19, anion gap 9, BUN 15, and creatinine 0.76. Glucose was 106. Chest x-ray shows cardiomegaly, with a small to moderate-sized left-sided pleural effusion. Progress note dated 07/15/2021. 61-year-old male admitted with a history of ventricular tachycardia and chest pain. Currently from the pulmonary standpoint he is doing well. He is on room air. The patient is getting saline at 75 mL an hour. The patient is also on amiodarone at 0.5 mg/m. Clinically he is much more stable today than yesterday and apparently said no additional episodes of ventricular tachycardia. White count is 5.7, hemoglobin 13.6, hematocrit 42.5, platelet count 138,000. Sodium 140, potassium 4.3, chlorides 107, CO2 28, anion gap 5, BUN 13, creatinine 0.92. Most recent chest x-rays are stable and only show a small effusion on the left. Progress note dated 07/16/2021. Currently, the patient appears to be doing relatively well. No further episodes of ventricular tachycardia. The patient was placed on sotalol. From the pulmonary standpoint, the patient is stable. Patient is not having any issues with shortness of breath, or difficulty breathing. Currently, he is on room air with saturations of 97%. No recent laboratory data to report. Chest x-rays has remained stable. Objective - Vital Signs Vital signs: Vital Signs Temp 98.2 F 07/16/21 08:00 Pulse 61 07/16/21 08:00 Resp 18 07/16/21 04:00 BP 128/80 07/16/21 08:00 Pulse Ox 96 07/16/21 08:00 Intake & Output 07/15/21 07/16/21 07/16/21 18:59 06:59 18:59 Intake Total 1315 180 Output Total 800 Balance 515 180 Weight 116.3 kg Intake: IV 75 .9 75 Intake, IV Titration 400 Amount Amiodarone 450 mg In 250 Dextrose 5% in Water 250 ml @ 0.5 MG/MIN 16.667 mls/hr IV .Q15H SHARAN Rx#: [id number] Sodium Chloride 0.9% 1, 150 000 ml @ 75 mls/hr IV . [id number] SHARAN Rx#:[id number] Oral 840 180 Output: Urine 800 Other: Voiding Method Toilet Urinal # Voids 0 1 1 # Bowel Movements 1 - Exam No acute distress, oriented 3. Currently on room air. HEENT examination is grossly unremarkable. Neck supple. Full range of motion. No adenopathy thyromegaly or neck vein distention. Cardiovascular examination reveals regular rhythm rate. S1-S2 normal. No S3 or S4. No discernible murmur noted. Heart rate 61 bpm. Lungs reveal mostly clear breath sounds. Mild scattered rhonchi are noted. No wheezes or crackles. Abdomen soft bowel sounds are heard. No masses or tenderness. Extremities are intact. No cyanosis clubbing or edema. Skin is without rash or lesion. Neurologic examination is brief but nonfocal. - Labs CBC & Chem 7: 07/15/21 04:37 07/15/21 04:37 Assessment and Plan Assessment: History of recurrent ventricular tachycardia. Status post recent defibrillator/pacemaker placement. Status post ablation, mid May 2021. Left-sided pleural effusion/hemothorax, possibly arising as a complication of the ablation. History of hypertension. Previous heart catheterization with stent placement. Plan: Plan dated 07/14/2021. From the pulmonary/critical care standpoint, the patient is currently stable. I accepted the patient into the intensive care unit. Cardiology is been consulted. No additional recommendations are made. The left-sided pleural effusion seems to be relatively stable this time. No additional thoracentesis are planned at this time. Plan dated 07/15/2021. From the pulmonary standpoint, the patient appears to be doing well. His x-rays most recently much more stable, and showed only a relatively small effusion in the left chest. No additional thoracentesis are needed at this time. Cardiology has seen the patient. We will follow as needed. No additional recommendations at this time. Plan dated 07/16/2021. The patient has remained stable from the pulmonary standpoint. We will continue to follow as needed. The patient was placed on sotalol. The patient has had no further episodes of ventricular tachycardia. Chest x-ray is stable. No thoracentesis is needed. Additional recommendations and suggestions are forthcoming. Time with Patient: Less than 30
[2021-07-16] MEDS: ATORVASTATIN 80 MG TAB PO SCH (19:51)
[2021-07-16 21:32] LABS: Magnesium 2.1 mg/dL (1.6-2.3); Potassium 4.5 mmol/L (3.5-5.1)
[2021-07-17] MEDS: SOTALOL 80 MG TAB PO SCH (09:00)
[2021-07-17] MEDS: PANTOPRAZOLE 40 MG TABLET PO SCH ×2 (09:00→20:04)
[2021-07-17] MEDS: METOPROLOL SUCCINATE (ER) 50 MG TAB.ER.24H PO SCH (09:00)
[2021-07-17] MEDS: ASPIRIN 81 MG PO SCH (09:00)
[2021-07-17] MEDS: MAGNESIUM OXIDE 400 MG TAB PO SCH (09:00)
[2021-07-17] MEDS: PRASUGREL 10 MG TAB PO SCH (09:00)
--- NOTE | 2021-07-17 11:06 | P.PN ---
Subjective Progress Note Date: 07/17/21 This is a pleasant 61-year-old gentleman with history of NSVT, CAD status post PCI of LAD and circumflex, cardiac ablation for V. tach- recent diagnostic EP study and VT ablation on 05/19/2021, recent defibrillator placement and multiple other medical issues presented to the ER with complaints of palpitations, chest discomfort with some shortness of breath over the last 3 days. Chest x-ray reported as small to moderate left-sided pleural effusionevaluated by pulmonary with no thoracentesis recommended at this time. Troponin 0.025. Afebrile, normal WBC. Hematology, chemistry panels within normal limits. Echo reported moderate concentric left ventricular hypertrophy, normal LV function, EF 55-60%, no pericardial effusion. In the ER patient had nonsustained runs of nonsustained V. tach, bolused with amiodarone and currently maintained on drip. Telemetry sinus rhythm, currently denies chest pain, palpitations or increasing shortness of breath. Hematology, chemistry within normal limits. 07/16/2021 amiodarone converted to sotalol. Telemetry reporting sinus rhythm with bigeminy triplets and couplets. This morning with exertion, nonsustained runs of 52 reported. Denies chest pain, palpitations or shortness of breath. Denies lightheadedness, dizziness or focal deficits. Afebrile, normal WBC. Creatinine trending up to 0.9 to. 07/17/2021 had a nonsustained 15 beat run during the night. Continue 7 bigeminy, couplets. Sitting up at bedside, feels good this morning. Good diet intake and no nausea vomiting or diarrhea. Currently denies chest pain, palpitations or shortness of breath. Objective - Vital Signs Vital signs: Vital Signs Temp 97.8 F 07/17/21 08:00 Pulse 60 07/17/21 08:00 Resp 18 07/17/21 08:00 BP 129/81 07/17/21 08:00 Pulse Ox 96 07/17/21 08:00 Intake & Output 07/16/21 07/17/21 07/17/21 18:59 06:59 18:59 Intake Total 600 240 180 Output Total 500 Balance 100 240 180 Weight 115.8 kg Intake: Oral 600 240 180 Output: Urine 500 Other: Voiding Method Toilet # Voids 1 1 - Exam PHYSICAL EXAM: VITAL SIGNS: As above GENERAL: Alert, Pleasant 61-year-old gentleman , sitting up at side of bed, no acute distress HEENT: Normocephalic, atraumatic ,Conjunctivae normal. eyes normal. Oral mucosa moist. NECK: Supple, No JVD. CARDIOVASCULAR: S1, S2 regular. No murmur RESPIRATION: Breath sounds diminished in the bases. No rhonchi or crackles. ABDOMEN: Soft, nontender . No guarding. no masses palpable. Bowel sounds heard. LEGS: No edema. no swelling, no calf tenderness. PSYCHIATRY: Alert and oriented X3, mood and affect normal. NERVOUS SYSTEM: Cranial N 2-12 grossly normal. Moves all 4 limbs.No focal deficits. Strength and sensation grossly intact. Skin: Warm and dry, no rash - Labs CBC & Chem 7: 07/15/21 04:37 07/16/21 20:58 Assessment and Plan Assessment: Nonsustained V. tach Pleural effusion, left-sided Recent AICD placement Recent diagnostic EP study and VT ablation on 05/19/2021 secondary to long runs of nonsustained VT refractory to sotalol-discharged home with LifeVest. History of NSTEMI CAD status post recent PCI LAD and circumflex, in March 2021 with repeat heart catheterization reporting patent stents Nonsustained V. tach Hypertension Former nicotine dependence Morbid obesity, BMI 40.9 Plan: Continue on current medication regime, monitoring and symptomatically t reatment. Antiarrhythmics as per cardiology. Increase ambulation as tolerated. Discharge planning in progress pending final DC recommendations and clearance per cardiology. The impression and plan of care has been dictated as directed. : I performed a history and examination of this patient, discussed the same with the dictator. I agree with the dictator's note ,documented as a scribe. Any additional findings or plans will be noted.
--- NOTE | 2021-07-17 11:35 | P.PN ---
Subjective Progress Note Date: 07/17/21 Principal diagnosis: Recurrent ventricular tachycardia 61-year-old male who presents to the emergency department with chest pain. The patient has a history of arrhythmias, and had an ablation done in mid May. More recently, on June 15, the patient had a pacemaker defibrillator placed. I have seen this patient a couple times now, for left-sided pleural effusion. The patient actually had hemothorax, possibly as a complication of his ablation back in mid-May. Each time, the patient had a large-volume thoracentesis, which is essentially bloody. His most recent chest x-rays dated June 22, June 29, and the one today, show a pattern of improving pleur al effusion on the left. Clinically, the patient denies shortness of breath. Previously, he was short of breath when the effusions were present. I suspect he is not bleeding any more into that left pleural space. Today he mentioned to the ER physician that he was having palpitations, and chest discomfort. White count 5.6, hemoglobin 14.7, hematocrit 45.1, and platelet count 162,000. PT, INR, and PTT are normal. Sodium 138, potassium 4.5, chlorides 110, CO2 19, anion gap 9, BUN 15, and creatinine 0.76. Glucose was 106. Chest x-ray shows cardiomegaly, with a small to moderate-sized left-sided pleural effusion. Progress note dated 07/15/2021. 61-year-old male admitted with a history of ventricular tachycardia and chest pain. Currently from the pulmonary standpoint he is doing well. He is on room air. The patient is getting saline at 75 mL an hour. The patient is also on amiodarone at 0.5 mg/m. Clinically he is much more stable today than yesterday and apparently said no additional episodes of ventricular tachycardia. White count is 5.7, hemoglobin 13.6, hematocrit 42.5, platelet count 138,000. Sodium 140, potassium 4.3, chlorides 107, CO2 28, anion gap 5, BUN 13, creatinine 0.92. Most recent chest x-rays are stable and only show a small effusion on the left. Progress note dated 07/16/2021. Currently, the patient appears to be doing relatively well. No further episodes of ventricular tachycardia. The patient was placed on sotalol. From the pulmonary standpoint, the patient is stable. Patient is not having any issues with shortness of breath, or difficulty breathing. Currently, he is on room air with saturations of 97%. No recent laboratory data to report. Chest x-rays has remained stable. The patient is seen today 07/17/2021 in follow-up on the selective care unit. He is currently sitting up in bed. Awake and alert in no acute distress. He denies any worsening shortness of breath cough or congestion. He is maintaining O2 saturations in the mid 90s on room air. He is afebrile. Hemodynamically stable. He is still having some ongoing issues with recurrent ventricular tachycardia especially with activity. His sotalol has been discontinued this morning. To be resumed back on amiodarone. No new labs today. Objective - Vital Signs Vital signs: Vital Signs Temp 97.8 F 07/17/21 08:00 Pulse 60 07/17/21 08:00 Resp 18 07/17/21 08:00 BP 129/81 07/17/21 08:00 Pulse Ox 96 07/17/21 08:00 Intake & Output 07/16/21 07/17/21 07/17/21 18:59 06:59 18:59 Intake Total 600 240 180 Output Total 500 Balance 100 240 180 Weight 115.8 kg Intake: Oral 600 240 180 Output: Urine 500 Other: Voiding Method Toilet # Voids 1 1 - Exam GENERAL EXAM: Alert, 61-year-old obese male patient, on room air, comfortable in no apparent distress. HEAD: Normocephalic. EYES: Normal reaction of pupils, equal size. NOSE: Clear with pink turbinates. THROAT: No erythema or exudates. NECK: No masses, no JVD. CHEST: No chest wall deformity. LUNGS: Equal air entry with crackles in the left base. CVS: S1 and S2 normal with no audible murmur, regular rhythm. ABDOMEN: No hepatosplenomegaly, normal bowel sounds, no guarding or rigidity. SPINE: No scoliosis or deformity SKIN: No rashes CENTRAL NERVOUS SYSTEM: No focal deficits, tone is normal in all 4 extremities. EXTREMITIES: There is no peripheral edema. No clubbing, no cyanosis. Peripheral pulses are intact. - Labs CBC & Chem 7: 07/15/21 04:37 07/16/21 20:58 Assessment and Plan Assessment: 1 Recurrent ventricular tachycardia, symptomatic, initiated on sotalol, now being switched to amiodarone 2 Status post AICD placement 3 Status post VT ablation in May 2021 4 Recurrent left-sided pleural effusion/hemothorax following ablation status post thoracentesis 2 5 Hypertension Plan: The patient was seen and evaluated by Dr. Dr. Marv Peguero from the pulmonary standpoint, on room air We'll have a follow-up chest x-ray to evaluate the small left effusion Antiarrhythmics per cardiology I, the cosigning physician, performed a history & physical examination of the patient. Lungs sounds with crackles in the left base. Maintaining good O2 saturations in the 90s on room air. I discussed the assessment and plan of care with my nurse practitioner, Lacey Bird. I attest to the above note as dictated by her.
[2021-07-17] MEDS: AMIODARONE 200 MG TAB PO SCH ×2 (13:29→20:04)
[2021-07-17] MEDS: LOSARTAN 50 MG TAB PO SCH (13:29)
--- NOTE | 2021-07-17 14:17 | P.PN ---
Subjective Progress Note Date: 07/17/21 HISTORY OF PRESENT ILLNESS: This is a 61-year-old male, patient of Dr. Nguyen and Dr. Gilmore, who was admitted to the hospital secondary to ventricular tachycardia. patient has a his tory of coronary artery disease with previous PCI to the LAD and circumflex in March 2021, ventricular tachycardia with previous ablation and AICD. Patient was placed on Sotalol yesterday. He continues to have small runs of nonsustained ventricular tachycardia. 07/17/2021 Patient examined this morning at the bedside. He denies chest pain or pressure. He denies shortness of breath. Patient has had increased episodes of nonsustained ventricular tachycardia over the last 24 hours. Patient is very anxious this morning and states he is nervous to walk around in the hallways secondary to these arrhythmias. Patient is frustrated and is wanting to have a cardiac ablation with Dr. Gilmore, however Dr. Gilmore is out of town. PHYSICAL EXAM: VITAL SIGNS: Reviewed. GENERAL: Well-developed in no acute distress. NECK: Supple. No JVD or thyromegaly LUNGS: Respirations even and unlabored. Lungs essentially clear to auscultation bilaterally. HEART: Regular rate and rhythm. S1 and S2 heard. EXTREMITIES: Normal range of motion. No clubbing or cyanosis. Peripheral pulses intact. No lower extremity edema ASSESSMENT: Palpitations Nonsustained ventricular tachycardia History of ventricular tachycardia with AICD implantation Coronary artery disease with previous PCI to LAD and circumflex PLAN: Discontinue sotalol Begin oral amio 400mg BID Continue telemetry monitoring Further recommendations pending patient course Nurse practitioner note has been reviewed by physician. Signing provider agrees with the documented findings, assessment, and plan of care. Objective - Vital Signs Vital signs: Vital Signs Temp 97.8 F 07/17/21 08:00 Pulse 55 L 07/17/21 12:00 Resp 18 07/17/21 12:00 BP 116/76 07/17/21 12:00 Pulse Ox 95 07/17/21 12:00 Intake & Output 07/16/21 07/17/21 07/17/21 18:59 06:59 18:59 Intake Total 600 240 180 Output Total 500 Balance 100 240 180 Weight 115.8 kg Intake: Oral 600 240 180 Output: Urine 500 Other: Voiding Method Toilet # Voids 1 1 - Labs CBC & Chem 7: 07/15/21 04:37 07/16/21 20:58
--- NOTE | 2021-07-17 18:11 | XR ---
EXAMINATION TYPE: XR chest 1V portable DATE OF EXAM: 07/17/2021 COMPARISON: 07/14/2021 HISTORY: Pleural effusion TECHNIQUE: Single view FINDINGS: There is blunting left costophrenic angle. There is left axillary pacemaker. Heart size is normal. There is no gross heart failure. There are chest leads. IMPRESSION: There is improvement in the pulmonary congestion compared to last exam. There is left low er lobe infiltrate and pleural fluid without change.
[2021-07-17] MEDS: ATORVASTATIN 80 MG TAB PO SCH (20:04)
[2021-07-18 09:13] LABS: Basophils % (A) 1 %; Eosinophils # (A) 0.1 k/uL (0-0.7); Eosinophils % (A) 2 %; HCT 48.2 % (39.0-53.0); HGB 15.9 gm/dL (13.0-17.5); Lymphocytes # (A) 1.4 k/uL (1.0-4.8); Lymphocytes % (A) 22 %; MCH 28.9 pg (25.0-35.0); MCHC 32.9 g/dL (31.0-37.0); MCV 87.9 fL (80.0-100.0); Mean Platelet Volume 7.5; Monocytes # (A) 0.4 k/uL (0-1.0); Monocytes % (A) 6 %; Neutrophils # (A) 4.3 k/uL (1.3-7.7); Neutrophils % (A) 67 %; Platelet Count 206 k/uL (150-450); Poikilocytosis Slight; RBC 5.48 m/uL (4.30-5.90); RDW 15.1 % (11.5-15.5); WBC 6.5 k/uL (3.8-10.6)
[2021-07-18 09:19] LABS: African American GFR (CKD) >90 (>60 ml/min/1.73 sqM); Anion Gap 10 mmol/L; Blood Urea Nitrogen 20 mg/dL (9-20); Carbon Dioxide 25 mmol/L (22-30); Chloride 104 mmol/L (98-107); Glucose 117 mg/dL (74-99); Non-African American GFR(CKD) 86 (>60 ml/min/1.73 sqM); Potassium 4.7 mmol/L (3.5-5.1); Sodium 139 mmol/L (137-145)
[2021-07-18] MEDS: ASPIRIN 81 MG PO SCH (09:50)
[2021-07-18] MEDS: PANTOPRAZOLE 40 MG TABLET PO SCH ×2 (09:50→21:11)
[2021-07-18] MEDS: METOPROLOL SUCCINATE (ER) 50 MG TAB.ER.24H PO SCH (09:50)
[2021-07-18] MEDS: AMIODARONE 200 MG TAB PO SCH ×2 (09:50→21:10)
[2021-07-18] MEDS: PRASUGREL 10 MG TAB PO SCH (09:50)
[2021-07-18] MEDS: MAGNESIUM OXIDE 400 MG TAB PO SCH (09:50)
--- NOTE | 2021-07-18 10:17 | P.PN ---
Subjective Progress Note Date: 07/18/21 HISTORY OF PRESENT ILLNESS: This is a 61-year-old male, patient of Dr. Nguyen and Dr. Gilmore, who was admitted to the hospital secondary to ventricular tachycardia. patient has a his tory of coronary artery disease with previous PCI to the LAD and circumflex in March 2021, ventricular tachycardia with previous ablation and AICD. Patient was placed on Sotalol yesterday. He continues to have small runs of nonsustained ventricular tachycardia. 07/17/2021 Patient examined this morning at the bedside. He denies chest pain or pressure. He denies shortness of breath. Patient has had increased episodes of nonsustained ventricular tachycardia over the last 24 hours. Patient is very anxious this morning and states he is nervous to walk around in the hallways secondary to these arrhythmias. Patient is frustrated and is wanting to have a cardiac ablation with Dr. Gilmore, however Dr. Gilmore is out of town. 07/18/2021 Patient examined this morning at the bedside. Patient denies chest pain or pressure. He denies shortness of breath. Patient continues to have runs of nonsustained ventricular tachycardia. His sotalol was discontinued yesterday and he was started on oral amiodarone. Blood pressure 130/84. PHYSICAL EXAM: VITAL SIGNS: Reviewed. GENERAL: Well-developed in no acute distress. NECK: Supple. No JVD or thyromegaly LUNGS: Respirations even and unlabored. Lungs essentially clear to auscultation bilaterally. HEART: Regular rate and rhythm. S1 and S2 heard. EXTREMITIES: Normal range of motion. No clubbing or cyanosis. Peripheral p ulses intact. No lower extremity edema ASSESSMENT: Palpitations Nonsustained ventricular tachycardia History of ventricular tachycardia with AICD implantation Coronary artery disease with previous PCI to LAD and circumflex PLAN: Continue amiodarone 400 mg twice a day Continue metoprolol succinate 50 mg daily Add mexiletine 150 mg every 8 hours Continue telemetry monitoring Further recommendations pending patient course Nurse practitioner note has been reviewed by physician. Signing provider agrees with the documented findings, assessment, and plan of care. Objective - Vital Signs Vital signs: Vital Signs Temp 97.8 F 07/18/21 08:00 Pulse 60 07/18/21 08:00 Resp 18 07/18/21 08:00 BP 130/84 07/18/21 08:00 Pulse Ox 95 07/18/21 08:00 Intake & Output 07/17/21 07/18/21 07/18/21 18:59 06:59 18:59 Intake Total 360 240 240 Balance 360 240 240 Weight 116 kg Intake: Oral 360 240 240 Other: Voiding Method Toilet # Voids 4 1 - Labs CBC & Chem 7: 07/18/21 08:38 07/18/21 08:38 Labs: Abnormal Lab Results - Last 24 Hours (Table) 07/18/21 Range/Units 08:38 Glucose 117 H (74-99) mg/dL
[2021-07-18] MEDS: MEXILETINE 150 MG CAP PO SCH ×3 (11:05→23:29)
[2021-07-18] MEDS: LOSARTAN 50 MG TAB PO SCH (12:15)
--- NOTE | 2021-07-18 20:00 | P.PN ---
Subjective Progress Note Date: 07/18/21 Principal diagnosis: Palpitations Nonsustained ventricular tachycardia 61-year-old male who presents to the emergency department with chest pain. The patient has a history of arrhythmias, and had an ablation done in mid May. More recently, on June 15, the patient had a pacemaker defibrillator placed. I have seen this patient a couple times now, for left-sided pleural effusion. The patient actually had hemothorax, possibly as a complication of his ablation back in mid-May. Each time, the patient had a large-volume thoracentesis, which is essentially bloody. His most recent chest x-rays dated June 22, June 29, and the one today, show a pattern of improving pleural effusion on the left. Clinically, the patient denies shortness of breath. Previously, he was short of breath when the effusions were present. I suspect he is not bleeding any more into that left pleural space. Today he mentioned to the ER physician that he was having palpitations, and chest discomfort. White count 5.6, hemoglobin 14.7, hematocrit 45.1, and platelet count 162,000. PT, INR, and PTT are normal. Sodium 138, potassium 4.5, chlorides 110, CO2 19, anion gap 9, BUN 15, and creatinine 0.76. Glucose was 106. Chest x-ray shows cardiomegaly, with a small to moderate-sized left-sided pleural effusion. Objective - Vital Signs Vital signs: Vital Signs Temp 97.8 F 07/18/21 08:00 Pulse 60 07/18/21 12:00 Resp 16 07/18/21 12:00 BP 139/64 07/18/21 12:00 Pulse Ox 94 L 07/18/21 12:00 Intake & Output 07/17/21 07/18/21 07/18/21 18:59 06:59 18:59 Intake Total 360 240 358 Balance 360 240 358 Weight 116 kg Intake: Oral 360 240 358 Other: Voiding Method Toilet # Voids 4 1 3 - Exam GENERAL EXAM: Alert, 61-year-old obese male patient, on room air, comfortable in no apparent distress. HEAD: Normocephalic. CHEST: No chest wall deformity. LUNGS: Equal air entry with crackles in the left base. CVS: S1 and S2 normal with no audible murmur, regular rhythm. ABDOMEN: No hepatosplenomegaly, normal bowel sounds, no guarding or rigidity. SPINE: No scoliosis or deformity SKIN: No rashes CENTRAL NERVOUS SYSTEM: No focal deficits, tone is normal in all 4 extremities. - Labs CBC & Chem 7: 07/18/21 08:38 07/18/21 08:38 Labs: Abnormal Lab Results - Last 24 Hours (Table) 07/18/21 Range/Units 08:38 Glucose 117 H (74-99) mg/dL Assessment and Plan Assessment: 1. Recurrent ventricular tachycardia, symptomatic, initiated on sotalol, now being switched to amiodarone Patient will continue on a Medrol and 400 mg twice a day along with metoprolol succinate 50 mg daily; cardiology recommending to add mexiletine 150 mg every 8 hours - Continue to monitor patient closely on telemetry 2. Status post AICD placement; patient does have history of ventricular tachyca rdia with previous ablation and AICD 3. Status post VT ablation in May 2021 4. Recurrent left-sided pleural effusion/hemothorax following ablation status post thoracentesis 2; pulmonary service on board and recommending to follow chest x-ray 5. Hypertension; losartan 50 mg daily, metoprolol succinate 50 mg daily 6. Hyperlipidemia; Lipitor 80 mg by mouth daily at bedtime DVT prophylaxis; SCDs/Effient CODE STATUS; full code
[2021-07-18] MEDS: ATORVASTATIN 80 MG TAB PO SCH (21:10)
[2021-07-19] MEDS: PANTOPRAZOLE 40 MG TABLET PO SCH ×2 (08:02→20:23)
[2021-07-19] MEDS: PRASUGREL 10 MG TAB PO SCH (08:02)
[2021-07-19] MEDS: MAGNESIUM OXIDE 400 MG TAB PO SCH (08:02)
[2021-07-19] MEDS: ASPIRIN 81 MG PO SCH (08:02)
[2021-07-19] MEDS: METOPROLOL SUCCINATE (ER) 50 MG TAB.ER.24H PO SCH (08:02)
[2021-07-19] MEDS: AMIODARONE 200 MG TAB PO SCH ×2 (08:02→20:23)
[2021-07-19] MEDS: MEXILETINE 150 MG CAP PO SCH ×3 (08:02→23:47)
--- NOTE | 2021-07-19 10:50 | P.PN ---
Subjective Progress Note Date: 07/19/21 HISTORY OF PRESENT ILLNESS: This is a 61-year-old male, patient of Dr. Nguyen and Dr. Gilmore, who was admitted to the hospital secondary to ventricular tachycardia. patient has a his tory of coronary artery disease with previous PCI to the LAD and circumflex in March 2021, ventricular tachycardia with previous ablation and AICD. Patient was placed on Sotalol yesterday. He continues to have small runs of nonsustained ventricular tachycardia. 07/17/2021 Patient examined this morning at the bedside. He denies chest pain or pressure. He denies shortness of breath. Patient has had increased episodes of nonsustained ventricular tachycardia over the last 24 hours. Patient is very anxious this morning and states he is nervous to walk around in the hallways secondary to these arrhythmias. Patient is frustrated and is wanting to have a cardiac ablation with Dr. Gilmore, however Dr. Gilmore is out of town. 07/18/2021 Patient examined this morning at the bedside. Patient denies chest pain or pressure. He denies shortness of breath. Patient continues to have runs of nonsustained ventricular tachycardia. His sotalol was discontinued yesterday and he was started on oral amiodarone. Blood pressure 130/84. 07/19/2021 Patient examined this morning at the bedside. Patient denies chest pain or pressure. He denies shortness of breath. He denies palpitations. Patient remains on amiodarone and mexiletine. Patient continues to have PVCs and bigeminy. However his runs of nonsustained ventricular tachycardia appeared to be improving. PHYSICAL EXAM: VITAL SIGNS: Reviewed. GENERAL: Well-developed in no acute distress. NECK: Supple. No JVD or thyromegaly LUNGS: Respirations even and unlabored. Lungs essentially clear to auscultation bilaterally. HEART: Regular rate and rhythm. S1 and S2 heard. EXTREMITIES: Normal range of motion. No clubbing or cyanosis. Peripheral pulses intact. No lower extremity edema ASSESSMENT: Palpitations Nonsustained ventricular tachycardia History of ventricular tachycardia with AICD implantation Coronary artery disease with previous PCI to LAD and circumflex PLAN: Continue current cardiac medications Continue telemetry monitoring Increase activity as tolerated Further recommendations pending patient course Nurse practitioner note has been reviewed by physician. Signing provider agrees with the documented findings, assessment, and plan of care. Objective - Vital Signs Vital signs: Vital Signs Temp 97.5 F L 07/19/21 07:44 Pulse 67 07/19/21 07:44 Resp 16 07/19/21 08:00 BP 134/88 07/19/21 07:44 Pulse Ox 96 07/19/21 07:44 Intake & Output 07/18/21 07/19/21 07/19/21 18:59 06:59 18:59 Intake Total 476 240 118 Balance 476 240 118 Weight 115.1 kg Intake: Oral 476 240 118 Other: Voiding Method Toilet # Voids 3 1 - Labs CBC & Chem 7: 07/18/21 08:38 07/18/21 08:38
[2021-07-19] MEDS: LOSARTAN 50 MG TAB PO SCH (13:18)
[2021-07-19] MEDS: ATORVASTATIN 80 MG TAB PO SCH (20:23)
--- NOTE | 2021-07-19 20:45 | P.PN ---
Subjective Progress Note Date: 07/19/21 Principal diagnosis: Palpitations Nonsustained ventricular tachycardia 61-year-old male who presents to the emergency department with chest pain. The patient has a history of arrhythmias, and had an ablation done in mid May. More recently, on June 15, the patient had a pacemaker defibrillator placed. I have seen this patient a couple times now, for left-sided pleural effusion. The patient actually had hemothorax, possibly as a complication of his ablation back in mid-May. Each time, the patient had a large-volume thoracentesis, which is essentially bloody. His most recent chest x-rays dated June 22, June 29, and the one today, show a pattern of improving pleural effusion on the left. Clinically, the patient denies shortness of breath. Previously, he was short of breath when the effusions were present. I suspect he is not bleeding any more into that left pleural space. Today he mentioned to the ER physician that he was having palpitations, and chest discomfort. White count 5.6, hemoglobin 14.7, hematocrit 45.1, and platelet count 162,000. PT, INR, and PTT are normal. Sodium 138, potassium 4.5, chlorides 110, CO2 19, anion gap 9, BUN 15, and creatinine 0.76. Glucose was 106. Chest x-ray shows cardiomegaly, with a small to moderate-sized left-sided pleural effusion. 07/19/2021 Patient is seen and evaluated sitting up in bedside chair; seems more calm this morning; wants to know plan of care which is discussed in detail and patient is agreeable Vital signs are reviewed and are stable; patient continues to have PVCs on the monitor along with bigeminy; less runs of NSVT Patient has been placed on amiodarone and Mexitil; cardiology on board and recommending to continue with current medications at this time Objective - Vital Signs Vital signs: Vital Signs Temp 97.5 F L 07/19/21 07:44 Pulse 67 07/19/21 07:44 Resp 16 07/19/21 08:00 BP 134/88 07/19/21 07:44 Pulse Ox 96 07/19/21 07:44 Intake & Output 07/18/21 07/19/21 07/19/21 18:59 06:59 18:59 Intake Total 476 240 118 Balance 476 240 118 Weight 115.1 kg Intake: Oral 476 240 118 Other: Voiding Method Toilet # Voids 3 1 - Exam GENERAL EXAM: Alert, 61-year-old obese male patient, on room air, comfortable in no apparent distress. HEAD: Normocephalic. CHEST: No chest wall deformity. LUNGS: Equal air entry with crackles in the left base. CVS: S1 and S2 normal with no audible murmur, regular rhythm. ABDOMEN: No hepatosplenomegaly, normal bowel sounds, no guarding or rigidity. SPINE: No scoliosis or deformity SKIN: No rashes CENTRAL NERVOUS SYSTEM: No focal deficits, tone is normal in all 4 extremities. - Labs CBC & Chem 7: 07/18/21 08:38 07/18/21 08:38 Assessment and Plan Assessment: 1. Recurrent ventricular tachycardia, symptomatic, initiated on sotalol, now isaiah ng switched to amiodarone Patient will continue on a Medrol and 400 mg twice a day along with metoprolol succinate 50 mg daily; cardiology recommending to add mexiletine 150 mg every 8 hours - Continue to monitor patient closely on telemetry 2. Status post AICD placement; patient does have history of ventricular tachycardia with previous ablation and AICD 3. Status post VT ablation in May 2021 4. Recurrent left-sided pleural effusion/hemothorax following ablation status post thoracentesis 2; pulmonary service on board and recommending to follow chest x-ray 5. Hypertension; losartan 50 mg daily, metoprolol succinate 50 mg daily 6. Hyperlipidemia; Lipitor 80 mg by mouth daily at bedtime DVT prophylaxis; SCDs/Effient CODE STATUS; full code
[2021-07-20 08:42] VITALS: BMI 38.3
[2021-07-20] MEDS: MEXILETINE 150 MG CAP PO SCH ×2 (09:27→16:59)
[2021-07-20] MEDS: METOPROLOL SUCCINATE (ER) 50 MG TAB.ER.24H PO SCH (09:28)
[2021-07-20] MEDS: PRASUGREL 10 MG TAB PO SCH (09:28)
[2021-07-20] MEDS: MAGNESIUM OXIDE 400 MG TAB PO SCH (09:28)
[2021-07-20] MEDS: PANTOPRAZOLE 40 MG TABLET PO SCH ×2 (09:28→20:14)
[2021-07-20] MEDS: AMIODARONE 200 MG TAB PO SCH (09:28)
[2021-07-20] MEDS: ASPIRIN 81 MG PO SCH (09:28)
[2021-07-20] MEDS: LOSARTAN 50 MG TAB PO SCH (11:59)
--- NOTE | 2021-07-20 13:09 | P.PN ---
Subjective This is a 61-year-old male, patient of Dr. Nguyen and Dr. Gilmore, who was admitted to the hospital secondary to ventricular tachycardia. Patient has a history of Apical hypertrophic cardiomyopathy, coronary artery disease with previous PCI to the LAD and circumflex in March 2021, ventricular tachycardia with previous ablation and AICD placement 06/2021. He was admitted with complaints of chest pain, palpitations, and some shortness of breath for 3 days. Initially patient started on Sotalol that did not suppress the VT. On admission, in the ER he suddenly went into intermittent runs of nonsustained VT. He was started on amiodarone bolus and drip and was admitted. Sotalol has been discontinued and patient remains on amiodarone and mexiletine. 07/20/21 Patient examined this morning at the bedside, he is frustrated about his care and would like a decision on a possible procedure for his ventricular tachycardia. Patient denies chest pain or pressure. He denies shortness of breath. He denies palpitations. Patient continues to have PVCs and bigeminy. However his runs of nonsustained ventricular tachycardia appeared to be improving. Blood pressure 142/20, heart rate 60, afebrile, maintaining oxygen saturation on room air. He's currently maintained on amiodarone 400 mg twice a day, aspirin 81 mg daily, atorvastatin 80 mg nightly, losartan 50 mg daily, metoprolol succinate 50 mg daily, mexiletine 150 mg every 8 hours, Effient 10 mg daily PHYSICAL EXAM: VITAL SIGNS: Reviewed. GENERAL: Well-developed in no acute distress. NECK: Supple. No JVD or thyromegaly LUNGS: Respirations even and unlabored. Lungs essentially clear to auscultation bilaterally. HEART: Regular rate and rhythm. S1 and S2 heard. EXTREMITIES: Normal range of motion. No clubbing or cyanosis. Peripheral pulses intact. No lower extremity edema ASSESSMENT: Palpitations Apical hypertrophic Cardiomyopathy Nonsustained ventricular tachycardia History of ventricular tachycardia with AICD implantation History of previous ablation History of Coronary artery disease with previous PCI to LAD and circumflex PLAN: Electophysiology consult with Dr. Gilmore to evaluate patient today. Continue current cardiac medications Continue telemetry monitoring Increase activity as tolerated Further recommendations pending patient course Nurse practitioner note has been reviewed by physician. Signing provider agrees with the documented findings, assessment, and plan of care. Objective - Vital Signs Vital signs: Vital Signs Temp 97.8 F 07/20/21 08:00 Pulse 55 L 07/20/21 08:00 Resp 18 07/20/21 08:00 BP 142/90 07/20/21 08:00 Pulse Ox 95 07/20/21 08:00 Intake & Output 07/19/21 07/20/21 07/20/21 18:59 06:59 18:59 Intake Total 118 240 Balance 118 240 Weight 114.4 kg 114.4 kg Intake: Oral 118 240 Other: Voiding Method Toilet # Voids 1 1 - Labs CBC & Chem 7: 07/18/21 08:38 07/18/21 08:38
[2021-07-20] MEDS: ATORVASTATIN 80 MG TAB PO SCH (20:14)
--- NOTE | 2021-07-20 22:13 | P.PN ---
Subjective Progress Note Date: 07/20/21 Patient seen today with great frustration he wants something done with this heart he has been suffering from nonsustained ventricular tachycardia for the entire weekend off and on. He has been on multiple medications and has an internal defibrillator. Objective - Vital Signs Vital signs: Vital Signs Temp 97.6 F 07/20/21 19:50 Pulse 63 07/20/21 19:50 Resp 16 07/20/21 19:50 BP 118/73 07/20/21 19:50 Pulse Ox 98 07/20/21 19:50 Intake & Output 07/20/21 07/20/21 07/21/21 06:59 18:59 06:59 Intake Total 240 420 Balance 240 420 Weight 114.4 kg 114.4 kg Intake: Oral 240 420 Other: Voiding Method Toilet Toilet # Voids 1 2 1 - Exam VITAL SIGNS: As above GENERAL: Alert, Pleasant 61-year-old gentleman , sitting up at side of bed, no acute distress HEENT: Normocephalic, atraumatic ,Conjunctivae normal. eyes normal. Oral mucosa moist. NECK: Supple, No JVD. CARDIOVASCULAR: S1, S2 regular. No murmur RESPIRATION: Breath sounds diminished in the bases. No rhonchi or crackles. ABDOMEN: Soft, nontender . No guarding. no masses palpable. Bowel sounds heard. LEGS: No edema. no swelling, no calf tenderness. PSYCHIATRY: Alert and oriented X3, mood and affect normal. NERVOUS SYSTEM: Cranial N 2-12 grossly normal. Moves all 4 limbs.No focal deficits. Strength and sensation grossly intact. Skin: Warm and dry, no rash - Labs CBC & Chem 7: 07/18/21 08:38 07/18/21 08:38 Assessment and Plan (1) Ventricular tachycardia Current Visit: Yes Status: Acute Code(s): I47.2 - VENTRICULAR TACHYCARDIA SNOMED Code(s): 42173613 (2) Chest pain Current Visit: No Status: Acute Code(s): R07.9 - CHEST PAIN, UNSPECIFIED SNOMED Code(s): 39956332 (3) Pleural effusion Current Visit: No Status: Acute Code(s): J90 - PLEURAL EFFUSION, NOT ELSEWHERE CLASSIFIED SNOMED Code(s): 46658992
[2021-07-20] MEDS: MEXILETINE 200 MG CAP PO SCH (23:46)
[2021-07-21 08:16] VITALS: BP 115/55; PULSE 58; RESP 18; TEMP 97.5
[2021-07-21] MEDS ORDERED: METOPROLOL SUCCINATE (ER) 25 MG TAB.ER.24H PO SCH (09:00)
[2021-07-21] MEDS: MAGNESIUM OXIDE 400 MG TAB PO SCH (09:45)
[2021-07-21] MEDS: ASPIRIN 81 MG PO SCH (09:45)
[2021-07-21] MEDS: PRASUGREL 10 MG TAB PO SCH (09:45)
[2021-07-21] MEDS: PANTOPRAZOLE 40 MG TABLET PO SCH (09:45)
[2021-07-21] MEDS: MEXILETINE 200 MG CAP PO SCH (09:45)
--- NOTE | 2021-07-21 11:38 | P.DS ---
Providers Date of admission: 07/14/21 10:35 Expected date of discharge: 07/21/21 Attending physician: Philip Rascon Consults: 07/14/21 10:35 Consult Physician Routine Consulting Provider: Johnie Fair Consult Reason/Comments: v-tach Do you want consulting provider notified?: Already Contacted Consult Physician Routine Consulting Provider: Prabhakar Naylor Consult Reason/Comments: V. tach Do you want consulting provider notified?: Already Contacted 07/20/21 09:44 Consult Physician Routine Consulting Provider: Michel Gilmore Consult Reason/Comments: Electophysiology consult Do you want consulting provider notified?: Already Contacted Primary care physician: Philip Rascon [place] [facility] Course: Final Diagnoses: Nonsustained V. tach Pleural effusion, left-sided Recent AICD placement Recent diagnostic EP study and VT ablation on 05/19/2021 secondary to long runs of nonsustained VT refractory to sotalol-discharged home with Life[employer]est. History of NSTEMI CAD status post recent PCI LAD and circumflex, in March 2021 with repeat heart catheterization reporting patent stents Nonsustained V. tach Hypertension Former nicotine dependence Morbid obesity, BMI 40.9 Hospital course:This is a pleasant 61-year-old gentleman with history of NSVT, CAD status post PCI of LAD and circumflex, cardiac ablation for V. tach- recent diagnostic EP study and VT ablation on 05/19/2021, recent defibrillator placement and multiple other medical issues presented to the ER with complaints of palpitations, chest discomfort with some shortness of breath over the last 3 days. Chest x-ray reported as small to moderate left-sided pleural effusionevaluated by pulmonary with no thoracentesis recommended at this time. Troponin 0.025. Afebrile, normal WBC. Hematology, chemistry panels within no rmal limits. Echo reported moderate concentric left ventricular hypertrophy, normal LV function, EF 55-60%, no pericardial effusion. In the ER patient had nonsustained runs of nonsustained V. tach, bolused with amiodarone and currently maintained on drip. Telemetry sinus rhythm, currently denies chest pain, palpitations or increasing shortness of breath. Hematology, chemistry within normal limits. 07/16/2021 amiodarone converted to sotalol. Telemetry reporting sinus rhythm with bigeminy triplets and couplets. This morning with exertion, nonsustained runs of 52 reported. Denies chest pain, palpitations or shortness of breath. Denies lightheadedness, dizziness or focal deficits. Afebrile, normal WBC. Creatinine trending up to 0.9 to. 07/17/2021 had a nonsustained 15 beat run during the night. Continue 7 bigeminy, couplets. Sitting up at bedside, feels good this morning. Good diet intake and no nausea vomiting or diarrhea. Currently denies chest pain, palpitations or shortness of breath. Evaluated by , medications further adjusted, patient is scheduled for outpatient ablation August 14. Significant clinical improvement. Cleared by cardiology. Patient will be discharged today in a stable condition with guarded prognosis. The impression and plan of care has been dictated as directed. : I performed a history and examination of this patient, discussed the same with the dictator. I agree with the dictator's note ,documented as a scribe. Any additional findings or plans will be noted. Patient Condition at Discharge: Stable Plan - Discharge Summary Discharge Rx Participant: No New Discharge Prescriptions: New Pantoprazole [Protonix] 40 mg PO BID #60 tab Mexiletine [Mexitil] 200 mg PO Q8HR 30 Days #90 cap Metoprolol Succinate (ER) [Toprol XL] 75 mg PO DAILY 30 Days #90 tablet Losartan [Cozaar] 50 mg PO DAILY@1200 tab Continue Multivitamins, Thera [Multivitamin (formulary)] 1 tab PO DAILY Garlic 1 tab PO DAILY Aspirin [Adult Low Dose Aspirin EC] 81 mg PO DAILY Prasugrel [Effient] 10 mg PO DAILY #90 tab Atorvastatin [Lipitor] 80 mg PO HS #90 tab Magnesium Oxide [Mag-Ox] 400 mg PO DAILY #90 tab Nitroglycerin Sl Tabs [Nitrostat] 0.4 mg SUBLINGUAL Q5M PRN #25 tab PRN Reason: Chest Pain Discontinued Omeprazole [PriLOSEC] 40 mg PO HS Metoprolol Succinate (ER) [Toprol XL] 50 mg PO BID Losartan [Cozaar] 25 mg PO DAILY@1200 Discharge Medication List Aspirin [Adult Low Dose Aspirin EC] 81 mg PO DAILY 03/06/21 [History] Garlic 1 tab PO DAILY 03/06/21 [History] Multivitamins, Thera [Multivitamin (formulary)] 1 tab PO DAILY 03/06/21 [History] Atorvastatin [Lipitor] 80 mg PO HS #90 tab 03/11/21 [Rx] Nitroglycerin Sl Tabs [Nitrostat] 0.4 mg SUBLINGUAL Q5M PRN #25 tab 03/11/21 [Rx] Prasugrel [Effient] 10 mg PO DAILY #90 tab 03/11/21 [Rx] Magnesium Oxide [Mag-Ox] 400 mg PO DAILY #90 tab 05/21/21 [Rx] Losartan [Cozaar] 50 mg PO DAILY@1200 tab 07/21/21 [Rx] Metoprolol Succinate (ER) [Toprol XL] 75 mg PO DAILY 30 Days #90 tablet 07/21/21 [Rx] Mexiletine [Mexitil] 200 mg PO Q8HR 30 Days #90 cap 07/21/21 [Rx] Pantoprazole [Protonix] 40 mg PO BID #60 tab 07/21/21 [Rx] Follow up Appointment(s)/Referral(s): Mookie Nguyen MD [STAFF PHYSICIAN] - 2 Weeks Philip Rascon DO [Primary Care Provider] - 2 Weeks Activity/Diet/Wound Care/Special Instructions: Dr. Gilmore told the patient to be off his Amiodarone for 2 weeks before the ablation. Amio has been stopped as of 07/20/21. Mexitil is to be discontinued 2 days prior to the ablation. Ok to continue to take Toporol XL. Patient is to take it easy until the procedure, may go to work but limit the amount of driving as driving can be stressful.
--- NOTE | 2021-07-21 12:42 | P.PN ---
Subjective This is a 61-year-old male, patient of Dr. Nguyen and Dr. Gilmore, who was admitted to the hospital secondary to ventricular tachycardia. Patient has a history of Apical hypertrophic cardiomyopathy, coronary artery disease with previous PCI to the LAD and circumflex in March 2021, ventricular tachycardia with previous ablation and AICD placement 06/2021. He was admitted with complaints of chest pain, palpitations, and some shortness of breath for 3 days. Initially patient started on Sotalol that did not suppress the VT. On admission, in the ER he suddenly went into intermittent runs of nonsustained VT. He was started on amiodarone bolus and drip and was admitted. Sotalol has been discontinued and patient remains on amiodarone and mexiletine. 07/21/21 Patient examined this morning at the bedside, no complaints. Patient denies chest pain or pressure. He denies shortness of breath. He denies palpitations. Dr. Gilmore evaluated the patient yesterday and made some changes to his medications. Plan is for patient ablation as an outpatient. Blood pressure 114/55, heart rate 58, afebrile, maintaining oxygen saturations 95% on room air. He's currently maintained on aspirin 81 mg daily, atorvastatin 80 mg nightly, losartan 50 mg daily, metoprolol succinate 75 mg daily, mexiletine 200 mg every 8 hours, Effient 10 mg daily. Amiodarone has been discontinued. PHYSICAL EXAM: VITAL SIGNS: Reviewed. GENERAL: Well-developed in no acute distress. NECK: Supple. No JVD or thyromegaly LUNGS: Respirations even and unlabored. Lungs essentially clear to auscultation bilaterally. HEART: Regular rate and rhythm. S1 and S2 heard. EXTREMITIES: Normal range of motion. No clubbing or cyanosis. Peripheral pulses intact. No lower extremity edema ASSESSMENT: Palpitations Apical hypertrophic Cardiomyopathy Nonsustained ventricular tachycardia History of ventricular tachycardia with AICD implantation History of previous ablation History of Coronary artery disease with previous PCI to LAD and circumflex PLAN: Electophysiology consult with Dr. Gilmore to evaluate patient yesterday. metoprolol succinate increased to 75mg daily, mexiletine increased to 200mg TID. Prescriptions sent to patient's pharmacy From cardiology perspective, patient stable to be discharged home. Follow up with Dr. Nguyen in Dr. Ramírez is an outpatient. Nurse practitioner note has been reviewed by physician. Signing provider agrees with the documented findings, assessment, and plan of care. Objective - Vital Signs Vital signs: Vital Signs Temp 97.5 F L 07/21/21 08:00 Pulse 58 L 07/21/21 08:00 Resp 18 07/21/21 08:00 BP 115/55 07/21/21 08:00 Pulse Ox 95 07/21/21 08:00 Intake & Output 07/20/21 07/21/21 07/21/21 18:59 06:59 18:59 Intake Total 420 Balance 420 Weight 114.4 kg 114.9 kg Intake: Oral 420 Other: Voiding Method Toilet # Voids 2 1 - Labs CBC & Chem 7: 07/18/21 08:38 07/18/21 08:38
[2021-07-21] MEDS: LOSARTAN 50 MG TAB PO SCH (12:53)
--- NOTE | 2021-07-21 19:09 | P.EPCON ---
Electrophysiology Consult - EP Consult Electrophysiology Consult: I saw the patient on the This dictation is on 07/21/2021 History of present illness Patient was interviewed and examined Rhythm strips and EKGs were reviewed Runs of nonsustained ventricular tachycardia, frequent were noted The patient complained of pain shortness of breath chest discomfort and not feeling well and a bit dizzy No loss of consciousness Past history Apical hypertrophic cardio myopathy Coronary artery disease status post stenting Recurrent episodes of V. tach from the apex of the heart Status post RF ablation from the RV apex Cardiac MRI revealed delayed enhancement in the apical septum The delayed enhancement area is fairly close to the LV endocardium It is not close to the epicardium at all and the radiologist measure distance of almost 2 cm away from the epicardial surface Status post dual-chamber ICD On examination Afebrile 98.2F pulse rate in the 60s Blood pressure 132/77 mmHg Heart sounds S1 and S2 are normal and regular this time Breath sounds are clear no rhonchi no crackles Abdomen soft. Extremity is warm edema Labs are reviewed hemoglobin 15.9 Sodium 139 potassium 4.7 BUN 20 and creatinine 0.96 Chest x-ray shows blunting of the left costophrenic angle Left lower lobe infiltrate Impression Atypical hypertrophic cardio myopathy Coronary artery disease status post coronary stenting 2 vessel Recurrent episodes of nonsustained ventricular tachycardia, symptomatic Status post dual-chamber ICD Plan At a very detailed discussion with the patient There has been no recurrence of the left pleural effusion The cause of the left pleural effusion is still unclear This was a serosanguineous effusion There is a temporal relationship with the ablation, occurring after 2 weeks However the ablation was performed in the RV apex and this was a left-sided pleural effusion This may be explained by cardiac rotation However the radiologist was of the opinion that there was no evidence for any pericardial effusion or pericardial reaction at all Therefore the etiology of this effusion is unclear The first Performed did not show any malignant cells At the second pleural Cytology was not sent I explained to the patient that he has failed drug therapy with sotalol I would not treat him with amiodarone. It has not worked in the past either I would recommend stopping amiodarone He may consider mexiletine in the short-term but I doubt its efficacy I will increase the dose of metoprolol succinate to 75 mg by mouth daily He does of apical hypertrophy and this would be of benefit in the long run I would recommend ablation from the LV apex However I cannot guarantee that the same complication occur again. This time it in the the LV apex which would be closer to the left pleural surface Risk of cardiac puncture 1% risk of vascular injury 1% risk of stroke one in 500-1000
== END 2021-07-21 14:24 | disposition home or self-care (01) | DRG 315 ==
LOC: EC 06:50 → 2SICU 10:35 → 3SCARD 07-15 16:44
PROVIDERS: ADMIT Family Medicine; ATTEND Family Medicine
DX: I97.190 Other postprocedural cardiac functional disturbances following cardiac surgery (principal); I47.2 Ventricular tachycardia; Z68.41 Body mass index [BMI] 40.0-44.9, adult; I42.2 Other hypertrophic cardiomyopathy; J90 Pleural effusion, not elsewhere classified; Z20.822 Contact with and (suspected) exposure to COVID-19; I25.10 Atherosclerotic heart disease of native coronary artery without angina pectoris; E66.01 Morbid (severe) obesity due to excess calories; E78.5 Hyperlipidemia, unspecified; I10 Essential (primary) hypertension; Z98.61 Coronary angioplasty status; I25.2 Old myocardial infarction; Z95.810 Presence of automatic (implantable) cardiac defibrillator; Z95.0 Presence of cardiac pacemaker; Z87.891 Personal history of nicotine dependence; Z87.19 Personal history of other diseases of the digestive system; Z86.79 Personal history of other diseases of the circulatory system; Z79.899 Other long term (current) drug therapy; Z79.82 Long term (current) use of aspirin; Z79.02 Long term (current) use of antithrombotics/antiplatelets; I49.3 Ventricular premature depolarization
CPT/HCPCS: 36415; 71045; 71046; 80048; 80053; 83735; 84132; 84484; 85025; 85610; 85730; 87635; 93005; 93308; 99291

== ENCOUNTER 2021-08-08 07:27 | Inpatient (IN) | payer MEDICAID ==
[2021-08-08] MEDS ORDERED: ASPIRIN 81 MG PO STA (07:48)
[2021-08-08] MEDS ORDERED: SODIUM CHLORIDE 0.9% 500 ML 500 ML IV ONE ×2 (07:49→08:47)
--- NOTE | 2021-08-08 07:57 | ED ---
General Adult HPI - General Chief complaint: Chest Pain Stated complaint: Chest pain Time Seen by Provider: 08/08/21 07:35 Source: patient, RN notes reviewed, old records reviewed Mode of arrival: wheelchair Limitations: physical limitation - History of Present Illness Initial comments: This is a 61-year-old male with a past medical history significant for V. tach patient got a pacemaker defibrillator in place. Patient states he is always in and out of V. tach since he left the hospital. 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 Patient was in runs of V. tach of up to 10 beats I recommended amiodarone and patient stated he did not want any amiodarone. Patient also complained of some shortness of breath. Patient also complained of a little lightheadedness. Patient denies any recent fever chills or cough. Patient denies any abdominal pain patient states she did vomit up all of his morning medications. Patient did take a nitroglycerin this m orning but states that did not work. - Related Data Home Medications Medication Instructions Recorded Confirmed Aspirin [Adult Low Dose Aspirin EC] 81 mg PO DAILY 03/06/21 07/14/21 Garlic 1 tab PO DAILY 03/06/21 07/14/21 Multivitamins, Thera [Multivitamin 1 tab PO DAILY 03/06/21 07/14/21 (formulary)] Previous Rx's Medication Instructions Recorded Atorvastatin [Lipitor] 80 mg PO HS #90 tab 03/11/21 Nitroglycerin Sl Tabs [Nitrostat] 0.4 mg SUBLINGUAL Q5M PRN #25 tab 03/11/21 Prasugrel [Effient] 10 mg PO DAILY #90 tab 03/11/21 Magnesium Oxide [Mag-Ox] 400 mg PO DAILY #90 tab 05/21/21 Losartan [Cozaar] 50 mg PO DAILY@1200 tab 07/21/21 Metoprolol Succinate (ER) [Toprol 75 mg PO DAILY 30 Days #90 tablet 07/21/21 XL] Mexiletine [Mexitil] 200 mg PO Q8HR 30 Days #90 cap 07/21/21 Pantoprazole [Protonix] 40 mg PO BID #60 tab 07/21/21 Allergies Allergy/AdvReac Type Severity Reaction Status Date / Time No Known Allergies Allergy Verified 08/08/21 07:36 Review of Systems ROS Statement: Those systems with pertinent positive or pertinent negative responses have been documented in the HPI. ROS Other: All systems not noted in ROS Statement are negative. Past Medical History Past Medical History: Hypertension Additional Past Medical History / Comment(s): HX OF RECTAL POLYP, , COVID History of Any Multi-Drug Resistant Organisms: None Reported Past Surgical History: Cardiac Ablation, Heart Catheterization With Stent, Hernia Repair, Orthopedic Surgery, Pacemaker Additional Past Surgical History / Comment(s): LT KNEE SCOPE, COLONOSCOPY, heart cath 03/10/21-2 stents Past Anesthesia/Blood Transfusion Reactions: No Reported Reaction Date of Last Stent Placement:: 03/10/21 Type of Cardiac Device: Permanent Pacemaker Device Placement Date:: 06/15/21 Past Psychological History: No Psychological Hx Reported Smoking Status: Never smoker Past Alcohol Use History: Occasional Past Drug Use History: None Reported - Past Family History Mother Family Medical History: No Reported History General Exam - General Exam Comments Initial Comments: GENERAL: Patient is well-developed and well-nourished. Patient is nontoxic and well- hydrated and is in mild distress. ENT: Neck is soft and supple. No significant lymphadenopathy is noted. Oropharynx is clear. Moist mucous membranes. Neck has full range of motion without eliciting any pain. EYES: The sclera were anicteric and conjunctiva were pink and moist. Extraocular movements were intact and pupils were equal round and reactive to light. Eyelids were unremarkable. PULMONARY: Unlabored respirations. Good breath sounds bilaterally. No audible rales rhonchi or wheezing was noted. CARDIOVASCULAR: Tachycardia at about 140 beats a minute ABDOMEN: Soft and nontender with normal bowel sounds. SKIN: Skin is clear with no lesions or rashes and otherwise unremarkable. NEUROLOGIC: Patient is alert and oriented x3. Cranial nerves II through XII are grossly intact. Motor and sensory are also intact. Normal speech, volume and content. Symmetrical smile. MUSCULOSKELETAL: Normal extremities with adequate strength and full range of motion. No lower extremity swelling or edema. No calf tenderness. LYMPHATICS: No significant lymphadenopathy is noted PSYCHIATRIC: Normal psychiatric evaluation. Limitations: physical limitation Course Vital Signs 08/08/21 08/08/21 08/08/21 07:32 08:11 08:44 Temperature 97.0 F L Pulse Rate 57 L 140 H 150 H Respiratory 18 18 Rate Blood Pressure 77/47 80/40 90/50 O2 Sat by Pulse 89 L 99 Oximetry 08/08/21 09:15 Temperature Pulse Rate 138 H Respiratory 18 Rate Blood Pressure 86/46 O2 Sat by Pulse 100 Oximetry Medical Decision Making - Medical Decision Making EKG shows V. tach and runs of 10 4. Patient's rate is 144 bpm QRS is 174 QT interval 300 QTC is 464. I spoke with Dr. Genao he knew this patient and stated that we should try to get his blood pressure up with fluids and if we can we can give him some beta ruby orally. He agrees that giving him amiodarone might jeopardize future ablation. Chest x-ray shows no acute abnormalities. I spoke with Dr. kelsey he agreed to admit the patient admitted the patient I wrote admitting orders. I started the patient on heparin. Acute heparin on the floor. I spoke with Dr. Solano in gave him the lab results and told him that he had heparin. - Lab Data Result diagrams: 08/08/21 08:01 08/08/21 08:01 Lab Results 08/08/21 08/08/21 08/08/21 Range/Units 08:01 08:01 08:01 WBC 8.7 (3.8-10.6) k/uL RBC 5.46 (4.30-5.90) m/uL Hgb 15.9 (13.0-17.5) gm/dL Hct 49.2 (39.0-53.0) % MCV 90.1 (80.0-100.0) fL MCH 29.0 (25.0-35.0) pg MCHC 32.2 (31.0-37.0) g/dL RDW 15.0 (11.5-15.5) % Plt Count 289 (150-450) k/uL MPV 7.3 Neutrophils % 67 % Lymphocytes % 23 % Monocytes % 5 % Eosinophils % 2 % Basophils % 1 % Neutrophils # 5.8 (1.3-7.7) k/uL Lymphocytes # 2.0 (1.0-4.8) k/uL Monocytes # 0.4 (0-1.0) k/uL Eosinophils # 0.2 (0-0.7) k/uL Basophils # 0.1 (0-0.2) k/uL PT (9.0-12.0) sec INR (<1.2) APTT (22.0-30.0) sec Sodium 139 (137-145) mmol/L Potassium 5.1 (3.5-5.1) mmol/L Chloride 104 (98-107) mmol/L Carbon Dioxide 23 (22-30) mmol/L Anion Gap 12 mmol/L BUN 21 H (9-20) mg/dL Creatinine 1.31 H (0.66-1.25) mg/dL Est GFR (CKD-EPI)AfAm 68 (>60 ml/min/1.73 sqM) Est GFR (CKD-EPI)NonAf 59 (>60 ml/min/1.73 sqM) Glucose 181 H (74-99) mg/dL Calcium 9.4 (8.4-10.2) mg/dL Magnesium 2.0 (1.6-2.3) mg/dL Total Bilirubin 0.8 (0.2-1.3) mg/dL AST 71 H (17-59) U/L ALT 92 H (4-49) U/L Alkaline Phosphatase 100 (38-126) U/L Troponin I 0.187 H* (0.000-0.034) ng/mL NT-Pro-B Natriuret Pep pg/mL Total Protein 7.8 (6.3-8.2) g/dL Albumin 4.2 (3.5-5.0) g/dL Coronavirus (PCR) (Not Detectd) 08/08/21 08/08/21 08/08/21 Range/Units 08:01 08:14 08:51 WBC (3.8-10.6) k/uL RBC (4.30-5.90) m/uL Hgb (13.0-17.5) gm/dL Hct (39.0-53.0) % MCV (80.0-100.0) fL MCH (25.0-35.0) pg MCHC (31.0-37.0) g/dL RDW (11.5-15.5) % Plt Count (150-450) k/uL MPV Neutrophils % % Lymphocytes % % Monocytes % % Eosinophils % % Basophils % % Neutrophils # (1.3-7.7) k/uL Lymphocytes # (1.0-4.8) k/uL Monocytes # (0-1.0) k/uL Eosinophils # (0-0.7) k/uL Basophils # (0-0.2) k/uL PT 10.5 (9.0-12.0) sec INR 1.0 (<1.2) APTT 22.4 (22.0-30.0) sec Sodium (137-145) mmol/L Potassium (3.5-5.1) mmol/L Chloride (98-107) mmol/L Carbon Dioxide (22-30) mmol/L Anion Gap mmol/L BUN (9-20) mg/dL Creatinine (0.66-1.25) mg/dL Est GFR (CKD-EPI)AfAm (>60 ml/min/1.73 sqM) Est GFR (CKD-EPI)NonAf (>60 ml/min/1.73 sqM) Glucose (74-99) mg/dL Calcium (8.4-10.2) mg/dL Magnesium (1.6-2.3) mg/dL Total Bilirubin (0.2-1.3) mg/dL AST (17-59) U/L ALT (4-49) U/L Alkaline Phosphatase (38-126) U/L Troponin I (0.000-0.034) ng/mL NT-Pro-B Natriuret Pep 1210 pg/mL Total Protein (6.3-8.2) g/dL Albumin (3.5-5.0) g/dL Coronavirus (PCR) Not Detected (Not Detectd) Critical Care Time Critical Care Time: Yes Total Critical Care Time: 35 Disposition Clinical Impression: Ventricular tachycardia, Elevated troponin Disposition: ADMITTED IP TO THIS HOSP Referrals: Philip Rascon DO [Primary Care Provider] - 1-2 days Time of Disposition: 09:17
[2021-08-08 08:08] LABS: Basophils # (A) 0.1 k/uL (0-0.2); Basophils % (A) 1 %; Eosinophils # (A) 0.2 k/uL (0-0.7); Eosinophils % (A) 2 %; HCT 49.2 % (39.0-53.0); HGB 15.9 gm/dL (13.0-17.5); Lymphocytes % (A) 23 %; MCHC 32.2 g/dL (31.0-37.0); MCV 90.1 fL (80.0-100.0); Mean Platelet Volume 7.3; Monocytes # (A) 0.4 k/uL (0-1.0); Monocytes % (A) 5 %; Neutrophils # (A) 5.8 k/uL (1.3-7.7); Neutrophils % (A) 67 %; Platelet Count 289 k/uL (150-450); RBC 5.46 m/uL (4.30-5.90); WBC 8.7 k/uL (3.8-10.6)
[2021-08-08 08:25] LABS: Albumin 4.2 g/dL (3.5-5.0); Calcium 9.4 mg/dL (8.4-10.2); Total Bilirubin 0.8 mg/dL (0.2-1.3); Total Protein 7.8 g/dL (6.3-8.2)
[2021-08-08 08:43] LABS: Potassium 5.1 mmol/L (3.5-5.1)
--- NOTE | 2021-08-08 08:45 | XR ---
EXAMINATION TYPE: XR chest 2V DATE OF EXAM: 08/08/2021 COMPARISON: 07/17/2021 HISTORY: Chest pain TECHNIQUE: Frontal and lateral views of the chest are obtained. FINDINGS: There is a retrocardiac opacity on the left entering the left hemidiaphragm fluid is seen tracking in the major fissure. Right lung is clear. Vasculature is not congested. The osseous structures are intact. Unchanged kate red to previous. IMPRESSION: Retrocardiac opacity involving the left lung base. Findings are consistent with pneumonic infiltrate and small pleural effusion. Clinical correlation short-term follow-up to resolution is recommended. IMPRESSION: No acute cardiopulmonary process.
[2021-08-08] MEDS ORDERED: HEPARIN SODIUM 1,000 UN/ML (10ML VL) IV ONE (08:54)
[2021-08-08 09:08] LABS: Partial Thromboplastin Time 22.4 sec (22.0-30.0); Prothrombin Time 10.5 sec (9.0-12.0)
[2021-08-08] MEDS: HEPARIN SOD,PORK IN 0.45% NACL 25,000 UNIT in 0.45% NACL 1 250ML.BAG IV SCH (09:11)
[2021-08-08] MEDS ORDERED: NITROGLYCERIN SL TABS 0.4 MG TAB SUBLINGUAL PRN (09:22)
[2021-08-08] MEDS ORDERED: DEXTROSE 5% IN WATER 250 ML with AMIODARONE 300 MG IV ONE (13:23)
--- NOTE | 2021-08-08 15:15 | P.CRDCN ---
History of Present Illness History of present illness: HISTORY OF PRESENTING ILLNESS This is a pleasant 61-year-old with past medical history significant for recurrent episodes of ventricular tachycardia as well as coronary artery disease. He has had extensive workup by electrophysiology and has been having frequent episodes of VT were asymptomatic with chest pain over last 3-4 months. He underwent workup including prior attempted VT ablation however unable to ablate with possible more epicardial source. Patient also underwent MRI with more septal apical area of likely source. He had not done well on sotalol or amiodarone in the past and has been on mexiletine 200 mg 3 times a day. Patient states he has noticed increased episodes of chest pain and pressure since yesterday. He was found to have mildly elevated creatinine above his baseline of 1.3 and found to be in frequent runs of ventricular tachycardia with predominantly 1 normal beat and then a 5-15 beat run of nonsustained VT. His blood pressures systolic have been mainly in the 80s to 90s however this appears to be radiating the episodes of ventricular tachycardia. REVIEW OF SYSTEMS At the time of my exam: CONSTITUTIONAL: Denies fever or chills. CARDIOVASCULAR: +chest pain,+shortness of breath, no orthopnea, PND or palpitations. RESPIRATORY: Denies cough. GASTROINTESTINAL: Denies abdominal pain, diarrhea, constipation, nausea or vomiting. MUSCULOSKELETAL: Denies myalgias. NEUROLOGIC: Denies numbness, tingling or weakness. ENDOCRINE: Denies fatigue, weight change, polydipsia or polyurina. GENITOURINARY: Denies burning, hematuria or urgency with micturation. HEMATOLOGIC: Denies history of anemia or bleeding. PHYSICAL EXAMINATION Vital signs reviewed. CONSTITUTIONAL: No apparent distress. HEENT: Head is normocephalic. Pupils are equal, round. Sclerae anicteric. Mucous membranes of the mouth are moist. No JVD. No carotid bruit. CHEST EXAMINATION: Lungs are clear to auscultation. No chest wall tenderness is noted on palpation or with deep breathing. HEART EXAMINATION: Regular rate and rhythm. S1, S2 heard. No murmurs, gallops or rub. ABDOMEN: Soft, nontender. Positive bowel sounds. EXTREMITIES: 2+ peripheral pulses, no lower extremity edema and no calf tenderness. NEUROLOGIC EXAMINATION: Patient is awake, alert and oriented x3. ASSESSMENT 1. 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 Coronary artery disease by prior heart catheterization 3. Hypertension 4. Hyperlipidemia 5. Mildly increased creatinine 6. Mildly elevated liver enzymes 7. Status post AICD PLAN Patient with plan for ablation in the next 2 weeks. He has been weaned from amiodarone in order to perform ablation. His main presentation appears consi stent with recurrent runs of ventricular tachycardia. He is status post AICD. We will attempt to control the VT by starting mexiletine at his home dose as well as adding sotalol 80 mg twice a day. Seems much more likely that this is related to the recurrent VT rather than new acute coronary syndrome and therefore defer any angiography at this time especially given acute kidney injury. Decrease home dose of metoprolol to 50 mg daily. IV fluids. Further recommendations follow. Past Medical History Past Medical History: Hypertension Additional Past Medical History / Comment(s): HX OF RECTAL POLYP, , COVID History of Any Multi-Drug Resistant Organisms: None Reported Past Surgical History: Cardiac Ablation, Heart Catheterization With Stent, Hernia Repair, Orthopedic Surgery, Pacemaker Additional Past Surgical History / Comment(s): LT KNEE SCOPE, COLONOSCOPY, heart cath 03/10/21-2 stents Past Anesthesia/Blood Transfusion Reactions: No Reported Reaction Date of Last Stent Placement:: 03/10/21 Type of Cardiac Device: Permanent Pacemaker Device Placement Date:: 06/15/21 Past Psychological History: No Psychological Hx Reported Smoking Status: Never smoker Past Alcohol Use History: Occasional Past Drug Use History: None Reported - Past Family History Mother Family Medical History: No Reported History Medications and Allergies Home Medications Medication Instructions Recorded Confirmed Type Aspirin [Adult Low Dose Aspirin EC] 81 mg PO DAILY 03/06/21 08/08/21 History Garlic 1 tab PO DAILY 03/06/21 08/08/21 History Multivitamins, Thera [Multivitamin 1 tab PO DAILY 03/06/21 08/08/21 History (formulary)] Atorvastatin [Lipitor] 80 mg PO HS #90 tab 03/11/21 08/08/21 Rx Nitroglycerin Sl Tabs [Nitrostat] 0.4 mg SUBLINGUAL Q5M PRN #25 tab 03/11/21 08/08/21 Rx Prasugrel [Effient] 10 mg PO DAILY #90 tab 03/11/21 08/08/21 Rx Magnesium Oxide [Mag-Ox] 400 mg PO DAILY #90 tab 05/21/21 08/08/21 Rx Losartan [Cozaar] 50 mg PO DAILY@1200 tab 07/21/21 08/08/21 Rx Mexiletine [Mexitil] 200 mg PO Q8HR 30 Days #90 cap 07/21/21 08/08/21 Rx Pantoprazole [Protonix] 40 mg PO BID #60 tab 07/21/21 08/08/21 Rx Metoprolol Succinate (ER) [Toprol 100 mg PO HS 08/08/21 08/08/21 History Xl] Allergies Allergy/AdvReac Type Severity Reaction Status Date / Time No Known Allergies Allergy Verified 08/08/21 07:36 Physical Exam Vitals: Vital Signs Temp Pulse Resp BP Pulse Ox 08/08/21 14:31 150 H 18 89/50 99 08/08/21 11:26 140 H 18 88/75 100 08/08/21 09:15 138 H 18 86/46 100 08/08/21 08:44 150 H 18 90/50 99 08/08/21 08:11 140 H 80/40 08/08/21 07:32 97.0 F L 57 L 18 77/47 89 L Intake and Output 08/08/21 08/08/21 08/08/21 06:59 14:59 22:59 Other: Weight 117.934 kg Results 08/08/21 08:01 08/08/21 08:01 Cardiac Enzymes 08/08/21 08/08/21 08/08/21 Range/Units 08:01 08:01 11:32 AST 71 H (17-59) U/L Troponin I 0.187 H* 1.610 H* (0.000-0.034) ng/mL Coagulation 08/08/21 Range/Units 08:51 PT 10.5 (9.0-12.0) sec APTT 22.4 (22.0-30.0) sec CBC 08/08/21 Range/Units 08:01 WBC 8.7 (3.8-10.6) k/uL RBC 5.46 (4.30-5.90) m/uL Hgb 15.9 (13.0-17.5) gm/dL Hct 49.2 (39.0-53.0) % Plt Count 289 (150-450) k/uL Comprehensive Metabolic Panel 08/08/21 Range/Units 08:01 Sodium 139 (137-145) mmol/L Potassium 5.1 (3.5-5.1) mmol/L Chloride 104 (98-107) mmol/L Carbon Dioxide 23 (22-30) mmol/L BUN 21 H (9-20) mg/dL Creatinine 1.31 H (0.66-1.25) mg/dL Glucose 181 H (74-99) mg/dL Calcium 9.4 (8.4-10.2) mg/dL AST 71 H (17-59) U/L ALT 92 H (4-49) U/L Alkaline Phosphatase 100 (38-126) U/L Total Protein 7.8 (6.3-8.2) g/dL Albumin 4.2 (3.5-5.0) g/dL Current Medications Generic Name Dose Route Start Last Admin Trade Name Freq PRN Reason Stop Dose Admin Aspirin 325 mg 08/09/21 09:00 Aspirin 325 Mg Tab PO DAILY [facility] Heparin Sodium/Sodium Chloride 250 mls @ 10 mls/hr 08/08/21 09:00 08/08/21 09:11 25,000 unit/ Sodium Chloride IV 8.479 units/kg/hr .Q24H SHARAN 10 mls/hr Administration Protocol 8.479 UNITS/KG/HR Metoprolol Succinate 50 mg 08/08/21 15:15 Metoprolol Succinate (Er) 50 Mg Tab.Er.24h PO DAILY SHARAN Mexiletine HCl 200 mg 08/08/21 16:00 Mexiletine 200 Mg Cap PO Q8HR SHARAN Nitroglycerin 0.4 mg 08/08/21 09:22 Nitroglycerin Sl Tabs 0.4 Mg Tab SUBLINGUAL Q5M PRN Chest Pain Sotalol HCl 80 mg 08/08/21 15:15 Sotalol 80 Mg Tab PO BID SHARAN Intake and Output 08/08/21 08/08/21 08/08/21 06:59 14:59 22:59 Other: Weight 117.934 kg Patient Weight 08/09/21 05:59 Weight 117.934 kg 08/08/21 08:01 08/08/21 08:01
[2021-08-08] MEDS: MEXILETINE 200 MG CAP PO SCH (15:43)
[2021-08-08] MEDS: METOPROLOL SUCCINATE (ER) 50 MG TAB.ER.24H PO SCH (15:44)
[2021-08-08] MEDS: SOTALOL 80 MG TAB PO SCH ×2 (15:44→21:43)
[2021-08-08] MEDS: ATORVASTATIN 80 MG TAB PO SCH (21:43)
[2021-08-08] MEDS: PANTOPRAZOLE 40 MG TABLET PO SCH (21:43)
--- NOTE | 2021-08-08 22:20 | P.HPIM ---
History of Present Illness H&P Date: 08/08/21 Chief Complaint: Palpitations Mr. Kramer is a 61-year-old male with a past medical history of hypertension, recurrent episodes of ventricular tachycardia, coronary artery disease coming to the hospital with a chief complaint of chest pain and palpitations. Patient states that he started to have chest pain again, he waited for few hours thinking that it would resolve but he did not get any relief and came into the emergency department. Patient follows up on a regular basis with cardiology associates. Patient recently had extensive work-up by electrophysiological studies Dr. Gibson. He underwent work-up including prior attempted VT ablation however unable to ablate with possibly more AP cardiac source. Patient also underwent MRI with more septal apical area of likely source. Currently the patient is in the emergency department showing 5-15 beat run of nonsustained V. tach. Patient's vitals currently stable with blood pressure around 112 x 73 respiratory rate 18 and saturations at 98% on room air. His labs reviewed stable with white count of 8.7, hemoglobin 15.9, platelets 289. Sodium 139, potassium 5.1, chloride 104, bicarb 23, BUN 21, creatinine 1.31. Troponin of 0.187, 1.610, 6.700. Patient continues to be on a heparin drip, received aspirin. He is on Mexitil, metoprolol and sotalol. Review of Systems REVIEW OF SYSTEMS: CONSTITUTIONAL: No fever, no malaise, no fatigue. HEENT: No recent visual problems or hearing problems. Denied any sore throat. CARDIOVASCULAR: As per HPI PULMONARY: no hemoptysis. GASTROINTESTINAL: No diarrhea, no nausea, no vomiting, no abdominal pain. NEUROLOGICAL: No headaches, no weakness, no numbness. HEMATOLOGICAL: Denies any bleeding or petechiae. GENITOURINARY: Denies any burning micturition, frequency, or urgency. MUSCULOSKELETAL/RHEUMATOLOGICAL: Denies any joint pain, swelling, or any muscle pain. ENDOCRINE: Denies any polyuria or polydipsia. The rest of the 14-point review of systems is negative. Past Medical History Past Medical History: Hypertension Additional Past Medical History / Comment(s): HX OF RECTAL POLYP, , COVID History of Any Multi-Drug Resistant Organisms: None Reported Past Surgical History: Cardiac Ablation, Heart Catheterization With Stent, Hernia Repair, Orthopedic Surgery, Pacemaker Additional Past Surgical History / Comment(s): LT KNEE SCOPE, COLONOSCOPY, heart cath 03/10/21-2 stents Past Anesthesia/Blood Transfusion Reactions: No Reported Reaction Date of Last Stent Placement:: 03/10/21 Type of Cardiac Device: Permanent Pacemaker Device Placement Date:: 06/15/21 Past Psychological History: No Psychological Hx Reported Smoking Status: Never smoker Past Alcohol Use History: Occasional Past Drug Use History: None Reported - Past Family History Mother Family Medical History: No Reported History Medications and Allergies Home Medications Medication Instructions Recorded Confirmed Type Aspirin [Adult Low Dose Aspirin EC] 81 mg PO DAILY 03/06/21 08/08/21 History Garlic 1 tab PO DAILY 03/06/21 08/08/21 History Multivitamins, Thera [Multivitamin 1 tab PO DAILY 03/06/21 08/08/21 History (formulary)] Atorvastatin [Lipitor] 80 mg PO HS #90 tab 03/11/21 08/08/21 Rx Nitroglycerin Sl Tabs [Nitrostat] 0.4 mg SUBLINGUAL Q5M PRN #25 tab 03/11/21 08/08/21 Rx Prasugrel [Effient] 10 mg PO DAILY #90 tab 03/11/21 08/08/21 Rx Magnesium Oxide [Mag-Ox] 400 mg PO DAILY #90 tab 05/21/21 08/08/21 Rx Losartan [Cozaar] 50 mg PO DAILY@1200 tab 07/21/21 08/08/21 Rx Mexiletine [Mexitil] 200 mg PO Q8HR 30 Days #90 cap 07/21/21 08/08/21 Rx Pantoprazole [Protonix] 40 mg PO BID #60 tab 07/21/21 08/08/21 Rx Metoprolol Succinate (ER) [Toprol 100 mg PO HS 08/08/21 08/08/21 History Xl] Allergies Allergy/AdvReac Type Severity Reaction Status Date / Time No Known Allergies Allergy Verified 08/08/21 07:36 Physical Exam Vitals: Vital Signs Temp Pulse Resp BP Pulse Ox 08/08/21 14:31 150 H 18 89/50 99 08/08/21 11:26 140 H 18 88/75 100 08/08/21 09:15 138 H 18 86/46 100 08/08/21 08:44 150 H 18 90/50 99 08/08/21 08:11 140 H 80/40 08/08/21 07:32 97.0 F L 57 L 18 77/47 89 L Intake and Output 08/08/21 08/08/21 08/08/21 06:59 14:59 22:59 Other: Weight 117.934 kg PHYSICAL EXAMINATION: GENERAL: The patient is alert and oriented x3, not in any acute distress. HEENT: Pupils are round and equally reacting to light. EOMI. No scleral icterus. No conjunctival pallor. Normocephalic, atraumatic. No pharyngeal erythema. No thyromegaly. CARDIOVASCULAR: irregularly irregular PULMONARY: Bilateral rhonchi fairly good air entry into lung fleming ABDOMEN: Soft, nontender, nondistended, normoactive bowel sounds. No palpable organomegaly. MUSCULOSKELETAL: No joint swelling or deformity. EXTREMITIES: No cyanosis, clubbing, or pedal edema. NEUROLOGICAL: Gross neurological examination did not reveal any focal deficits. SKIN: No rashes. Results CBC & Chem 7: 08/08/21 08:01 08/08/21 08:01 Labs: Abnormal Lab Results - Last 24 Hours (Table) 08/08/21 08/08/21 08/08/21 Range/Units 08:01 08:01 11:32 BUN 21 H (9-20) mg/dL Creatinine 1.31 H (0.66-1.25) mg/dL Glucose 181 H (74-99) mg/dL AST 71 H (17-59) U/L ALT 92 H (4-49) U/L Troponin I 0.187 H* 1.610 H* (0.000-0.034) ng/mL Assessment and Plan Assessment: ASSESSMENT Recurrent monomorphic ventricular tachycardia Coronary artery disease Status post AICD Hypertension Hyperlipidemia Elevated troponins Acute kidney injury Mild transaminitis PLAN: Patient has recurrent runs of V. tach, with extensive work-up done by cardiology in the past. He is status post AICD. Discussed with cardiology, Dr. Solano, who evaluated the patient today. So for now the patient will be continued on heparin drip along with sotalol 80 mg twice daily. We will continue with IV fluids. We will repeat a.m. labs. Overall prognosis is guarded. Further recommendations depending on the progress of the patient.
[2021-08-08] MEDS ORDERED: HEPARIN SODIUM 1,000 UN/ML (10ML VL) IV PRN (23:05)
[2021-08-08] MEDS ORDERED: ALPRAZolam 0.5 MG TAB PO STA (23:23)
[2021-08-09] MEDS: MEXILETINE 200 MG CAP PO SCH ×3 (00:50→17:27)
[2021-08-09 02:36] LABS: HCT 45.4 % (39.0-53.0); HGB 14.7 gm/dL (13.0-17.5); MCH 28.8 pg (25.0-35.0); MCHC 32.4 g/dL (31.0-37.0); Mean Platelet Volume 8.8; Platelet Count 261 k/uL (150-450); RDW 15.1 % (11.5-15.5); WBC 13.8 k/uL (3.8-10.6)
[2021-08-09 03:14] LABS: Albumin 3.7 g/dL (3.5-5.0); Calcium 9.1 mg/dL (8.4-10.2); Magnesium 2.1 mg/dL (1.6-2.3); Phosphorus 4.8 mg/dL (2.5-4.5); Total Bilirubin 1.1 mg/dL (0.2-1.3)
[2021-08-09 03:16] LABS: Potassium 6.3 mmol/L (3.5-5.1)
[2021-08-09 04:47] LABS: Albumin 3.2 g/dL (3.5-5.0); Total Bilirubin 0.8 mg/dL (0.2-1.3); Total Protein 5.9 g/dL (6.3-8.2)
[2021-08-09 05:04] LABS: Calcium 8.9 mg/dL (8.4-10.2)
[2021-08-09 05:05] LABS: Potassium 6.1 mmol/L (3.5-5.1)
[2021-08-09 05:54] LABS: Glucose,Whole Blood 100 mg/dL (75-99)
[2021-08-09] MEDS ORDERED: SODIUM POLYSTYRENE SULFONATE 15 GM/60 ML BOTTLE PO ONE (06:15)
[2021-08-09] MEDS: HEPARIN SOD,PORK IN 0.45% NACL 25,000 UNIT in 0.45% NACL 1 250ML.BAG IV SCH (07:25)
[2021-08-09 07:41] LABS: Basophils # (A) 0.1 k/uL (0-0.2); Basophils % (A) 0 %; Eosinophils # (A) 0.2 k/uL (0-0.7); Eosinophils % (A) 1 %; HCT 47.4 % (39.0-53.0); HGB 14.9 gm/dL (13.0-17.5); Lymphocytes # (A) 1.9 k/uL (1.0-4.8); Lymphocytes % (A) 15 %; MCH 28.2 pg (25.0-35.0); MCHC 31.3 g/dL (31.0-37.0); MCV 90.2 fL (80.0-100.0); Mean Platelet Volume 7.4; Monocytes # (A) 0.6 k/uL (0-1.0); Monocytes % (A) 4 %; Neutrophils % (A) 79 %; Platelet Count 230 k/uL (150-450); RBC 5.26 m/uL (4.30-5.90); RDW 14.9 % (11.5-15.5); WBC 12.8 k/uL (3.8-10.6)
[2021-08-09] MEDS ORDERED: ASPIRIN 325 MG TAB PO SCH (09:00)
[2021-08-09] MEDS ORDERED: ONDANSETRON 4 MG/2 ML VIAL IVP PRN (09:20)
[2021-08-09 10:43] LABS: Chol/HDL Ratio 3.24 Ratio; HDL Cholesterol 36.7 mg/dL (40.00-60.00); LDL Cholesterol,Calculated 59.5 mg/dL (0.0-131.0); VLDL Calculation 22.8 mg/dL (5.00-40.00)
[2021-08-09] MEDS: SOTALOL 80 MG TAB PO SCH ×2 (11:05→21:36)
[2021-08-09] MEDS ORDERED: LOSARTAN 50 MG TAB PO SCH (12:00)
--- NOTE | 2021-08-09 14:10 | P.PN ---
Subjective HISTORY OF PRESENTING ILLNESS This is a pleasant 61-year-old with past medical history significant for recurrent episodes of ventricular tachycardia as well as coronary artery disease. He has had extensive workup by electrophysiology and has been having frequent episodes of VT were asymptomatic with chest pain over last 3-4 months. He underwent workup including prior attempted VT ablation however unable to ablate with possible more epicardial source. Patient also underwent MRI with more septal apical area of likely source. He had not done well on sotalol or amiodarone in the past and has been on mexiletine 200 mg 3 times a day. Patient states he has noticed increased episodes of chest pain and pressure since yesterday. He was found to have mildly elevated creatinine above his baseline of 1.3 and found to be in frequent runs of ventricular tachycardia with predominantly 1 normal beat and then a 5-15 beat run of nonsustained VT. His blood pressures systolic have been mainly in the 80s to 90s however this appears to be radiating the episodes of ventricular tachycardia. 08/09 Patient seen and examined. Patient having continued episodes of 5-28 beats of nonsustained VT with 1 intermittent normal sinus rhythm beat. Predominantly however he is being atrial paced. He was switched from his home mexiletine and added in addition to the mexiletine sotalol. No significant QT prolongation today. He was noted to be hyperkalemic which may be related to his mild acute kidney injury and also starting the losartan again. Due to blood pressures been borderline we will stop the losartan. Currently over last 2-3 hours however he has been much better with atrial pacing and denies any chest pain or pressure. His blood pressures when he is not having runs of VT are predominantly in the 100/80. PHYSICAL EXAMINATION Vital signs reviewed. CONSTITUTIONAL: No apparent distress. HEENT: Head is normocephalic. Pupils are equal, round. Sclerae anicteric. Mucous membranes of the mouth are moist. No JVD. No carotid bruit. CHEST EXAMINATION: Lungs are clear to auscultation. No chest wall tenderness is noted on palpation or with deep breathing. HEART EXAMINATION: Regular rate and rhythm. S1, S2 heard. No murmurs, gallops or rub. ABDOMEN: Soft, nontender. Positive bowel sounds. EXTREMITIES: 2+ peripheral pulses, no lower extremity edema and no calf tenderness. NEUROLOGIC EXAMINATION: Patient is awake, alert and oriented x3. ASSESSMENT 1. 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 Coronary artery disease by prior heart catheterization 3. Hypertension 4. Hyperlipidemia 5. Mildly increased creatinine 6. Mildly elevated liver enzymes 7. Status post AICD PLAN Patient has had recurrent episodes of monomorphic VT with numerous interventions tried over last 2-3 months. He has failed ablation previously, failed sotalol, did not do well with amiodarone. She is status post AICD. Discussed with electrophysiology yesterday and we continued his mexiletine and added sotalol 80 mg twice a day. Currently over last 2-3 hours his VT has dramatically improved. Would not be surprised if VT recurs however we will continue with current therapy. Check 2-D echo. Monitor potassium closely. Stop losartan given hyperkalemia as well as borderline bradycardia. Continue metoprolol with hold parameters. We will have AICD interrogated and may consider increasing atrial pacing rate to increase his intrinsic rate to decrease refractory period. Ablation was scheduled for 2 weeks from now however we will monitor response of medical therapy closely. Symptoms do not appear consistent with acute coronary syndrome as the chest pain is only occurring when he has recurrent runs of VT. Stop heparin drip. Objective - Vital Signs Vital signs: Vital Signs Temp 98.7 F 08/09/21 12:00 Pulse 105 H 08/09/21 12:00 Resp 25 H 08/09/21 12:00 BP 106/84 08/09/21 12:00 Pulse Ox 93 L 08/09/21 12:00 Intake & Output 08/08/21 08/09/21 08/09/21 19:59 06:59 18:59 Intake Total 109.333 Output Total 500 Balance -390.667 Intake: Intake, IV Titration 109.333 Amount Heparin Sod,Pork in 0.45% 109.333 NaCl 25,000 unit In 0.45 % NaCl 1 250ml.bag @ 8. 479 UNITS/KG/HR 10 mls/hr IV .Q24H [facility] Rx#: [id number] Output: Urine 500 - Labs CBC & Chem 7: 08/09/21 07:21 08/09/21 11:28 Labs: Abnormal Lab Results - Last 24 Hours (Table) 08/08/21 08/08/21 08/09/21 Range/Units 15:35 21:59 01:35 EST WBC (3.8-10.6) k/uL Neutrophils # (1.3-7.7) k/uL APTT 36.8 H (22.0-30.0) sec Sodium (137-145) mmol/L Potassium (3.5-5.1) mmol/L Chloride (98-107) mmol/L Carbon Dioxide (22-30) mmol/L BUN (9-20) mg/dL Creatinine (0.66-1.25) mg/dL Glucose (74-99) mg/dL POC Glucose (mg/dL) (75-99) mg/dL Phosphorus (2.5-4.5) mg/dL AST (17-59) U/L ALT (4-49) U/L Troponin I 6.700 H* 12.400 H* (0.000-0.034) ng/mL Total Protein (6.3-8.2) g/dL Albumin (3.5-5.0) g/dL HDL Cholesterol (40.00-60.00) mg/dL 08/09/21 08/09/21 08/09/21 Range/Units 02:09 02:09 03:41 WBC 13.8 H (3.8-10.6) k/uL Neutrophils # (1.3-7.7) k/uL APTT (22.0-30.0) sec Sodium 136 L (137-145) mmol/L Potassium 6.3 H* 7.3 H* (3.5-5.1) mmol/L Chloride (98-107) mmol/L Carbon Dioxide 21 L (22-30) mmol/L BUN 23 H (9-20) mg/dL Creatinine (0.66-1.25) mg/dL Glucose 107 H (74-99) mg/dL POC Glucose (mg/dL) (75-99) mg/dL Phosphorus 4.8 H (2.5-4.5) mg/dL AST 103 H (17-59) U/L ALT 73 H (4-49) U/L Troponin I (0.000-0.034) ng/mL Total Protein (6.3-8.2) g/dL Albumin (3.5-5.0) g/dL HDL Cholesterol (40.00-60.00) mg/dL 08/09/21 08/09/21 08/09/21 Range/Units 04:18 04:18 04:18 WBC (3.8-10.6) k/uL Neutrophils # (1.3-7.7) k/uL APTT 53.2 H (22.0-30.0) sec Sodium 135 L (137-145) mmol/L Potassium 6.1 H* (3.5-5.1) mmol/L Chloride 108 H (98-107) mmol/L Carbon Dioxide (22-30) mmol/L BUN 24 H (9-20) mg/dL Creatinine 1.33 H (0.66-1.25) mg/dL Glucose 117 H (74-99) mg/dL POC Glucose (mg/dL) (75-99) mg/dL Phosphorus (2.5-4.5) mg/dL AST 67 H (17-59) U/L ALT 64 H (4-49) U/L Troponin I 10.100 H* (0.000-0.034) ng/mL Total Protein 5.9 L (6.3-8.2) g/dL Albumin 3.2 L (3.5-5.0) g/dL HDL Cholesterol 36.70 L (40.00-60.00) mg/dL 08/09/21 08/09/21 08/09/21 Range/Units 05:52 07:21 11:28 WBC 12.8 H (3.8-10.6) k/uL Neutrophils # 10.0 H (1.3-7.7) k/uL APTT (22.0-30.0) sec Sodium (137-145) mmol/L Potassium (3.5-5.1) mmol/L Chloride (98-107) mmol/L Carbon Dioxide (22-30) mmol/L BUN (9-20) mg/dL Creatinine (0.66-1.25) mg/dL Glucose (74-99) mg/dL POC Glucose (mg/dL) 100 H (75-99) mg/dL Phosphorus (2.5-4.5) mg/dL AST (17-59) U/L ALT (4-49) U/L Troponin I 8.030 H* (0.000-0.034) ng/mL Total Protein (6.3-8.2) g/dL Albumin (3.5-5.0) g/dL HDL Cholesterol (40.00-60.00) mg/dL
[2021-08-09] MEDS: ASPIRIN 81 MG PO SCH (14:12)
[2021-08-09] MEDS: MAGNESIUM OXIDE 400 MG TAB PO SCH (14:12)
[2021-08-09] MEDS: PANTOPRAZOLE 40 MG TABLET PO SCH ×2 (14:12→21:36)
[2021-08-09] MEDS: PRASUGREL 10 MG TAB PO SCH (14:12)
[2021-08-09] MEDS: METOPROLOL SUCCINATE (ER) 50 MG TAB.ER.24H PO SCH (14:13)
[2021-08-09] MEDS: NOREPINEPHRINE 4 MG in SODIUM CHLORIDE 0.9% 250 ML IV SCH (14:41)
[2021-08-09] MEDS ORDERED: guaiFENesin SYRUP 100MG/5ML 200 MG/10 ML CUP PO PRN (18:29)
[2021-08-09] MEDS: ATORVASTATIN 80 MG TAB PO SCH (21:36)
--- NOTE | 2021-08-09 22:31 | P.PN ---
Subjective Progress Note Date: 08/09/21 Principal diagnosis: V tach Mr. Kramer is a 61-year-old male with a past medical history of hypertension, recurrent episodes of ventricular tachycardia, coronary artery disease coming to the hospital with a chief complaint of chest pain and palpitations. Patient states that he started to have chest pain again, he waited for few hours thinking that it would resolve but he did not get any relief and came into the emergency department. Patient follows up on a regular basis with cardiology associates. Patient recently had extensive work-up by electrophysiological studies Dr. Gibson. He underwent work-up including prior attempted VT ablation however unable to ablate with possibly more AP cardiac source. Patient also underwent MRI with more septal apical area of likely source. Currently the patient is in the emergency department showing 5-15 beat run of nonsustained V. tach. Patient's vitals currently stable with blood pressure around 112 x 73 respiratory rate 18 and saturations at 98% on room air. His labs reviewed stable with white count of 8.7, hemoglobin 15.9, platelets 289. Sodium 139, potassium 5.1, chloride 104, bicarb 23, BUN 21, creatinine 1.31. Troponin of 0.187, 1.610, 6.700. Patient continues to be on a heparin drip, received aspirin. He is on Mexitil, metoprolol and sotalol. On 08/09/2021 -last night patient was having recurrent episodes of V. tach, so he has been transferred to the ICU. Patient's troponins have been trending up and his potassium has been high. He is currently lying in bed in the ICU states that he was very tired and feeling sleepy. Patient denied having any difficulty breathing. He still can feel his palpitations. He denied having any dizziness. Patient denied any fevers chills or rigors. On reviewing the vitals temperature of 98.7, heart rate between 120s to 140s, respiratory rate 25, blood pressure 106 x 84 saturating at 96% on room air. On reviewing his labs white c ount of 12.8, hemoglobin 14.9, platelets 230. His sodium 135, potassium 6.1, chloride 108, bicarb 22, BUN 24, creatinine 1.33 Active Medications Aspirin (Aspirin 81 Mg) 81 mg PO DAILY [facility] Last Admin: 08/09/21 14:12 Dose: 81 mg Documented by: Atorvastatin Calcium (Atorvastatin 80 Mg Tab) 80 mg PO HS [facility] Last Admin: 08/09/21 21:36 Dose: 80 mg Documented by: Guaifenesin (Guaifenesin Syrup 100mg/5ml 200 Mg/10 Ml Cup) 200 mg PO TID PRN PRN Reason: Cough Heparin Sodium (Porcine) (Heparin Sodium 1,000 Un/Ml (10ml Vl)) 0 unit IV Q6HR PRN; Protocol PRN Reason: Low PTT Last Admin: 08/08/21 23:10 Dose: 2,947.5 unit Documented by: Norepinephrine Bitartrate 4 mg (/ Sodium Chloride) 254 mls @ 22.466 mls/hr IV .[id number] [facility]; Protocol Last Admin: 08/09/21 14:41 Dose: Not Given Documented by: Magnesium Oxide (Magnesium Oxide 400 Mg Tab) 400 mg PO DAILY [facility] Last Admin: 08/09/21 14:12 Dose: 400 mg Documented by: Metoprolol Succinate (Metoprolol Succinate (Er) 50 Mg Tab.Er.24h) 50 mg PO DAILY [facility] Last Admin: 08/09/21 14:13 Dose: Not Given Documented by: Mexiletine HCl (Mexiletine 200 Mg Cap) 200 mg PO Q8HR [facility] Last Admin: 08/09/21 17:27 Dose: 200 mg Documented by: Nitroglycerin (Nitroglycerin Sl Tabs 0.4 Mg Tab) 0.4 mg SUBLINGUAL Q5M PRN PRN Reason: Chest Pain Ondansetron HCl (Ondansetron 4 Mg/2 Ml Vial) 4 mg IVP Q6HR PRN PRN Reason: Nausea And Vomiting Last Admin: 08/09/21 09:42 Dose: 4 mg Documented by: Pantoprazole Sodium (Pantoprazole 40 Mg Tablet) 40 mg PO BID [facility] Last Admin: 08/09/21 21:36 Dose: 40 mg Documented by: Prasugrel (Prasugrel 10 Mg Tab) 10 mg PO DAILY [facility] Last Admin: 08/09/21 14:12 Dose: 10 mg Documented by: Sotalol HCl (Sotalol 80 Mg Tab) 80 mg PO BID [facility] Last Admin: 08/09/21 21:36 Dose: 80 mg Documented by: Objective - Vital Signs Vital signs: Vital Signs Temp 97.9 F 08/09/21 08:00 Pulse 104 H 08/09/21 10:00 Resp 21 08/09/21 10:00 BP 97/56 08/09/21 10:00 Pulse Ox 95 08/09/21 10:00 Intake & Output 08/08/21 08/09/21 08/09/21 19:59 06:59 18:59 Intake Total 109.333 Output Total 0 Balance 109.333 Intake: Intake, IV Titration 109.333 Amount Heparin Sod,Pork in 0.45% 109.333 NaCl 25,000 unit In 0.45 % NaCl 1 250ml.bag @ 8. 479 UNITS/KG/HR 10 mls/hr IV .Q24H [facility] Rx#: [id number] Output: Urine 0 - Exam PHYSICAL EXAMINATION: GENERAL: The patient is alert and oriented x3, not in any acute distress. HEENT: Pupils are round and equally reacting to light. EOMI. No scleral icterus. No conjunctival pallor. Normocephalic, atraumatic. No pharyngeal erythema. No th yromegaly. CARDIOVASCULAR: irregularly irregular PULMONARY: Bilateral rhonchi fairly good air entry into lung fleming ABDOMEN: Soft, nontender, nondistended, normoactive bowel sounds. No palpable organomegaly. MUSCULOSKELETAL: No joint swelling or deformity. EXTREMITIES: No cyanosis, clubbing, or pedal edema. NEUROLOGICAL: Gross neurological examination did not reveal any focal deficits. SKIN: No rashes. - Labs CBC & Chem 7: 08/09/21 07:21 08/09/21 11:28 Labs: Abnormal Lab Results - Last 24 Hours (Table) 08/08/21 08/08/21 08/08/21 Range/Units 11:32 15:35 21:59 WBC (3.8-10.6) k/uL Neutrophils # (1.3-7.7) k/uL APTT 36.8 H (22.0-30.0) sec Sodium (137-145) mmol/L Potassium (3.5-5.1) mmol/L Chloride (98-107) mmol/L Carbon Dioxide (22-30) mmol/L BUN (9-20) mg/dL Creatinine (0.66-1.25) mg/dL Glucose (74-99) mg/dL POC Glucose (mg/dL) (75-99) mg/dL Phosphorus (2.5-4.5) mg/dL AST (17-59) U/L ALT (4-49) U/L Troponin I 1.610 H* 6.700 H* (0.000-0.034) ng/mL Total Protein (6.3-8.2) g/dL Albumin (3.5-5.0) g/dL HDL Cholesterol (40.00-60.00) mg/dL 08/09/21 08/09/21 08/09/21 Range/Units 01:35 EST 02:09 02:09 WBC 13.8 H (3.8-10.6) k/uL Neutrophils # (1.3-7.7) k/uL APTT (22.0-30.0) sec Sodium 136 L (137-145) mmol/L Potassium 6.3 H* (3.5-5.1) mmol/L Chloride (98-107) mmol/L Carbon Dioxide 21 L (22-30) mmol/L BUN 23 H (9-20) mg/dL Creatinine (0.66-1.25) mg/dL Glucose 107 H (74-99) mg/dL POC Glucose (mg/dL) (75-99) mg/dL Phosphorus 4.8 H (2.5-4.5) mg/dL AST 103 H (17-59) U/L ALT 73 H (4-49) U/L Troponin I 12.400 H* (0.000-0.034) ng/mL Total Protein (6.3-8.2) g/dL Albumin (3.5-5.0) g/dL HDL Cholesterol (40.00-60.00) mg/dL 08/09/21 08/09/21 08/09/21 Range/Units 03:41 04:18 04:18 WBC (3.8-10.6) k/uL Neutrophils # (1.3-7.7) k/uL APTT 53.2 H (22.0-30.0) sec Sodium 135 L (137-145) mmol/L Potassium 7.3 H* 6.1 H* (3.5-5.1) mmol/L Chloride 108 H (98-107) mmol/L Carbon Dioxide (22-30) mmol/L BUN 24 H (9-20) mg/dL Creatinine 1.33 H (0.66-1.25) mg/dL Glucose 117 H (74-99) mg/dL POC Glucose (mg/dL) (75-99) mg/dL Phosphorus (2.5-4.5) mg/dL AST 67 H (17-59) U/L ALT 64 H (4-49) U/L Troponin I (0.000-0.034) ng/mL Total Protein 5.9 L (6.3-8.2) g/dL Albumin 3.2 L (3.5-5.0) g/dL HDL Cholesterol 36.70 L (40.00-60.00) mg/dL 08/09/21 08/09/21 08/09/21 Range/Units 04:18 05:52 07:21 WBC 12.8 H (3.8-10.6) k/uL Neutrophils # 10.0 H (1.3-7.7) k/uL APTT (22.0-30.0) sec Sodium (137-145) mmol/L Potassium (3.5-5.1) mmol/L Chloride (98-107) mmol/L Carbon Dioxide (22-30) mmol/L BUN (9-20) mg/dL Creatinine (0.66-1.25) mg/dL Glucose (74-99) mg/dL POC Glucose (mg/dL) 100 H (75-99) mg/dL Phosphorus (2.5-4.5) mg/dL AST (17-59) U/L ALT (4-49) U/L Troponin I 10.100 H* (0.000-0.034) ng/mL Total Protein (6.3-8.2) g/dL Albumin (3.5-5.0) g/dL HDL Cholesterol (40.00-60.00) mg/dL Assessment and Plan Assessment: ASSESSMENT Recurrent monomorphic ventricular tachycardia Coronary artery disease Status post AICD Hypertension Hyperlipidemia Elevated troponins Acute kidney injury Mild transaminitis PLAN: Patient has recurrent runs of V. tach, with extensive work-up done by cardiology in the past. He is status post AICD. Patient just converted into sinus rhythm. He is being continued on antiarrhythmics as per cardiology recommendations. Overall prognosis remains guarded. Continue with the current medication regimen and further recommendations depending on the progress of the patient.
[2021-08-10] MEDS: NOREPINEPHRINE 4 MG in SODIUM CHLORIDE 0.9% 250 ML IV SCH ×2 (02:19→14:13)
[2021-08-10] MEDS: MEXILETINE 200 MG CAP PO SCH ×4 (02:23→23:45)
[2021-08-10 05:30] LABS: African American GFR (CKD) >90 (>60 ml/min/1.73 sqM); Anion Gap 5 mmol/L; Blood Urea Nitrogen 19 mg/dL (9-20); Calcium 8.2 mg/dL (8.4-10.2); Carbon Dioxide 27 mmol/L (22-30); Chloride 103 mmol/L (98-107); Glucose 88 mg/dL (74-99); Non-African American GFR(CKD) >90 (>60 ml/min/1.73 sqM); Potassium 3.9 mmol/L (3.5-5.1); Sodium 135 mmol/L (137-145)
[2021-08-10 05:36] LABS: HCT 38.4 % (39.0-53.0); HGB 12.8 gm/dL (13.0-17.5); MCH 29.1 pg (25.0-35.0); MCHC 33.4 g/dL (31.0-37.0); MCV 87.3 fL (80.0-100.0); Mean Platelet Volume 7.5; Platelet Count 159 k/uL (150-450); RBC 4.39 m/uL (4.30-5.90); RDW 15.2 % (11.5-15.5); WBC 5.3 k/uL (3.8-10.6)
[2021-08-10] MEDS ORDERED: SODIUM CHLORIDE 0.65% NASAL SPRAY 44 ML BTL NASAL PRN (09:05)
[2021-08-10] MEDS: ASPIRIN 81 MG PO SCH (09:11)
[2021-08-10] MEDS: SOTALOL 80 MG TAB PO SCH ×2 (09:11→21:05)
[2021-08-10] MEDS: MAGNESIUM OXIDE 400 MG TAB PO SCH (09:11)
[2021-08-10] MEDS: PANTOPRAZOLE 40 MG TABLET PO SCH ×2 (09:11→21:05)
[2021-08-10] MEDS: METOPROLOL SUCCINATE (ER) 50 MG TAB.ER.24H PO SCH (09:11)
[2021-08-10] MEDS: PRASUGREL 10 MG TAB PO SCH (09:11)
--- NOTE | 2021-08-10 15:40 | P.PN ---
Subjective Progress Note Date: 08/10/21 This is a 61-year-old gentleman admitted with recurrent V. tach, failed sotalol in the past, CAD with prior heart catheterization, diagnostic EP study, VT ablation, recent defibrillator placement. AICD interrogated, pacer adjusted. Elevated Troponins. Heparin drip discontinued as per cardiology, as they do not feel symptoms consistent with acute coronary syndrome, secondary to chest pain reported occurring only with runs of V. tach. Patient reports he is scheduled for ablation, one week from today. Maintained on Mexitil and sotalol. Systolic blood pressures in the 90s. Echo pending. Potassium down to 3.9,Creatinine improving down to 0.9. Denies chest pain, palpitations or shortness of breath at this time. Objective - Vital Signs Vital signs: Vital Signs Temp 98.0 F 08/10/21 12:00 Pulse 80 08/10/21 15:00 Resp 22 08/10/21 15:00 BP 111/69 08/10/21 15:00 Pulse Ox 93 L 08/10/21 15:00 Intake & Output 08/09/21 08/10/21 08/10/21 18:59 06:59 18:59 Intake Total 759.333 Output Total 1450 1400 350 Balance -690.667 -1400 -350 Weight 119.4 kg Intake: Intake, IV Titration 109.333 Amount Heparin Sod,Pork in 0.45% 109.333 NaCl 25,000 unit In 0.45 % NaCl 1 250ml.bag @ 8. 479 UNITS/KG/HR 10 mls/hr IV .Q24H [facility] Rx#: [id number] Oral 650 Output: Urine 1450 1400 350 Other: Voiding Method Urinal Urinal # Voids 1 # Bowel Movements 1 - Exam - Exam PHYSICAL EXAMINATION: GENERAL: The patient is alert and oriented x3, not in any acute distress. HEENT: Pupils are round and equally reacting to light. EOMI. No scleral icterus. No conjunctival pallor. Normocephalic, atraumatic. CARDIOVASCULAR: irregularly irregular PULMONARY: Bilateral rhonchi fairly good air entry into lung fleming ABDOMEN: Soft, nontender, nondistended, normoactive bowel sounds. No palpable organomegaly. MUSCULOSKELETAL: No joint swelling or deformity. EXTREMITIES: No cyanosis, clubbing, or pedal edema. NEUROLOGICAL: Gross neurological examination did not reveal any focal deficits. SKIN: No rashes. - Labs CBC & Chem 7: 08/10/21 04:33 08/10/21 04:33 Labs: Abnormal Lab Results - Last 24 Hours (Table) 08/10/21 08/10/21 Range/Units 04:33 04:33 Hgb 12.8 L (13.0-17.5) gm/dL Hct 38.4 L (39.0-53.0) % Sodium 135 L (137-145) mmol/L Calcium 8.2 L (8.4-10.2) mg/dL Assessment and Plan Assessment: Recurrent monomorphic ventricular tachycardia Coronary artery disease Status post AICD Hypertension Hyperlipidemia Elevated troponins Acute kidney injury Hyperkalemia, improved Mild transaminitis Former nicotine dependence Morbid obesity, BMI 40 Plan: Continue on current medication regime ,monitoring and symptomatic treatment. Antiarrhythmics as per cardiology. Further recommendations as per cardiology pending. The impression and plan of care has been dictated as directed. : I performed a history and examination of this patient, discussed the same with the dictator. I agree with the dictator's note ,documented as a scribe. Any additional findings or plans will be noted.
--- NOTE | 2021-08-10 16:26 | P.PN ---
Subjective Progress Note Date: 08/10/21 This is a 61-year-old gentleman who was admitted to the hospital with a recurrent episodes of nonsustained V. tach. Patient was on Mexitil. He was on also put on sotalol and his atrial rate of pacing was increased to 80. Patient seemed to be doing well. Mostly in atrial paced rhythm at a rate of 80. No sustained or nonsustained V. tach noted. Patient is feeling better. He is being moved to telemetry unit. He is scheduled to have ablation for atrial fibrillation. He has had attempted ablation the past. Is wondering if the data for ablation could be preformed. We'll need to discuss with regarding this matter. Meanwhile patient seemed clinically stable. He'll be transferred upstairs to stepdown unit and will increase activity as tolerated Objective - Vital Signs Vital signs: Vital Signs Temp 98.0 F 08/10/21 12:00 Pulse 80 08/10/21 15:00 Resp 22 08/10/21 15:00 BP 111/69 08/10/21 15:00 Pulse Ox 93 L 08/10/21 15:00 Intake & Output 08/09/21 08/10/21 08/10/21 18:59 06:59 18:59 Intake Total 759.333 Output Total 1450 1400 350 Balance -690.667 -1400 -350 Weight 119.4 kg Intake: Intake, IV Titration 109.333 Amount Heparin Sod,Pork in 0.45% 109.333 NaCl 25,000 unit In 0.45 % NaCl 1 250ml.bag @ 8. 479 UNITS/KG/HR 10 mls/hr IV .Q24H [facility] Rx#: [id number] Oral 650 Output: Urine 1450 1400 350 Other: Voiding Method Urinal Urinal # Voids 1 # Bowel Movements 1 - Exam GENERAL EXAM: Patient is alert and oriented and doesn't appear to be in any acute distress HEENT: Normocephalic. Normal reaction of pupils, equal size, normal range of e xtraocular motion. No erythema or exudates in the throat. NECK: No masses, no nuchal rigidity. CHEST: No chest wall deformity. LUNGS: Equal air entry with no crackles or wheeze. HEART: S1 and S2 normal with no audible mumurs or gallops. Regular rhythm, femorals equal on both sides.. ABDOMEN: No hepatosplenomegaly, normal bowel sounds, no guarding or rigidity. SKIN: No rashes CENTRAL NERVOUS SYSTEM: No focal deficits. EXTREMITIES: No cyanosis, clubbing or edema. - Labs CBC & Chem 7: 08/10/21 04:33 08/10/21 04:33 Labs: Abnormal Lab Results - Last 24 Hours (Table) 08/10/21 08/10/21 Range/Units 04:33 04:33 Hgb 12.8 L (13.0-17.5) gm/dL Hct 38.4 L (39.0-53.0) % Sodium 135 L (137-145) mmol/L Calcium 8.2 L (8.4-10.2) mg/dL Assessment and Plan (1) Elevated troponin Current Visit: Yes Status: Acute Code(s): R77.8 - OTHER SPECIFIED ABNORMALITIES OF PLASMA PROTEINS SNOMED Code(s): 761499948 (2) Ventricular tachycardia Current Visit: Yes Status: Acute Code(s): I47.2 - VENTRICULAR TACHYCARDIA SNOMED Code(s): 63968289 (3) Chest pain Current Visit: No Status: Acute Code(s): R07.9 - CHEST PAIN, UNSPECIFIED SNOMED Code(s): 15613999 Plan: Patient is critically stable. His ventricular arrhythmias are controlled. Being transferred to telemetry. Increase activity. Will discuss with the assistant professor of anthropology regarding further management.
[2021-08-10] MEDS: ATORVASTATIN 80 MG TAB PO SCH (21:05)
[2021-08-11 06:17] LABS: Basophils % (A) 1 %; Eosinophils # (A) 0.1 k/uL (0-0.7); Eosinophils % (A) 2 %; HCT 39.4 % (39.0-53.0); HGB 13.1 gm/dL (13.0-17.5); Lymphocytes # (A) 1.2 k/uL (1.0-4.8); Lymphocytes % (A) 31 %; MCHC 33.4 g/dL (31.0-37.0); MCV 86.9 fL (80.0-100.0); Mean Platelet Volume 7.2; Monocytes # (A) 0.3 k/uL (0-1.0); Monocytes % (A) 7 %; Neutrophils # (A) 2.2 k/uL (1.3-7.7); Neutrophils % (A) 58 %; Platelet Count 165 k/uL (150-450); RBC 4.53 m/uL (4.30-5.90); RDW 15.2 % (11.5-15.5); WBC 3.9 k/uL (3.8-10.6)
[2021-08-11 06:38] LABS: African American GFR (CKD) >90 (>60 ml/min/1.73 sqM); Anion Gap 5 mmol/L; Blood Urea Nitrogen 18 mg/dL (9-20); Calcium 8.6 mg/dL (8.4-10.2); Carbon Dioxide 27 mmol/L (22-30); Chloride 106 mmol/L (98-107); Glucose 91 mg/dL (74-99); Non-African American GFR(CKD) 86 (>60 ml/min/1.73 sqM); Potassium 3.9 mmol/L (3.5-5.1); Sodium 138 mmol/L (137-145)
[2021-08-11] MEDS: SOTALOL 80 MG TAB PO SCH (09:17)
[2021-08-11] MEDS: METOPROLOL SUCCINATE (ER) 50 MG TAB.ER.24H PO SCH (09:17)
[2021-08-11] MEDS: PRASUGREL 10 MG TAB PO SCH (09:17)
[2021-08-11] MEDS: MAGNESIUM OXIDE 400 MG TAB PO SCH (09:17)
[2021-08-11] MEDS: PANTOPRAZOLE 40 MG TABLET PO SCH ×2 (09:17→20:39)
[2021-08-11] MEDS: ASPIRIN 81 MG PO SCH (09:17)
[2021-08-11] MEDS: MEXILETINE 200 MG CAP PO SCH (09:17)
--- NOTE | 2021-08-11 10:45 | P.PN ---
Subjective Progress Note Date: 08/11/21 This is a 61-year-old gentleman admitted with recurrent V. tach, failed sotalol in the past, CAD with prior heart catheterization, diagnostic EP study, VT ablation, recent defibrillator placement. AICD interrogated, pacer adjusted. Elevated Troponins. Heparin drip discontinued as per cardiology, as they do not feel symptoms consistent with acute coronary syndrome, secondary to chest pain reported occurring only with runs of V. tach. Patient reports he is scheduled for ablation, one week from today. Maintained on Mexitil and sotalol. Systolic blood pressures in the 90s. Echo pending. Potassium down to 3.9,Creatinine improving down to 0.9. Denies chest pain, palpitations or shortness of breath at this time. 08/11/21 telemetry reporting atrial paced with no further arrhythmias reported. Patient asking about ablation being performed sooner. Further recommendations per cardiology/electrophysiology is pending. Denies chest pain, palpitations or increased shortness of breath. Currently maintaining high 90s O2 sat on 2 L nasal cannula. Objective - Vital Signs Vital signs: Vital Signs Temp 98.3 F 08/11/21 08:00 Pulse 80 08/11/21 08:00 Resp 13 08/11/21 08:00 BP 142/92 08/11/21 08:00 Pulse Ox 98 08/11/21 08:00 Intake & Output 08/10/21 08/11/21 08/11/21 18:59 06:59 18:59 Output Total 350 875 320 Balance -350 -875 -320 Weight 118.8 kg Output: Urine 350 875 320 Other: Voiding Method Toilet Toilet Urinal Urinal # Voids 1 0 # Bowel Movements 1 - Exam - Exam PHYSICAL EXAMINATION: GENERAL: The patient is alert and oriented x3, no acute distress. HEENT: Pupils are round and equally reacting to light. EOMI. No scleral icterus. No conjunctival pallor. Normocephalic, atraumatic. CARDIOVASCULAR: irregularly irregular. PULMONARY: Bilateral rhonchi, good air entry into lung fleming, bilateral bases diminished ABDOMEN: Soft, nontender, nondistended, normoactive bowel sounds. No palpable organomegaly. MUSCULOSKELETAL: No joint swelling or deformity. EXTREMITIES: No cyanosis, clubbing, or pedal edema. NEUROLOGICAL: Gross neurological examination did not reveal any focal deficits. SKIN: No rashes. - Labs CBC & Chem 7: 08/11/21 05:07 08/11/21 05:07 Assessment and Plan Assessment: Recurrent monomorphic ventricular tachycardia Coronary artery disease Status post AICD Hypertension Hyperlipidemia Elevated troponins Acute kidney injury Hyperkalemia, improved Mild transaminitis Former nicotine dependence Morbid obesity, BMI 40 Plan: Continue on current medication regime ,monitoring and symptomatic treatment. Antiarrhythmics as per cardiology. Further recommendations as per cardiology/supervisor contact and service clerks pending. The impression and plan of care has been dictated as directed. : I performed a history and examination of this patient, discussed the same with the dictator. I agree with the dictator's note ,documented as a scribe. Any additional findings or plans will be noted.
--- NOTE | 2021-08-11 14:16 | P.PN ---
Subjective Progress Note Date: 08/11/21 This is a 61-year-old gentleman who was admitted to the hospital with a recurrent episodes of nonsustained V. tach. Patient was on Mexitil. He was on also put on sotalol and his atrial rate of pacing was increased to 80. Patient seemed to be doing well. Mostly in atrial paced rhythm at a rate of 80. No sustained or nonsustained V. tach noted. Patient is feeling better. He is being moved to telemetry unit. He is scheduled to have ablation for atrial fibrillation. He has had attempted ablation the past. Is wondering if the data for ablation could be preformed. We'll need to discuss with regarding this matter. Meanwhile patient seemed clinically stable. He'll be transferred upstairs to stepdown unit and will increase activity as tolerated. 06/13/2021: This patient remained relatively stable. He did get episodes of nonsustained V. tach when he tried to walk to bathroom last night. When patient is resting his heart seemed to be in atrial pacemaker rhythm. Denies any chest pain or shortness of breath. Discussed with the Dr. Gilmore. He is planning to do an ablation later this week. Meanwhile we'll continue current management. Patient could be transferred to telemetry unit Objective - Vital Signs Vital signs: Vital Signs Temp 98.3 F 08/11/21 08:00 Pulse 80 08/11/21 12:00 Resp 24 08/11/21 12:00 BP 134/87 08/11/21 12:00 Pulse Ox 97 08/11/21 12:00 Intake & Output 08/10/21 08/11/21 08/11/21 18:59 06:59 18:59 Output Total 350 875 640 Balance -350 -875 -640 Weight 118.8 kg Output: Urine 350 875 640 Other: Voiding Method Toilet Toilet Urinal Urinal Urinal # Voids 1 0 # Bowel Movements 1 - Exam GENERAL EXAM: Patient is alert and oriented and doesn't appear to be in any acute distress HEENT: Normocephalic. Normal reaction of pupils, equal size, normal range of extraocular motion. No erythema or exudates in the throat. NECK: No masses, no nuchal rigidity. CHEST: No chest wall deformity. LUNGS: Equal air entry with no crackles or wheeze. HEART: S1 and S2 normal with no audible mumurs or gallops. Regular rhythm, femorals equal on both sides.. ABDOMEN: No hepatosplenomegaly, normal bowel sounds, no guarding or rigidity. SKIN: No rashes CENTRAL NERVOUS SYSTEM: No focal deficits. EXTREMITIES: No cyanosis, clubbing or edema. - Labs CBC & Chem 7: 08/11/21 05:07 08/11/21 05:07 Assessment and Plan (1) Elevated troponin Current Visit: Yes Status: Acute Code(s): R77.8 - OTHER SPECIFIED ABNORMALITIES OF PLASMA PROTEINS SNOMED Code(s): 500869327 (2) Ventricular tachycardia Current Visit: Yes Status: Acute Code(s): I47.2 - VENTRICULAR TACHYCARDIA SNOMED Code(s): 64351889 (3) Chest pain Current Visit: No Status: Acute Code(s): R07.9 - CHEST PAIN, UNSPECIFIED SNOMED Code(s): 74970347 Plan: Still having episodes of nonsustained V. tach with activities. Stable at rest. Possible ablation this week by Dr. Gilmore
[2021-08-11] MEDS: ATORVASTATIN 80 MG TAB PO SCH (20:39)
[2021-08-12] MEDS: PRASUGREL 10 MG TAB PO SCH (08:22)
[2021-08-12] MEDS: PANTOPRAZOLE 40 MG TABLET PO SCH ×2 (08:22→20:25)
[2021-08-12] MEDS: MAGNESIUM OXIDE 400 MG TAB PO SCH (08:22)
[2021-08-12] MEDS: METOPROLOL SUCCINATE (ER) 50 MG TAB.ER.24H PO SCH (08:22)
[2021-08-12] MEDS: ASPIRIN 81 MG PO SCH (08:22)
--- NOTE | 2021-08-12 09:17 | P.PN ---
Subjective Progress Note Date: 08/12/21 This is a 61-year-old gentleman admitted with recurrent V. tach, failed sotalol in the past, CAD with prior heart catheterization, diagnostic EP study, VT ablation, recent defibrillator placement. AICD interrogated, pacer adjusted. Elevated Troponins. Heparin drip discontinued as per cardiology, as they do not feel symptoms consistent with acute coronary syndrome, secondary to chest pain reported occurring only with runs of V. tach. Patient reports he is scheduled for ablation, one week from today. Maintained on Mexitil and sotalol. Systolic blood pressures in the 90s. Echo pending. Potassium down to 3.9,Creatinine improving down to 0.9. Denies chest pain, palpitations or shortness of breath at this time. 08/11/21 telemetry reporting atrial paced with no further arrhythmias reported. Patient asking about ablation being performed sooner. Further recommendations per cardiology/electrophysiology is pending. Denies chest pain, palpitations or increased shortness of breath. Currently maintaining high 90s O2 sat on 2 L nasal cannula. 08/12/2021 transferred out of ICU currently on telemetry unit. Medications further adjusted as per cardiology. No further arrhythmias reported per telemetry. Denies chest pain, palpitations or increasing shortness of breath. Scheduled for ablation tomorrow. Objective - Vital Signs Vital signs: Vital Signs Temp 98.3 F 08/12/21 08:00 Pulse 77 08/12/21 08:00 Resp 16 08/12/21 08:00 BP 157/107 08/12/21 08:25 Pulse Ox 96 08/12/21 08:00 Intake & Output 08/11/21 08/12/21 08/12/21 18:59 06:59 18:59 Intake Total 240 Output Total 1190 850 Balance -1190 -850 240 Weight 124.1 kg Intake: Oral 240 Output: Urine 1190 850 Other: Voiding Method Urinal Urinal # Voids 1 2 - Exam - Exam PHYSICAL EXAMINATION: GENERAL: The patient is alert and oriented x3, sitting up on bedside commode, no acute distress. HEENT: Pupils are round and equally reacting to light. EOMI. No scleral icterus. No conjunctival pallor. Normocephalic, atraumatic. CARDIOVASCULAR: S1, S2 .Regular, paced PULMONARY: Bilateral rhonchi, good air entry into lung fleming, bilateral bases diminished ABDOMEN: Soft, nontender, nondistended, normoactive bowel sounds. No palpable organomegaly. MUSCULOSKELETAL: No joint swelling or deformity. EXTREMITIES: No cyanosis, clubbing, or pedal edema. NEUROLOGICAL: Gross neurological examination did not reveal any focal deficits. SKIN: No rashes. - Labs CBC & Chem 7: 08/11/21 05:07 08/11/21 05:07 Assessment and Plan Assessment: Recurrent monomorphic ventricular tachycardia Coronary artery disease Status post AICD Hypertension Hyperlipidemia Elevated troponins Acute kidney injury Hyperkalemia, improved Mild transaminitis Former nicotine dependence Morbid obesity, BMI 40 Plan: Continue on current medication regime ,monitoring and symptomatic treatment. Antiarrhythmics as per cardiology. Ablation scheduled for tomorrow. In The impression and plan of care has been dictated as directed. : I performed a history and examination of this patient, discussed the same with the dictator. I agree with the dictator's note ,documented as a scribe. Any additional findings or plans will be noted.
[2021-08-12] MEDS ORDERED: MEXILETINE 200 MG CAP PO SCH (12:00)
[2021-08-12] MEDS ORDERED: LIDOCAINE 2% SYG (PF) 100 MG/5 ML IV ONE ×3 (12:15→12:35)
[2021-08-12] MEDS ORDERED: MORPHINE SULFATE 2 MG/ML SYRINGE ONE (12:20)
[2021-08-12 12:26] LABS: Glucose,Whole Blood 75 mg/dL (75-99)
[2021-08-12] MEDS: SOTALOL 80 MG TAB PO SCH ×2 (12:37→20:25)
[2021-08-12] MEDS: LIDOCAINE-D5W PMX 2G/250ML 2,000 MG in DEXTROSE/WATER 1 250ML.BAG IV SCH (12:39)
[2021-08-12 13:31] LABS: Glucose,Whole Blood 100 mg/dL (75-99)
--- NOTE | 2021-08-12 13:36 | P.PN ---
Subjective Progress Note Date: 08/12/21 HISTORY OF PRESENT ILLNESS: This is a pleasant 61-year-old with past medical history significant for recurrent episodes of ventricular tachycardia as well as coronary artery disease . He has had extensive workup by electrophysiology and has been having frequent episodes of VT were asymptomatic with chest pain over last 3-4 months. He underwent workup including prior attempted VT ablation however unable to ablate with possible more epicardial source. Patient also underwent MRI with more septal apical area of likely source. He had not done well on sotalol or amiodarone in the past and has been on mexiletine 200 mg 3 times a day. Patient states he has noticed increased episodes of chest pain and pressure since yesterday. He was found to have mildly elevated creatinine above his baseline of 1.3 and found to be in frequent runs of ventricular tachycardia with predominantly 1 normal beat and then a 5-15 beat run of nonsustained VT. His blood pressures systolic have been mainly in the 80s to 90s however this appears to be radiating the episodes of ventricular tachycardia. 08/09 Patient seen and examined. Patient having continued episodes of 5-28 beats of nonsustained VT with 1 intermittent normal sinus rhythm beat. Predominantly however he is being atrial paced. He was switched from his home mexiletine and added in addition to the mexiletine sotalol. No significant QT prolongation today. He was noted to be hyperkalemic which may be related to his mild acute kidney injury and also starting the losartan again. Due to blood pressures been borderline we will stop the losartan. Currently over last 2-3 hours however he has been much better with atrial pacing and denies any chest pain or pressure. His blood pressures when he is not having runs of VT are predominantly in the 100/80. 08/10 This is a 61-year-old gentleman who was admitted to the hospital with a recurrent episodes of nonsustained V. tach. Patient was on Mexitil. He was on also put on sotalol and his atrial rate of pacing was increased to 80. Patient seemed to be doing well. Mostly in atrial paced rhythm at a rate of 80. No sustained or nonsustained V. tach noted. Patient is feeling better. He is being moved to telemetry unit. He is scheduled to have ablation for atrial f ibrillation. He has had attempted ablation the past. Is wondering if the data for ablation could be preformed. We'll need to discuss with regarding this matter. Meanwhile patient seemed clinically stable. He'll be transferred upstairs to stepdown unit and will increase activity as tolerated 08/11/2021: This patient remained relatively stable. He did get episodes of nonsustained V. tach when he tried to walk to bathroom last night. When patient is resting his heart seemed to be in atrial pacemaker rhythm. Denies any chest pain or shortness of breath. Discussed with the Dr. Gilmore. He is planning to do an ablation later this week. Meanwhile we'll continue current management. Patient could be transferred to telemetry unit 08/12/2021 Patient was transferred out of the ICU to the cardiac stepdown unit. He was examined this morning at the bedside with Dr. Ward. At that time, patient was doing well. He denies SOB. Denies chest pain or pressure. Later in the afternoon, patient was somewhat unresponsive per nursing. He was in sustained VT. He was given lidocaine 100mg Lidocaine IVP x 2 doses and was started on a lidocaine infusion. Telemetry currently reveals paced rhythm. PHYSICAL EXAM: VITAL SIGNS: Reviewed. GENERAL: Well-developed in no acute distress. NECK: Supple. No JVD or thyromegaly LUNGS: Respirations even and unlabored. Lungs essentially clear to auscultation bilaterally. HEART: Regular rate and rhythm. S1 and S2 heard. EXTREMITIES: Normal range of motion. No clubbing or cyanosis. Peripheral p ulses intact. No lower extremity edema ASSESSMENT: 1. Recurrent monomorphic VT 2. Coronary artery disease by prior heart catheterization 3. Hypertension 4. Hyperlipidemia 5. Mildly increased creatinine 6. Mildly elevated liver enzymes 7. Status post AICD PLAN: Case discussed with Dr. Ward and Dr. Gilmore No IV amio as this has not worked for the patient in the past Continue IV lidocaine Resume Sotalol 80mg BID. Continue to hold mexiletine. Continue metoprolol succinate 50 mg daily Patient is scheduled for ablation tomorrow with Dr. Gilmore Patient to be transferred to ICU for closer monitoring Nurse practitioner note has been reviewed by physician. Signing provider agrees with the documented findings, assessment, and plan of care. Objective - Vital Signs Vital signs: Vital Signs Temp 98.2 F 08/12/21 12:00 Pulse 81 08/12/21 12:00 Resp 17 08/12/21 12:00 BP 164/107 08/12/21 12:00 Pulse Ox 97 08/12/21 12:00 Intake & Output 08/11/21 08/12/21 08/12/21 18:59 06:59 18:59 Intake Total 240 Output Total 1190 850 427 Balance -1190 -850 -187 Weight 124.1 kg Intake: Oral 240 Output: Urine 1190 850 425 Stool 2 Other: Voiding Method Urinal Urinal Urinal # Voids 1 2 - Labs CBC & Chem 7: 08/11/21 05:07 08/11/21 05:07
[2021-08-12] MEDS: SODIUM CHLORIDE 0.9% 1,000 ML IV SCH ×2 (13:42→16:41)
[2021-08-12 15:49] LABS: Basophils % (A) 0 %; Eosinophils # (A) 0.1 k/uL (0-0.7); Eosinophils % (A) 2 %; HCT 42.7 % (39.0-53.0); HGB 14.3 gm/dL (13.0-17.5); Lymphocytes % (A) 20 %; MCH 28.8 pg (25.0-35.0); MCHC 33.6 g/dL (31.0-37.0); MCV 85.5 fL (80.0-100.0); Mean Platelet Volume 7.3; Monocytes # (A) 0.4 k/uL (0-1.0); Monocytes % (A) 7 %; Neutrophils # (A) 3.4 k/uL (1.3-7.7); Neutrophils % (A) 68 %; Platelet Count 217 k/uL (150-450); RBC 4.99 m/uL (4.30-5.90); RDW 15.2 % (11.5-15.5)
[2021-08-12 16:02] LABS: African American GFR (CKD) >90 (>60 ml/min/1.73 sqM); Anion Gap 7 mmol/L; Blood Urea Nitrogen 18 mg/dL (9-20); Calcium 8.9 mg/dL (8.4-10.2); Carbon Dioxide 28 mmol/L (22-30); Chloride 103 mmol/L (98-107); Glucose 95 mg/dL (74-99); Magnesium 2.1 mg/dL (1.6-2.3); Non-African American GFR(CKD) 78 (>60 ml/min/1.73 sqM); Potassium 4.4 mmol/L (3.5-5.1); Sodium 138 mmol/L (137-145)
--- NOTE | 2021-08-12 16:56 | P.PN ---
Progress Note - Text Progress Note Date: 08/12/21 DYLON RAHMAN was called on this patient due to presyncope. Patient felt extremely dizzy and was about to fall. Monitor was showing almost persistent ventricular tachycardia. His heart rate was in 150-200 range. He was diaphoretic and clammy. He was weak feeling flutters and aches in the chest. Blood pressure was borderline in the 90s. Dejauriahcayla was called to the bedside, he was given lidocaine boluses and was restored in sinus rhythm. Time for critical care 32 minutes.
[2021-08-12] MEDS: ATORVASTATIN 80 MG TAB PO SCH (20:25)
[2021-08-13] MEDS: LIDOCAINE-D5W PMX 2G/250ML 2,000 MG in DEXTROSE/WATER 1 250ML.BAG IV SCH ×2 (03:52→21:34)
[2021-08-13 04:55] LABS: Basophils % (A) 0 %; Eosinophils # (A) 0.1 k/uL (0-0.7); Eosinophils % (A) 1 %; HCT 42.3 % (39.0-53.0); HGB 14.2 gm/dL (13.0-17.5); Lymphocytes # (A) 1.3 k/uL (1.0-4.8); Lymphocytes % (A) 27 %; MCH 28.7 pg (25.0-35.0); MCHC 33.7 g/dL (31.0-37.0); MCV 85.2 fL (80.0-100.0); Mean Platelet Volume 6.7; Monocytes # (A) 0.4 k/uL (0-1.0); Monocytes % (A) 8 %; Neutrophils # (A) 2.8 k/uL (1.3-7.7); Neutrophils % (A) 61 %; Platelet Count 201 k/uL (150-450); RBC 4.96 m/uL (4.30-5.90); RDW 15.4 % (11.5-15.5); WBC 4.6 k/uL (3.8-10.6)
[2021-08-13 05:21] LABS: African American GFR (CKD) >90 (>60 ml/min/1.73 sqM); Anion Gap 8 mmol/L; Blood Urea Nitrogen 15 mg/dL (9-20); Calcium 8.8 mg/dL (8.4-10.2); Carbon Dioxide 23 mmol/L (22-30); Chloride 106 mmol/L (98-107); Glucose 97 mg/dL (74-99); Magnesium 2.1 mg/dL (1.6-2.3); Non-African American GFR(CKD) 86 (>60 ml/min/1.73 sqM); Potassium 4.2 mmol/L (3.5-5.1); Sodium 137 mmol/L (137-145)
[2021-08-13 05:36] LABS: Glucose,Whole Blood 87 mg/dL (75-99)
[2021-08-13] MEDS ORDERED: ROCURONIUM 10 MG/ML (5 ML VIAL) IV ONE (08:03)
[2021-08-13] MEDS ORDERED: GLYCOPYRROLATE 0.2 MG/ML 2 ML VIAL ONE (08:03)
[2021-08-13] MEDS ORDERED: PROPOFOL 10 MG/ML 20 ML VIAL IV ONE (08:03)
[2021-08-13] MEDS ORDERED: NEOSTIGMINE 1 MG/ML 10 ML VIAL ONE (08:03)
[2021-08-13] MEDS ORDERED: SUCCINYLCHOLINE CHLORIDE 100 MG/5 ML SYR IV ONE (08:03)
[2021-08-13] MEDS ORDERED: MIDAZOLAM 2 MG/2 ML VIAL ONE (08:03)
[2021-08-13] MEDS ORDERED: HEPARIN SODIUM,PORCINE 10,000 UNIT/ML 1 ML VIAL ONE (08:03)
[2021-08-13] MEDS ORDERED: ONDANSETRON 4 MG/2 ML VIAL ONE (08:03)
[2021-08-13] MEDS ORDERED: fentaNYL (PF) 50 MCG/ML 2 ML AMP ONE (08:03)
[2021-08-13] MEDS ORDERED: PHENYLEPHRINE-0.9% NACL SYG 1,000 MCG/10 ML SYRINGE ONE (08:03)
[2021-08-13] MEDS ORDERED: IV FLUID CONTINUATION 1,000 ML IV ONE (08:03)
[2021-08-13] MEDS ORDERED: ISOPROTERENOL 250 MCG/1.25 ML SYR IV ONE (08:03)
[2021-08-13] MEDS ORDERED: FUROSEMIDE 10 MG/ML 2 ML VIAL ONE (08:03)
[2021-08-13] MEDS ORDERED: LIDOCAINE 1% INJ 10MG/ML (20 ML MDV) ONE ×2 (08:03→08:39)
--- NOTE | 2021-08-13 08:23 | P.EPCON ---
Electrophysiology Consult - EP Consult Electrophysiology Consult: This is Dr. Gilmore dictating a consult on this patient The patient was interviewed and examined IMPRESSION / ASSESSMENT: Recurrent monomorphic ventricular tachycardia despite sotalol and mexiletine Symptomatic Sustained episodes yesterday with presyncope/syncope Apical HCM, status post dual-chamber ICD Known coronary artery disease status post coronary stenting PLAN: Proceed with EP study and mapping of the recurrent ventricular tachycardia which is extremely symptomatic Consider coronary angiography since he has had coronary stenting, 2 vessel previously especially since his troponins were quite elevated at 12.0 HPI patient presented with recurrent chest discomfort and palpitations on August 08. In the ER he was having runs of ventricular tachycardia per 10 beats. He was complaining of lightheadedness He is on mexiletine. I received a call from Dr. Solano who was on-call over the weekend and I recommended starting sotalol 80 mg twice daily and if possible increasing 120 mg twice daily while awaiting an EP study/ablation Today on examination he denies any chest discomfort no shortness of breath at rest no orthopnea PND He is on lidocaine IV ROS: No fever chills or rigors, no cough, phlegm or expectoration, no nausea, vomiting or diarrhea, no hematuria, dysuria, no musculoskeletal complaints, no strokes or seizures, no skin lesions. EXAMINATION: Blood pressure 152/96. His mercury pulse rate in the 80s Breath sounds are clear no rhonchi no crackles Prabhakar date bases Heart sounds are normal normal S1 normal S2 Extremities warm no edema Good femoral pulses in the groin REVIEW OF LABS, ECG & MEDICAL DATA Hemoglobin 15.9 initially, platelet count normal 289,000 Sodium 139, potassium 5.1 BUN 21 and creatinine 1.3 Troponin 8.0 Troponin went up to 12 Chest x-ray shows retrocardiac opacity in the left lung base with a small effusion
[2021-08-13] MEDS ORDERED: HEPARIN SODIUM 1,000 UN/ML (10ML VL) ONE (08:39)
[2021-08-13] MEDS ORDERED: LIDOCAINE 1% INJ 10MG/ML (20 ML MDV) SQ ONE (08:51)
[2021-08-13] MEDS ORDERED: HEPARIN SOD,PORK IN 0.45% NACL 25,000 UNIT in 0.45% NACL 1 250ML.BAG IV ONE (08:52)
[2021-08-13] MEDS ORDERED: HEPARIN SODIUM (1,000 UNIT/ML) 1,000 UNIT in SODIUM CHLORIDE 0.9% 1,000 ML IRRIGATION ONE (09:37)
--- NOTE | 2021-08-13 09:41 | P.PN ---
Subjective Progress Note Date: 08/13/21 This is a 61-year-old gentleman admitted with recurrent V. tach, failed sotalol in the past, CAD with prior heart catheterization, diagnostic EP study, VT ablation, recent defibrillator placement. AICD interrogated, pacer adjusted. Elevated Troponins. Heparin drip discontinued as per cardiology, as they do not feel symptoms consistent with acute coronary syndrome, secondary to chest pain reported occurring only with runs of V. tach. Patient reports he is scheduled for ablation, one week from today. Maintained on Mexitil and sotalol. Systolic blood pressures in the 90s. Echo pending. Potassium down to 3.9,Creatinine improving down to 0.9. Denies chest pain, palpitations or shortness of breath at this time. 08/11/21 telemetry reporting atrial paced with no further arrhythmias reported. Patient asking about ablation being performed sooner. Further recommendations per cardiology/electrophysiology is pending. Denies chest pain, palpitations or increased shortness of breath. Currently maintaining high 90s O2 sat on 2 L nasal cannula. 08/12/2021 transferred out of ICU currently on telemetry unit. Medications further adjusted as per cardiology. No further arrhythmias reported per telemetry. Denies chest pain, palpitations or increasing shortness of breath. Scheduled for ablation tomorrow. 08/13/2021 yesterday afternoon had recurrent symptomatic ventricular tachycardia with heart rates ranging from 150s to 200s. Received lidocaine boluses of lidocaine drip initiated and patient was transferred back to ICU. patient sitting on stretcher, in route to ablation procedure. No arrhythmias during the night reported .Telemetry atrial paced. Denies any chest pain, palpitations or shortness of breath. Vital signs stable, hemoglobin 14.2, platelets 201, sodium 137, potassium 4.2, magnesium 2.1, renal function stable. Objective - Vital Signs Vital signs: Vital Signs Temp 98 F 08/13/21 04:00 Pulse 82 08/13/21 06:00 Resp 19 08/13/21 06:00 BP 155/90 08/13/21 06:00 Pulse Ox 93 L 08/13/21 06:00 Intake & Output 08/12/21 08/13/21 08/13/21 18:59 06:59 18:59 Intake Total 300 448.25 20 Output Total 1077 1750 Balance -777 -1301.75 20 Weight 114 kg Intake: IV 60 220 20 Sodium Chloride 0.9% 1, 60 220 20 000 ml @ 20 mls/hr IV . Q24H [facility] Rx#:[id number] Intake, IV Titration 228.25 Amount Lidocaine-D5w Pmx 2G/ 228.25 250Ml 2,000 mg In Dextrose/Water 1 250ml. bag @ 2 MG/MIN 15 mls/hr IV .[id number] [facility] Rx#: [id number] Oral 240 Output: Urine 1075 1750 Stool 2 Other: Voiding Method Urinal Urinal # Voids 1 1 - Exam - Exam PHYSICAL EXAMINATION: GENERAL: The patient is alert and oriented x3, sitting up on bedside commode, no acute distress. HEENT: Pupils are round and equally reacting to light. EOMI. No conjunctival pallor. Normocephalic, atraumatic. CARDIOVASCULAR: S1, S2 .Regular, paced PULMONARY:Good air entry into lung fleming, bilateral bases diminished ABDOMEN: Soft, nontender, nondistended, normoactive bowel sounds. No palpable organomegaly. EXTREMITIES: No cyanosis, clubbing, or pedal edema. NEUROLOGICAL: Gross neurological examination did not reveal any focal deficits. SKIN: Warm and dry, No rashes. - Labs CBC & Chem 7: 08/13/21 04:23 08/13/21 04:23 Labs: Abnormal Lab Results - Last 24 Hours (Table) 08/12/21 Range/Units 13:29 POC Glucose (mg/dL) 100 H (75-99) mg/dL Assessment and Plan Assessment: Recurrent monomorphic ventricular tachycardia Coronary artery disease Status post AICD Hypertension Hyperlipidemia Elevated troponins Acute kidney injury Hyperkalemia, improved Mild transaminitis Former nicotine dependence Morbid obesity, BMI 40 Plan: Continue on current medication regime ,monitoring and symptomatic treatment. In route to ablation procedure , cardiology discussing potential coronary angiography .Antiarrhythmics as per cardiology. Prognosis guarded given multiple complex medical issues. The impression and plan of care has been dictated as directed. : I performed a history and examination of this patient, discussed the same with the dictator. I agree with the dictator's note ,documented as a scribe. Any additional findings or plans will be noted.
[2021-08-13] MEDS ORDERED: LACTATED RINGERS 1,000 ML IV ONE (11:30)
[2021-08-13] MEDS ORDERED: SODIUM CHLORIDE 0.45% 1,000 ML IV SCH (12:30)
[2021-08-13 13:53] VITALS: BMI 38.2
[2021-08-13] MEDS ORDERED: IOPAMIDOL-370 50ML BTL INJ ONE (13:56)
--- NOTE | 2021-08-13 14:59 | P.EPPROC ---
- EP Procedure Note Electrophysiology Procedure Note: Procedure Diagnostic EP study and VT ablation Indication for the procedure Recurrent monomorphic ventricular tachycardia both recurrent nonsustained as well as sustained episodes The ventricular tachycardia seems to be originating from the inferior apex Associated dizzy spells Yesterday he had a sustained spell with near syncope in the hospital He has underlying apical HCM that was confirmed with cardiac MRI previously He also has two-vessel coronary artery disease and underwent coronary stenting to the LAD and left circumflex in March 2021 Subsequently underwent repeat cardiac catheterization then ventricular tachycardia was found and the stents were open in May 2021 A cardiac MRI revealed a small area of delayed enhancement in the apical septum According to the reading physician, this area of delayed enhancement was closest to the LV apical endocardium and was almost 1-2 cm away from the epicardium of the apex He is undergone diagnostic EP study and dual-chamber ICD implantation for HCM He has failed amiodarone on 2 occasions He has a partial response to sotalol in combination with mexiletine On this admission IV lidocaine suppressed his V. tach Details of the VT ablation procedure Patient was brought to the EP lab in a fasting state. Written informed consent was obtained prior to the procedure. Procedure was performed under general anesthesia The dual-chamber ICD, Loccit (ML4D) was interrogated and reprogrammed An 8.5-[place] arterial sheath, was placed in the right femoral artery Venous sheaths were placed in the left femoral veins Intracardiac echo/3-D anatomical mapping was performed A thick LV wall consistent with apical hypertrophy/apical HCM was noted VT could not be induced during the procedure However with burst stimulation PVCs and ventricular couplets similar to his cl inical VT were very consistently induced These became more prominent on low-dose Isuprel, one microgram Low-dose Isuprel used Burst stimulation was performed Sustained VT could not be induced However frequent PVCs and ventricular couplets similar to his VT morphology were consistently induced and mapped A Pentaray catheter was used to map the focus in the LV endocardium This is mapped to the inferior-septal endocardium close to the apex of the LV However the bipolar electrograms at best were on time with the onset of the QRS width deep unipolar electrograms Further mapping was performed with the irrigated ablation catheter the earliest bipolar electrogram that coincided with a deep QS pattern on the unipolar lead was only on time with the onset of the QRS The VT morphology was consistent with a deep myocardial focus RF ablation was applied at the earliest sites and around this lesion It had no impact on the PVCs and ventricular couplets The irrigated solution was changed to half normal saline Good contact force of up to 20-24 g was applied and power ranging from 30-40W was used to perform RF ablation This site was later interrogated with high output pacing and non-capture at the RF ablation site was confirmed Despite successful ablation lesions with non-capture in the LV endocardium, the PVCs and ventricular couplets continued All catheters were removed. Vascade closure device was used for the venous punctures Angio-Seal was used to close the femoral puncture site The ICD was interrogated and reprogrammed Patient tolerated the procedure well without any acute complications No pericardial effusion noted in the end of the procedure Impression Recurrent ventricular tachycardia from the apex, deep myocardial focus Despite effective RF ablation with half normal saline irrigated solution/irrigated RF catheter and demonstrated non-capture at these sites The PVCs/nonsustained VT could not be abolished Plan Consider epicardial mapping and ablation. Discussed with Dr. Driss Solano at the [facility] and the patient will be transferred as an inpatient for epicardial VT ablation However according to the cardiac MRI, the area of delayed enhancement in the apical LV septum is greater than 1-2 cm away from the epicardial surface The area of delayed enhancement in the apical septum was closest to the LV endocardium according to the MRI reader
[2021-08-13] MEDS ORDERED: ACETAMINOPHEN TAB 325 MG TAB PO PRN (15:40)
[2021-08-13] MEDS ORDERED: ACETAMINOPHEN IV (For NPO) 1,000 MG in EMPTY BAG 1 BAG IVPB ONE (16:00)
[2021-08-13] MEDS: PRASUGREL 10 MG TAB PO SCH (16:39)
[2021-08-13] MEDS: ASPIRIN 81 MG PO SCH (16:39)
[2021-08-13] MEDS: PANTOPRAZOLE 40 MG TABLET PO SCH ×2 (16:40→21:34)
[2021-08-13] MEDS: METOPROLOL SUCCINATE (ER) 50 MG TAB.ER.24H PO SCH (16:40)
[2021-08-13] MEDS: MAGNESIUM OXIDE 400 MG TAB PO SCH (16:40)
[2021-08-13] MEDS: SOTALOL 80 MG TAB PO SCH ×2 (16:40→21:34)
[2021-08-13 20:45] VITALS: PULSE 60
[2021-08-13] MEDS: SODIUM CHLORIDE 0.9% 1,000 ML IV SCH (21:33)
[2021-08-13] MEDS: ATORVASTATIN 80 MG TAB PO SCH (21:34)
[2021-08-14 00:16] VITALS: TEMP 98.1
[2021-08-14 04:19] VITALS: BP 154/87; RESP 29
== END 2021-08-14 06:51 | disposition other institution (70) | DRG 229 ==
LOC: EC 07:27 → 3SCARD 09:22 → 2SICU 08-09 06:09 → 3SCARD 08-11 14:03 → 2SICU 08-12 13:20
PROVIDERS: ADMIT Family Medicine; ATTEND Family Medicine
PROC: 02584ZZ Destruction of Conduction Mechanism, Percutaneous Endoscopic Approach (ICD-10-PCS; principal; 2021-08-13 08:00)
PROC: 02K84ZZ Map Conduction Mechanism, Percutaneous Endoscopic Approach (ICD-10-PCS; 2021-08-13 08:00)
PROC: 4A0234Z Measurement of Cardiac Electrical Activity, Percutaneous Approach (ICD-10-PCS; 2021-08-13 08:00)
DX: I47.2 Ventricular tachycardia (principal); N17.9 Acute kidney failure, unspecified; Z68.41 Body mass index [BMI] 40.0-44.9, adult; Z20.822 Contact with and (suspected) exposure to COVID-19; E66.01 Morbid (severe) obesity due to excess calories; E78.5 Hyperlipidemia, unspecified; E87.5 Hyperkalemia; I10 Essential (primary) hypertension; I25.10 Atherosclerotic heart disease of native coronary artery without angina pectoris; Z79.02 Long term (current) use of antithrombotics/antiplatelets; Z79.82 Long term (current) use of aspirin; Z79.899 Other long term (current) drug therapy; Z87.19 Personal history of other diseases of the digestive system; Z87.891 Personal history of nicotine dependence; Z95.810 Presence of automatic (implantable) cardiac defibrillator; R74.01 Elevation of levels of liver transaminase levels; R77.8 Other specified abnormalities of plasma proteins; R79.89 Other specified abnormal findings of blood chemistry
CPT/HCPCS: 36415; 71046; 80048; 80053; 80061; 83735; 83880; 84100; 84132; 84484; 85025; 85027; 85610; 85730; 87635; 93005; 93623; 93654; 93662; 94660

== ENCOUNTER 2022-01-14 09:34 | Day surgery (SDC) | payer MEDICAID ==
--- NOTE | 2022-01-13 18:59 | HP ---
HISTORY AND PHYSICAL DATE OF SURGERY: 01/14/2022 Axel Kramer is a 61-year-old patient seen with progressive right knee pain. We discussed options for treatment. He elected to proceed with right knee arthroscopy. Consent was obtained. PAST MEDICAL HISTORY: Hypertension, hyperlipidemia, gastroesophageal reflux disease. PAST SURGICAL HISTORY: Knee arthroscopy, herniorrhaphy, kidney stone surgery. DAILY MEDICATIONS: Atorvastatin, metoprolol, Protonix, losartan. SOCIAL HISTORY: He denies tobacco use. PHYSICAL EVALUATION OF THE RIGHT KNEE: His range of motion is zero to 120. Mild to moderate effusion. Tenderness, medial joint line. Positive medial Enrique's. Ligaments stable. Hip rotation without pain. Distal neurovascular exam is intact. Radiographs of the right knee revealed mild osteoarthritic changes. IMPRESSION: 1. Internal derangement of right knee with medial meniscal tear. 2. Cardiovascular disease. 3. Hypertension. PLAN: Right knee arthroscopy with partial medial meniscectomy and debridement. MMODL / IJN: [id number] /
[~2022-01-14 09:34] MED LIST changes: -ATROPINE SULFATE 0.4 MG/ML 1 ML VIAL IM NR; +DEXAMETHASONE SOD PHOSPHATE 4 MG/ML 1 ML VIAL IV ONE; +HYDROmorphone 0.5 MG/0.5 ML SYRINGE IVP PRN; +LACTATED RINGERS 1,000 ML IV SCH; +LIDOCAINE 1% (10MG/ML) FOR IV START INTRADERMA PRN; +ONDANSETRON 4 MG/2 ML VIAL IVP ONE
[2022-01-14] MEDS ORDERED: PROPOFOL 10 MG/ML 20 ML VIAL IV ONE (11:10)
[2022-01-14] MEDS ORDERED: MIDAZOLAM 2 MG/2 ML VIAL ONE (11:10)
[2022-01-14] MEDS ORDERED: fentaNYL (PF) 50 MCG/ML 2 ML AMP ONE (11:10)
[2022-01-14] MEDS ORDERED: BUPIVACAINE (PF) 0.25% 30 ML VIAL INTRAARTIC ONE ×2 (11:29→11:39)
--- NOTE | 2022-01-14 11:52 | P.OP ---
Date of Procedure: 01/14/22 Preoperative Diagnosis: Internal derangement right knee Postoperative Diagnosis: 1. Tear medial meniscus right knee 2. Grade 2/3 chondromalacia medial femoral condyle right knee 3. Reactive synovitis medial, lateral and suprapatellar compartments right knee Procedure(s) Performed: 1. Arthroscopic partial medial meniscectomy right knee 2. Arthroscopic chondroplasty medial femoral condyle right knee 3. Arthroscopic partial synovectomy medial, lateral and suprapatellar compartments right knee Anesthesia: REGINEA, local Surgeon: Endy Dutta Estimated Blood Loss (ml): 7 Pathology: none sent Condition: stable Disposition: PACU Indications for Procedure: 61-year-old patient seen with progressive right knee pain. After treatment options were discussed, he elected to proceed with arthroscopy. Operative Findings: See description of procedure Description of Procedure: Patient was taken to the operative suite. Patient underwent a general anesthetic by the department of anesthesia. Patient was given preoperative antibiotics. The right lower extremity was placed in a well-padded arthroscopic leg cowan. The right leg was prepped and draped in the normal sterile orthopedic fashion. A lateral parapatellar and suprapatellar incision was made. Trochars were inserted. Arthroscopy was initiated. Suprapatellar pouch revealed diffuse thick reactive synovitis. The patellofemoral joint appeared to articulate congruently. There was grade 2/3 chondromalacia of the patellofemoral joint with no significant osteochondral tears present. The scope was guided into the medial gutter. No loose bodies or plica were identified. The scope was then guided into the medial compartment. A medial parapatellar incision was made. Trocar inserted followed by probe. There was a radial tear involving the posterior horn of the medial meniscus. There were grade 2/3 chondromalacia changes about the medial femoral condyle with some osteochondral flap tears present. There was some thick reactive some-itis anteriorly. I performed a partial medial meniscectomy getting down to stable meniscal tissue. I performed a chondroplasty of the medial femoral condyle getting down to stable osteochondral tissue. I performed a partial synovectomy decompressing the thick reactive synovitis. The shaver was removed. The residual meniscus was probed and found to be stable. The residual osteochondral surface appeared stable. There was good decompression of some-itis anteriorly. Scope and probe were then guided into the intercondylar notch. Cruciates were identified, probed and found to be stable. The scope and probe were then guided into lateral compartment. Lateral meniscus was probed and found to be stable. There was some grade 1 chondromalacia changes involving the tibial plateau laterally with no osteochondral tears present. There was some thick reactive some-itis anteriorly. I introduced a motorized shaver and performed a partial synovectomy. Shaver was removed. There was good decompression of some-itis. The scope was in guided back into the suprapatellar compartment. I introduced a motorized shaver into the superapatellar compartment. I debrided some piecemeal fragments of meniscus that I encountered. I performed a partial synovectomy. The shaver was removed. There was good decompression of the synovitis. I now took one more look around the entire knee, no residual debris. Instruments were now removed from the joint. The joint was infiltrated with .25% Marcaine. Steri-Strips were applied to the portal sites. Sterile dressings were applied. The patient was placed into a MARCOS hose. No tourniquet was utilized. The patient was awakened, transferred to a bed and taken to recovery stable satisfactory condition.
[2022-01-14 12:32] VITALS: TEMP 97.3
[2022-01-14 13:36] VITALS: RESP 20
[2022-01-14 14:36] VITALS: BP 128/76; PULSE 65
== END 2022-01-14 14:43 | disposition home or self-care (01) ==
LOC: OR 09:34
PROVIDERS: ATTEND Orthopaedic Surgery
DX: M23.91 Unspecified internal derangement of right knee (principal); S83.241A Other tear of medial meniscus, current injury, right knee, initial encounter; M94.261 Chondromalacia, right knee; M65.9 Synovitis and tenosynovitis, unspecified; I10 Essential (primary) hypertension; E78.5 Hyperlipidemia, unspecified; K21.9 Gastro-esophageal reflux disease without esophagitis; I25.10 Atherosclerotic heart disease of native coronary artery without angina pectoris
CPT/HCPCS: 29881; 29876; J2250; J1100; J0690; J2405; J3010; J2704

== ENCOUNTER 2022-01-22 04:02 | Emergency (ER) | payer MEDICAID ==
[2022-01-22 04:09] VITALS: TEMP 97.2
[2022-01-22] MEDS ORDERED: ENOXAPARIN 120 MG/0.8 ML SYRINGE SQ STA (04:26)
--- NOTE | 2022-01-22 04:35 | ED ---
Lower Extremity Injury HPI - General Chief Complaint: Extremity Injury, Lower Stated Complaint: right leg pain Time Seen by Provider: 01/22/22 04:15 Source: patient Mode of arrival: ambulatory Limitations: no limitations - History of Present Illness Initial Comments: This patient is a 61-year-old man who presents to have evaluation of pain to the right leg, lower portion. Patient states that on January 14 he had arthroscopic knee surgery by Dr. Dutta. He had been doing well postoperatively until Tuesday. He stopped taking his pain medications and stopped wearing the compression stocking. Tuesday he noticed there was swelling and pain to the l ower portion of the leg. He also noticed that it was a little red. Over the interval since that time it has become more painful and is swelling. MD Complaint: other (Right leg pain) -: days(s) Injury: Leg: Right Place: home Severity: moderate Improves With: nothing Worsens With: movement, palpation - Related Data Home Medications Medication Instructions Recorded Confirmed Aspirin [Adult Low Dose Aspirin EC] 81 mg PO DAILY 03/06/21 12/21/21 Metoprolol Succinate (ER) [Toprol 100 mg PO DAILY 08/08/21 01/14/22 Xl] Amiodarone [Cordarone] 400 mg PO QAM 12/21/21 01/14/22 Losartan [Cozaar] 50 mg PO QAM 12/21/21 12/21/21 Pantoprazole [Protonix] 40 mg PO QAM 12/21/21 12/21/21 Promethazine [Phenergan] 25 mg PO DAILY PRN 12/21/21 01/14/22 Simethicone [Gas-X] 1 cap PO DAILY PRN 12/21/21 12/21/21 Magnesium 250 mg PO DAILY 01/14/22 01/14/22 Previous Rx's Medication Instructions Recorded Atorvastatin [Lipitor] 80 mg PO HS #90 tab 03/11/21 Nitroglycerin Sl Tabs [Nitrostat] 0.4 mg SUBLINGUAL Q5M PRN #25 tab 03/11/21 Prasugrel [Effient] 10 mg PO DAILY #90 tab 03/11/21 HYDROcodone/APAP 5-325MG [[place] 1 tab PO Q6HR PRN 4 Days #16 tab 01/14/22 5-325] Cephalexin [Keflex] 500 mg PO Q6HR #28 cap 01/22/22 Sulfamethox-Tmp 800-160Mg [Bactrim 1 each PO Q12HR #14 tab 01/22/22 Ds] Allergies Allergy/AdvReac Type Severity Reaction Status Date / Time No Known Allergies Allergy Verified 01/22/22 04:09 Review of Systems ROS Statement: Those systems with pertinent positive or pertinent negative responses have been documented in the HPI. ROS Other: All systems not noted in ROS Statement are negative. Constitutional: Denies: fever, chills, weakness Respiratory: Denies: cough, dyspnea Cardiovascular: Denies: chest pain, palpitations, orthopnea, edema, syncope Gastrointestinal: Denies: abdominal pain, vomiting, diarrhea Genitourinary: Denies: dysuria Musculoskeletal: Reports: as per HPI, arthralgia Skin: Denies: rash Neurological: Denies: weakness, numbness, paresthesias Past Medical History Past Medical History: Atrial Fibrillation, Coronary Artery Disease (CAD), Chest Pain / Angina, GERD/Reflux, Hyperlipidemia, Hypertension, Sleep Apnea/CPAP/BIPAP Additional Past Medical History / Comment(s): A-FIB WITH RAPID VENTRICULAR RESPONSE. HX OF RECTAL POLYP. HX COVID NOV 2020. CPAP. History of Any Multi-Drug Resistant Organisms: None Reported Past Surgical History: Cardiac Ablation, Heart Catheterization With Stent, Hernia Repair, Orthopedic Surgery, Pacemaker Additional Past Surgical History / Comment(s): AICD 06/15/21([employer] - [place] DUAL CHAMBER 100% ATRIAL PACEMAKER DEPENDENT), LEFT KNEE SCOPE, COLONOSCOPY, 2 STENTS. Past Anesthesia/Blood Transfusion Reactions: No Reported Reaction Date of Last Stent Placement:: 03/10/21 Type of Cardiac Device: Permanent Pacemaker Device Placement Date:: 06/15/21 Past Psychological History: No Psychological Hx Reported Smoking Status: Never smoker Past Alcohol Use History: Occasional Past Drug Use History: None Reported - Past Family History Mother Family Medical History: No Reported History General Exam Limitations: no limitations General appearance: alert, in no apparent distress Head exam: Present: atraumatic, normocephalic Eye exam: Present: normal appearance Neck exam: Present: normal inspection, full ROM Respiratory exam: Present: normal lung sounds bilaterally. Absent: respiratory distress, wheezes, rales, rhonchi, stridor Cardiovascular Exam: Present: regular rate, normal rhythm, normal heart sounds. Absent: systolic murmur, diastolic murmur, rubs, gallop GI/Abdominal exam: Present: soft. Absent: distended, tenderness, guarding, re bound, rigid, mass Extremities exam: Present: normal inspection, full ROM, normal capillary refill, calf tenderness, other (Right lower leg has moderate edema versus the contr alateral side. There is some circumferential erythema and warmth. The right knee looks good. There is only mild effusion. There is good range of motion.). Absent: tenderness Back exam: Present: normal inspection Neurological exam: Present: alert. Absent: motor sensory deficit Skin exam: Present: warm, dry, intact, erythema. Absent: rash Course Vital Signs 01/22/22 01/22/22 04:05 07:07 Temperature 97.2 F L Pulse Rate 75 56 L Respiratory 22 16 Rate Blood Pressure 173/84 116/71 O2 Sat by Pulse 100 100 Oximetry Medical Decision Making - Lab Data Result diagrams: 01/22/22 04:50 01/22/22 04:50 Lab Results 01/22/22 01/22/22 01/22/22 Range/Units 04:50 04:50 04:50 WBC 7.2 (3.8-10.6) k/uL RBC 4.46 (4.30-5.90) m/uL Hgb 14.2 (13.0-17.5) gm/dL Hct 42.0 (39.0-53.0) % MCV 94.2 (80.0-100.0) fL MCH 31.9 (25.0-35.0) pg MCHC 33.8 (31.0-37.0) g/dL RDW 15.1 (11.5-15.5) % Plt Count 149 L (150-450) k/uL MPV 7.6 Neutrophils % 71 % Lymphocytes % 18 % Monocytes % 7 % Eosinophils % 2 % Basophils % 1 % Neutrophils # 5.1 (1.3-7.7) k/uL Lymphocytes # 1.3 (1.0-4.8) k/uL Monocytes # 0.5 (0-1.0) k/uL Eosinophils # 0.2 (0-0.7) k/uL Basophils # 0.0 (0-0.2) k/uL D-Dimer 0.40 (<0.60) mg/L FEU Sodium 137 (137-145) mmol/L Potassium 4.8 (3.5-5.1) mmol/L Chloride 111 H (98-107) mmol/L Carbon Dioxide 21 L (22-30) mmol/L Anion Gap 5 mmol/L BUN 25 H (9-20) mg/dL Creatinine 0.88 (0.66-1.25) mg/dL Est GFR (CKD-EPI)AfAm >90 (>60 ml/min/1.73 sqM) Est GFR (CKD-EPI)NonAf >90 (>60 ml/min/1.73 sqM) Glucose 111 H (74-99) mg/dL Calcium 8.0 L (8.4-10.2) mg/dL Disposition Clinical Impression: Cellulitis Disposition: HOME SELF-CARE Condition: Good Instructions (If sedation given, give patient instructions): Cellulitis (ED) Prescriptions: Sulfamethox-Tmp 800-160Mg [Bactrim Ds] 1 each PO Q12HR #14 tab Cephalexin [Keflex] 500 mg PO Q6HR #28 cap Is patient prescribed a controlled substance at d/c from ED?: No Referrals: Philip Rascon DO [Primary Care Provider] - 1-2 days
[2022-01-22 05:01] LABS: Basophils % (A) 1 %; Eosinophils # (A) 0.2 k/uL (0-0.7); Eosinophils % (A) 2 %; HGB 14.2 gm/dL (13.0-17.5); Lymphocytes # (A) 1.3 k/uL (1.0-4.8); Lymphocytes % (A) 18 %; MCH 31.9 pg (25.0-35.0); MCHC 33.8 g/dL (31.0-37.0); MCV 94.2 fL (80.0-100.0); Mean Platelet Volume 7.6; Monocytes # (A) 0.5 k/uL (0-1.0); Monocytes % (A) 7 %; Neutrophils # (A) 5.1 k/uL (1.3-7.7); Neutrophils % (A) 71 %; Platelet Count 149 k/uL (150-450); RBC 4.46 m/uL (4.30-5.90); RDW 15.1 % (11.5-15.5); WBC 7.2 k/uL (3.8-10.6)
[2022-01-22] MEDS ORDERED: MORPHINE SULFATE 4 MG/ML SYRINGE IV STA (06:05)
[2022-01-22 06:21] LABS: African American GFR (CKD) >90 (>60 ml/min/1.73 sqM); Anion Gap 5 mmol/L; Blood Urea Nitrogen 25 mg/dL (9-20); Carbon Dioxide 21 mmol/L (22-30); Chloride 111 mmol/L (98-107); Glucose 111 mg/dL (74-99); Non-African American GFR(CKD) >90 (>60 ml/min/1.73 sqM); Potassium 4.8 mmol/L (3.5-5.1); Sodium 137 mmol/L (137-145)
--- NOTE | 2022-01-22 07:39 | US ---
EXAMINATION TYPE: US venous doppler duplex LE RT DATE OF EXAM: 01/22/2022 7:29 AM COMPARISON: NONE CLINICAL HISTORY: pain/swelling, possible DVT. SIDE PERFORMED: Right TECHNIQUE: The lower extremity deep venous system is examined utilizing real time linear array sonog patricia with graded compression, doppler sonography and color-flow sonography. VESSELS IMAGED: Common Femoral Vein Deep Femoral Vein Greater Saphenous Vein * Femoral Vein Popliteal Vein Small Saphenous Vein * Proximal Calf Veins (* superficial vessels) Right Leg: Negative for DVT IMPRESSION: 1. Right lower extremity ultrasound negative for deep venous thrombosis.
[2022-01-22 08:36] VITALS: BP 106/62; PULSE 63; RESP 18
== END 2022-01-22 08:36 | disposition home or self-care (01) ==
LOC: EC 04:02
DX: L03.115 Cellulitis of right lower limb (principal); I10 Essential (primary) hypertension; I48.91 Unspecified atrial fibrillation; I25.10 Atherosclerotic heart disease of native coronary artery without angina pectoris; E78.5 Hyperlipidemia, unspecified; K21.9 Gastro-esophageal reflux disease without esophagitis; Z79.82 Long term (current) use of aspirin; Z79.899 Other long term (current) drug therapy
CPT/HCPCS: 36415; 85379; 80048; 85025; 93971; 99284; 96365; 96375; J2270; J0690; J1650

== ENCOUNTER → 2022-03-02 | Outpatient (CLI) | payer MEDICAID ==
[2022-03-02 18:34] LABS: Basophils # (A) 0.02 X 10*3/uL (0.00-0.10); Basophils % (A) 0.5 %; Eosinophils # (A) 0.05 X 10*3/uL (0.04-0.35); Eosinophils % (A) 1.3 %; HCT 45.6 % (39.6-50.0); HGB 14.7 g/dL (13.0-17.0); Immature Grans, Automated 1.5 %; Lymphocytes # (A) 1.16 X 10*3/uL (0.90-5.00); MCH 30.7 pg (27.0-32.0); MCHC 32.2 g/dL (32.0-37.0); MCV 95.2 fL (80.0-97.0); Mean Platelet Volume 10.4 fL (9.5-12.2); Monocytes # (A) 0.36 X 10*3/uL (0.20-1.00); NRBC Per 100 WBC 0 /100 WBCS (0.0-0.0); Neutrophils # (A) 2.35 X 10*3/uL (1.80-7.70); Neutrophils % (A) 58.7 %; Platelet Count 132 X 10*3/uL (140-440); RBC 4.79 X 10*6/uL (4.40-5.60); RDW 13.2 % (11.5-14.5)
[2022-03-02 19:58] LABS: Anion Gap 10.4 mmol/L (10.00-18.00); Carbon Dioxide 22.6 mmol/L (20.0-27.5); Potassium 4.3 mmol/L (3.5-5.5)
== END | disposition home or self-care (01) ==
LOC: LABPAT 09:20
PROVIDERS: ATTEND Orthopaedic Surgery
DX: Z01.812 Encounter for preprocedural laboratory examination (principal); M23.92 Unspecified internal derangement of left knee
CPT/HCPCS: 80051; 85025

== ENCOUNTER 2022-03-24 08:25 | Day surgery (SDC) | payer MEDICAID ==
--- NOTE | 2022-03-23 15:14 | HP ---
HISTORY AND PHYSICAL REASON FOR ADMISSION: Surgery scheduled for 03/24/2022 HISTORY OF PRESENT ILLNESS: Kristen Kramer is a 61-year-old patient seen with progressive left knee pain. We discussed options for treatment. Patient elected to proceed with left knee arthroscopy. Consent was obtained. PAST MEDICAL HISTORY: Hypertension, hyperlipidemia, gastroesophageal reflux disease. PAST SURGICAL HISTORY: Knee arthroscopy, herniorrhaphy. DAILY MEDICATIONS: Atorvastatin, losartan, metoprolol, Protonix, aspirin. ALLERGIES: None. SOCIAL HISTORY: Denies tobacco use. PHYSICAL EVALUATION OF THE LEFT KNEE: Range of motion is -2 to 120. Mild effusion. Tenderness along the medial joint line with a positive medial Enrique's. Ligaments stable. Hip rotation without pain. Distal neurovascular exam intact. RADIOGRAPHS: Left knee revealed moderate osteoarthritis. IMPRESSION: 1. Internal derangement of left knee with medial meniscal tear. 2. Hypertension. 3. Hyperlipidemia. PLAN: Left knee arthroscopy with partial medial meniscectomy and debridement. Surgery is 03/24/2022. MMODL / IJN: [id number] /
[~2022-03-24 08:25] MED LIST changes: +SCOPOLAMINE 1 MG/72 HR PATCH TRANSDERM ONE; +ceFAZolin 3 GM in SODIUM CHLORIDE 0.9% 100 ML IVPB PRN
[2022-03-24] MEDS ORDERED: LIDOCAINE 2% INJ 20 MG/ML (2 ML VIAL) ONE (10:36)
[2022-03-24] MEDS ORDERED: SUCCINYLCHOLINE CHLORIDE 100 MG/5 ML SYR IV ONE (10:36)
[2022-03-24] MEDS ORDERED: PROPOFOL 10 MG/ML 20 ML VIAL IV ONE (10:36)
[2022-03-24] MEDS ORDERED: fentaNYL (PF) 50 MCG/ML 2 ML AMP ONE (10:36)
[2022-03-24] MEDS ORDERED: MIDAZOLAM 2 MG/2 ML VIAL ONE (10:36)
[2022-03-24] MEDS ORDERED: BUPIVACAINE (PF) 0.25% 30 ML VIAL SQ ONE (10:38)
--- NOTE | 2022-03-24 11:25 | P.OP ---
Date of Procedure: 03/24/22 Preoperative Diagnosis: Internal derangement left knee Postoperative Diagnosis: 1. Tear medial lateral meniscus left knee 2. Reactive synovitis medial, lateral and suprapatellar compartments left knee 3. Grade 2/3 chondromalacia medial femoral condyle left knee Procedure(s) Performed: 1. Arthroscopic partial medial and lateral meniscectomy left knee 2. Arthroscopic partial synovectomy medial, lateral and suprapatellar compartments left knee 3. Arthroscopic chondroplasty medial femoral condyle left knee Anesthesia: REGINEA, local Surgeon: Endy Dutta Estimated Blood Loss (ml): 8 Pathology: none sent Condition: stable Disposition: PACU Indications for Procedure: 61-year-old patient seen with progressive left knee pain. After treatment options were discussed, he elected to proceed with arthroscopy. Operative Findings: See description of procedure Description of Procedure: Patient was taken to the operative suite. Patient underwent a general anesthetic by the department of anesthesia. Patient was given preoperative antibiotics. The left lower extremity was placed in a well-padded arthroscopic leg cowan. The left leg was prepped and draped in the normal sterile orthopedic fashion. A lateral parapatellar and suprapatellar incision was made. Trochars were inserted. Arthroscopy was initiated. Suprapatellar pouch revealed diffuse thick reactive synovitis. The patellofemoral joint appeared to articulate congruently. There was grade 1 chondromalacia of the patella. The scope was guided into the medial gutter. No loose bodies or plica were identified. The scope was then guided into the medial compartment. A medial parapatellar incision was made. Trocar inserted followed by probe. There was a tear involving anterior horn medial meniscus. There were grade 2/3 chondromalacia changes the medial femoral condyle with some osteochondral flap tears present. There was some thick reactive synovitis anteriorly. I performed a partial medial meniscectomy getting down to stable meniscal tissue. I performed a chondroplasty of the medial femoral condyle getting down to stable osteochondral tissue. I performed a partial synovectomy decompressing the reactive synovitis. The residual meniscus was stable. The residual osteochondral surface was stable. There was good decompression of the synovitis. Scope and probe were then guided into the intercondylar notch. Cruciates were identified, probed and found to be stable. The scope and probe were then guided into lateral compartment. There was a radial tear involving the mid body of the lateral meniscus. There was mild grade 1 chondromalacia. There was some reactive synovitis anteriorly. I performed a partial lateral meniscectomy. I performed a partial synovectomy. The residual meniscus was stable. There was good decompression of the synovitis. The scope was in guided back into the suprapatellar compartment. I introduced a motorized shaver into the suprapatellar compartment. I performed a partial synovectomy. Shaver was removed. There was good decompression of the synovitis. I took one more look around the entire knee, no residual debris. Instruments were now removed from the joint. The joint was infiltrated with .25% Marcaine. Steri-Strips were applied to the portal sites. Sterile dressings were applied. The patient was placed into a MARCOS hose. No tourniquet was utilized. The patient was awakened, transferred to a bed and taken to recovery stable satisfactory condition.
[2022-03-24 11:28] VITALS: TEMP 98
[2022-03-24 11:40] VITALS: RESP 16
[2022-03-24 13:02] VITALS: BP 123/70; PULSE 62
== END 2022-03-24 13:30 | disposition home or self-care (01) ==
LOC: OR 08:25
PROVIDERS: ATTEND Orthopaedic Surgery
DX: M23.212 Derangement of anterior horn of medial meniscus due to old tear or injury, left knee (principal); M23.201 Derangement of unspecified lateral meniscus due to old tear or injury, left knee; M65.9 Synovitis and tenosynovitis, unspecified; M94.262 Chondromalacia, left knee; M17.12 Unilateral primary osteoarthritis, left knee; I10 Essential (primary) hypertension; E78.5 Hyperlipidemia, unspecified; K21.9 Gastro-esophageal reflux disease without esophagitis; Z79.82 Long term (current) use of aspirin; Z79.899 Other long term (current) drug therapy; I25.10 Atherosclerotic heart disease of native coronary artery without angina pectoris; Z95.810 Presence of automatic (implantable) cardiac defibrillator; I48.91 Unspecified atrial fibrillation; Z95.5 Presence of coronary angioplasty implant and graft; G47.33 Obstructive sleep apnea (adult) (pediatric); E66.9 Obesity, unspecified; Z68.38 Body mass index [BMI] 38.0-38.9, adult; Z87.891 Personal history of nicotine dependence; Z82.3 Family history of stroke; Z82.49 Family history of ischemic heart disease and other diseases of the circulatory system; Z83.79 Family history of other diseases of the digestive system
CPT/HCPCS: 29880; 29876; J2250; J1100; J0690; J2405; J3010; J0330; J2704; J2001

== ENCOUNTER → 2022-07-09 | Outpatient (CLI) | payer MEDICAID ==
[2022-07-09 18:30] LABS: African American GFR (CKD) 105.7 (60.0-200.0); Anion Gap 11.2 mmol/L (10.00-18.00); Blood Urea Nitrogen 15.3 mg/dL (9.0-27.0); Calcium 9.1 mg/dL (8.7-10.3); Carbon Dioxide 22.8 mmol/L (20.0-27.5); Magnesium 2.2 mg/dL (1.5-2.4); Non-African American GFR(CKD) 91.2 (60.0-200.0)
== END | disposition home or self-care (01) ==
LOC: LABWHC1 12:41
DX: Z51.81 Encounter for therapeutic drug level monitoring (principal); Z79.899 Other long term (current) drug therapy
CPT/HCPCS: 36415; 80048; 83735; 93005

== ENCOUNTER → 2022-09-27 | Outpatient (CLI) | payer MEDICAID | END | disposition home or self-care (01) | LOC: LABPAT 11:11 | PROVIDERS: ATTEND Orthopaedic Surgery | DX: Z01.812 Encounter for preprocedural laboratory examination (principal); Z22.322 Carrier or suspected carrier of Methicillin resistant Staphylococcus aureus; M17.12 Unilateral primary osteoarthritis, left knee | CPT/HCPCS: 87070 ==

== ENCOUNTER 2022-10-11 13:09 | Day surgery (SDC) | payer MEDICAID ==
--- NOTE | 2022-10-10 19:52 | HP ---
HISTORY AND PHYSICAL DATE OF SURGERY: 10/11/2022. HISTORY OF PRESENT ILLNESS: Axel Kramer is a 62-year-old patient seen with symptomatic left knee osteoarthritis. We discussed options for treatment. He elected to proceed with left total knee arthroplasty. Consent regarding the procedure was obtained. Medical clearance provided by Dr. Philip Rascon, cardiac clearance provided by Dr. Solano at [facility]. PAST MEDICAL HISTORY: Cardiovascular disease, hypertension, hyperlipidemia, gastroesophageal reflux disease. PAST SURGICAL HISTORY: Cardiac ablation, knee arthroscopy, herniorrhaphy. DAILY MEDICATIONS: 1. Atorvastatin. 2. Losartan. 3. Metoprolol. 4. Promethazine. 5. Protonix. 6. Amiodarone. 7. Aspirin. ALLERGIES: None. SOCIAL HISTORY: Denies tobacco use. PHYSICAL EVALUATION OF THE LEFT KNEE: His range of motion is 0 to 130. Mild effusion. Tenderness, medial joint line. Positive medial Enrique's. Ligaments are stable. Hip rotation is without pain. Distal neurovascular exam is intact. RADIOGRAPHS: Left knee radiographs revealed severe osteoarthritic changes. IMPRESSION: 1. Left knee osteoarthritis. 2. Hypertension. 3. Hyperlipidemia. 4. Cardiovascular disease. 5. Gastroesophageal reflux disease. PLAN: Left total knee arthroplasty. MMODL / IJN: [id number] /
[~2022-10-11 13:09] MED LIST changes: +ACETAMINOPHEN TAB 500 MG TAB PO PRN; -LACTATED RINGERS 1,000 ML IV SCH; -LIDOCAINE 1% (10MG/ML) FOR IV START INTRADERMA PRN; +MELOXICAM 7.5 MG TAB PO PRN; +MIDAZOLAM 2 MG/2 ML VIAL IV PRN; +TRANEXAMIC ACID IN NACL,ISO-OS 1,000 MG in SALINE 1 100ML.BAG IVPB PRN
[2022-10-11] MEDS: LACTATED RINGERS 1,000 ML IV SCH ×2 (13:31→19:06)
[2022-10-11] MEDS ORDERED: fentaNYL (PF) 50 MCG/1 ML VIAL IVP ONE (14:05)
[2022-10-11] MEDS ORDERED: MIDAZOLAM 2 MG/2 ML VIAL IVP ONE (14:05)
[2022-10-11] MEDS ORDERED: MIDAZOLAM 2 MG/2 ML VIAL ONE (14:46)
[2022-10-11] MEDS ORDERED: SODIUM CHLORIDE 0.9% (PF) 10 ML VIAL ONE (14:46)
[2022-10-11] MEDS ORDERED: KETAMINE 10 MG/ML 20 ML VIAL ONE (14:46)
[2022-10-11] MEDS ORDERED: PROPOFOL 10 MG/ML 20 ML VIAL IV ONE (14:46)
[2022-10-11] MEDS ORDERED: TRANEXAMIC ACID IN NACL,ISO-OS 1,000 MG/100 ML BAG ONE (14:46)
[2022-10-11] MEDS ORDERED: ROPIVACAINE 5 MG/ML 30 ML VIAL ONE (14:46)
[2022-10-11] MEDS ORDERED: fentaNYL (PF) 50 MCG/ML 2 ML AMP ONE (14:46)
--- NOTE | 2022-10-11 15:21 | P.ANPRN ---
Procedure Note - Anesthesia - Nerve Block Performed Left Adductor Canal Infusion Time Out Performed: Yes (1405) Date of Procedure: 10/11/22 Procedure Start Time: 14:06 Procedure Stop Time: 14:12 Location of Patient: PreOp Indication: Acute Post-Operative Pain, Requested by Surgeon Specifically requested for management of pain by DrLisandra: Endy Dutta Sedation Type: Sedate with meaningful contact maintained Preparation: Sterile Prep, Sterile Dressing Position: Supine Catheter Depth at Skin (cm): 8 Catheter: Indwelling Needle Types: Pajunk Needle Gauge: 21 Ultrasound used to visualize needle placement: Yes Ultrasound used to observe medication spread: Yes Injectate: 0.5% Ropivacaine (see comment for volume) (15cc+ 5cc nacl pf) Blood Aspirated: No Pain Paresthesia on Injection Noted: No Resistance on Injection: Normal Image Stored and Saved: Yes Events: Uneventful and Well Tolerated
[2022-10-11] MEDS ORDERED: ceFAZolin 1,000 MG in SODIUM CHLORIDE 0.9% 1,000 ML IRRIGATION ONE (15:22)
--- NOTE | 2022-10-11 15:22 | P.ANPRN ---
Procedure Note - Anesthesia - Nerve Block Performed Left iPack Time Out Performed: Yes (1405) Date of Procedure: 10/11/22 Procedure Start Time: 14:13 Procedure Stop Time: 14:17 Location of Patient: PreOp Indication: Acute Post-Operative Pain, Requested by Surgeon Specifically requested for management of pain by DrLisandra: Endy Dutta Sedation Type: Sedate with meaningful contact maintained Preparation: Sterile Prep Position: Supine Catheter: None Needle Types: Pajunk Needle Gauge: 21 Ultrasound used to visualize needle placement: Yes Ultrasound used to observe medication spread: Yes Injectate: 0.5% Ropivacaine (see comment for volume) Blood Aspirated: No Pain Paresthesia on Injection Noted: No Resistance on Injection: Normal Image Stored and Saved: Yes Events: Uneventful and Well Tolerated
[2022-10-11] MEDS ORDERED: HYDROmorphone 0.5 MG/0.5 ML SYRINGE IVP PRN ×2 (16:38)
[2022-10-11] MEDS ORDERED: HYDROcodone/APAP 5-325MG 1 EACH TAB PO PRN (16:38)
[2022-10-11] MEDS ORDERED: NALOXONE 0.4 MG/ML 1 ML VIAL IV PRN (16:38)
[2022-10-11] MEDS ORDERED: ONDANSETRON 4 MG/2 ML VIAL IVP PRN (16:38)
[2022-10-11] MEDS ORDERED: HYDROmorphone 1 MG/ML 1 ML SYRINGE IVP PRN (16:38)
--- NOTE | 2022-10-11 16:38 | P.OP ---
Date of Procedure: 10/11/22 Preoperative Diagnosis: Left knee osteoarthritis Postoperative Diagnosis: Left knee osteoarthritis Procedure(s) Performed: Left total knee arthroplasty Implants: 1. Depuy attune left size 8 cruciate retaining cemented femur 2. Depuy attune size 7 fixed bearing cemented tibial baseplate 3. Depuy attune size 8 cruciate retaining 7 mm polyethylene tibial insert 4. Depuy attune 38 mm all polyethylene cemented patella Anesthesia: regional (Adductor canal catheter, Ipack block), spinal Surgeon: Endy Dutta Loader Helper #1: Dimitrios Harrison Estimated Blood Loss (ml): 45 Pathology: other (Bone) Condition: stable Disposition: PACU Indications for Procedure: 62-year-old patient seen with symptomatic left knee osteoarthritis. After treatment options were discussed, he elected to proceed with total knee arthroplasty. Operative Findings: See description of procedure Description of Procedure: Patient was taken to the operative suite after having an adductor canal catheter placed by the department of anesthesia. Patient underwent a spinal anesthetic by the department of anesthesia. Patient was given preoperative IV intake antibiotics and TXA. A well-padded tourniquet was placed about the left lower extremity. The lower extremity was then prepped and draped in the normal sterile orthopedic fashion. The extremity was elevated, a tourniquet was insufflated to 300. A standard anterior incision was made sharply through skin. Dissection was taken down through the subcutaneous soft tissues down to the extensor mechanism. A medial arthrotomy was performed, patella was everted and knee was flexed. There was advanced osteoarthritis noted. I introduced my distal intramedullary femoral drill. I then introduced the distal femoral cutting jig. Nima WAGNER secured the cutting jig with 2 pins. I held retractors in position while Nima WAGNER performed the distal femoral resection through the guide area we now removed her distal femoral cutting gu joseph. We now placed our 4-in-1 femoral cutting block and positioned and it was secured with 2 pins by Nima WAGNER while I held the block in position. The distal femoral finishing was now completed. A proximal tibial cutting guide was positioned. I held the guide in the appropriate position with both hands well Nima WAGNER inserted stabilizing pins into the guide. Proximal tibial cut was made. We now placed a trial femoral component into position, along with an appropriate size tibial tray and insert. We now took the knee through range of motion and had full extension good flexion and good overall soft tissue balance noted. The patella was everted and stabilized with 2 towel clips held by Nima WAGNER while I performed a flush with patellar quad tendon utilizing a fresh sawblade. We templated the patella, appropriate drill holes were made. An appropriate trial patella was positioned, knee was taken through full range of motion with the patella tracking very nicely. The trial patella was removed. Drill holes were made through the femoral component. All trial components were removed after marking off the appropriate rotation of the tibia. Retractors were now positioned along the proximal tibia. An appropriate keel punch was made with the appropriate size tibial guide by myself on Nima WAGNER assisted by holding retractors. At this point appropriate size implants were chosen and opened. The joint was irrigated copiously with pulse lavage mechanical irrigation. The wound was irrigated with pulse lavage mechanical irrigation. We mixed antibiotic methylmethacrylate. We placed the knee into flexion. We placed multiple retractors assisted by Nima WAGNER to expose the proximal tibia. Once the methyl methacrylate was ready, the tibial component was cemented into place removing any excess methylmethacrylate form by both myself and Nima WAGNER. The femoral component was cemented into place removing the removing any excess methylmethacrylate performed by both myself and Nima WAGNER. We then inserted the appropriate size polyethylene tibial insert. We made sure that it was locked into position. We took the knee into full extension, a nd then back in a flexion making sure we had removed any excess methylmethacrylate. The patellar component was then cemented down and secured with clamp. Excess methylmethacrylate removed. We kept the knee in full extension, patellar clamp in position until methylmethacrylate had hardened. Once it had hardened the patellar clamp was removed. The knee was taken through full range of motion. The patella tracked nicely. There was good soft tissue balancing. The tourniquet was now released. Additional hemostasis was achieved via electrocautery. A second gram of TXA was given. The wound again was irrigated with pulse lavage mechanical irrigation. The extensor mechanism was repaired with Ethibond suture. We checked the repair with range of motion and it was stable. The subcutaneous soft tissues were repaired with Vicryl in layers. The skin was approximated with pernio/Dermabond. Sterile dressings were applied followed by loose web roll and Derek bandage. The patient was transf erred to a bed, and taken to recovery in stable and satisfactory condition. Nima WAGNER assisted with this complex procedure.
[2022-10-11] MEDS ORDERED: ROPIVACAINE 0.2%-NS ON-Q PUMP 2 MG/ML EACH MISCELLANE ONE (17:45)
--- NOTE | 2022-10-11 17:50 | XR ---
EXAMINATION TYPE: XR knee limited LT DATE OF EXAM: 10/11/2022 COMPARISON: 08/13/2022 HISTORY: Knee surgery TECHNIQUE: 2 views FINDINGS: There is a left knee prosthesis. Components are in anatomic position. IMPRESSION: No complicating process seen.
[2022-10-11] MEDS ORDERED: SENNOSIDES-DOCUSATE SODIUM 1 EACH TAB PO SCH (21:00)
[2022-10-11] MEDS ORDERED: ATORVASTATIN 80 MG TAB PO SCH (21:15)
[2022-10-11] MEDS: MEXILETINE 200 MG CAP PO SCH (21:23)
[2022-10-11] MEDS: HYDROcodone/APAP 7.5-325MG 1 EACH TAB PO PRN (22:27)
[2022-10-11] MEDS: ceFAZolin 3 GM in SODIUM CHLORIDE 0.9% 100 ML IVPB SCH (22:28)
[2022-10-12] MEDS: LACTATED RINGERS 1,000 ML IV SCH ×3 (02:28→12:14)
[2022-10-12] MEDS: MEXILETINE 200 MG CAP PO SCH ×2 (05:59→13:34)
[2022-10-12] MEDS ORDERED: LOSARTAN 50 MG TAB PO SCH (06:00)
[2022-10-12] MEDS ORDERED: METOPROLOL SUCCINATE (ER) 25 MG TAB.ER.24H PO SCH (06:00)
[2022-10-12] MEDS ORDERED: MAGNESIUM OXIDE 400 MG TAB PO SCH (06:00)
[2022-10-12] MEDS: ceFAZolin 3 GM in SODIUM CHLORIDE 0.9% 100 ML IVPB SCH (06:46)
[2022-10-12] MEDS ORDERED: PANTOPRAZOLE 40 MG TABLET PO SCH (07:30)
[2022-10-12 08:12] VITALS: BP 139/77; PULSE 70; RESP 18; TEMP 97.6
[2022-10-12] MEDS: HYDROcodone/APAP 7.5-325MG 1 EACH TAB PO PRN (08:22)
[2022-10-12] MEDS ORDERED: ENOXAPARIN 30 MG/0.3 ML SYRINGE SQ SCH (09:00)
[2022-10-12] MEDS ORDERED: MELOXICAM 7.5 MG TAB PO SCH (09:00)
[2022-10-12 09:04] LABS: Basophils # (A) 0.02 X 10*3/uL (0.00-0.10); Basophils % (A) 0.2 %; Eosinophils # (A) 0 X 10*3/uL (0.04-0.35); Eosinophils % (A) 0 %; HGB 13.8 g/dL (13.0-17.0); Immature Grans, Automated 0.6 %; Lymphocytes # (A) 0.72 X 10*3/uL (0.90-5.00); Lymphocytes % (A) 5.6 %; MCH 30.4 pg (27.0-32.0); MCHC 32.1 g/dL (32.0-37.0); MCV 94.7 fL (80.0-97.0); Mean Platelet Volume 10.7 fL (9.5-12.2); Monocytes # (A) 0.89 X 10*3/uL (0.20-1.00); NRBC Per 100 WBC 0 /100 WBCS (0.0-0.0); Neutrophils # (A) 11.07 X 10*3/uL (1.80-7.70); Neutrophils % (A) 86.6 %; Platelet Count 143 X 10*3/uL (140-440); RBC 4.54 X 10*6/uL (4.40-5.60); RDW 12.9 % (11.5-14.5); WBC 12.78 X 10*3/uL (4.50-10.00)
--- NOTE | 2022-10-12 09:33 | P.PN ---
Progress Note - Text Progress Note Date: 10/12/22 Patient seen in room at 0650 am POD #1 left TKA with perineural catheter infusing for post-operative pain management. Patient states he is doing fairly well this morning. VAS 1-2/10 at rest and 4-5/10 with ambulation. Taking oral analgesics as prescribed and expecting to be discharged to home today. Will follow up as indicated.
--- NOTE | 2022-10-12 12:15 | P.PN ---
Subjective Progress Note Date: 10/12/22 Principal diagnosis: Status post left total knee arthroplasty Patient evaluated at bedside today, he is resting comfortable in his hospital chair. He is ambulated very well with physical therapy. His pain as tolerated with current medications. He denies any headaches, lightheadedness, chest pain or shortness of breath. Objective - Vital Signs Vital signs: Vital Signs Temp 97.6 F 10/12/22 07:15 Pulse 70 10/12/22 07:15 Resp 18 10/12/22 07:15 BP 139/77 10/12/22 07:15 Pulse Ox 98 10/12/22 07:15 FiO2 Intake & Output 10/11/22 10/12/22 10/12/22 18:59 06:59 18:59 Intake Total 626 Output Total 45 Balance 581 Weight 128.6 kg 128.6 kg Intake: IV 626 Output: Estimated Blood Loss 45 Other: # Voids 2 1 - Exam Left lower extremity: Incision is clean, dry, and intact. The foam dressing is in good condition. [There is minimal soft tissue swelling and ecchymosis surrounding the medial and lateral aspects of the incision.] Calf is soft, no tenderness with palpation. Plantar flexion, dorsiflexion, EHL, FHL are intact. Sensory exam to light touch throughout the extremity is intact, [dorsal pedis pulses 2+.] - Labs CBC & Chem 7: 10/12/22 05:58 Labs: Abnormal Lab Results - Last 24 Hours (Table) 10/12/22 Range/Units 05:58 WBC 12.78 H (4.50-10.00) X 10*3/uL Immature Gran # 0.08 H (0.00-0.04) X 10*3/uL Neutrophils # 11.07 H (1.80-7.70) X 10*3/uL Lymphocytes # 0.72 L (0.90-5.00) X 10*3/uL Eosinophils # 0 L (0.04-0.35) X 10*3/uL Assessment and Plan Assessment: Postoperative day #1 status post left total knee arthroplasty Plan: Pain control, discharge on [place] 7.5 mg/325 mg DVT prophylaxis, aspirin 81 mg twice a day Wound care instructions discussed, this including use of On-Q pain catheter, showering instructions and icing and elevating Home physical therapy/nursing after discharge Medical recommendations Discharge planning: Patient stable for discharge home today Time with Patient: Less than 30
--- NOTE | 2022-10-12 12:19 | P.DS ---
Providers Date of admission: 10/11/2022 Expected date of discharge: 10/12/22 Attending physician: Endy Dutta Consults: 10/11/22 16:38 Consult Physician Routine Consulting Provider: Philip Rascon Reason/Comments: Medical management Do you want consulting provider notified?: Yes Primary care physician: Philip Rascon Hospital Course: Date of admission: 10/11/2022 Date of discharge: 10/12/2022 Admission diagnosis: Status post left total knee arthroplasty Discharge diagnosis: Same Attending physician: Dr. Dutta Surgical procedures: Left total knee arthroplasty Brief history: Patient is a 62-year-old male with a history of progressive primary left knee osteoarthritis. At this point patient has failed conservative treatment measures and has opted to proceed with a elective left total knee arthroplasty. Hospital course: Details of patient's surgery can be found in operative report. Patient tolerated the procedure well and was subsequently transported to orthopedic floor. Patient's orthopeidc and medical care was provided daily. Patient had daily laboratory tests performed for evaluation of overall blood counts. Patient had daily physical therapy to include strengthening range of motion as well as education with walker ambulation. Patient was treated with Lovenox for their postoperative DVT prophylaxis during their inpatient stay. Patient was noted to have a relatively uneventful postoperative course. Patient reported satisfactory pain control with oral pain medications by postoperative day 0. Patient showed satisfactory progress with physical therapy. Patient moved steadily through the program and had no difficulty meeting the goals by postoperative day 1. Given patient's otherwise satisfactory course and having met physical therapy goals, plan is to discharge patient [home] on postoperative day 1. Discharge condition/disposition: Patient will be discharged [home] in stable condition. Discharge medications: Instructions are given on resumption of patient's normal daily medications per primary care recommendation, in addition patient will be prescribed Joice 7.5 mg/325 mg, senna S, aspirin 81 mg. Discharge instructions: 1. Wound care and infection precautions, [keep incision dry and covered while showering], no lotions, creams, moisturizers. No soaking, tubs, pools, hottubs. Do not scrub over the incision. 2. Weight-bear [as tolerated] with walker / cane until follow-up. 3. Ice and elevate when necessary. Do not exceed 20 minutes per hour with ice pack. 4. Utilize compression sleeve until seen at first follow up appointment. 5. Visiting nursing care. 6. Home physical therapy [including home CPM]. 7. Pain meds and anticoagulants per prescription. 8. Pain medication has potential to cause constipation. Increase oral fluid and fiber intake. Contact primary care provider if you have not had a bowel movement within 48 hours after discharge 9. No anti-inflammatory medication until discussed at first post operative visit, this including Motrin, Aleve, Mobic, Diclofenac. 10. Follow up in office at 2 weeks postop with Nima Harrison PA-C/Kirill Pedroza 11. Follow up with your primary care doctor 7-10 days after discharge. 12. Contact [facility] with any questions, . Procedures: Left total knee arthroplasty Patient Condition at Discharge: Good Plan - Discharge Summary Discharge Rx Participant: No New Discharge Prescriptions: New HYDROcodone/APAP 7.5-325MG [Joice 7.5] 1 - 2 each PO Q6HR PRN #42 tab PRN Reason: Pain Sennosides/Docusate Sodium [Senna-S 8.6-50 mg Tablet] 1 each PO DAILY PRN #30 tablet PRN Reason: Constipation Aspirin [Adult Low Dose Aspirin EC] 81 mg PO BID #60 tab No Action Aspirin [Adult Low Dose Aspirin EC] 81 mg PO DAILY Losartan [Cozaar] 50 mg PO QAM Promethazine [Phenergan] 25 mg PO DAILY PRN PRN Reason: Nausea Simethicone [Gas-X] 1 cap PO DAILY PRN PRN Reason: GAS PAIN Metoprolol Succinate [Metoprolol Succinate ER] 75 mg PO QAM Atorvastatin [Lipitor] 80 mg PO HS Pantoprazole [Protonix] 40 mg PO QAM Magnesium 250 mg PO DAILY Mexiletine [Mexitil] 200 mg PO TID@0600,1400,2130 Discharge Medication List Aspirin [Adult Low Dose Aspirin EC] 81 mg PO DAILY 03/06/21 [History] Losartan [Cozaar] 50 mg PO QAM 12/21/21 [History] Pantoprazole [Protonix] 40 mg PO QAM 12/21/21 [History] Promethazine [Phenergan] 25 mg PO DAILY PRN 12/21/21 [History] Simethicone [Gas-X] 1 cap PO DAILY PRN 12/21/21 [History] Magnesium 250 mg PO DAILY 01/14/22 [History] Metoprolol Succinate [Metoprolol Succinate ER] 75 mg PO QAM 03/23/22 [History] Mexiletine [Mexitil] 200 mg PO TID@0600,1400,2130 03/23/22 [History] Atorvastatin [Lipitor] 80 mg PO HS 10/07/22 [History] Aspirin [Adult Low Dose Aspirin EC] 81 mg PO BID #60 tab 10/12/22 [Rx] HYDROcodone/APAP 7.5-325MG [Joice 7.5] 1 - 2 each PO Q6HR PRN #42 tab 10/12/22 [Rx] Sennosides/Docusate Sodium [Senna-S 8.6-50 mg Tablet] 1 each PO DAILY PRN #30 tablet 10/12/22 [Rx] Follow up Appointment(s)/Referral(s): [facility], [NON-STAFF] - As Needed Dimitrios Harrison PAC [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 Wound care and infection precautions, keep incision dry and covered while showering, no lotions, creams, moisturizers. No soaking, pools, hot tubs. Do not scrub over incision. 2. Weight-bear as tolerated with walker / cane until follow-up. 3. Ice and elevate when necessary. Do not exceed 20 minutes per hour with ice pack. 4. Utilize compression sleeve until seen at first follow up appointment. 5. Pain meds and anticoagulants per prescription. 6. Pain medication has potential to cause constipation. Increase oral fluid and fiber intake. Contact primary care provider if you have not had a bowel movement within 48 hours after discharge. 7. No anti-inflammatory medication until discussed at first post operative visit, this including Motrin, Aleve, Mobic, Diclofenac. 8. Follow up in office at 2 weeks postop with Nima Harrison PA-C/Kirill Callaway PA-C 9. Follow up with your primary care doctor 7-10 days after discharge. 10. Contact [facility] with any questions, . Wound care instructions: 1. Okay to remove foam dressing as of 10/18/2022 2. After removal of dressing, okay to shower directly over the incision Discharge Disposition: HOME WITH HOME HEALTH SERVICES
--- NOTE | 2022-10-12 15:37 | P.CONS ---
History of Present Illness - Reason for Consult Consult date: 10/12/22 Medical management hypertension, gastroesophageal reflux disease, atrial Requesting physician: Endy Dutta - Chief Complaint Left knee osteoarthritis - History of Present Illness Is a pleasant 62-year-old gentleman admitted with left knee osteoarthritis, status post left total knee arthroplasty in a patient with past medical history of CAD, prior cardiac catheterizations, arrhythmias-V. tach, AICD, laser ablation at [facility] and multiple other medical issues. Tolerated procedure well. Pain controlled on current med regimen. Tolerating diet with no nausea vomiting or diarrhea. Passing flatus. Ambulating with PT, denies lightheadedness dizziness or focal deficits. Denies chest pain, palpitations or shortness of breath. Maintaining O2 sats in the high 90s on room air. Afebrile, WBC 12.70. Review of Systems Constitutional: Denied any fatigue denied any fever. Cardio vascular: denied any chest pain, palpitations Gastrointestinal denied any nausea vomiting Pulmonary: Denied any shortness of breath cough Neurologic denied any new focal deficits ROS Statement: Those systems with pertinent positive or pertinent negative responses have been documented in the HPI. ROS Other: All systems not noted in ROS Statement are negative. Past Medical History Past Medical History: Atrial Fibrillation, Coronary Artery Disease (CAD), Chest Pain / Angina, GERD/Reflux, Hyperlipidemia, Hypertension, Sleep Apnea/CPAP/BIPAP Additional Past Medical History / Comment(s): CPAP use. Ventricular tachycardia History of Any Multi-Drug Resistant Organisms: None Reported Past Surgical History: Cardiac Ablation, Heart Catheterization With Stent, Hernia Repair, Orthopedic Surgery, Pacemaker Additional Past Surgical History / Comment(s): AICD 06/15/21([employer] - [place] DUAL CHAMBER 100% ATRIAL PACEMAKER DEPENDENT), LEFT KNEE SCOPE, COLONOSCOPY, 2 STENTS, total left knee Past Anesthesia/Blood Transfusion Reactions: No Reported Reaction Date of Last Stent Placement:: 03/10/21 Type of Cardiac Device: Permanent Pacemaker, AICD Device Placement Date:: 06/15/21 Smoking Status: Former smoker - Past Family History Father Family Medical History: Cancer, Coronary Artery Disease (CAD), CVA/TIA Additional Family Medical History / Comment(s): Mild skin cancer. Mother Family Medical History: No Reported History Medications and Allergies Home Medications Medication Instructions Recorded Confirmed Type Aspirin [Adult Low Dose Aspirin EC] 81 mg PO DAILY 03/06/21 10/11/22 History Losartan [Cozaar] 50 mg PO QAM 12/21/21 10/11/22 History Pantoprazole [Protonix] 40 mg PO QAM 12/21/21 10/11/22 History Promethazine [Phenergan] 25 mg PO DAILY PRN 12/21/21 10/11/22 History Simethicone [Gas-X] 1 cap PO DAILY PRN 12/21/21 10/11/22 History Magnesium 250 mg PO DAILY 01/14/22 10/11/22 History Metoprolol Succinate [Metoprolol 75 mg PO QAM 03/23/22 10/11/22 History Succinate ER] Mexiletine [Mexitil] 200 mg PO TID@0600,1400,2130 03/23/22 10/11/22 History Atorvastatin [Lipitor] 80 mg PO HS 10/07/22 10/11/22 History Aspirin [Adult Low Dose Aspirin EC] 81 mg PO BID #60 tab 10/12/22 Rx HYDROcodone/APAP 7.5-325MG [Trion 1 - 2 each PO Q6HR PRN #42 tab 10/12/22 Rx 7.5] Sennosides/Docusate Sodium 1 each PO DAILY PRN #30 tablet 10/12/22 Rx [Senna-S 8.6-50 mg Tablet] Allergies Allergy/AdvReac Type Severity Reaction Status Date / Time No Known Allergies Allergy Verified 10/11/22 13:28 Physical Exam Vitals: Vital Signs Temp Pulse Resp BP Pulse Ox 10/12/22 07:15 97.6 F 70 18 139/77 98 10/12/22 02:00 98.3 F 58 L 16 114/70 94 L 10/11/22 19:50 98.3 F 65 17 114/70 98 10/11/22 19:10 97.7 F 66 17 131/78 99 10/11/22 18:38 59 L 16 122/70 97 10/11/22 18:14 59 L 16 120/73 98 10/11/22 17:59 62 16 121/72 94 L 10/11/22 17:44 64 16 119/70 97 10/11/22 17:29 59 L 16 108/53 99 10/11/22 17:14 67 16 127/57 99 10/11/22 16:59 96.8 F L 60 18 91/54 98 Intake and Output 10/12/22 10/12/22 10/12/22 06:59 14:59 22:59 Other: # Voids 2 1 PHYSICAL EXAMINATION: GENERAL: The patient is alert and oriented x3, sitting up on bedside commode, no acute distress. HEENT: Pupils are round and equally reacting to light. EOMI. No conjunctival pallor. Normocephalic, atraumatic. CARDIOVASCULAR: S1, S2 .Regular, paced PULMONARY:Good air entry into lung fleming, bilateral bases diminished ABDOMEN: Soft, nontender, nondistended, normoactive bowel sounds. No palpable organomegaly. EXTREMITIES: Left knee dressing clean dry and intact, minimal edema and ecchymosis, no calf tenderness,positive DP pulse. NEUROLOGICAL: Gross neurological examination did not reveal any focal deficits. SKIN: Warm and dry, No rashes. Results CBC & Chem 7: 10/12/22 05:58 Labs: Abnormal Lab Results - Last 24 Hours (Table) 10/12/22 Range/Units 05:58 WBC 12.78 H (4.50-10.00) X 10*3/uL Immature Gran # 0.08 H (0.00-0.04) X 10*3/uL Neutrophils # 11.07 H (1.80-7.70) X 10*3/uL Lymphocytes # 0.72 L (0.90-5.00) X 10*3/uL Eosinophils # 0 L (0.04-0.35) X 10*3/uL Assessment and Plan Assessment: Left knee osteoarthritis, status post left total knee arthroplasty History of CAD, ventricular tachycardia, AICD, [facility] Hyperlipidemia Former nicotine dependence Morbid obesity, BMI 43.1 Plan: Continue on current medication regime ,monitoring and symptomatic treatment. Pain management, DVT prophylaxis as per orthopedic surgery. PT. Aggressive pulmonary toileting. Discharge planning in progress for today per primary. Thank you for the consult. Follow-up with PCP in one week. The impression and plan of care has been dictated as directed. : I performed a history and examination of this patient, discussed the same with the dictator. I agree with the dictator's note ,documented as a scribe. Any additional findings or plans will be noted.
== END 2022-10-12 14:21 | disposition home health service (06) ==
LOC: OR 13:09 → 4SSUR 16:31 → OR 10-12 14:21
PROVIDERS: ATTEND Orthopaedic Surgery
DX: M17.12 Unilateral primary osteoarthritis, left knee (principal); I10 Essential (primary) hypertension; E78.5 Hyperlipidemia, unspecified; I25.10 Atherosclerotic heart disease of native coronary artery without angina pectoris; K21.9 Gastro-esophageal reflux disease without esophagitis; Z98.890 Other specified postprocedural states; Z79.02 Long term (current) use of antithrombotics/antiplatelets; Z79.82 Long term (current) use of aspirin; Z79.1 Long term (current) use of non-steroidal anti-inflammatories (NSAID); Z79.811 Long term (current) use of aromatase inhibitors; Z79.891 Long term (current) use of opiate analgesic; Z79.83 Long term (current) use of bisphosphonates; Z79.899 Other long term (current) drug therapy; G89.18 Other acute postprocedural pain
CPT/HCPCS: 27447; 97161; 64999; 64448; 76942; 85025; 73560; C1776; C1713 ×2; C1751; J2250; J1100; J0690 ×3; J2405; J1170; J2795; J3010; 88300

== ENCOUNTER 2022-10-19 18:49 | Emergency (ER) | payer MEDICAID ==
[2022-10-19 19:48] VITALS: TEMP 98
--- NOTE | 2022-10-19 20:32 | US ---
EXAMINATION TYPE: US venous doppler duplex LE LT DATE OF EXAM: 10/19/2022 8:15 PM COMPARISON: NONE CLINICAL HISTORY: psin swelling left lower ext post surgery. Pain in left leg. Total knee replacement 8 days ago. No hx of DVT, on blood thinners SIDE PERFORMED: Left TECHNIQUE: The lower extremity deep venous system is examined utilizing real time linear array sonog patricia with graded compression, doppler sonography and color-flow sonography. VESSELS IMAGED: Common Femoral Vein Deep Femoral Vein Greater Saphenous Vein * Femoral Vein Popliteal Vein Small Saphenous Vein * Proximal Calf Veins (* superficial vessels) Left Leg: No evidence of DVT IMPRESSION: No evidence of deep vein thrombosis in the left leg.
--- NOTE | 2022-10-19 20:42 | ED ---
General Adult HPI - General Source: patient, RN notes reviewed Mode of arrival: wheelchair Limitations: no limitations <Georgia Archibald - Last Filed: 10/20/22 00:05> <Bryant Calle - Last Filed: 10/20/22 03:01> - General Chief complaint: Extremity Problem,Nontraumatic Stated complaint: pain lower left leg, poss clot - History of Present Illness Initial comments: 62 year old male presents to the emergency department with a chief complaint of L ankle pain x 2days. He is one week s/p L knee arthroplasty, done by Dr. Rooney. He notes that he has been taking [place] 7.5 without relief. He admits that he has been doing his physical therapy exercises and noticed today that the lateral aspect of his L ankle has been tender to palpation and he is unable to bear weight. He denies numbness, tingling, dizziness, chest pain, palpitations, shortness of breath, recent falls. He has been doing his post-op exercises and reports that a PA has been doing at home visits with him. (Georgia Archibald) - Related Data Home Medications Medication Instructions Recorded Confirmed Aspirin [Adult Low Dose Aspirin EC] 81 mg PO DAILY 03/06/21 10/11/22 Losartan [Cozaar] 50 mg PO QAM 12/21/21 10/11/22 Pantoprazole [Protonix] 40 mg PO QAM 12/21/21 10/11/22 Promethazine [Phenergan] 25 mg PO DAILY PRN 12/21/21 10/11/22 Simethicone [Gas-X] 1 cap PO DAILY PRN 12/21/21 10/11/22 Magnesium 250 mg PO DAILY 01/14/22 10/11/22 Metoprolol Succinate [Metoprolol 75 mg PO QAM 03/23/22 10/11/22 Succinate ER] Mexiletine [Mexitil] 200 mg PO TID@0600,1400,2130 03/23/22 10/11/22 Atorvastatin [Lipitor] 80 mg PO HS 10/07/22 10/11/22 Previous Rx's Medication Instructions Recorded Aspirin [Adult Low Dose Aspirin EC] 81 mg PO BID #60 tab 10/12/22 HYDROcodone/APAP 7.5-325MG [[place] 1 - 2 each PO Q6HR PRN #42 tab 10/12/22 7.5] Sennosides/Docusate Sodium 1 each PO DAILY PRN #30 tablet 10/12/22 [Senna-S 8.6-50 mg Tablet] methocarbamoL [Robaxin-750] 750 mg PO BID PRN 10 Days #20 tab 10/20/22 Allergies Allergy/AdvReac Type Severity Reaction Status Date / Time No Known Allergies Allergy Verified 10/11/22 13:28 Review of Systems ROS Other: All systems not noted in ROS Statement are negative. <Georgia Archibald - Last Filed: 10/20/22 00:05> ROS Other: All systems not noted in ROS Statement are negative. <Bryant Calle - Last Filed: 10/20/22 03:01> ROS Statement: Those systems with pertinent positive or pertinent negative responses have been documented in the HPI. Past Medical History Past Medical History: Hypertension Additional Past Medical History / Comment(s): A-FIB WITH RAPID VENTRICULAR RESPONSE. HX OF RECTAL POLYP. HX COVID NOV 2020. CPAP. vent tachycardia History of Any Multi-Drug Resistant Organisms: None Reported Past Surgical History: Cardiac Ablation, Heart Catheterization With Stent, Hernia Repair, Orthopedic Surgery, Pacemaker Additional Past Surgical History / Comment(s): AICD 06/15/21([employer] - [place] DUAL CHAMBER 100% ATRIAL PACEMAKER DEPENDENT), LEFT KNEE SCOPE, COLONOSCOPY, 2 STENTS, total left knee Past Anesthesia/Blood Transfusion Reactions: No Reported Reaction Date of Last Stent Placement:: 03/10/21 Type of Cardiac Device: Permanent Pacemaker Device Placement Date:: 06/15/21 Past Psychological History: No Psychological Hx Reported Smoking Status: Never smoker - Past Family History Father Family Medical History: Cancer, Coronary Artery Disease (CAD), CVA/TIA Mother Family Medical History: No Reported History <Georgia Archibald - Last Filed: 10/20/22 00:05> General Exam Limitations: no limitations <Georgia Archibald - Last Filed: 10/20/22 00:05> Course <Georgia Archibald - Last Filed: 10/20/22 00:05> Vital Signs 10/19/22 19:44 Temperature 98 F Pulse Rate 84 Respiratory 16 Rate Blood Pressure 130/53 O2 Sat by Pulse 98 Oximetry - Reevaluation(s) Reevaluation #1: 10/20/22 00:04 Patient updated on awaiting transport for Ct angiogram. Patient signed out to DOROTHY Carlos for continuation of care. (Georgia Archibald) Medical Decision Making - Lab Data Result diagrams: 10/20/22 01:03 10/20/22 01:03 <Bryant Calle - Last Filed: 10/20/22 03:01> - Medical Decision Making Patient was signed out to me pending results of laboratory studies, CT imaging. To summarize, he has been having some left lateral calf pain and ankle pain for the last 2 days. He is status post left knee arthroplasty done by Dr. Nani Thorne. Has a history of chronic lower extremity edema. Appears to be symmetrical edema. The patient. It is tender to palpation. Somewhat worsening pain with movement of his left ankle. He is concerned that he may be overdoing it with his postop exercises. Laboratory studies were obtained as well as CT imaging. Mid-level provider was concerned for possible arterial obstruction ischemia to the left leg, however she was able to palpate good pulses. She did order a CT angiogram for further evaluation. I evaluated the patient, and he has symmetrical edema. Tender to palpation over the lateral calf muscle. Peripheral pulses 2+ intact throughout. Normal sensation. No numbness. Compartments are soft. No other acute findings at this time. Patient has erythematous legs that are symmetrical and chronic. It is not warm to touch. No concern for cellulitis at this time. Laboratory studies were remarkable for a creatinine kinase that was within normal limits. Lactic acid is normal. No evidence of acute infection. CRP is minimally elevated likely secondary to recent surgery. Duplex obtained in the waiting room was negative for DVT. CT angiogram of the lower extremity revealed edema which is somewhat chronic for the patient but no angiographic abnormalities or obstruction. Left knee prosthesis appears within normal limits. On reevaluation come patient is resting comfortably. We discussed his workup. I believe it is safer to be discharged home. I do not have concern for compartment syndrome at this time. We did discuss strict return precautions. Patient was in agreement this plan. He'll follow up with his surgeon. I will provide the patient with a prescription for Robaxin. I instructed the patient to follow up with their PCP in the next 1-3 days. I explained that the patient should return to the emergency department if they experience any worsening symptoms. Strict return precautions were discussed with the patient. The patient expressed understanding of these instructions. I answered all questions that the patient had. The patient was discharged home in good condition with their prescriptions and follow up information. Was pt. sent in by a medical professional or institution (BERNARD Garcia, MYSQL DATABASE ADMINISTRATOR, urgent care, hospital, or prison...) When possible be specific @ -No Did you speak to anyone other than the patient for history (EMS, parent, family, police, friend...)? What history was obtained from this source @ -No Did you review nursing and triage notes (agree or disagree)? Why? @ -I reviewed and agree with nursing and triage notes Were old charts reviewed (outside hosp., previous admission, EMS record, old EKG, old radiological studies, urgent care reports/EKG's, prison records)? Report findings @ -Yes, reviewed old charts. Differential Diagnosis (chest pain, altered mental status, abdominal pain women, abdominal pain men, vaginal bleeding, weakness, fever, dyspnea, syncope, heada alicia, dizziness, GI bleed, back pain, seizure, CVA, palpatations, mental health)? @ -Compartment syndrome, muscle strain, postop complication. This is not all encompassing. EKG interpreted by me (3pts min.). @ -As above X-rays interpreted by me (1pt min.). @ -None done CT interpreted by me (1pt min.). @ -CTA of the left lower extremity is negative for angio graphic abnormality. Left knee prosthesis appears within acceptable limits. There is edema present in the left lower extremity, and this is symmetrical on exam. U/S interpreted by me (1pt. min.). @ -None done What testing was considered but not performed or refused? (CT, X-rays, U/S, labs)? Why? @ -None What meds were considered but not given or refused? Why? @ -None Did you discuss the management of the patient with other professionals (professionals i.e. BERNARD Garcia, MYSQL DATABASE ADMINISTRATOR, lab, RT, psych nurse, medical social worker, compressed gas equipment mechanic, teacher, founder and chief technical officer, manager pathology)? Give summary @ -No Was smoking cessation discussed for >3mins.? @ -No Was critical care preformed (if so, how long)? @ -No Were there social determinants of health that impacted care today? How? (Ho melessness, low income, unemployed, alcoholism, drug addiction, transportation, low edu. Level, literacy, decrease access to med. care, half-way, rehab)? @ -No Was there de-escalation of care discussed even if they declined (Discuss DNR or withdrawal of care, Hospice)? DNR status @ -No What co-morbidities impacted this encounter? (DM, HTN, Smoking, COPD, CAD, Cancer, CVA, ARF, Chemo, Hep., AIDS, mental health diagnosis, sleep apnea, morbid obesity)? @ -Recent left knee replacement Was patient admitted / discharged? Hospital course, mention meds given and route, prescriptions, significant lab abnormalities, going to OR and other pertinent info. @ -Discharged home. See above for ED course. Undiagnosed new problem with uncertain prognosis? @ -No Drug Therapy requiring intensive monitoring for toxicity (Heparin, Nitro, Insulin, Cardizem)? @ -No Were any procedures done? @ -No Diagnosis/symptom? @ -Muscle strain Acute, or Chronic, or Acute on Chronic? @ -Acute Uncomplicated (without systemic symptoms) or Complicated (systemic symptoms)? @ -Uncomplicated Side effects of treatment? @ -No Exacerbation, Progression, or Severe Exacerbation? @ -No Poses a threat to life or bodily function? How? (Chest pain, USA, PA, pneumonia, PE, COPD, DKA, ARF, appy, cholecystitis, CVA, Diverticulitis, Homicidal, Suicidal, threat to staff... and all critical care pts) @ -No Diagnosis/symptom? @ -Recent left knee arthroplasty Acute, or Chronic, or Acute on Chronic? @ -Acute Uncomplicated (without systemic symptoms) or Complicated (systemic symptoms)? @ -Uncomplicated Side effects of treatment? @ -none Exacerbation, Progression, or Severe Exacerbation] @ -no Poses a threat to life or bodily function? @ -no (Bryant Calle) - Lab Data Lab Results 10/20/22 10/20/22 10/20/22 Range/Units 01:03 01:03 01:03 WBC 6.7 (3.8-10.6) k/uL RBC 4.34 (4.30-5.90) m/uL Hgb 13.5 (13.0-17.5) gm/dL Hct 39.9 (39.0-53.0) % MCV 91.9 (80.0-100.0) fL MCH 31.1 (25.0-35.0) pg MCHC 33.8 (31.0-37.0) g/dL RDW 14.4 (11.5-15.5) % Plt Count 194 (150-450) k/uL MPV 7.5 Neutrophils % 68 % Lymphocytes % 22 % Monocytes % 5 % Eosinophils % 2 % Basophils % 1 % Neutrophils # 4.5 (1.3-7.7) k/uL Lymphocytes # 1.5 (1.0-4.8) k/uL Monocytes # 0.4 (0-1.0) k/uL Eosinophils # 0.2 (0-0.7) k/uL Basophils # 0.0 (0-0.2) k/uL Poikilocytosis Slight Sodium 140 (137-145) mmol/L Potassium 4.4 (3.5-5.1) mmol/L Chloride 106 (98-107) mmol/L Carbon Dioxide 28 (22-30) mmol/L Anion Gap 6 mmol/L BUN 16 (9-20) mg/dL Creatinine 0.99 (0.66-1.25) mg/dL Est GFR (CKD-EPI)AfAm >90 (>60 ml/min/1.73 sqM) Est GFR (CKD-EPI)NonAf 81 (>60 ml/min/1.73 sqM) Glucose 96 (74-99) mg/dL Plasma Lactic Acid Jules 1.2 (0.7-2.0) mmol/L Calcium 8.8 (8.4-10.2) mg/dL Creatine Kinase 76 (55-170) U/L C-Reactive Protein 1.1 H (<1.0) mg/dL Disposition <Georgia Archibald - Last Filed: 10/20/22 00:05> Is patient prescribed a controlled substance at d/c from ED?: No Time of Disposition: 02:35 <Bryant Calle - Last Filed: 10/20/22 03:01> Clinical Impression: Muscle strain, History of knee replacement Disposition: HOME SELF-CARE Condition: Good Prescriptions: methocarbamoL [Robaxin-750] 750 mg PO BID PRN 10 Days #20 tab PRN Reason: Pain Referrals: None,Stated [REFERRING] - 1-2 days
[2022-10-19] MEDS ORDERED: RX INFO: IV CONTRAST WAS GIVEN 1 EACH MISC MISCELLANE PRN (22:23)
[2022-10-19] MEDS ORDERED: HYDROcodone/APAP 7.5-325MG 1 EACH TAB PO ONE (22:40)
[2022-10-19] MEDS ORDERED: MORPHINE SULFATE 2 MG/ML SYRINGE IVP ONE (23:58)
[2022-10-20 01:09] LABS: Basophils % (A) 1 %; Eosinophils # (A) 0.2 k/uL (0-0.7); Eosinophils % (A) 2 %; HCT 39.9 % (39.0-53.0); HGB 13.5 gm/dL (13.0-17.5); Lymphocytes # (A) 1.5 k/uL (1.0-4.8); Lymphocytes % (A) 22 %; MCH 31.1 pg (25.0-35.0); MCHC 33.8 g/dL (31.0-37.0); MCV 91.9 fL (80.0-100.0); Mean Platelet Volume 7.5; Monocytes # (A) 0.4 k/uL (0-1.0); Monocytes % (A) 5 %; Neutrophils # (A) 4.5 k/uL (1.3-7.7); Neutrophils % (A) 68 %; Platelet Count 194 k/uL (150-450); Poikilocytosis Slight; RBC 4.34 m/uL (4.30-5.90); RDW 14.4 % (11.5-15.5); WBC 6.7 k/uL (3.8-10.6)
[2022-10-20 01:21] LABS: African American GFR (CKD) >90 (>60 ml/min/1.73 sqM); Anion Gap 6 mmol/L; Blood Urea Nitrogen 16 mg/dL (9-20); C Reactive Protein 1.1 mg/dL (<1.0); Calcium 8.8 mg/dL (8.4-10.2); Carbon Dioxide 28 mmol/L (22-30); Chloride 106 mmol/L (98-107); Creatine Kinase 76 U/L (55-170); Glucose 96 mg/dL (74-99); Non-African American GFR(CKD) 81 (>60 ml/min/1.73 sqM); Potassium 4.4 mmol/L (3.5-5.1); Sodium 140 mmol/L (137-145)
--- NOTE | 2022-10-20 02:27 | CT ---
EXAMINATION TYPE: CT angio lower extremity LT DATE OF EXAM: 10/20/2022 COMPARISON: None HISTORY: Left lower leg pain and swelling after post total knee replacement on 10/11/22. CT DLP: 1832.3 mGycm Automated exposure control for dose reduction was used. CONTRAST: Performed with IV Contrast, patient injected with 80cc mL of Isovue 370. Images obtained from the lower abdominal aorta to the left foot with the IV contrast. There are Three -D postprocessed images. There is arterial flow in the abdominal aorta. There is arterial flow in the left common internal and external iliac arteries. There is arterial flow in the left femoral artery and the profunda femoris artery. There is metal artifact from left hip prosthesis. There is arterial flow in the popliteal art dionne and tibial artery and tibial artery trifurcation. There is arterial flow in the anterior and post erior tibial artery and the peroneal artery. There is arterial flow in the posterior tibial artery an d dorsalis pedis artery at the ankle. There is arterial flow in the posterior tibial artery to the di stal metatarsals. No evidence of any hemodynamic stenosis. There is mild subcutaneous edema around th e foot and ankle and the lower leg. There is some mild subcutaneous edema around the thigh. No eviden ce of a soft tissue mass. No focal bone destruction. IMPRESSION: No angiographic abnormality of the left leg. Left knee prosthesis. Subcutaneous edema around the entire left leg.
[2022-10-20 03:02] VITALS: BP 144/67; PULSE 78; RESP 15
== END 2022-10-20 03:16 | disposition home or self-care (01) ==
LOC: EC 18:49
DX: T14.8XXA Other injury of unspecified body region, initial encounter (principal); Z96.653 Presence of artificial knee joint, bilateral; I10 Essential (primary) hypertension; I48.91 Unspecified atrial fibrillation; Z79.82 Long term (current) use of aspirin; Z86.16 Personal history of COVID-19; Z20.822 Contact with and (suspected) exposure to COVID-19
CPT/HCPCS: 36415; 80048; 82550; 83605; 85025; 86140; 96374; 99284

== ENCOUNTER → 2023-05-30 | Outpatient (CLI) | payer MEDICAID ==
--- NOTE | 2023-05-30 13:35 | XR ---
EXAMINATION TYPE: XR foot complete LT DATE OF EXAM: 05/30/2023 COMPARISON: NONE HISTORY: Pain TECHNIQUE: Three views are submitted. FINDINGS: The osseous structures are intact. There is no acute fracture or dislocation. Mild arthropathy fir st MTP. Calcaneal spur is noted. There is soft tissue edema. IMPRESSION: 1. No acute fracture or dislocation. If symptoms persist, follow-up exam in 7 to 10 days could be ob tained. 2. Diffuse soft tissue edema. 3. Calcaneal spurs.
--- NOTE | 2023-05-30 13:36 | US ---
EXAMINATION TYPE: US venous doppler duplex LE LT DATE OF EXAM: 05/30/2023 1:21 PM COMPARISON: US 2022 CLINICAL INDICATION: Male, 63 years old with history of LLE M79.662 PAIN R22.42 SWELLING; Left foot p ain SIDE PERFORMED: Left TECHNIQUE: The lower extremity deep venous system is examined utilizing real time linear array sonog patricia with graded compression, doppler sonography and color-flow sonography. VESSELS IMAGED: Common Femoral Vein Deep Femoral Vein Greater Saphenous Vein * Femoral Vein Popliteal Vein Small Saphenous Vein * Proximal Calf Veins (* superficial vessels) Grayscale, color doppler, spectral doppler imaging performed of the deep veins of the left lower extr emity. There is normal flow, compressibility, vascular waveforms. Left Leg: Appears negative for DVT IMPRESSION: No deep venous thrombosis of the left lower extremity.
== END | disposition home or self-care (01) ==
LOC: RADUSWWP 12:43
PROVIDERS: ATTEND Family Medicine
DX: M77.32 Calcaneal spur, left foot (principal); M79.662 Pain in left lower leg; R22.42 Localized swelling, mass and lump, left lower limb

== ENCOUNTER 2024-02-14 09:33 | Day surgery (SDC) | payer BC, MEDICAID ==
[~2024-02-14 09:33] MED LIST changes: -ACETAMINOPHEN TAB 500 MG TAB PO PRN; -DEXAMETHASONE SOD PHOSPHATE 4 MG/ML 1 ML VIAL IV ONE; -HYDROmorphone 0.5 MG/0.5 ML SYRINGE IVP PRN; +LACTATED RINGERS 1,000 ML IV SCH; +LIDOCAINE 1% (10MG/ML) FOR IV START INTRADERMA PRN; -MELOXICAM 7.5 MG TAB PO PRN; -MIDAZOLAM 2 MG/2 ML VIAL IV PRN; -ONDANSETRON 4 MG/2 ML VIAL IVP ONE; -SCOPOLAMINE 1 MG/72 HR PATCH TRANSDERM ONE; -TRANEXAMIC ACID IN NACL,ISO-OS 1,000 MG in SALINE 1 100ML.BAG IVPB PRN; -ceFAZolin 3 GM in SODIUM CHLORIDE 0.9% 100 ML IVPB PRN
[2024-02-14] MEDS: LACTATED RINGERS 1,000 ML IV ONE (10:08)
[2024-02-14] MEDS ORDERED: LIDOCAINE 1% INJ 10MG/ML (20 ML MDV) ONE (10:16)
[2024-02-14] MEDS ORDERED: fentaNYL (PF) 50 MCG/ML 2 ML AMP ONE (10:16)
[2024-02-14] MEDS ORDERED: PROPOFOL 10 MG/ML 20 ML VIAL IV ONE (10:16)
[2024-02-14 10:18] VITALS: RESP 18; TEMP 97.8
--- NOTE | 2024-02-14 10:18 | P.GSHP ---
History of Present Illness H&P Date: 02/14/24 Chief Complaint: Colon cancer screening 63-year-old male here for colonoscopy. Last colonoscopy about 7 years ago. Thinks he had polyps then. No bowel complaints. No family history of colon cancer. Past Medical History Past Medical History: Hyperlipidemia, Hypertension, Sleep Apnea/CPAP/BIPAP Additional Past Medical History / Comment(s): A-FIB WITH RAPID VENTRICULAR RESPONSE resolved. HX OF RECTAL POLYP. HX COVID NOV 2020. CPAP. vent tachycardia History of Any Multi-Drug Resistant Organisms: None Reported Past Surgical History: Cardiac Ablation, Heart Catheterization With Stent, Hernia Repair, Joint Replacement, Orthopedic Surgery, Pacemaker Additional Past Surgical History / Comment(s): AICD 06/15/21([employer] - [place] DUAL CHAMBER 100% ATRIAL PACEMAKER DEPENDENT), LEFT KNEE SCOPE, COLONOSCOPY, 2 STENTS, total left knee. last ablation 2021 Past Anesthesia/Blood Transfusion Reactions: No Reported Reaction Date of Last Stent Placement:: 03/10/21 Type of Cardiac Device: Permanent Pacemaker Device Placement Date:: 06/15/21 Smoking Status: Former smoker - Past Family History Father Family Medical History: Cancer, Coronary Artery Disease (CAD), CVA/TIA Mother Family Medical History: No Reported History Medications and Allergies Home Medications Medication Instructions Recorded Confirmed Type Aspirin [Adult Low Dose Aspirin EC] 81 mg PO HS 03/06/21 02/14/24 History Losartan [Cozaar] 50 mg PO HS 12/21/21 02/14/24 History Pantoprazole [Protonix] 40 mg PO HS 12/21/21 02/14/24 History Metoprolol Succinate [Metoprolol 75 mg PO HS 03/23/22 02/14/24 History Succinate ER] Atorvastatin [Lipitor] 80 mg PO HS 10/07/22 02/14/24 History Allergies Allergy/AdvReac Type Severity Reaction Status Date / Time No Known Allergies Allergy Verified 02/14/24 09:59 Surgical - Exam Vital Signs Temp Pulse Resp BP Pulse Ox 97.8 F 87 18 120/73 93 L 02/14/24 09:56 02/14/24 09:56 02/14/24 09:56 02/14/24 09:56 02/14/24 09:56 Physical exam: General: Well-developed, well-nourished HEENT: Normocephalic, sclerae nonicteric Abdomen: Nontender, nondistended Extremities: No edema Neuro: Alert and oriented Assessment and Plan (1) Colon cancer screening Narrative/Plan: Will proceed with colonoscopy at this time. Status: Acute Code(s): Z12.11 - ENCOUNTER FOR SCREENING FOR MALIGNANT NEOPLASM OF COLON SNOMED Code(s): 235305503
--- NOTE | 2024-02-14 10:39 | P.PCN ---
Date of Procedure: 02/14/24 Procedure(s) Performed: PREOPERATIVE DIAGNOSIS: Colon cancer screening POSTOPERATIVE DIAGNOSIS: Diverticulosis, tortuous colon PROCEDURE: Colonoscopy to the transverse colon ANESTHESIA: MAC SURGEON: Arturo Leon M.D. SPECIMENS: None ENDOSCOPIC PROCEDURE: The patient was placed on the endoscopy table in the left decubitus position. The Olympus colonoscope was inserted into the anus and passed under direct visualization to the region of the proximal transverse colon. The patient had some tortuosity throughout the left colon and we were unable to maintain any forward momentum despite abdominal wall pressure and position changes. There were no abnormalities throughout the visualized transverse descending sigmoid and rectum. There was mild left-sided diverticulosis. Digital rectal examination was normal. The patient was taken to the recovery room in stable condition per anesthesia guidelines. RECOMMENDATIONS: Will discuss endoscopic findings with patient. Consider barium enema at this time to evaluate the proximal colon. Cologuard would be another option to be performed in the outpatient setting.
[2024-02-14] MEDS: IV FLUID CONTINUATION 1,000 ML IV ONE (10:44)
[2024-02-14 11:16] VITALS: BP 102/60; PULSE 60
== END 2024-02-14 11:45 | disposition home or self-care (01) ==
LOC: ORWHC2ENDO 09:33
PROVIDERS: ATTEND Surgery
DX: Z12.11 Encounter for screening for malignant neoplasm of colon (principal); K57.30 Diverticulosis of large intestine without perforation or abscess without bleeding; K63.89 Other specified diseases of intestine; I25.10 Atherosclerotic heart disease of native coronary artery without angina pectoris; I48.91 Unspecified atrial fibrillation; I10 Essential (primary) hypertension; E78.5 Hyperlipidemia, unspecified; G47.33 Obstructive sleep apnea (adult) (pediatric); Z86.16 Personal history of COVID-19; Z86.010 Personal history of colon polyps; Z87.891 Personal history of nicotine dependence; Z95.810 Presence of automatic (implantable) cardiac defibrillator; Z98.890 Other specified postprocedural states; Z79.899 Other long term (current) drug therapy
CPT/HCPCS: 45378; J2001; J3010; J2704